=== PATIENT | male | born 1970 | race Caucasian/White ===

== ENCOUNTER → 2018-09-01 | Emergency (ER) | payer OTHER | END | disposition left against medical advice (07) | LOC: ER FS 20:58 | DX: R25.9 Unspecified abnormal involuntary movements (principal); E11.9 Type 2 diabetes mellitus without complications ==

== ENCOUNTER 2018-09-06 20:04 | Emergency (ER) | payer OTHER ==
[~2018-09-06] VITALS: Ht 172.7 cm; Wt 104.3 kg
--- NOTE | 2018-09-06 20:32 | ED General ---
General Chief Complaint: Abdominal/GI Problems Stated Complaint: VOMITTING History of Present Illness Date Seen by Provider: Sep 06, 2018 Time Seen by Provider: 21:00 Initial Comments Patient is a 48-year-old male who presents to the emergency department complaining of nausea with emesis. He states he woke up from a nap around 7:30 or 8:00 this evening. After that, he had 2 episodes of emesis. He has no additional complaints today. He does endorse a prior history of known liver disease with some sort of cancer although he cannot say what kind it is. He is followed at [facility]. No recent fever or chills. No cough. No additional problems. Allergies and Home Medications Allergies Coded Allergies: aripiprazole (Verified Allergy, Unknown, hallucinations, 09/06/18) zolpidem (Verified Allergy, Unknown, hallucinations, 09/06/18) Home Medications Haloperidol 5 Mg Tab, 10 MG PO HS, (Reported) Simvastatin 40 Mg Tablet, HS, (Reported) Patient Home Medication List Home Medication List Reviewed: Yes Review of Systems Review of Systems Constitutional: no symptoms reported EENTM: see HPI Respiratory: see HPI Cardiovascular: no symptoms reported Gastrointestinal: see HPI Genitourinary: no symptoms reported Musculoskeletal: no symptoms reported Skin: no symptoms reported Past Jqhltzt-Dstvwc-Xplpml Hx Patient Social History Recent Foreign Travel: No Contact w/Someone Who Travel: No Physical Exam Vital Signs Vital Signs - First Documented 09/06/18 20:41 Temp 98.8 Pulse 102 Resp 16 B/P (MAP) 144/80 (101) Pulse Ox 95 O2 Delivery Room Air Capillary Refill : Height, Weight, BMI Height: '" Weight: lbs. oz. kg; BMI Method: General Appearance: No Apparent Distress HEENT: PERRL/EOMI Respiratory: Lungs Clear Cardiovascular: Regular Rate, Rhythm Gastrointestinal: Normal Bowel Sounds, Non Tender, Soft Back: Normal Inspection Neurologic/Psychiatric: Alert, Oriented x3 Progress/Results/Core Measures Suspected Sepsis Recent Fever Within 48 Hours: No Infection Criteria Present: None New/Unexplained Altered Menta: No SIRS Temperature: Pulse: Respiratory Rate: Blood Pressure / Mean: Results/Orders My Orders Orders - SHANTANU CACERES DO Saline Lock/Iv-Start (09/06/18 20:48) Ondansetron Oral Dissolve Tab (Zofran (3/2/19 21:04) Vital Signs/I&O 09/06/18 20:41 Temp 98.8 Pulse 102 Resp 16 B/P (MAP) 144/80 (101) Pulse Ox 95 O2 Delivery Room Air Capillary Refill : Critical Care Note Critical Care Total Time (minutes) 21:15: ED Summary: Patient was evaluated in the emergency department for what he described to be 2 episodes of nonbloody emesis. His symptoms had completely resolved by the time he arrived in the ER. Although the patient does have some chronic health conditions, he had no additional acute complaints this evening. I did examine him thoroughly. His abdomen was obese and soft and nondistended. No peritoneal signs. No indication for imaging. The patient was well appearing with stable vital signs. In the ER, he was given 1 dose of Zofran. Following this, he was requesting to go outside and smoke a cigarette. At this time, I proposed that the patient be discharged home. Initially we ordered some labs and IV fluids but the patient declines desire to have all of this workup completed. He is nontoxic in appearance and I feel he is medically safe for discharge even without the workup. Patient did request discharge home. He was discharged and encouraged to follow up with his primary care doctor. Return to the ER for any new or worsening symptoms. Departure Impression Primary Impression: Nausea alone Disposition: 01 HOME, SELF-CARE Condition: Improved Departure-Patient Inst. Referrals: NO,LOCAL PHYSICIAN (PCP) Primary Care Physician SHANTANU CACEERS DO Sep 06, 2018 20:32
[2018-09-06] MEDS ORDERED: PHENYTOIN EX CAP 100MG (20:36)
[2018-09-06] MEDS ORDERED: METFORMIN TAB 500MG (20:36)
[2018-09-06] MEDS ORDERED: LORAZEPAM TAB 1MG (20:36)
[2018-09-06] MEDS ORDERED: POTASSIUM CHLORIDE (20:36)
[2018-09-06] MEDS ORDERED: RISPERIDONE 3 MG (20:36)
[2018-09-06] MEDS ORDERED: CITA40TA19 (20:53)
[2018-09-06] MEDS ORDERED: SIMV40TA2 (20:53)
[2018-09-06] MEDS ORDERED: HLP5T PO (20:53)
[2018-09-06] MEDS ORDERED: ONDANSETRON 4 MG/2 ML (SDV) Z0FRAN IVP ONE (21:00)
[2018-09-06] MEDS ORDERED: NS IV 1000 ML 1,000 ML IV SCH (21:00)
[2018-09-06] MEDS ORDERED: ONDANSETRON 4 MG (ZOFRAN) ORAL DISSOLVE TAB PO STA (21:04)
--- NOTE | 2018-09-06 21:05 | NUR ---
Pt refused iv.
[2018-09-06 21:15] VITALS: BP 138/76
== END 2018-09-06 21:15 | disposition home or self-care (01) ==
LOC: EDUNIT# 20:04 → ER FS 20:08
DX: R11.0 Nausea (principal); Z88.8 Allergy status to other drugs, medicaments and biological substances
CPT/HCPCS: 99283

== ENCOUNTER 2018-10-01 03:47 | Emergency (ER) | payer MEDICARE, MEDICAID ==
[~2018-10-01] VITALS: Ht 172.7 cm; Wt 104.3 kg
[~2018-10-01 03:47] MED LIST: CITA40TA19; HLP5T PO; LORAZEPAM TAB 1MG; METFORMIN TAB 500MG; PHENYTOIN EX CAP 100MG; POTASSIUM CHLORIDE; RISPERIDONE 3 MG; SIMV40TA2
[2018-10-01] MEDS ORDERED: NS IV 1000 ML 1,000 ML IV SCH (04:00)
[2018-10-01] MEDS ORDERED: ONDANSETRON 4 MG/2 ML (SDV) Z0FRAN IVP ONE (04:00)
--- NOTE | 2018-10-01 04:00 | ED Abdominal Pain ---
General Chief Complaint: Abdominal/GI Problems Stated Complaint: LOW BLOOD SURGAR Source of Information: Patient, EMS History of Present Illness Date Seen by Provider: Oct 01, 2018 Time Seen by Provider: 03:47 Initial Comments 48 yo M presenting with complaints of 3 weeks of abdominal pain with n/v/d. He states he is also having blood in his urine now. He reports a history of diabetes with liver cancer and cirrhosis. He presents to the ED by EMS transport from home. He walked from the ambulance to the ED room. He reports going to the [facility] on [address] yesterday and that they told him he had an inner ear infection and gave him Zofran. He presents tonight because he "wants to get better". He follows with Dr. Chadwick and has an appointment on October 06. He states his diarrhea has been "non-stop" for the last 3 weeks as well as his n/v. He has not gone to see his doctor at about his "stage 3 liver cancer and cirrhosis" since July and not gone to see Dr. Chadwick in the last 3 weeks of being sick. He was in the ED on September 06 for same complaints and left to smoke rather than wait to be seen. Severity/Quality: Cramping Location: Generalized Abdomen Allergies and Home Medications Allergies Coded Allergies: aripiprazole (Verified Allergy, Unknown, hallucinations, 10/01/18) zolpidem (Verified Allergy, Unknown, hallucinations, 10/01/18) Home Medications Dicyclomine HCl 20 Mg Tablet, 20 MG PO QID PRN for ABDOMINAL PAIN Prescribed by: LUIS LECHUGA on 10/01/18 0501 Haloperidol 5 Mg Tab, 10 MG PO HS, (Reported) Simvastatin 40 Mg Tablet, HS, (Reported) Patient Home Medication List Home Medication List Reviewed: Yes Review of Systems Review of Systems Constitutional: No chills, No dizziness, No fever; malaise EENTM: No Symptoms Reported Respiratory: Denies Cough, Denies Shortness of Air Cardiovascular: Denies Chest Pain, Denies Edema, Denies Lightheadedness Gastrointestinal: See HPI Genitourinary: Burning, Hematuria Musculoskeletal: no symptoms reported Skin: no symptoms reported Psychiatric/Neurological: No Symptoms Reported Hematologic/Lymphatic: Denies Easy Bleeding, Denies Easy Bruising Past Ylrgqic-Fzchzc-Utdxyy Hx Past Med/Social Hx: Reviewed Nursing Past Med/Soc Hx Patient Social History Alcohol Use: Denies Use Drug of Choice: marijuana Type Used: Cigarettes 2nd Hand Smoke Exposure: Yes Recent Foreign Travel: No Contact w/Someone Who Travel: No Past Medical History Respiratory: No Cardiac: No Neurological: No Genitourinary: No Hepatitis, Cirrhosis Musculoskeletal: No Diabetes, Non-Insulin dep HEENT: No Physical Exam Vital Signs Vital Signs - First Documented 10/01/18 04:00 Temp 98.3 Pulse 95 Resp 16 B/P (MAP) 152/82 (105) Pulse Ox 94 O2 Delivery Room Air Capillary Refill : Height/Weight/BMI Height: 5'8.00" Weight: 230lbs. oz. 104.961401rk; BMI Method:Stated General Appearance: WD/WN, no apparent distress HEENT: PERRL/EOMI, normal ENT inspection, TMs normal, pharynx normal Neck: non-tender, full range of motion, supple, normal inspection Respiratory: chest non-tender, lungs clear, normal breath sounds, no respiratory distress, no accessory muscle use Cardiovascular: normal peripheral pulses, regular rate, rhythm Gastrointestinal: normal bowel sounds, soft; No guarding, No rebound; tenderness (mild diffuse tenderness. ), other (obese abdomen) Rectal: deferred Extremities: normal range of motion, non-tender, normal inspection Neurologic/Psychiatric: alert, normal mood/affect, oriented x 3 Skin: normal color, warm/dry Progress/Results/Core Measures Results/Orders Lab Results Laboratory Tests Test 10/01/18 04:00 10/01/18 04:04 Range/Units White Blood Count 4.0 L 4.3-11.0 10^3/uL Red Blood Count 5.15 4.35-5.85 10^6/uL Hemoglobin 15.1 13.3-17.7 G/DL Hematocrit 44 40-54 % Mean Corpuscular Volume 86 80-99 FL Mean Corpuscular Hemoglobin 29 25-34 PG Mean Corpuscular Hemoglobin Concent 34 32-36 G/DL Red Cell Distribution Width 13.4 10.0-14.5 % Platelet Count 60 L 130-400 10^3/uL Mean Platelet Volume 11.2 H 7.4-10.4 FL Neutrophils (%) (Auto) 34 L 42-75 % Lymphocytes (%) (Auto) 51 H 12-44 % Monocytes (%) (Auto) 14 H 0-12 % Eosinophils (%) (Auto) 1 0-10 % Basophils (%) (Auto) 0 0-10 % Neutrophils # (Auto) 1.4 L 1.8-7.8 X 10^3 Lymphocytes # (Auto) 2.1 1.0-4.0 X 10^3 Monocytes # (Auto) 0.6 0.0-1.0 X 10^3 Eosinophils # (Auto) 0.0 0.0-0.3 10^3/uL Basophils # (Auto) 0.0 0.0-0.1 10^3/uL Sodium Level 136 135-145 MMOL/L Potassium Level 3.5 L 3.6-5.0 MMOL/L Chloride Level 98 98-107 MMOL/L Carbon Dioxide Level 24 21-32 MMOL/L Anion Gap 14 5-14 MMOL/L Blood Urea Nitrogen 12 7-18 MG/DL Creatinine 0.58 L 0.60-1.30 MG/DL Estimat Glomerular Filtration Rate > 60 BUN/Creatinine Ratio 21 Glucose Level 264 H 70-105 MG/DL Calcium Level 8.7 8.5-10.1 MG/DL Corrected Calcium 8.9 8.5-10.1 MG/DL Total Bilirubin 0.4 0.1-1.0 MG/DL Aspartate Amino Transf (AST/SGOT) 85 H 5-34 U/L Alanine Aminotransferase (ALT/SGPT) 69 H 0-55 U/L Alkaline Phosphatase 104 40-136 U/L Total Protein 7.4 6.4-8.2 GM/DL Albumin 3.8 3.2-4.5 GM/DL Lipase 43 8-78 U/L Urine Color DARK YELLOW Urine Clarity CLEAR Urine pH 5.5 5-9 Urine Specific [place] >1.030 1.016-1.022 Urine Protein TRACE NEGATIVE Urine Glucose (UA) 2+ H NEGATIVE Urine Ketones NEGATIVE NEGATIVE Urine Nitrite NEGATIVE NEGATIVE Urine Bilirubin NEGATIVE NEGATIVE Urine Urobilinogen 0.2 NORMAL MG/DL Urine Leukocyte Esterase NEGATIVE NEGATIVE Urine RBC (Auto) NEGATIVE NEGATIVE Urine RBC NONE /HPF Urine WBC NONE /HPF Urine Squamous Epithelial Cells 2-5 /HPF Urine Crystals NONE /LPF Urine Bacteria NONE /HPF Urine Casts NONE /LPF Urine Mucus NEGATIVE /LPF Urine Culture Indicated NO My Orders Orders - LUIS LECHUGA MD Comprehensive Metabolic Panel (10/01/18 03:58) Lipase (10/01/18 03:58) Ua Culture If Indicated (10/01/18 03:58) Saline Lock/Iv-Start (10/01/18 03:58) Cbc With Automated Diff (10/01/18 03:58) Ondansetron Injection (Zofran Injectio (10/01/18 04:00) Ns Iv 1000 Ml (Sodium Chloride 0.9%) (10/01/18 04:00) Dicyclomine Injection (Bentyl Injection) (10/01/18 04:57) Medications Given in ED Current Medications Medications Dose Ordered Sig/Chantel Route Start Time Stop Time Status Last Admin Dose Admin Ondansetron HCl 4 mg ONCE ONCE IVP 10/01/18 04:00 10/01/18 04:01 DC 10/01/18 04:05 4 MG Vital Signs/I&O 10/01/18 04:00 Temp 98.3 Pulse 95 Resp 16 B/P (MAP) 152/82 (105) Pulse Ox 94 O2 Delivery Room Air Progress Progress Note #1: Time: 04:00 Progress Note Will check Urine and Labs. Give Zofran with IVF. Exam seems benign and his vital signs and exam do not suggest 3 weeks of non stop n/v/d, but will give some extra hydration to help support his elevated glucose of 300. Progress Note #2: Time: 04:45 Progress Note After treatment in the ED he was improved. No Diarrhea or vomiting in the ED. His labs appear stable and he has no elevation of his WBC count. He has Thrombocytopenia of 60,000 and mild elevation of AST and ALT consistent with his reported hx of cirrhosis and liver disease. Urine slightly concentrated but no hematuria present. He has been coughing some here in the ED but his lungs are clear and he has a good oxygen saturation. No indication for chest xray or antibiotics. Counseled pt to take a Probiotic to help improve his gut and to take the Zofran to help his nausea. Use the Bentyl to help with abdominal pain/nausea and diarrhea. keep appt with Dr. Chadwick on Saturday as scheduled and return sooner or be seen sooner if more concerns. Departure Impression Primary Impression: Nausea vomiting and diarrhea Additional Impression: Diffuse abdominal pain Disposition: 01 HOME, SELF-CARE Condition: Improved Departure-Patient Inst. Decision time for Depature: 04:45 Referrals: NO,LOCAL PHYSICIAN (PCP) Primary Care Physician Patient Instructions: Diarrhea in Adolescents and Adults, Nausea and Vomiting, Adult (DC) Add. Discharge Instructions: Continue to push fluids and rest. Stay well hydrated. Check with Dr. Chadwick on Saturday as scheduled or sooner if more concerns. Use the Zofran dissolving tablets to help keep your stomach settled. You may also try using Bentyl (Dicyclomine) to help with abdominal pain and cramping. Start taking a ProBiotic to help your gut and intestines get back to a healthy balance of bacteria. All discharge instructions reviewed with patient and/or family. Voiced understanding. Scripts Dicyclomine HCl (Dicyclomine HCl) 20 Mg Tablet 20 MG PO QID PRN for ABDOMINAL PAIN for 7 Days, #30 TAB 0 Refills Prov: LUIS LECHUGA MD 10/01/18 LUIS LECHUGA MD Oct 01, 2018 04:00
[2018-10-01 04:26] LABS: CLARITY,URINE CLEAR; COLOR,URINE DARK YELLOW; GLUCOSE, URINE (UA) 2+ (NEGATIVE); PH,URINE 5.5 (5-9); PROTEIN,URINE TRACE (NEGATIVE)
[2018-10-01 04:27] LABS: BILIRUBIN,URINE NEGATIVE (NEGATIVE); KETONES,URINE NEGATIVE (NEGATIVE); LEUKOCYTE ESTERASE ,URINE NEGATIVE (NEGATIVE); NITRITE,URINE NEGATIVE (NEGATIVE); UROBILINOGEN,URINE 0.2 MG/DL (NORMAL)
[2018-10-01 04:27] LABS: HEMATOCRIT 44 % (40-54); HEMOGLOBIN 15.1 G/DL (13.3-17.7); MEAN CORPUSCULAR HEMOGLOBIN 29 PG (25-34); MEAN CORPUSCULAR HGB CONC 34 G/DL (32-36); MEAN CORPUSCULAR VOLUME 86 FL (80-99)
[2018-10-01 04:28] LABS: BASOPHILS % (AUTO) 0 % (0-10); EOSINOPHILS % (AUTO) 1 % (0-10); LYMPHOCYTES # (AUTO) 2.1 X 10^3 (1.0-4.0); LYMPHOCYTES % (AUTO) 51 % (12-44); MEAN PLATELET VOLUME 11.2 FL (7.4-10.4); MONOCYTES # (AUTO) 0.6 X 10^3 (0.0-1.0); MONOCYTES % (AUTO) 14 % (0-12); NEUTROPHILS # (AUTO) 1.4 X 10^3 (1.8-7.8); NEUTROPHILS % (AUTO) 34 % (42-75); PLATELET COUNT 60 10^3/uL (130-400); RED CELL DISTRIBUTION WIDTH 13.4 % (10.0-14.5)
--- NOTE | 2018-10-01 04:28 | NUR ---
PT. HAS ASKED TWICE TO GO OUT TO SMOKE.
[2018-10-01 04:40] LABS: ALANINE AMINOTRANSFERASE 69 U/L (0-55); ALKALINE PHOSPHATASE 104 U/L (40-136); BILIRUBIN,TOTAL 0.4 MG/DL (0.1-1.0); BUN/CREATININE RATIO 21; CALCIUM 8.7 MG/DL (8.5-10.1); CARBON DIOXIDE 24 MMOL/L (21-32); CHLORIDE 98 MMOL/L (98-107); CREATININE SERUM 0.58 MG/DL (0.60-1.30); GFR ESTIMATED > 60; GLUCOSE 264 MG/DL (70-105); POTASSIUM 3.5 MMOL/L (3.6-5.0); SODIUM 136 MMOL/L (135-145)
[2018-10-01 04:41] LABS: ALBUMIN 3.8 GM/DL (3.2-4.5); TOTAL PROTEIN 7.4 GM/DL (6.4-8.2)
--- NOTE | 2018-10-01 04:41 | NUR ---
PT. UP TO THE BATHROOM AT THIS TIME.
[2018-10-01 04:42] LABS: LIPASE 43 U/L (8-78)
[2018-10-01] MEDS ORDERED: DICYCLOMINE 10 MG/ML (BENTYL) 2 ML AMP IM STA (04:57)
[2018-10-01] MEDS ORDERED: DICY20TA10 PO (05:01)
[2018-10-01 05:07] VITALS: BP 152/82
[2018-10-01] MEDS ORDERED: INSU100I34 (18:19)
[2018-10-01] MEDS ORDERED: LORA1TAB (18:19)
[2018-10-01] MEDS ORDERED: BUDE10.2 (18:19)
== END 2018-10-01 05:05 | disposition home or self-care (01) ==
LOC: EDUNIT# 03:47 → ER FS 03:51
DX: R11.2 Nausea with vomiting, unspecified (principal); R19.7 Diarrhea, unspecified; R10.84 Generalized abdominal pain; E11.9 Type 2 diabetes mellitus without complications; K74.60 Unspecified cirrhosis of liver; Z77.22 Contact with and (suspected) exposure to environmental tobacco smoke (acute) (chronic); Z85.05 Personal history of malignant neoplasm of liver; Z88.8 Allergy status to other drugs, medicaments and biological substances
CPT/HCPCS: 36415; 80053; 81000; 83690; 85025

== ENCOUNTER 2018-10-01 17:41 | Emergency (ER) | payer MEDICARE, MEDICAID ==
[~2018-10-01] VITALS: Ht 172.7 cm; Wt 108.9 kg
[~2018-10-01 17:41] MED LIST changes: +DICY20TA10 PO
--- NOTE | 2018-10-01 18:07 | ED Neurological Problem ---
General Chief Complaint: Neurological Problems Stated Complaint: TREMORS History of Present Illness Date Seen by Provider: Oct 01, 2018 Time Seen by Provider: 18:05 Initial Comments julianne was [facility] getting [facility] he fell off he thinks he had a seizure he fell off the chair he hit his head he has had diarrhea for a few weeks now he did have labs less than 24 hours ago and for the most part looked pretty good platelets were little low otherwise stable he said he is actually feeling a little better now Allergies and Home Medications Allergies Coded Allergies: aripiprazole (Verified Allergy, Unknown, hallucinations, 10/01/18) zolpidem (Verified Allergy, Unknown, hallucinations, 10/01/18) Home Medications Dicyclomine HCl 20 Mg Tablet, 20 MG PO QID PRN for ABDOMINAL PAIN Prescribed by: LUIS LECHUGA on 10/01/18 0501 Haloperidol 5 Mg Tab, 10 MG PO HS, (Reported) Simvastatin 40 Mg Tablet, HS, (Reported) Patient Home Medication List Home Medication List Reviewed: Yes Review of Systems Review of Systems Constitutional: see HPI Respiratory: no symptoms reported Cardiovascular: no symptoms reported Genitourinary: no symptoms reported Psychiatric/Neurological: Headache Past Lgdlsgz-Psaqgs-Ktxzib Hx Past Med/Social Hx: Reviewed Nursing Past Med/Soc Hx Patient Social History Drug of Choice: marijuana Type Used: Cigarettes 2nd Hand Smoke Exposure: Yes Recent Foreign Travel: No Contact w/Someone Who Travel: No Past Medical History Respiratory: No Cardiac: No Neurological: No Genitourinary: No Hepatitis, Cirrhosis Musculoskeletal: No Diabetes, Non-Insulin dep HEENT: No Physical Exam Vital Signs Vital Signs - First Documented 10/01/18 17:49 Temp 99.3 Pulse 96 Resp 18 B/P (MAP) 125/72 (89) Pulse Ox 93 Capillary Refill : Height, Weight, BMI Height: 5'8.00" Weight: 230lbs. oz. 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 as tested, no motor/sensory deficits, alert, normal mood/affect, oriented x 3 Crainal Nerves: PERRL Skin: other (Small contusion to the forehead) Progress/Results/Core Measures Results/Orders Lab Results Laboratory Tests Test 10/01/18 17:58 Range/Units Glucometer 236 H 70-110 MG/DL My Orders Orders - HUONG ELLIOTT MD Accucheck Stat ONCE (10/01/18 18:04) Dilantin (Phenytoin) (10/01/18 18:04) Ct Head Wo (10/01/18 18:04) Vital Signs/I&O 10/01/18 17:49 Temp 99.3 Pulse 96 Resp 18 B/P (MAP) 125/72 (89) Pulse Ox 93 Progress Progress Note : Progress Note 48 y o m known seizure d/o p after probable seizure. bg within normal range. we tried to get dilantin level, he is hard stick and on top of that we cant run it at this hospital anyway it would be a send out. pt has occasional seizures, i think he can f/u with his doctor about his dilantin dosing prn. ct head neg acute pt wants to leave so he can smoke a cigarette Departure Impression Primary Impression: Seizure Disposition: 01 HOME, SELF-CARE Condition: Stable Departure-Patient Inst. Referrals: NO,LOCAL PHYSICIAN (PCP/Family) Primary Care Physician Patient Instructions: Seizures, Adult (DC) HUONG ELLIOTT MD Oct 01, 2018 18:07
[2018-10-01] MEDS ORDERED: LORA1TAB (18:19)
[2018-10-01] MEDS ORDERED: BUDE10.2 (18:19)
[2018-10-01] MEDS ORDERED: INSU100I34 (18:19)
--- NOTE | 2018-10-01 18:37 | Diagnostic Imaging Report ---
PROCEDURE: CT head without contrast. TECHNIQUE: Multiple contiguous axial images were obtained through the brain without the use of intravenous contrast. Auto Exposure Controls were utilized during the CT exam to meet ALARA standards for radiation dose reduction. INDICATION: Tremors, seizure-like activity. COMPARISON: None available. FINDINGS: No intracranial hemorrhage. No intracranial mass, mass effect, midline shift, herniation, hydrocephalus, or extra-axial fluid collection. No definite CT evidence of an acute ischemic infarction. The partially visualized orbits are unremarkable. No acute calvarial fracture. Mucosal thickening and fluid within scattered ethmoidal air cells and within the minimally visualized left maxillary sinus. IMPRESSION: 1. No acute intracranial abnormality. 2. Paranasal sinus disease is partially visualized on the left. Dictated by: Dictated on workstation # [id number]
[2018-10-01 19:09] VITALS: BP 150/75
== END 2018-10-01 19:11 | disposition home or self-care (01) ==
LOC: EDUNIT# 17:41 → ER FS 17:42
DX: R56.9 Unspecified convulsions (principal); E11.9 Type 2 diabetes mellitus without complications; F12.10 Cannabis abuse, uncomplicated; K74.60 Unspecified cirrhosis of liver; Z88.8 Allergy status to other drugs, medicaments and biological substances; Z77.22 Contact with and (suspected) exposure to environmental tobacco smoke (acute) (chronic)
CPT/HCPCS: 70450; 82962

== ENCOUNTER 2018-10-06 11:36 | Emergency (ER) | payer MEDICAID, MEDICARE ==
[~2018-10-06] VITALS: Ht 172.7 cm; Wt 104.3 kg
[~2018-10-06 11:36] MED LIST changes: +BUDE10.2; +INSU100I34; +LORA1TAB
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
[2018-10-06 13:05] VITALS: BP 103/72
== END 2018-10-06 13:05 | disposition home or self-care (01) ==
LOC: EDUNIT# 11:36 → ER FS 11:42
DX: S09.90XA Unspecified injury of head, initial encounter (principal); S16.1XXA Strain of muscle, fascia and tendon at neck level, initial encounter; F12.10 Cannabis abuse, uncomplicated; F17.210 Nicotine dependence, cigarettes, uncomplicated; G40.909 Epilepsy, unspecified, not intractable, without status epilepticus; F31.9 Bipolar disorder, unspecified; F60.9 Personality disorder, unspecified; R40.2142 Coma scale, eyes open, spontaneous, at arrival to emergency department; R40.2252 Coma scale, best verbal response, oriented, at arrival to emergency department; R40.2362 Coma scale, best motor response, obeys commands, at arrival to emergency department; Z87.19 Personal history of other diseases of the digestive system; Z87.820 Personal history of traumatic brain injury; Z88.8 Allergy status to other drugs, medicaments and biological substances; V49.50XA Passenger injured in collision with unspecified motor vehicles in traffic accident, initial encounter
CPT/HCPCS: 70450; 72125

== ENCOUNTER 2019-01-24 11:58 | Emergency (ER) | payer MEDICARE ==
[~2019-01-24] VITALS: Ht 172.7 cm; Wt 99.8 kg
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
[2019-01-24 12:30] LABS: BILIRUBIN,URINE NEGATIVE (NEGATIVE); CLARITY,URINE CLEAR; COLOR,URINE YELLOW; GLUCOSE, URINE (UA) NEGATIVE (NEGATIVE); KETONES,URINE NEGATIVE (NEGATIVE); LEUKOCYTE ESTERASE ,URINE NEGATIVE (NEGATIVE); NITRITE,URINE NEGATIVE (NEGATIVE); PROTEIN,URINE NEGATIVE (NEGATIVE); UROBILINOGEN,URINE 0.2 MG/DL (NORMAL)
[2019-01-24] MEDS ORDERED: IOHEXOL 350 MG/ML 100 ML (OMNIPAQUE 350) VIAL IV ONE (12:30)
[2019-01-24] MEDS ORDERED: HOLD METFORMIN - RECEIVED CONTRAST 20 ML VIAL IV SCH (12:30)
[2019-01-24] MEDS ORDERED: NS 100 ML (IVPB) BAG IV ONE (12:30)
[2019-01-24 12:40] LABS: AMPHETAMINE SCREEN, URINE NEGATIVE (NEGATIVE); BARBITURATE SCREEN URINE POSITIVE (NEGATIVE); BENZODIAZEPINES SCREEN URINE POSITIVE (NEGATIVE); CANNABINOID SCREEN, URINE NEGATIVE (NEGATIVE); COCAINE SCREEN URINE NEGATIVE (NEGATIVE); METHADONE STAT NEGATIVE (NEGATIVE); METHAMPHETAMINE SCREEN URINE S NEGATIVE (NEGATIVE); OPIATE SCREEN URINE NEGATIVE (NEGATIVE); OXYCODONE STAT NEGATIVE (NEGATIVE); PROPOXYPHENE STAT NEGATIVE (NEGATIVE); TRICYCLIC ANTIDEPRESSANTS SCRE POSITIVE (NEGATIVE)
[2019-01-24 12:45] LABS: BASOPHILS % (AUTO) 1 % (0-10); EOSINOPHILS # (AUTO) 0.1 10^3/uL (0.0-0.3); EOSINOPHILS % (AUTO) 3 % (0-10); HEMATOCRIT 43 % (40-54); HEMOGLOBIN 14.9 G/DL (13.3-17.7); LYMPHOCYTES % (AUTO) 41 % (12-44); MEAN CORPUSCULAR HEMOGLOBIN 31 PG (25-34); MEAN CORPUSCULAR HGB CONC 35 G/DL (32-36); MEAN CORPUSCULAR VOLUME 88 FL (80-99); MEAN PLATELET VOLUME 11.1 FL (7.4-10.4); MONOCYTES # (AUTO) 0.4 X 10^3 (0.0-1.0); MONOCYTES % (AUTO) 9 % (0-12); NEUTROPHILS # (AUTO) 2.3 X 10^3 (1.8-7.8); NEUTROPHILS % (AUTO) 47 % (42-75); PLATELET COUNT 66 10^3/uL (130-400); RED CELL DISTRIBUTION WIDTH 13.2 % (10.0-14.5); WHITE BLOOD COUNT 4.8 10^3/uL (4.3-11.0)
[2019-01-24 13:04] LABS: ALKALINE PHOSPHATASE 88 U/L (40-136); BILIRUBIN,TOTAL 0.4 MG/DL (0.1-1.0); BUN/CREATININE RATIO 17; CARBON DIOXIDE 24 MMOL/L (21-32); CHLORIDE 99 MMOL/L (98-107); CREATININE SERUM 0.75 MG/DL (0.60-1.30); GFR ESTIMATED > 60; GLUCOSE 230 MG/DL (70-105); POTASSIUM 4.2 MMOL/L (3.6-5.0); SODIUM 139 MMOL/L (135-145)
[2019-01-24 13:05] LABS: ALANINE AMINOTRANSFERASE 46 U/L (0-55); ALBUMIN 4.1 GM/DL (3.2-4.5); TOTAL PROTEIN 7.4 GM/DL (6.4-8.2)
--- NOTE | 2019-01-24 13:18 | Diagnostic Imaging Report ---
INDICATION: Shortness of breath COMPARISON: None. FINDINGS: Single view the chest demonstrates minimal atelectasis left lung base. The heart size is normal. There is no pneumothorax. Osseous structures are normal. IMPRESSION: Minimal atelectasis left lung base. Dictated by: Dictated on workstation # [id number]
--- NOTE | 2019-01-24 13:20 | Diagnostic Imaging Report ---
PROCEDURE: CT abdomen and pelvis with contrast. TECHNIQUE: Multiple contiguous axial images were obtained through the abdomen and pelvis after administration of intravenous contrast. Auto Exposure Controls were utilized during the CT exam to meet ALARA standards for radiation dose reduction. INDICATION: Painful urination. COMPARISON: None. FINDINGS: The lung bases are clear. There is slight splenomegaly. The gallbladder is surgically absent. Liver, pancreas, adrenal glands, kidneys, vascular structures and bowel are unremarkable. There is no significant constipation, free air or free fluid. Appendix is normal. Distal ureters and urinary bladder normal. There is no hydronephrosis or hydroureter. No obvious renal calculi are seen. The prostate is not enlarged. Inguinal regions are grossly normal. There is no lymphadenopathy. IMPRESSION: 1. Nonspecific mild splenomegaly. 2. Surgically absent gallbladder. 3. Normal-appearing kidneys, ureter, bladder and prostate. 4. No bowel obstruction, free air or free fluid. Dictated by: Dictated on workstation # [id number]
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
[2019-01-24] MEDS ORDERED: ACHD5005 PO (13:51)
[2019-01-24 14:05] VITALS: BP 122/79
[2019-01-24 17:14] LABS: AMMONIA 54 UMOL/L (11-32)
== END 2019-01-24 14:05 | disposition home or self-care (01) ==
LOC: EDUNIT# 11:58 → ER FS 11:59
DX: R25.9 Unspecified abnormal involuntary movements (principal); R10.9 Unspecified abdominal pain; G40.909 Epilepsy, unspecified, not intractable, without status epilepticus; F31.9 Bipolar disorder, unspecified; E11.9 Type 2 diabetes mellitus without complications; K74.60 Unspecified cirrhosis of liver; J45.909 Unspecified asthma, uncomplicated; G43.909 Migraine, unspecified, not intractable, without status migrainosus; K21.9 Gastro-esophageal reflux disease without esophagitis; F60.9 Personality disorder, unspecified; F17.210 Nicotine dependence, cigarettes, uncomplicated; Z85.05 Personal history of malignant neoplasm of liver; Z87.820 Personal history of traumatic brain injury; Z88.8 Allergy status to other drugs, medicaments and biological substances
CPT/HCPCS: 36415; 70450; 71045; 74177; 80053; 80185; 80306; 80320; 81000; 82140; 85025; 86141; 87040

== ENCOUNTER 2019-01-30 10:32 | Emergency (ER) | payer MEDICARE ==
[~2019-01-30] VITALS: Ht 172.7 cm; Wt 99.8 kg
[~2019-01-30 10:32] MED LIST changes: +ACHD5005 PO
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
[2019-01-30 11:10] LABS: BASOPHILS % (AUTO) 1 % (0-10); EOSINOPHILS # (AUTO) 0.2 10^3/uL (0.0-0.3); EOSINOPHILS % (AUTO) 3 % (0-10); HEMATOCRIT 44 % (40-54); HEMOGLOBIN 15.5 G/DL (13.3-17.7); LYMPHOCYTES # (AUTO) 1.5 X 10^3 (1.0-4.0); LYMPHOCYTES % (AUTO) 30 % (12-44); MEAN CORPUSCULAR HEMOGLOBIN 31 PG (25-34); MEAN CORPUSCULAR HGB CONC 35 G/DL (32-36); MEAN CORPUSCULAR VOLUME 88 FL (80-99); MEAN PLATELET VOLUME 10.5 FL (7.4-10.4); MONOCYTES # (AUTO) 0.4 X 10^3 (0.0-1.0); MONOCYTES % (AUTO) 9 % (0-12); NEUTROPHILS # (AUTO) 2.7 X 10^3 (1.8-7.8); NEUTROPHILS % (AUTO) 57 % (42-75); PLATELET COUNT 70 10^3/uL (130-400); RED CELL DISTRIBUTION WIDTH 13.1 % (10.0-14.5); WHITE BLOOD COUNT 4.8 10^3/uL (4.3-11.0)
[2019-01-30 11:28] LABS: BUN/CREATININE RATIO 19; CALCIUM 9.7 MG/DL (8.5-10.1); CARBON DIOXIDE 24 MMOL/L (21-32); CHLORIDE 95 MMOL/L (98-107); GFR ESTIMATED > 60; GLUCOSE 377 MG/DL (70-105); POTASSIUM 4.2 MMOL/L (3.6-5.0); SODIUM 134 MMOL/L (135-145)
--- NOTE | 2019-01-30 12:55 | ED General ---
General Chief Complaint: Neurological Problems Stated Complaint: SEIZURE Nursing Triage Note: PT REPORTS HE FELL OUT OF BED AND OUT OF HIS CHAIR LAST PM, UNKNOWN REASON WHY. HE REPORTS HE FELL OUT OF HIS CHAIR THIS AM AND HIS REPORTED TO HIM THAT HE WAS BITING HIS TONGUE. PT IS ON DILANTIN AND HAS NOT HAD LEVELS CHECKED IN AWHILE. Nursing Sepsis Screen: No Definite Risk Source of Information: Patient History of Present Illness Date Seen by Provider: Jan 30, 2019 Time Seen by Provider: 10:50 Initial Comments Patient is 48-year-old male with extensive psychiatric history along with general medical problems including seizure disorder and seizures who presents his medicine department complaining of seizure-like activity earlier this morning. Patient reports shaking upper and lower extremities and following down. Denies hitting his head, headache, neck injury. Patient also reports constipation but then complaints of diarrhea. He also complains of diffuse lower abdominal pain with urge to defecate. Denies bloody stools or tarry stools. No flank pain, any frequency urgency dysuria or hematuria. No history of kidney stones. No other acute symptoms or complaints. Timing/Duration: 1 Hour Severity: Mild Associated Systoms: Denies Symptoms Allergies and Home Medications Allergies Coded Allergies: aripiprazole (Verified Allergy, Unknown, hallucinations, 10/01/18) zolpidem (Verified Allergy, Unknown, hallucinations, 10/01/18) Home Medications Dicyclomine HCl 20 Mg Tablet, 20 MG PO QID PRN for ABDOMINAL PAIN Prescribed by: LUIS LECHUGA on 10/01/18 0501 Haloperidol 5 Mg Tab, 10 MG PO HS, (Reported) Hydrocodone Bit/Acetaminophen 1 Tab Tab, 1 EACH PO Q4-6HR PRN for PAIN-MODERATE Prescribed by: HILDA YBARRA on 01/24/19 1351 Simvastatin 40 Mg Tablet, HS, (Reported) Patient Home Medication List Home Medication List Reviewed: Yes Review of Systems Review of Systems Constitutional: no symptoms reported EENTM: no symptoms reported Respiratory: no symptoms reported Cardiovascular: no symptoms reported Gastrointestinal: no symptoms reported Genitourinary: see HPI Musculoskeletal: no symptoms reported Skin: no symptoms reported Psychiatric/Neurological: No Symptoms Reported Hematologic/Lymphatic: No Symptoms Reported Immunological/Allergic: no symptoms reported Past Myabofb-Qtarvc-Tzlavk Hx Past Med/Social Hx: Reviewed Nursing Past Med/Soc Hx Patient Social History Alcohol Use: Denies Use Recreational Drug Use: Yes Drug of Choice: marijuana Smoking Status: Current Everyday Smoker Type Used: Cigarettes 2nd Hand Smoke Exposure: Yes Recent Foreign Travel: No Contact w/Someone Who Travel: No Recent Infectious Disease Expo: No Physical Abuse: No Sexual Abuse: No Mistreated: No Fear: No Past Medical History Gallbladder, Orthopedic Respiratory: Yes Asthma Cardiac: No Neurological: Yes Headaches /Migraines, Seizure Disorder, Traumatic Brain Injury Genitourinary: No Gastroesophageal Reflux, Hepatitis, Cirrhosis Musculoskeletal: No Diabetes, Non-Insulin dep HEENT: No Cancer: No Psychosocial: No Bipolar, Personality Disorder Integumentary: No Blood Disorders: No Family Medical History No Pertinent Family Hx Physical Exam Vital Signs Vital Signs - First Documented 01/30/19 10:44 Temp 98.0 Pulse 84 Resp 18 B/P (MAP) 120/63 (82) O2 Delivery Room Air Capillary Refill : Less Than 3 Seconds Height, Weight, BMI Height: 5'8.00" Weight: 220lbs. oz. 99.168608sz; BMI Method:Stated General Appearance: No Apparent Distress, WD/WN, Anxious Eyes: Bilateral Eye Normal Inspection, Bilateral Eye PERRL, Bilateral Eye EOMI HEENT: PERRL/EOMI, TMs Normal, Normal ENT Inspection Neck: Full Range of Motion, Normal Inspection, Non Tender Respiratory: Chest Non Tender, Lungs Clear, Normal Breath Sounds Cardiovascular: Regular Rate, Rhythm, No Edema Gastrointestinal: Normal Bowel Sounds, Soft; No Distended; Tenderness (mild diffuse lower abdominal pain with increased bowel sounds) Back: Normal Inspection, No CVA Tenderness, No Vertebral Tenderness Extremity: Normal Capillary Refill, Normal Inspection, Normal Range of Motion Neurologic/Psychiatric: Alert, Oriented x3 Skin: Normal Color, Warm/Dry Focused Exam Sepsis Stage: Ruled Out Progress/Results/Core Measures Suspected Sepsis Recent Fever Within 48 Hours: No Infection Criteria Present: None New/Unexplained Altered Menta: No Sepsis Screen: No Definite Risk SIRS Temperature:98.0 Pulse: 84 Respiratory Rate: 18 Laboratory Tests 01/30/19 11:00: White Blood Count 4.8 Blood Pressure 120 /63 Mean: 82 Laboratory Tests 01/30/19 11:00: Creatinine 0.70, Platelet Count 70L Results/Orders Lab Results Laboratory Tests Test 01/30/19 10:59 01/30/19 11:00 Range/Units Glucometer 352 H 70-110 MG/DL White Blood Count 4.8 4.3-11.0 10^3/uL Red Blood Count 5.01 4.35-5.85 10^6/uL Hemoglobin 15.5 13.3-17.7 G/DL Hematocrit 44 40-54 % Mean Corpuscular Volume 88 80-99 FL Mean Corpuscular Hemoglobin 31 25-34 PG Mean Corpuscular Hemoglobin Concent 35 32-36 G/DL Red Cell Distribution Width 13.1 10.0-14.5 % Platelet Count 70 L 130-400 10^3/uL Mean Platelet Volume 10.5 H 7.4-10.4 FL Neutrophils (%) (Auto) 57 42-75 % Lymphocytes (%) (Auto) 30 12-44 % Monocytes (%) (Auto) 9 0-12 % Eosinophils (%) (Auto) 3 0-10 % Basophils (%) (Auto) 1 0-10 % Neutrophils # (Auto) 2.7 1.8-7.8 X 10^3 Lymphocytes # (Auto) 1.5 1.0-4.0 X 10^3 Monocytes # (Auto) 0.4 0.0-1.0 X 10^3 Eosinophils # (Auto) 0.2 0.0-0.3 10^3/uL Basophils # (Auto) 0.0 0.0-0.1 10^3/uL Sodium Level 134 L 135-145 MMOL/L Potassium Level 4.2 3.6-5.0 MMOL/L Chloride Level 95 L 98-107 MMOL/L Carbon Dioxide Level 24 21-32 MMOL/L Anion Gap 15 H 5-14 MMOL/L Blood Urea Nitrogen 13 7-18 MG/DL Creatinine 0.70 0.60-1.30 MG/DL Estimat Glomerular Filtration Rate > 60 BUN/Creatinine Ratio 19 Glucose Level 377 H 70-105 MG/DL Calcium Level 9.7 8.5-10.1 MG/DL My Orders Orders - HILDA YBARRA DO Cbc With Automated Diff (01/30/19 10:42) Basic Metabolic Panel (01/30/19 10:42) Dilantin (Phenytoin) (01/30/19 10:42) Accucheck Stat ONCE (01/30/19 10:42) Vital Signs/I&O 01/30/19 10:44 Temp 98.0 Pulse 84 Resp 18 B/P (MAP) 120/63 (82) O2 Delivery Room Air Capillary Refill : Less Than 3 Seconds Blood Pressure Mean: 82 Point of Care Testing Finger Stick Blood Glucose: 354 Blood Glucose Action Taken: REPORTED TO DR Pérez Communication (Admissions) Benign physical exam. No seizure activity in the ED. Abdomen soft, nonsurgical and repeat evaluation. Recommend mag citrate for treatment of constipation for and daily Metamucil with PCP follow-up. Return precautions reviewed. Patient verbalizes understanding. Discharge instructions prior to departure. Impression Primary Impression: Abdominal pain Additional Impression: Seizure-like activity Disposition: 01 HOME, SELF-CARE Condition: Stable Departure-Patient Inst. Referrals: [facility] (PCP) Primary Care Physician JERROD SERRANO APRN (Family) Primary Care Physician Patient Instructions: Stomach Ache and Stomach Upset Add. Discharge Instructions: Please drink 1-2 bottles of magnesium citrate upon returning home for treatment of constipation and start Metamucil daily. Follow-up with your PCP in one week for reevaluation. Return to ED if new or concerning symptoms. All discharge instructions reviewed with patient and/or family. Voiced understanding. Scripts Psyllium Husk (Metamucil) 0.4 Gm Capsule 0.4 GM PO DAILY, #30 CAP Prov: HILDA YBARRA DO 01/30/19 Magnesium Citrate (Magnesium Citrate) 296 Ml Solution 296 ML PO Q6H, #2 EA Prov: HILDA YBARRA DO 01/30/19 HILDA YBARRA DO Jan 30, 2019 12:55
[2019-01-30] MEDS ORDERED: PSYL0.4C2 PO (12:58)
[2019-01-30] MEDS ORDERED: MAGN296S50 PO (12:58)
[2019-01-30 13:04] VITALS: BP 118/62
== END 2019-01-30 13:04 | disposition home or self-care (01) ==
LOC: ER FS 10:32 → EDUNIT# 10:32 → ER FS 13:04
DX: R25.9 Unspecified abnormal involuntary movements (principal); R10.84 Generalized abdominal pain; G40.909 Epilepsy, unspecified, not intractable, without status epilepticus; J45.909 Unspecified asthma, uncomplicated; G43.909 Migraine, unspecified, not intractable, without status migrainosus; K21.9 Gastro-esophageal reflux disease without esophagitis; K74.60 Unspecified cirrhosis of liver; E11.9 Type 2 diabetes mellitus without complications; F31.9 Bipolar disorder, unspecified; F60.9 Personality disorder, unspecified; F12.10 Cannabis abuse, uncomplicated; F17.210 Nicotine dependence, cigarettes, uncomplicated; Z88.8 Allergy status to other drugs, medicaments and biological substances
CPT/HCPCS: 36415; 80048; 80185; 82962; 85025

== ENCOUNTER 2019-03-17 19:31 | Emergency (ER) | payer MEDICARE ==
[~2019-03-17] VITALS: Ht 172.7 cm; Wt 109.1 kg
[~2019-03-17 19:31] MED LIST changes: +MAGN296S50 PO; +PSYL0.4C2 PO
--- NOTE | 2019-03-17 19:40 | ED General ---
General Chief Complaint: Allergic Reaction Stated Complaint: HEAD ITCHING Source of Information: Patient, EMS History of Present Illness Date Seen by Provider: Mar 17, 2019 Time Seen by Provider: 19:40 Initial Comments Patient is a 48-year-old male presenting to the emergency department by EMS. He reports that he has been having some itching in the last few days. He also has had chronic cough and shortness of breath from COPD. He tonight had increased his insulin from 50 units to 60 based off of recommendations from Verenice Serrano. He has been having sugars running in the 350-450 range. He was to increase his insulin to try and help manage the elevated insulin sugar levels. However when he took the 60 units of the insulin he felt like it caused him to have trouble breathing and he fell on the floor and "had a seizure". He remembers what was happening and what was going on. He did not lose consciousness. He also was concerned because he has been having some more frequent headaches. He usually takes Excedrin headache medication at home for these headaches, however he states that he is out currently. He is requesting something for her headache, something for itching, and something to help with his insulin causing him to "have a seizure". Allergies and Home Medications Allergies Coded Allergies: aripiprazole (Verified Allergy, Unknown, hallucinations, 10/01/18) zolpidem (Verified Allergy, Unknown, hallucinations, 10/01/18) Home Medications Dicyclomine HCl 20 Mg Tablet, 20 MG PO QID PRN for ABDOMINAL PAIN Prescribed by: LUIS LECHUGA on 10/01/18 0501 Haloperidol 5 Mg Tab, 10 MG PO HS, (Reported) Hydrocodone Bit/Acetaminophen 1 Tab Tab, 1 EACH PO Q4-6HR PRN for PAIN-MODERATE Prescribed by: HILDA YBARRA on 01/24/19 1351 Magnesium Citrate 296 Ml Solution, 296 ML PO Q6H Prescribed by: HILDA YBARRA on 01/30/19 1258 Psyllium Husk 0.4 Gm Capsule, 0.4 GM PO DAILY Prescribed by: HILDA YBARRA on 01/30/19 1258 Simvastatin 40 Mg Tablet, HS, (Reported) Patient Home Medication List Home Medication List Reviewed: Yes Review of Systems Review of Systems Constitutional: No chills, No fever EENTM: No ear discharge, No hearing loss, No blurred vision, No vision loss, No dental problems, No throat pain Respiratory: cough (chronic), dyspnea on exertion (chronic) Cardiovascular: No chest pain Gastrointestinal: abdominal pain (chronic); No nausea, No vomiting Genitourinary: No decreased output Musculoskeletal: no symptoms reported Skin: no symptoms reported Psychiatric/Neurological: Headache Past Ojlvspp-Ftcaof-Qpkcis Hx Past Med/Social Hx: Reviewed Nursing Past Med/Soc Hx Patient Social History Drug of Choice: marijuana Type Used: Cigarettes 2nd Hand Smoke Exposure: Yes Recent Foreign Travel: No Contact w/Someone Who Travel: No Past Medical History Gallbladder, Orthopedic Respiratory: Yes Asthma Cardiac: No Neurological: Yes Headaches /Migraines, Seizure Disorder, Traumatic Brain Injury Genitourinary: No Gastroesophageal Reflux, Hepatitis, Cirrhosis Musculoskeletal: No Diabetes, Non-Insulin dep HEENT: No Cancer: No Psychosocial: No Bipolar, Personality Disorder Integumentary: No Blood Disorders: No Family Medical History No Pertinent Family Hx Physical Exam Vital Signs Vital Signs - First Documented 03/17/19 19:41 Temp 37.7 Pulse 95 Resp 18 B/P (MAP) 126/69 (88) Pulse Ox 93 O2 Delivery Room Air Capillary Refill : Height, Weight, BMI Height: 5'8.00" Weight: 220lbs. oz. 99.578780vr; BMI Method:Stated General Appearance: No Apparent Distress, WD/WN, Obese, Other (poor personal hygiene) HEENT: PERRL/EOMI, Normal ENT Inspection, Pharynx Normal Neck: Full Range of Motion, Normal Inspection, Non Tender, Supple Respiratory: Chest Non Tender, Lungs Clear, Normal Breath Sounds, Rhonci; No Stridor, No Wheezing Cardiovascular: Regular Rate, Rhythm, Normal Peripheral Pulses Gastrointestinal: Normal Bowel Sounds, No Pulsatile Mass, Non Tender, Soft Extremity: Normal Capillary Refill, Normal Range of Motion, Non Tender, No Calf Tenderness, Pedal Edema (1+ bilateral) Neurologic/Psychiatric: Alert, Oriented x3 Skin: Normal Color, Warm/Dry Progress/Results/Core Measures Suspected Sepsis SIRS Temperature: Pulse: Respiratory Rate: Blood Pressure / Mean: Results/Orders My Orders Orders - LUIS LECHUGA MD Diphenhydramine Tablet (Benadryl Tablet) (03/17/19 20:00) Acetaminophen Tablet (Tylenol Tablet) (03/17/19 20:00) Vital Signs/I&O 03/17/19 03/17/19 19:41 20:28 Temp 37.7 Pulse 95 93 Resp 18 16 B/P (MAP) 126/69 (88) 112/93 Pulse Ox 93 96 O2 Delivery Room Air Room Air Capillary Refill : Progress Note : Progress Note His sugar was 340 range for EMS. He was alert and appropriate here in the ED. He was eating and drinking fine. He seemed to be managing his increased dose of insulin but since he feels that that had caused the symptoms will advise patient to decrease his dose to 55 units instead of 16 units a day. Have him check with the hospital doctor about the dose of insulin since he has an appointment on . Friend that itch Will have him try some Benadryl. For his headache since I do not have Excedrin Migraine we'll just give him Tylenol. Departure Impression Primary Impression: Medication adverse effect Qualified Codes: T50.905A - Adverse effect of unspecified drugs, medicaments and biological substances, initial encounter Additional Impression: Itching Disposition: HOME, SELF-CARE Condition: Stable Departure-Patient Inst. Decision time for Depature: 20:15 Ref[facility]: [facility] [place]) Primary Care Physician VERENICE SERRANO APRN (Family) Primary Care Physician Patient Instructions: Itchy Skin Add. Discharge Instructions: Try only increasing your insulin to 55 units instead of the 60 units until you see Verenice Serrano in the clinic on March 19. See if that helps with your symptoms Try the benadryl 25-50 mg every 6 hours as needed for itching. All discharge instructions reviewed with patient and/or family. Voiced understanding. LUIS LECHUGA MD Mar 17, 2019 19:40
[2019-03-17] MEDS: ACETAMINOPHEN 500 MG TAB (TYLENOL) PO STA (20:16)
[2019-03-17] MEDS: diphenhydrAMINE 25 MG TAB (BENADRYL) PO STA (20:16)
[2019-03-17 20:28] VITALS: BP 112/93
== END 2019-03-17 20:27 | disposition home or self-care (01) ==
LOC: EDUNIT# 19:31 → ER FS 19:33
DX: L29.9 Pruritus, unspecified (principal); T38.3X5A Adverse effect of insulin and oral hypoglycemic [antidiabetic] drugs, initial encounter; J44.9 Chronic obstructive pulmonary disease, unspecified; G40.909 Epilepsy, unspecified, not intractable, without status epilepticus; G43.909 Migraine, unspecified, not intractable, without status migrainosus; K21.9 Gastro-esophageal reflux disease without esophagitis; E11.9 Type 2 diabetes mellitus without complications; F31.9 Bipolar disorder, unspecified; F60.9 Personality disorder, unspecified; Z88.8 Allergy status to other drugs, medicaments and biological substances; Z77.22 Contact with and (suspected) exposure to environmental tobacco smoke (acute) (chronic)
CPT/HCPCS: 99283

== ENCOUNTER 2019-03-18 08:47 | Emergency (ER) | payer MEDICARE ==
[~2019-03-18] VITALS: Ht 172.7 cm; Wt 107.2 kg
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
[2019-03-18 09:19] LABS: WHITE BLOOD COUNT 4.6 10^3/uL (4.3-11.0)
[2019-03-18 09:20] LABS: BASOPHILS % (AUTO) 1 % (0-10); EOSINOPHILS % (AUTO) 3 % (0-10); HEMATOCRIT 43 % (40-54); HEMOGLOBIN 14.8 G/DL (13.3-17.7); LYMPHOCYTES % (AUTO) 34 % (12-44); MEAN CORPUSCULAR HEMOGLOBIN 31 PG (25-34); MEAN CORPUSCULAR HGB CONC 35 G/DL (32-36); MEAN CORPUSCULAR VOLUME 89 FL (80-99); MEAN PLATELET VOLUME 9.1 FL (7.4-10.4); MONOCYTES % (AUTO) 10 % (0-12); NEUTROPHILS % (AUTO) 52 % (42-75); PLATELET COUNT 79 10^3/uL (130-400); RED CELL DISTRIBUTION WIDTH 12.6 % (10.0-14.5)
[2019-03-18 09:21] LABS: EOSINOPHILS # (AUTO) 0.1 10^3/uL (0.0-0.3); LYMPHOCYTES # (AUTO) 1.6 X 10^3 (1.0-4.0); MONOCYTES # (AUTO) 0.4 X 10^3 (0.0-1.0); NEUTROPHILS # (AUTO) 2.4 X 10^3 (1.8-7.8)
[2019-03-18] MEDS: ASPIRIN 81 MG CHEW (CHILDREN'S ASA) PO ONE (09:30)
--- NOTE | 2019-03-18 09:34 | Diagnostic Imaging Report ---
Indication: Chest and abdominal pain for 2 days. Time of exam 9:01 AM Correlation is made with prior chest from 01/24/2019. The heart size is stable. The pulmonary vascularity is normal. No infiltrate is detected. No effusion is identified. There is no pneumothorax detected. Impression: No acute cardiopulmonary process is detected. Dictated by: Dictated on workstation # [id number]
[2019-03-18 09:46] LABS: BUN/CREATININE RATIO 16; CARBON DIOXIDE 20 MMOL/L (21-32); CHLORIDE 100 MMOL/L (98-107); CREATININE SERUM 0.61 MG/DL (0.60-1.30); GFR ESTIMATED > 60; GLUCOSE 274 MG/DL (70-105); POTASSIUM 3.9 MMOL/L (3.6-5.0); SODIUM 138 MMOL/L (135-145)
[2019-03-18 09:47] LABS: ALANINE AMINOTRANSFERASE 41 U/L (0-55); ALBUMIN 3.9 GM/DL (3.2-4.5); ALKALINE PHOSPHATASE 86 U/L (40-136); BILIRUBIN,TOTAL 0.5 MG/DL (0.1-1.0); CALCIUM 9.4 MG/DL (8.5-10.1); MAGNESIUM 1.7 MG/DL (1.6-2.4); TOTAL PROTEIN 7.1 GM/DL (6.4-8.2)
[2019-03-18 10:30] VITALS: BP 144/67
== END 2019-03-18 10:30 | disposition home or self-care (01) ==
LOC: EDUNIT# 08:47 → ER FS 08:48
DX: R07.2 Precordial pain (principal); G89.29 Other chronic pain; J45.909 Unspecified asthma, uncomplicated; G43.909 Migraine, unspecified, not intractable, without status migrainosus; G40.909 Epilepsy, unspecified, not intractable, without status epilepticus; K21.9 Gastro-esophageal reflux disease without esophagitis; E11.9 Type 2 diabetes mellitus without complications; F31.9 Bipolar disorder, unspecified; F60.9 Personality disorder, unspecified; Z71.1 Person with feared health complaint in whom no diagnosis is made; Z87.820 Personal history of traumatic brain injury; Z88.8 Allergy status to other drugs, medicaments and biological substances; Z77.22 Contact with and (suspected) exposure to environmental tobacco smoke (acute) (chronic)
CPT/HCPCS: 36415; 71045; 80053; 82553; 82962; 83735; 83874; 83880; 84484; 85025; 93005; 93041

== ENCOUNTER 2019-03-18 21:51 | Emergency (ER) | payer MEDICARE ==
[~2019-03-18] VITALS: Ht 172.7 cm; Wt 109.0 kg
--- NOTE | 2019-03-18 22:18 | ED General ---
General Stated Complaint: SEIZURES Source of Information: Patient Exam Limitations: No Limitations History of Present Illness Date Seen by Provider: Mar 18, 2019 Time Seen by Provider: 22:05 Initial Comments The patient is a 48-year-old male presents for evaluation of possible seizures. I was alerted that the patient was having a "seizure" in the waiting room and ran out to evaluate him. I am familiar with this patient so I asked the patient to stop seizing and he immediately stopped and open his eyes. I asked him to sit up and he was able to do so. I saw the same patient earlier today for chest pain. Since Accu-Chek is 396. He'll be given some insulin here. The patient has no other complaints at this time. He is alert, calm, and appears to be in no distress. Timing/Duration: 1/2 Hour Severity: Mild Associated Systoms: Denies Symptoms Allergies and Home Medications Allergies Coded Allergies: aripiprazole (Verified Allergy, Unknown, hallucinations, 10/01/18) zolpidem (Verified Allergy, Unknown, hallucinations, 10/01/18) Home Medications Dicyclomine HCl 20 Mg Tablet, 20 MG PO QID PRN for ABDOMINAL PAIN Prescribed by: LUIS LECHUGA on 10/01/18 0501 Haloperidol 5 Mg Tab, 10 MG PO HS, (Reported) Hydrocodone Bit/Acetaminophen 1 Tab Tab, 1 EACH PO Q4-6HR PRN for PAIN-MODERATE Prescribed by: HILDA YBARRA on 01/24/19 1351 Magnesium Citrate 296 Ml Solution, 296 ML PO Q6H Prescribed by: HILDA YBARRA on 01/30/19 1258 Psyllium Husk 0.4 Gm Capsule, 0.4 GM PO DAILY Prescribed by: HILDA YBARRA on 01/30/19 1258 Simvastatin 40 Mg Tablet, HS, (Reported) Patient Home Medication List Home Medication List Reviewed: Yes Review of Systems Review of Systems Constitutional: no symptoms reported EENTM: no symptoms reported Respiratory: no symptoms reported Cardiovascular: no symptoms reported Gastrointestinal: no symptoms reported Genitourinary: no symptoms reported Musculoskeletal: no symptoms reported Skin: no symptoms reported Psychiatric/Neurological: No Symptoms Reported Hematologic/Lymphatic: No Symptoms Reported Immunological/Allergic: no symptoms reported All Other Systems Reviewed Negative Unless Noted: Yes Past Cthkkbo-Ppbrta-Enmqxw Hx Past Med/Social Hx: Reviewed Nursing Past Med/Soc Hx Patient Social History Drug of Choice: hx marijuana Type Used: Cigarettes 2nd Hand Smoke Exposure: Yes Recent Foreign Travel: No Contact w/Someone Who Travel: No Recent Hopitalizations: No Seasonal Allergies Seasonal Allergies: No Past Medical History Surgeries: Yes (cystoscopy) Gallbladder, Orthopedic Respiratory: Yes Asthma Cardiac: No Neurological: Yes Headaches /Migraines, Seizure Disorder, Traumatic Brain Injury Genitourinary: No Gastroesophageal Reflux, Hepatitis, Cirrhosis Musculoskeletal: No Endocrine: Yes Diabetes, Insulin dep HEENT: No Cancer: No Psychosocial: No Bipolar, Personality Disorder Integumentary: No Blood Disorders: No Family Medical History No Pertinent Family Hx Physical Exam Vital Signs Capillary Refill : Height, Weight, BMI Height: 5'8.00" Weight: 220lbs. oz. 99.197568cc; 35.00 BMI Method:Stated General Appearance: No Apparent Distress, WD/WN, Other (very poor hygiene) HEENT: PERRL/EOMI, Normal ENT Inspection Neck: Full Range of Motion, Non Tender Respiratory: Chest Non Tender, Lungs Clear, Normal Breath Sounds, No Respiratory Distress Cardiovascular: Regular Rate, Rhythm, No Edema, No JVD Gastrointestinal: Normal Bowel Sounds, Non Tender, Soft Extremity: Normal Capillary Refill, Non Tender, No Calf Tenderness Neurologic/Psychiatric: Alert, Oriented x3, Normal Mood/Affect Skin: Normal Color, Warm/Dry Progress/Results/Core Measures Suspected Sepsis SIRS Temperature: Pulse: Respiratory Rate: Blood Pressure / Mean: Results/Orders Vital Signs/I&O Capillary Refill : Progress Note : Progress Note @2215 - Patient be given insulin for his hyperglycemia. He has no other complaints and and wants to go home. No indication for additional lever as it was done earlier today and the patient was not having a true seizure. He stable for discharge at this time. Advise close follow-up with his PCP in the next 1-2 days. Departure Impression Primary Impression: Hyperglycemia Disposition: 01 HOME, SELF-CARE Condition: Stable Departure-Patient Inst. Decision time for Depature: 22:20 Referrals: [facility] (PCP) Primary Care Physician JERROD SERRANO APRN (Family) Primary Care Physician Patient Instructions: Hyperglycemia, Adult Add. Discharge Instructions: Follow-up with your doctor in the next 1-2 days. Return to the ER for new or worsening symptoms. Continue to take her home medications as directed. ANEL EDUARDO DO Mar 18, 2019 22:18
--- NOTE | 2019-03-18 22:24 | NUR ---
PT. HAS BEEN SEEN SEVERAL TIMES IN THE ER THE PAST FEW DAYS. HE WAS HERE THIS MORNING AND A COUPLE OF DAYS AGO WITH DIFFERENT COMPLAINTS.
[2019-03-18] MEDS ORDERED: inSUlin (REGULAR) HUMAN 1 UNIT/0.01 ML (CHARGE PER UNIT) SC ONE (22:30)
[2019-03-18 22:51] VITALS: BP 151/92
== END 2019-03-18 22:52 | disposition home or self-care (01) ==
LOC: EDUNIT# 21:51 → ER FS 21:52
DX: E11.65 Type 2 diabetes mellitus with hyperglycemia (principal); J45.909 Unspecified asthma, uncomplicated; G43.909 Migraine, unspecified, not intractable, without status migrainosus; G40.909 Epilepsy, unspecified, not intractable, without status epilepticus; K21.9 Gastro-esophageal reflux disease without esophagitis; K74.60 Unspecified cirrhosis of liver; F31.9 Bipolar disorder, unspecified; F60.9 Personality disorder, unspecified; Z88.8 Allergy status to other drugs, medicaments and biological substances; Z77.22 Contact with and (suspected) exposure to environmental tobacco smoke (acute) (chronic); Z87.820 Personal history of traumatic brain injury
CPT/HCPCS: 82962; 96372; 99284

== ENCOUNTER 2019-04-05 10:40 | Emergency (ER) | payer MEDICARE ==
[~2019-04-05] VITALS: Ht 172.7 cm; Wt 109.1 kg
--- NOTE | 2019-04-05 10:54 | ED Fall/Injury ---
General Stated Complaint: FALL Source: patient, EMS Exam Limitations: no limitations History of Present Illness Date Seen by Provider: Apr 05, 2019 Time Seen by Provider: 10:45 Initial Comments The patient is a 48-year-old male who is well-known to this emergency department who presents after a fall at [employer]. He states that he fell and hit his head on the ground and then had seizure-like activity. He states that he remembers falling and remembers having seizure-like activity. The patient has a history of pseudoseizures. He is complaining of mild head and neck pain. He does not believe he lost consciousness. Witnesses place the patient in a chair after he fell and he then fell to the ground and again had shaking activity. When EMS a rrived the patient was at his baseline and they did not see any seizure-like activity. They are also familiar with this patient. He did not complain of anything to EMS. Upon arrival the patient is smiling and appears comfortable. Occurred: just prior to arrival Severity: mild Injuries/Pain Location: head, neck Context: unknown Loss of Consciousness: no loss of consciousness Associated Symptoms (Fall): Headache Allergies and Home Medications Allergies Coded Allergies: aripiprazole (Verified Allergy, Unknown, hallucinations, 10/01/18) zolpidem (Verified Allergy, Unknown, hallucinations, 10/01/18) Home Medications Dicyclomine HCl 20 Mg Tablet, 20 MG PO QID PRN for ABDOMINAL PAIN Prescribed by: LUIS LECHUGA on 10/01/18 0501 Haloperidol 5 Mg Tab, 10 MG PO HS, (Reported) Hydrocodone Bit/Acetaminophen 1 Tab Tab, 1 EACH PO Q4-6HR PRN for PAIN-MODERATE Prescribed by: HILDA YBARRA on 01/24/19 1351 Magnesium Citrate 296 Ml Solution, 296 ML PO Q6H Prescribed by: HILDA YBARRA on 01/30/19 1258 Psyllium Husk 0.4 Gm Capsule, 0.4 GM PO DAILY Prescribed by: HILDA YBARRA on 01/30/19 1258 Simvastatin 40 Mg Tablet, HS, (Reported) Patient Home Medication List Home Medication List Reviewed: Yes Review of Systems Review of Systems Constitutional: no symptoms reported Eyes: No Symptoms Reported Ears, Nose, Mouth, Throat: no symptoms reported Respiratory: no symptoms reported Cardiovascular: no symptoms reported Gastrointestinal: no symptoms reported Genitourinary: no symptoms reported Musculoskeletal: neck pain Skin: no symptoms reported Psychiatric/Neurological: Headache All Other Systems Reviewed Negative Unless Noted: Yes Past Ymsdcyj-Sughlt-Acpnap Hx Past Med/Social Hx: Reviewed Nursing Past Med/Soc Hx Patient Social History Drug of Choice: hx marijuana Type Used: Cigarettes 2nd Hand Smoke Exposure: Yes Recent Hopitalizations: No Seasonal Allergies Seasonal Allergies: No Past Medical History Surgeries: Yes (cystoscopy) Gallbladder, Orthopedic Respiratory: Yes Asthma Cardiac: No Neurological: Yes Headaches /Migraines, Seizure Disorder, Traumatic Brain Injury Genitourinary: No Gastroesophageal Reflux, Hepatitis, Cirrhosis Musculoskeletal: No Endocrine: Yes Diabetes, Insulin dep HEENT: No Cancer: No Psychosocial: No Bipolar, Personality Disorder Integumentary: No Blood Disorders: No Family Medical History No Pertinent Family Hx Physical Exam Vital Signs Capillary Refill : Height, Weight, BMI Height: 5'8.00" Weight: 220lbs. oz. 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, no motor/sensory deficits, alert, normal mood/affect, oriented x 3 Skin: normal color, warm/dry [place] Coma Score Best Eye Response: (4) Open Spontaneously Best Verbal Response: (5) Oriented Best Motor Response: (6) Obeys Commands [place] Total: 15 Progress/Results/Core Measures Results/Orders My Orders Orders - ANEL EDUARDO DO Acetaminophen Tablet (Tylenol Tablet) (04/05/19 11:00) Ct Head/Cervical Spine Wo (04/05/19 10:49) Cervical Collar: Apply (04/05/19 10:54) Medications Given in ED Current Medications Medications Dose Ordered Sig/Chantel Route Start Time Stop Time Status Last Admin Dose Admin Acetaminophen 1,000 mg ONCE ONCE PO 04/05/19 11:00 04/05/19 11:01 DC 04/05/19 11:37 1,000 MG Progress Progress Note : Progress Note @1150 - patient updated on imaging results which are unremarkable. He has no additional complaints and states that he is feeling much better and is asking to go home. Workup today fails reveal any emergent pathology. The patient is stable for discharge at this time. Advised the patient to follow up with his PCP within the next 1-2 days and to return to the emergency department for new or worsening symptoms. Diagnostic Imaging Comments [facility]. [place], [place] NAME: [facility] REC#: [id number] PT STATUS: REG ER : 1970 PHYSICIAN: ANEL EDUARDO DO ADMIT DATE: 04/05/19/ER FS Draft Date of Exam:04/05/19 CT HEAD/CERVICAL SPINE WO CLINICAL INDICATION: Patient fell at [employer] today and possible seizure. Exam: Head CT without IV contrast. Axial CT scan of the cervical spine with sagittal and coronal reformations. Auto Exposure Controls were utilized during the CT exam to meet ALARA standards for radiation dose reduction. Comparison: Head CT without contrast dated 01/24/2019. CT scan of cervical spine dated 10/06/2018. Findings: Head CT: There is no evidence of acute cerebral infarct, intracranial hemorrhage, or gross mass effect. The brain parenchymal volume appears appropriate for patient's age. There is normal marcos-white matter distinction. There is no significant midline shift or herniation. There is no evidence of hydrocephalus. The basal cisterns are unremarkable. The skull, extracranial soft tissue, and orbits are unremarkable. There is mild ethmoid sinus mucosal thickening. Temporal bones show no significant abnormality. Cervical spine: There is no acute cervical spine fracture or dislocation. Stable cervical spine degenerative disease at the C6-C7 level with anterior spurs. There is no significant neck soft tissue abnormality. IMPRESSION: 1: There is no evidence of acute intracranial process. There is no intracranial hemorrhage or skull fracture. 2: Stable cervical spine with no interval acute fracture or dislocation. Dictated on workstation # [id number] Dict: 04/05/19 1114 Trans: 04/05/19 1125 [id number] Interpreted by: JOEY OLIVAS MD Electronically signed by: Departure Impression Primary Impression: Mild closed head injury Disposition: HOME, SELF-CARE Condition: Stable Departure-Patient Inst. Decision time for Depature: 11:55 Referrals: [facility] (PCP) Primary Care Physician JERROD SERRANO APRN (Family) Primary Care Physician Patient Instructions: Minor Head Injury (DC) Add. Discharge Instructions: Take Tylenol home for pain relief is needed. Follow-up with your doctor in the next 1-2 days. Return to the emergency department for new or worsening symptoms. ANEL EDUARDO DO Apr 05, 2019 10:53
[2019-04-05] MEDS ORDERED: ACETAMINOPHEN 500 MG TAB (TYLENOL) PO ONE (11:00)
--- NOTE | 2019-04-05 11:25 | Diagnostic Imaging Report ---
CLINICAL INDICATION: Patient fell at [employer] today and possible seizure. Exam: Head CT without IV contrast. Axial CT scan of the cervical spine with sagittal and coronal reformations. Auto Exposure Controls were utilized during the CT exam to meet ALARA standards for radiation dose reduction. Comparison: Head CT without contrast dated 01/24/2019. CT scan of cervical spine dated 10/06/2018. Findings: Head CT: There is no evidence of acute cerebral infarct, intracranial hemorrhage, or gross mass effect. The brain parenchymal volume appears appropriate for patient's age. There is normal marcos-white matter distinction. There is no significant midline shift or herniation. There is no evidence of hydrocephalus. The basal cisterns are unremarkable. The skull, extracranial soft tissue, and orbits are unremarkable. There is mild ethmoid sinus mucosal thickening. Temporal bones show no significant abnormality. Cervical spine: There is no acute cervical spine fracture or dislocation. Stable cervical spine degenerative disease at the C6-C7 level with anterior spurs. There is no significant neck soft tissue abnormality. IMPRESSION: 1: There is no evidence of acute intracranial process. There is no intracranial hemorrhage or skull fracture. 2: Stable cervical spine with no interval acute fracture or dislocation. Dictated by: Dictated on workstation # [id number]
[2019-04-05 12:00] VITALS: BP 124/77
== END 2019-04-05 12:00 | disposition home or self-care (01) ==
LOC: EDUNIT# 10:40 → ER FS 10:41
DX: S09.90XA Unspecified injury of head, initial encounter (principal); E11.9 Type 2 diabetes mellitus without complications; J45.909 Unspecified asthma, uncomplicated; G43.909 Migraine, unspecified, not intractable, without status migrainosus; G40.909 Epilepsy, unspecified, not intractable, without status epilepticus; F31.9 Bipolar disorder, unspecified; F60.9 Personality disorder, unspecified; K21.9 Gastro-esophageal reflux disease without esophagitis; Z87.820 Personal history of traumatic brain injury; Z88.8 Allergy status to other drugs, medicaments and biological substances; Z77.22 Contact with and (suspected) exposure to environmental tobacco smoke (acute) (chronic); W01.198A Fall on same level from slipping, tripping and stumbling with subsequent striking against other object, initial encounter; Y92.22 Religious institution as the place of occurrence of the external cause
CPT/HCPCS: 70450; 72125

== ENCOUNTER → 2019-04-24 | Outpatient (CLI) | payer MEDICARE ==
--- NOTE | 2019-04-24 09:50 | Diagnostic Imaging Report ---
EXAMINATION: CHEST (PA AND LATERAL) CLINICAL INDICATION: 48-year-old male, persistent cough. COMPARISON: March 18, 2019. FINDINGS: Heart size and mediastinal contours are unremarkable. There is no identified pneumothorax. There is no pleural effusion. There is no identified focal airspace consolidation. There are degenerative changes of the spine. IMPRESSION: No identified acute cardiopulmonary abnormality. Dictated by: Dictated on workstation # [id number]
== END ==
LOC: RAD FS 09:21
PROVIDERS: ATTEND Nurse Practitioner Family
DX: R05 Cough (principal)
CPT/HCPCS: 71046

== ENCOUNTER 2019-04-25 12:02 | Emergency (ER) | payer MEDICARE ==
[~2019-04-25] VITALS: Ht 172.7 cm; Wt 113.6 kg
[2019-04-25] MEDS ORDERED: KETOROLAC 60 MG/2 ML VIAL IM ONE (12:15)
--- NOTE | 2019-04-25 12:34 | ED Headache ---
General Chief Complaint: Head/Cervical Problems Stated Complaint: HEADACHE Nursing Triage Note: Patient reports a headache intermittently for 2 months following a head injury. He states he saw his PCP yesterday and received an IM injection, unsure what medication. Nursing Sepsis Screen: No Definite Risk Source: patient History of Present Illness Date Seen by Provider: Apr 25, 2019 Time Seen by Provider: 12:10 Initial Comments Patient is a 48-year-old male well known to this emergency department this provider who presents with chronic recurrent headache. Headache is posterior described as throbbing and is rated [id number]. Reports fall with head injury in the past 2 weeks. Patient was evaluated yesterday by his PCP for the same and given Toradol injection. Denies nausea and vomiting, radiculopathy, extremity weakness or loss of sensation. Tylenol taken prior the ED. Timing/Duration: 24 hours Severity/Quality: moderate Location: occipital Prior Headaches/Recent Trauma: frequent headaches, chronic headaches Modifying Factors: improves with medication Allergies and Home Medications Allergies Coded Allergies: aripiprazole (Verified Allergy, Unknown, hallucinations, 10/01/18) zolpidem (Verified Allergy, Unknown, hallucinations, 10/01/18) Home Medications Dicyclomine HCl 20 Mg Tablet, 20 MG PO QID PRN for ABDOMINAL PAIN Prescribed by: LUIS LECHUGA on 10/01/18 0501 Haloperidol 5 Mg Tab, 10 MG PO HS, (Reported) Hydrocodone Bit/Acetaminophen 1 Tab Tab, 1 EACH PO Q4-6HR PRN for PAIN-MODERATE Prescribed by: HILDA YBARRA on 01/24/19 1351 Magnesium Citrate 296 Ml Solution, 296 ML PO Q6H Prescribed by: HILDA YBARRA on 01/30/19 1258 Psyllium Husk 0.4 Gm Capsule, 0.4 GM PO DAILY Prescribed by: HILDA YBARRA on 01/30/19 1258 Simvastatin 40 Mg Tablet, HS, (Reported) Patient Home Medication List Home Medication List Reviewed: Yes Review of Systems Review of Systems Constitutional: see HPI Eyes: See HPI Ears, Nose, Mouth, Throat: see HPI Respiratory: see HPI Cardiovascular: see HPI Gastrointestinal: see HPI Genitourinary: see HPI Musculoskeletal: see HPI Skin: see HPI Psychiatric/Neurological: See HPI Past Mebganr-Yiqoej-Hxcwsh Hx Patient Social History Alcohol Use: Denies Use Recreational Drug Use: Yes Drug of Choice: hx marijuana Smoking Status: Current Everyday Smoker Type Used: Cigarettes 2nd Hand Smoke Exposure: Yes Recent Foreign Travel: No Contact w/Someone Who Travel: No Recent Infectious Disease Expo: No Recent Hopitalizations: No Physical Abuse: No Sexual Abuse: No Mistreated: No Fear: No Seasonal Allergies Seasonal Allergies: No Past Medical History Surgeries: Yes (cystoscopy) Gallbladder, Orthopedic Respiratory: Yes Asthma Cardiac: No Neurological: Yes Headaches /Migraines, Seizure Disorder, Traumatic Brain Injury Genitourinary: No Gastrointestinal: Yes Gastroesophageal Reflux, Hepatitis, Cirrhosis Musculoskeletal: No Endocrine: Yes Diabetes, Insulin dep HEENT: No Cancer: No Psychosocial: No Bipolar, Personality Disorder Integumentary: No Blood Disorders: No Family Medical History No Pertinent Family Hx Physical Exam Vital Signs Vital Signs - First Documented 04/25/19 12:13 Temp 36.6 Pulse 81 Resp 16 B/P (MAP) 117/65 (82) Pulse Ox 94 O2 Delivery Room Air Capillary Refill : Less Than 3 Seconds Height, Weight, BMI Height: 5'8.00" Weight: 220lbs. oz. 99.742112be; 38.00 BMI Method:Stated General Appearance: no apparent distress HEENT: PERRL/EOMI, pharynx normal Neck: supple Cardiovascular: normal peripheral pulses, regular rate, rhythm Respiratory: lungs clear Psychiatric: alert, oriented x 3 Crainal Nerves: normal hearing, normal speech, PERRL Motor/Sensory: no motor deficit, no sensory deficit Progress/Results/Core Measures Results/Orders My Orders Orders - HILDA YBARRA DO Ketorolac Injection (Toradol Injection) (04/25/19 12:15) Medications Given in ED Current Medications Medications Dose Ordered Sig/Chantel Route Start Time Stop Time Status Last Admin Dose Admin Ketorolac Tromethamine 60 mg ONCE ONCE IM 04/25/19 12:15 04/25/19 12:16 DC 04/25/19 12:24 60 MG Vital Signs/I&O 04/25/19 12:13 Temp 36.6 Pulse 81 Resp 16 B/P (MAP) 117/65 (82) Pulse Ox 94 O2 Delivery Room Air Blood Pressure Mean: 82 Departure Communication (PCP) chronic recurrent headache, typical, no fever, rash, motor weakness, no other acute symptoms or complaints, Impression Primary Impression: Headache Disposition: 01 HOME, SELF-CARE Condition: Improved Departure-Patient Inst. Referrals: [facility] (PCP) Primary Care Physician JERROD SERRANO APRN (Family) Primary Care Physician Patient Instructions: Headache, Adult (DC) HILDA YBARRA DO Apr 25, 2019 12:34
[2019-04-25 12:45] VITALS: BP 117/65
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
== END 2019-04-25 12:45 | disposition home or self-care (01) ==
LOC: EDUNIT# 12:02 → ER FS 12:03
DX: R51 Headache (principal); J45.909 Unspecified asthma, uncomplicated; G40.909 Epilepsy, unspecified, not intractable, without status epilepticus; K21.9 Gastro-esophageal reflux disease without esophagitis; E11.9 Type 2 diabetes mellitus without complications; F31.9 Bipolar disorder, unspecified; F60.9 Personality disorder, unspecified; K76.0 Fatty (change of) liver, not elsewhere classified; F17.210 Nicotine dependence, cigarettes, uncomplicated; Z88.8 Allergy status to other drugs, medicaments and biological substances; Z86.69 Personal history of other diseases of the nervous system and sense organs
CPT/HCPCS: 96372; 99284

== ENCOUNTER 2019-05-20 20:41 | Emergency (ER) | payer MEDICARE ==
[~2019-05-20] VITALS: Ht 172.7 cm; Wt 104.5 kg
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
[2019-05-20 21:27] VITALS: BP 153/85
== END 2019-05-20 21:27 | disposition home or self-care (01) ==
LOC: EDUNIT# 20:41 → ER FS 20:43
DX: G40.89 Other seizures (principal); E11.65 Type 2 diabetes mellitus with hyperglycemia; F31.9 Bipolar disorder, unspecified; J45.909 Unspecified asthma, uncomplicated; G43.909 Migraine, unspecified, not intractable, without status migrainosus; E11.9 Type 2 diabetes mellitus without complications; F60.9 Personality disorder, unspecified; K21.9 Gastro-esophageal reflux disease without esophagitis; Z87.820 Personal history of traumatic brain injury; Z86.69 Personal history of other diseases of the nervous system and sense organs; Z88.8 Allergy status to other drugs, medicaments and biological substances; Z77.22 Contact with and (suspected) exposure to environmental tobacco smoke (acute) (chronic)
CPT/HCPCS: 82962

== ENCOUNTER 2019-06-11 12:41 | Emergency (ER) | payer MEDICARE ==
[~2019-06-11] VITALS: Ht 160 cm; Wt 80.0 kg
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
[2019-06-11] MEDS ORDERED: KETOROLAC 30 MG/ML VIAL IM STA (14:41)
--- NOTE | 2019-06-11 15:00 | Diagnostic Imaging Report ---
PROCEDURE: CT head without contrast. TECHNIQUE: Multiple contiguous axial images were obtained through the brain without the use of intravenous contrast. Auto Exposure Controls were utilized during the CT exam to meet ALARA standards for radiation dose reduction. INDICATION: Seizure disorder. Comparison is made to study of 04/05/2019. CT HEAD: CT images of the head were obtained. FINDINGS: Ventricles and sulci are within normal limits for size. There is no intracranial hemorrhage identified. There is no abnormal mass effect or shift of midline structures. IMPRESSION: Unremarkable CT of the head. Dictated by: Dictated on workstation # [id number]
[2019-06-11 15:28] VITALS: BP 98/60
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
== END 2019-06-11 15:26 | disposition home or self-care (01) ==
LOC: EDUNIT# 12:41 → ER FS 12:44
DX: R51 Headache (principal); R25.9 Unspecified abnormal involuntary movements; G40.909 Epilepsy, unspecified, not intractable, without status epilepticus; J45.909 Unspecified asthma, uncomplicated; K21.9 Gastro-esophageal reflux disease without esophagitis; E11.9 Type 2 diabetes mellitus without complications; F31.9 Bipolar disorder, unspecified; F60.9 Personality disorder, unspecified; Z86.59 Personal history of other mental and behavioral disorders; Z88.8 Allergy status to other drugs, medicaments and biological substances; Z77.22 Contact with and (suspected) exposure to environmental tobacco smoke (acute) (chronic)
CPT/HCPCS: 70450; 96372

== ENCOUNTER 2019-07-14 19:42 | Outpatient (CLI) | payer MEDICARE, OTHER | END 2019-07-15 05:45 | disposition home or self-care (01) | LOC: SLEEP 19:42 | PROVIDERS: ATTEND Nurse Practitioner Family | DX: G47.33 Obstructive sleep apnea (adult) (pediatric) (principal); G47.10 Hypersomnia, unspecified; G40.909 Epilepsy, unspecified, not intractable, without status epilepticus ==

== ENCOUNTER 2019-07-23 21:36 | Emergency (ER) | payer OTHER ==
[~2019-07-23] VITALS: Ht 172 cm; Wt 106.1 kg
[2019-07-23] MEDS ORDERED: diphenhydrAMINE 50 MG/ML INJ (BENADRYL) IM STA (21:47)
[2019-07-23] MEDS ORDERED: KETOROLAC 60 MG/2 ML VIAL IM STA (21:47)
[2019-07-23] MEDS ORDERED: ONDANSETRON 4 MG (ZOFRAN) ORAL DISSOLVE TAB PO STA (21:47)
[2019-07-23] MEDS ORDERED: ONDA4TAB11 PO (21:50)
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
[2019-07-23 22:09] VITALS: BP 133/81
== END 2019-07-23 22:09 | disposition home or self-care (01) ==
LOC: EDUNIT# 21:36 → ER FS 21:37
DX: R51 Headache (principal); J45.909 Unspecified asthma, uncomplicated; E11.9 Type 2 diabetes mellitus without complications; G40.909 Epilepsy, unspecified, not intractable, without status epilepticus; F31.9 Bipolar disorder, unspecified; F60.9 Personality disorder, unspecified; K21.9 Gastro-esophageal reflux disease without esophagitis; Z87.820 Personal history of traumatic brain injury; Z86.69 Personal history of other diseases of the nervous system and sense organs; Z88.8 Allergy status to other drugs, medicaments and biological substances; Z77.22 Contact with and (suspected) exposure to environmental tobacco smoke (acute) (chronic)
CPT/HCPCS: 96372; 99284

== ENCOUNTER 2019-08-09 18:21 | Emergency (ER) | payer OTHER ==
[~2019-08-09] VITALS: Ht 172.7 cm; Wt 104.0 kg
[~2019-08-09 18:21] MED LIST changes: +ONDA4TAB11 PO
--- NOTE | 2019-08-09 18:54 | NUR ---
Report to Kim OSWALD. Pending to be seen by Alert and oriented with present. No seizure activity.
--- NOTE | 2019-08-09 19:21 | ED Neurological Problem ---
General Chief Complaint: Neurological Problems Stated Complaint: SEIZURE Nursing Triage Note: Pt ambulatory from [facility] EMS unit to ED Overflow room. Call made to 911 per bystander reporting pt having a seizure and blood sugar low. EMS reports alert with no post ictal on arrival with pt blood suger around 200 by [employer] Fire Unit. Pt states, "Was watching Superbowl started shaking and just froze up!" Nursing Sepsis Screen: No Definite Risk History of Present Illness Date Seen by Provider: Aug 09, 2019 Time Seen by Provider: 18:50 Initial Comments Patient with history of head injury and seizures on Dilantin had what appeared to be a seizure or 2 while at a [employer] unconscious fell back evidently a nurse was there gave him a dose of insulin unsure of the purpose of that but that is by his recollection has not been sick recently has been taking his medications and he had seizures in July had a level done in that time as well Timing/Duration: 1 hour Severity: mild Associated Symptoms: confusion, seizures Allergies and Home Medications Allergies Coded Allergies: aripiprazole (Verified Allergy, Unknown, hallucinations, 10/01/18) zolpidem (Verified Allergy, Unknown, hallucinations, 10/01/18) Home Medications Dicyclomine HCl 20 Mg Tablet, 20 MG PO QID PRN for ABDOMINAL PAIN Prescribed by: LUIS LECHUGA on 10/01/18 0501 Haloperidol 5 Mg Tab, 10 MG PO HS, (Reported) Hydrocodone Bit/Acetaminophen 1 Tab Tab, 1 EACH PO Q4-6HR PRN for PAIN-MODERATE Prescribed by: HILDA YBARRA on 01/24/19 1351 Magnesium Citrate 296 Ml Solution, 296 ML PO Q6H Prescribed by: HILDA YBARRA on 01/30/19 1258 Ondansetron 4 Mg Tab.rapdis, 4 MG PO Q6H PRN for NAUSEA/VOMITING Prescribed by: LUIS LECHUGA on 07/23/19 2150 Psyllium Husk 0.4 Gm Capsule, 0.4 GM PO DAILY Prescribed by: HILDA YBARRA on 01/30/19 1258 Simvastatin 40 Mg Tablet, HS, (Reported) Patient Home Medication List Home Medication List Reviewed: Yes Review of Systems Review of Systems Constitutional: No chills, No fever, No weakness Eyes: Denies Vision Changes Ears, Nose, Mouth, Throat: denies ear pain, denies throat pain Respiratory: No cough, No short of breath Cardiovascular: No chest pain Gastrointestinal: No abdominal pain, No constipation, No diarrhea, No vomiting Genitourinary: No dysuria Musculoskeletal: No joint swelling, No muscle pain; neck pain Skin: No rash Psychiatric/Neurological: Denies Headache, Denies Numbness; Tonic Clonic Seizures; Denies Weakness Past Hsfcipf-Bulssm-Iauugb Hx Past Med/Social Hx: Reviewed Nursing Past Med/Soc Hx Patient Social History Alcohol Use: Denies Use Recreational Drug Use: Yes Drug of Choice: MARIJUANA Type Used: Cigarettes 2nd Hand Smoke Exposure: Yes Recent Foreign Travel: No Contact w/Someone Who Travel: No Recent Infectious Disease Expo: No Recent Hopitalizations: No Physical Abuse: No Sexual Abuse: No Mistreated: No Fear: No Seasonal Allergies Seasonal Allergies: No Past Medical History Surgeries: Yes (cystoscopy) Gallbladder, Orthopedic Respiratory: Yes Asthma Cardiac: No Neurological: Yes Headaches /Migraines, Seizure Disorder, Traumatic Brain Injury Genitourinary: No Gastrointestinal: Yes Gastroesophageal Reflux, Hepatitis, Cirrhosis Musculoskeletal: No Endocrine: Yes Diabetes, Insulin dep HEENT: No Cancer: No Psychosocial: No Bipolar, Personality Disorder Integumentary: No Blood Disorders: No Family Medical History No Pertinent Family Hx Physical Exam Vital Signs Vital Signs - First Documented 08/09/19 18:21 Temp 36.7 Pulse 87 Resp 18 B/P (MAP) 127/70 (89) Pulse Ox 94 O2 Delivery Room Air Capillary Refill : Less Than 3 Seconds Height, Weight, BMI Height: 5'8.00" Weight: 220lbs. oz. 99.468183vz; 34.00 BMI Method:Stated General Appearance: WD/WN, no apparent distress HEENT: PERRL/EOMI, TMs normal, pharynx normal Neck: other (mild tenderness bilaterally no vertebral tenderness) Respiratory: lungs clear, normal breath sounds Cardiovascular: regular rate, rhythm, no murmur Gastrointestinal: normal bowel sounds, non tender, soft Back: normal inspection Extremities: non-tender, normal inspection Neurologic/Psychiatric: no motor/sensory deficits, normal mood/affect, oriented x 3 Motor/Sensory: no motor deficit, no sensory deficit Skin: normal color, warm/dry Progress/Results/Core Measures Results/Orders Lab Results Laboratory Tests Test 08/09/19 20:02 Range/Units White Blood Count 4.4 4.3-11.0 10^3/uL Red Blood Count 5.13 4.35-5.85 10^6/uL Hemoglobin 15.5 13.3-17.7 G/DL Hematocrit 45 40-54 % Mean Corpuscular Volume 88 80-99 FL Mean Corpuscular Hemoglobin 30 25-34 PG Mean Corpuscular Hemoglobin Concent 34 32-36 G/DL Red Cell Distribution Width 13.3 10.0-14.5 % Platelet Count 67 L 130-400 10^3/uL Mean Platelet Volume 10.0 7.4-10.4 FL Neutrophils (%) (Auto) 45 42-75 % Lymphocytes (%) (Auto) 39 12-44 % Monocytes (%) (Auto) 11 0-12 % Eosinophils (%) (Auto) 4 0-10 % Basophils (%) (Auto) 1 0-10 % Neutrophils # (Auto) 2.0 1.8-7.8 X 10^3 Lymphocytes # (Auto) 1.7 1.0-4.0 X 10^3 Monocytes # (Auto) 0.5 0.0-1.0 X 10^3 Eosinophils # (Auto) 0.2 0.0-0.3 10^3/uL Basophils # (Auto) 0.0 0.0-0.1 10^3/uL Carbon Dioxide Level 25 21-32 MMOL/L Anion Gap 5-14 MMOL/L Blood Urea Nitrogen 12 7-18 MG/DL Creatinine 0.64 0.60-1.30 MG/DL Estimat Glomerular Filtration Rate > 60 BUN/Creatinine Ratio 19 Glucose Level 238 H 70-105 MG/DL Calcium Level 8.8 8.5-10.1 MG/DL Corrected Calcium 9.0 8.5-10.1 MG/DL Total Bilirubin 0.2 0.1-1.0 MG/DL Aspartate Amino Transf (AST/SGOT) 33 5-34 U/L Alanine Aminotransferase (ALT/SGPT) 32 0-55 U/L Alkaline Phosphatase 96 40-136 U/L Total Protein 6.7 6.4-8.2 GM/DL Albumin 3.8 3.2-4.5 GM/DL My Orders Orders - LIZZY WASHINGTON JR, MD Cbc And Manual Diff (08/09/19 19:14) Comprehensive Metabolic Panel (08/09/19 19:14) Dilantin (Phenytoin) (08/09/19 19:14) Ct Head/Cervical Spine Wo (08/09/19 19:14) Vital Signs/I&O 08/09/19 18:21 Temp 36.7 Pulse 87 Resp 18 B/P (MAP) 127/70 (89) Pulse Ox 94 O2 Delivery Room Air Blood Pressure Mean: 89 Progress Progress Note : Time: 20:36 Progress Note This point patient and having seizures on and off over the last couple months did redraw level XI follow up with his PCP at the anything here that his worrisome certainly no relationship to injury during the fall. Departure Impression Primary Impression: Seizure Disposition: HOME, SELF-CARE Condition: Stable Departure-Patient Inst. Referrals: [facility] (PCP) Primary Care Physician JERROD SERRANO APRN (Family) Primary Care Physician Patient Instructions: Seizures, Adult (DC) LIZZY WASHINGTON JR, MD Aug 09, 2019 19:21
--- NOTE | 2019-08-09 19:50 | Diagnostic Imaging Report ---
INDICATION: Seizure with fall. TECHNIQUE: Multiple contiguous axial images were obtained through the brain and cervical spine without the use of intravenous contrast. Sagittal and coronal reformations through the cervical spine were then performed. Auto Exposure Controls were utilized during the CT exam to meet ALARA standards for radiation dose reduction. COMPARISON: 06/11/2019. CT brain findings: There are no extra-axial fluid collections. No intracranial hemorrhage. No intracranial mass or mass effect. No midline shift. The ventricles are normal in size and position. There are no focal parenchymal abnormalities in the brain. Calvarial windows appear unremarkable. There is some mild mucosal thickening in the right sphenoid sinus. CT cervical spine findings: There is no evidence of cervical spine fracture. There is no subluxation or malalignment. There does not appear to be significant degenerative change. There is mild degenerative change in the lower cervical spine with osteophyte formation at C6-C7. IMPRESSION: 1. CT head shows no acute intracranial abnormality. There is mucosal thickening in the right sphenoid sinus. 2. CT cervical spine shows minimal degenerative findings with no acute abnormality. Dictated by: Dictated on workstation # [id number]
[2019-08-09 20:11] LABS: BASOPHILS % (AUTO) 1 % (0-10); EOSINOPHILS # (AUTO) 0.2 10^3/uL (0.0-0.3); EOSINOPHILS % (AUTO) 4 % (0-10); HEMATOCRIT 45 % (40-54); HEMOGLOBIN 15.5 G/DL (13.3-17.7); LYMPHOCYTES # (AUTO) 1.7 X 10^3 (1.0-4.0); LYMPHOCYTES % (AUTO) 39 % (12-44); MEAN CORPUSCULAR HEMOGLOBIN 30 PG (25-34); MEAN CORPUSCULAR HGB CONC 34 G/DL (32-36); MEAN CORPUSCULAR VOLUME 88 FL (80-99); MONOCYTES # (AUTO) 0.5 X 10^3 (0.0-1.0); MONOCYTES % (AUTO) 11 % (0-12); NEUTROPHILS % (AUTO) 45 % (42-75); PLATELET COUNT 67 10^3/uL (130-400); RED CELL DISTRIBUTION WIDTH 13.3 % (10.0-14.5); WHITE BLOOD COUNT 4.4 10^3/uL (4.3-11.0)
[2019-08-09 20:29] LABS: BUN/CREATININE RATIO 19; CALCIUM 8.8 MG/DL (8.5-10.1); CARBON DIOXIDE 25 MMOL/L (21-32); CREATININE SERUM 0.64 MG/DL (0.60-1.30); GFR ESTIMATED > 60; GLUCOSE 238 MG/DL (70-105)
[2019-08-09 20:30] LABS: ALANINE AMINOTRANSFERASE 32 U/L (0-55); ALBUMIN 3.8 GM/DL (3.2-4.5); ALKALINE PHOSPHATASE 96 U/L (40-136); BILIRUBIN,TOTAL 0.2 MG/DL (0.1-1.0); TOTAL PROTEIN 6.7 GM/DL (6.4-8.2)
[2019-08-09 20:38] LABS: EOSINOPHILS % (MANUAL) 3 %; LYMPHOCYTES % (MANUAL) 29 %; MICROCYTOSIS MODERATE; MONOCYTES % (MANUAL) 11 %; NEUTROPHILS % (MANUAL) 41 %; REACTIVE LYMPHOCYTES 16 %
[2019-08-09 20:40] VITALS: BP 127/70
[2019-08-09 20:40] LABS: CHLORIDE 105 MMOL/L (98-107); POTASSIUM 3.9 MMOL/L (3.6-5.0); SODIUM 141 MMOL/L (135-145)
== END 2019-08-09 20:41 | disposition home or self-care (01) ==
LOC: EDUNIT# 18:21 → ER FS 18:22
DX: G40.909 Epilepsy, unspecified, not intractable, without status epilepticus (principal); F31.9 Bipolar disorder, unspecified; Z88.8 Allergy status to other drugs, medicaments and biological substances; Z77.22 Contact with and (suspected) exposure to environmental tobacco smoke (acute) (chronic); Z87.820 Personal history of traumatic brain injury
CPT/HCPCS: 36415; 70450; 72125; 80053; 80185; 85007; 85027

== ENCOUNTER 2019-10-24 20:16 | Emergency (ER) | payer MEDICARE ==
[~2019-10-24] VITALS: Ht 172.7 cm; Wt 100.9 kg
[~2019-10-24 20:16] MED LIST changes: -MAGN296S50 PO; +MAGN296S71 PO
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
[2019-10-24 20:25] VITALS: BP 169/85
[2019-10-24] MEDS ORDERED: CLINDAMYCIN 150 MG (CLEOCIN) CAP PO ONE (20:30)
[2019-10-24] MEDS ORDERED: IBUPROFEN 800 MG (MOTRIN) TAB PO ONE (20:30)
[2019-10-24] MEDS ORDERED: IBUP-1780 PO (20:34)
[2019-10-24] MEDS ORDERED: CLIN300C11 PO (20:34)
--- NOTE | 2019-10-24 20:34 | ED General ---
General Chief Complaint: Neurological Problems Stated Complaint: DENTAL PAIN Source of Information: Patient History of Present Illness Date Seen by Provider: Oct 24, 2019 Time Seen by Provider: 20:28 Initial Comments onset of dental pain a few days ago, yesterday started to have some swelling on right upper jaw. Today worse w facial swelling. States he went to Urgent Care today and was given some kind of topical pad to treat. no fever. Hx dental infections. No recent dental visit. no other complaints. Allergies and Home Medications Allergies Coded Allergies: aripiprazole (Verified Allergy, Unknown, hallucinations, 10/01/18) zolpidem (Verified Allergy, Unknown, hallucinations, 10/01/18) Home Medications Dicyclomine HCl 20 Mg Tablet, 20 MG PO QID PRN for ABDOMINAL PAIN Prescribed by: LUIS LECHUGA on 10/01/18 0501 Haloperidol 5 Mg Tab, 10 MG PO HS, (Reported) Hydrocodone Bit/Acetaminophen 1 Tab Tab, 1 EACH PO Q4-6HR PRN for PAIN-MODERATE Prescribed by: HILDA YBARRA on 01/24/19 1351 Magnesium Citrate 296 Ml Solution, 296 ML PO Q6H Prescribed by: HILDA YBARRA on 01/30/19 1258 Ondansetron 4 Mg Tab.rapdis, 4 MG PO Q6H PRN for NAUSEA/VOMITING Prescribed by: LUIS LECHUGA on 07/23/19 2150 Psyllium Husk 0.4 Gm Capsule, 0.4 GM PO DAILY Prescribed by: HILDA YBARRA on 01/30/19 1258 Simvastatin 40 Mg Tablet, HS, (Reported) Patient Home Medication List Home Medication List Reviewed: Yes Review of Systems Review of Systems Constitutional: see HPI EENTM: see HPI, dental problems, mouth pain, mouth swelling; No ear discharge, No hearing loss, No ear pain, No blurred vision, No double vision, No eye pain, No tearing, No vision loss, No hoarseness, No epistaxis, No nose congestion, No nose pain, No throat pain, No throat swelling, No other Respiratory: no symptoms reported Cardiovascular: no symptoms reported Past Mpejxco-Pkhbfj-Ufuejx Hx Past Med/Social Hx: Reviewed Nursing Past Med/Soc Hx Patient Social History Alcohol Use: Denies Use Recreational Drug Use: Yes Drug of Choice: MARIJUANA Type Used: Cigarettes 2nd Hand Smoke Exposure: Yes Recent Foreign Travel: No Contact w/Someone Who Travel: No Recent Hopitalizations: No Physical Abuse: No Sexual Abuse: No Mistreated: No Fear: No Seasonal Allergies Seasonal Allergies: No Past Medical History Surgeries: Yes (cystoscopy) Gallbladder, Orthopedic Respiratory: Yes Asthma Cardiac: No Neurological: Yes Headaches /Migraines, Seizure Disorder, Traumatic Brain Injury Genitourinary: No Gastrointestinal: Yes Gastroesophageal Reflux, Hepatitis, Cirrhosis Musculoskeletal: No Endocrine: Yes Diabetes, Insulin dep HEENT: No Cancer: No Psychosocial: No Bipolar, Personality Disorder Integumentary: No Blood Disorders: No Family Medical History No Pertinent Family Hx Physical Exam Vital Signs Capillary Refill : Height, Weight, BMI Height: 5'8.00" Weight: 220lbs. oz. 99.246120qq; 34.00 BMI Method:Stated General Appearance: No Apparent Distress, WD/WN HEENT: PERRL/EOMI, TMs Normal, Pharynx Normal, Other (swelling right buccal area w moderate tenderness. R upper incisor decay w moderate gum swelling and draining abscess) Neck: Normal Inspection, Non Tender, Supple Progress/Results/Core Measures Suspected Sepsis SIRS Temperature: Pulse: Respiratory Rate: Blood Pressure / Mean: Results/Orders My Orders Orders - ROVENSTINE,LINDEN L DO Clindamycin Capsule (Cleocin Capsule) (10/24/19 20:30) Ibuprofen Tablet (Motrin Tablet) (10/24/19 20:30) Vital Signs/I&O Capillary Refill : Departure Impression Primary Impression: Abscess, dental Disposition: HOME, SELF-CARE Condition: Stable Departure-Patient Inst. Decision time for Depature: 20:32 Referrals: [facility]/ (PCP) Primary Care Physician JERROD SERRANO APRN (Family) Primary Care Physician Patient Instructions: Tooth Abscess (DC) Add. Discharge Instructions: Call your Dentist on Saturday to make a follow up appointment in 1 week for repair of your tooth. All discharge instructions reviewed with patient and/or family. Voiced understanding. Scripts Ibuprofen (Ibuprofen) 800 Mg Tablet 800 MG PO Q8H PRN for PAIN, #30 TAB 0 Refills Prov: ROVENSTINE,LINDEN L DO 10/24/19 Clindamycin HCl (Clindamycin HCl) 300 Mg Capsule 300 MG PO TIDWM, #21 CAP Prov: ROVENSTINE,LINDEN L DO 10/24/19 ROVENSTINE,LINDEN L DO Oct 24, 2019 20:34
== END 2019-10-24 20:36 | disposition home or self-care (01) ==
LOC: EDUNIT# 20:16 → ER FS 20:19
DX: K04.7 Periapical abscess without sinus (principal); F17.210 Nicotine dependence, cigarettes, uncomplicated; J45.909 Unspecified asthma, uncomplicated; G43.909 Migraine, unspecified, not intractable, without status migrainosus; G40.909 Epilepsy, unspecified, not intractable, without status epilepticus; K21.9 Gastro-esophageal reflux disease without esophagitis; E11.9 Type 2 diabetes mellitus without complications; F31.9 Bipolar disorder, unspecified; F60.9 Personality disorder, unspecified; K74.60 Unspecified cirrhosis of liver; Z87.820 Personal history of traumatic brain injury; Z79.899 Other long term (current) drug therapy
CPT/HCPCS: 99283

== ENCOUNTER 2019-10-27 09:59 | Emergency (ER) | payer MEDICARE ==
[~2019-10-27] VITALS: Ht 172.7 cm; Wt 102.0 kg
[~2019-10-27 09:59] MED LIST changes: +CLIN300C11 PO; +IBUP-1780 PO
[2019-10-27 10:37] LABS: COLOR,URINE PALE YELLOW
[2019-10-27 10:38] LABS: BACTERIA,URINE NEGATIVE /HPF; BILIRUBIN,URINE NEGATIVE (NEGATIVE); CLARITY,URINE CLEAR; GLUCOSE, URINE (UA) 3+ (NEGATIVE); KETONES,URINE NEGATIVE (NEGATIVE); LEUKOCYTE ESTERASE ,URINE NEGATIVE (NEGATIVE); NITRITE,URINE NEGATIVE (NEGATIVE); PROTEIN,URINE NEGATIVE (NEGATIVE)
[2019-10-27 10:43] LABS: BARBITURATE SCREEN URINE POSITIVE (NEGATIVE); BENZODIAZEPINES SCREEN URINE POSITIVE (NEGATIVE); TRICYCLIC ANTIDEPRESSANTS SCRE POSITIVE (NEGATIVE)
[2019-10-27 10:44] LABS: AMPHETAMINE SCREEN, URINE NEGATIVE (NEGATIVE); CANNABINOID SCREEN, URINE NEGATIVE (NEGATIVE); COCAINE SCREEN URINE NEGATIVE (NEGATIVE); METHADONE STAT NEGATIVE (NEGATIVE); METHAMPHETAMINE SCREEN URINE S NEGATIVE (NEGATIVE); OPIATE SCREEN URINE NEGATIVE (NEGATIVE); OXYCODONE STAT NEGATIVE (NEGATIVE); PROPOXYPHENE STAT NEGATIVE (NEGATIVE)
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
[2019-10-27 10:54] LABS: HEMATOCRIT 46 % (40-54); HEMOGLOBIN 16.4 G/DL (13.3-17.7); MEAN CORPUSCULAR HEMOGLOBIN 30 PG (25-34); MEAN CORPUSCULAR HGB CONC 35 G/DL (32-36); MEAN CORPUSCULAR VOLUME 86 FL (80-99); MEAN PLATELET VOLUME 10.7 FL (7.4-10.4); PLATELET COUNT 71 10^3/uL (130-400); RED CELL DISTRIBUTION WIDTH 12.6 % (10.0-14.5)
[2019-10-27 10:55] LABS: BASOPHILS % (AUTO) 1 % (0-10); EOSINOPHILS # (AUTO) 0.1 10^3/uL (0.0-0.3); EOSINOPHILS % (AUTO) 1 % (0-10); LYMPHOCYTES # (AUTO) 2.2 X 10^3 (1.0-4.0); LYMPHOCYTES % (AUTO) 32 % (12-44); MONOCYTES # (AUTO) 0.6 X 10^3 (0.0-1.0); MONOCYTES % (AUTO) 9 % (0-12); NEUTROPHILS % (AUTO) 57 % (42-75)
[2019-10-27 11:14] LABS: ALANINE AMINOTRANSFERASE 41 U/L (0-55); ALKALINE PHOSPHATASE 95 U/L (40-136); BILIRUBIN,TOTAL 0.6 MG/DL (0.1-1.0); BUN/CREATININE RATIO 19; CALCIUM 9.2 MG/DL (8.5-10.1); CARBON DIOXIDE 24 MMOL/L (21-32); CHLORIDE 100 MMOL/L (98-107); CREATININE SERUM 0.72 MG/DL (0.60-1.30); GFR ESTIMATED > 60; GLUCOSE 150 MG/DL (70-105); POTASSIUM 3.6 MMOL/L (3.6-5.0); SODIUM 137 MMOL/L (135-145); TOTAL PROTEIN 7.5 GM/DL (6.4-8.2)
[2019-10-27 11:15] LABS: ACETAMINOPHEN < 10 UG/ML (10-30); SALICYLATE < 0.3 MG/DL (5.0-20.0)
--- NOTE | 2019-10-27 11:44 | NUR ---
[facility] [place] at this time for a mental health [place].
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
--- NOTE | 2019-10-27 12:50 | NUR ---
Contacted by Ke at [facility] at this time and the patient's mental health screening initiated.
--- NOTE | 2019-10-27 13:43 | NUR ---
Contacted by Alton at [facility] after he had completed the mental health screening. Informed at this time that he would be looking for inpatient psychiatric admission.
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
[2019-10-27 17:04] VITALS: BP 129/67
== END 2019-10-27 17:04 ==
LOC: EDUNIT# 09:59 → ER FS 10:01
DX: R45.851 Suicidal ideations (principal); R45.850 Homicidal ideations; F43.10 Post-traumatic stress disorder, unspecified; F31.9 Bipolar disorder, unspecified; J45.909 Unspecified asthma, uncomplicated; G43.909 Migraine, unspecified, not intractable, without status migrainosus; G40.909 Epilepsy, unspecified, not intractable, without status epilepticus; K21.9 Gastro-esophageal reflux disease without esophagitis; E11.9 Type 2 diabetes mellitus without complications; K74.60 Unspecified cirrhosis of liver; F60.9 Personality disorder, unspecified; F25.0 Schizoaffective disorder, bipolar type; Z79.899 Other long term (current) drug therapy; Z87.820 Personal history of traumatic brain injury
CPT/HCPCS: 36415; 80053; 80306; 80320; 80329; 81000; 85025

== ENCOUNTER 2019-11-14 07:54 | Emergency (ER) | payer MEDICARE ==
[~2019-11-14] VITALS: Ht 172 cm; Wt 75.0 kg
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
[2019-11-14] MEDS ORDERED: ACETAMINOPHEN 325 MG TABLET PO ONE (08:15)
[2019-11-14 08:18] LABS: HEMATOCRIT 45 % (40-54); HEMOGLOBIN 15.7 G/DL (13.3-17.7); MEAN CORPUSCULAR HEMOGLOBIN 30 PG (25-34); WHITE BLOOD COUNT 5.6 10^3/uL (4.3-11.0)
[2019-11-14 08:19] LABS: BASOPHILS % (AUTO) 1 % (0-10); EOSINOPHILS # (AUTO) 0.2 10^3/uL (0.0-0.3); EOSINOPHILS % (AUTO) 4 % (0-10); LYMPHOCYTES # (AUTO) 2.4 X 10^3 (1.0-4.0); LYMPHOCYTES % (AUTO) 44 % (12-44); MEAN CORPUSCULAR HGB CONC 35 G/DL (32-36); MEAN CORPUSCULAR VOLUME 87 FL (80-99); MEAN PLATELET VOLUME 10.2 FL (7.4-10.4); MONOCYTES # (AUTO) 0.6 X 10^3 (0.0-1.0); MONOCYTES % (AUTO) 10 % (0-12); NEUTROPHILS # (AUTO) 2.3 X 10^3 (1.8-7.8); NEUTROPHILS % (AUTO) 41 % (42-75); PLATELET COUNT 71 10^3/uL (130-400); RED CELL DISTRIBUTION WIDTH 12.4 % (10.0-14.5)
[2019-11-14] MEDS ORDERED: LORazepam 0.5 MG (ATIVAN) TABLET PO STA (08:22)
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
[2019-11-14 08:34] LABS: BUN/CREATININE RATIO 24; CARBON DIOXIDE 27 MMOL/L (21-32); CHLORIDE 100 MMOL/L (98-107); CREATININE SERUM 0.59 MG/DL (0.60-1.30); GFR ESTIMATED > 60; GLUCOSE 256 MG/DL (70-105); POTASSIUM 4.3 MMOL/L (3.6-5.0); SODIUM 139 MMOL/L (135-145)
[2019-11-14 08:35] LABS: ALANINE AMINOTRANSFERASE 47 U/L (0-55); ALBUMIN 4.1 GM/DL (3.2-4.5); ALKALINE PHOSPHATASE 91 U/L (40-136); BILIRUBIN,TOTAL 0.5 MG/DL (0.1-1.0); CALCIUM 9.4 MG/DL (8.5-10.1); TOTAL PROTEIN 6.9 GM/DL (6.4-8.2)
[2019-11-14 08:42] VITALS: BP 145/85
== END 2019-11-14 08:38 | disposition home or self-care (01) ==
LOC: EDUNIT# 07:54 → ER FS 07:56
DX: G40.909 Epilepsy, unspecified, not intractable, without status epilepticus (principal); F31.9 Bipolar disorder, unspecified; F17.210 Nicotine dependence, cigarettes, uncomplicated; Z88.8 Allergy status to other drugs, medicaments and biological substances; Z87.820 Personal history of traumatic brain injury
CPT/HCPCS: 36415; 80053; 80185; 85025

== ENCOUNTER 2019-11-21 09:50 | Emergency (ER) | payer MEDICARE ==
[~2019-11-21] VITALS: Ht 172 cm; Wt 82.0 kg
[2019-11-21 09:52] VITALS: BP 123/80
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
[2019-11-21] MEDS ORDERED: NS IV 500 ML 500 ML IV STA (10:02)
--- NOTE | 2019-11-21 10:06 | ED General ---
General Chief Complaint: Dizziness/Syncope Stated Complaint: SYNCOPE Source of Information: Patient, EMS, EMS Notes Reviewed, Old Records, RN/MD, RN Notes Reviewed Exam Limitations: No Limitations History of Present Illness Date Seen by Provider: November 21, 2019 Time Seen by Provider: 09:55 Initial Comments This patient is a 49-year-old male who presents to the emergency department with complaint of syncope/pseudoseizure. Patient went to the local urgent care clinic to discuss issues with his varicose veins lower extremities. Patient states that he just felt it coming on and had a seizure activity. But quickly resolved and got himself up to a chair. Patient states that it lasted about 2 minutes. Patient had no postictal symptoms. EMS reports the patient has long history of the same of multiple transports due to pseudoseizures due to his issues with anxiety and stress and has multiple psychological issues. Patient is awake and alert at his mental baseline. Patient agrees to do medical screening exam. Patient does take Dilantin daily for 6 history of seizures. Timing/Duration: Gone Now Severity: Mild Associated Systoms: No Denies Symptoms, No Chest Pain, No Cough, No Diaphoresis, No Fever/Chills, No Headaches, No Loss of Appetite, No Malaise, No Nausea/Vomiting, No Rash; Seizure; No Shortness of Air, No Syncope, No Weakness, No Other Allergies and Home Medications Allergies Coded Allergies: aripiprazole (Verified Allergy, Unknown, hallucinations, 10/01/18) zolpidem (Verified Allergy, Unknown, hallucinations, 10/01/18) Home Medications Clindamycin HCl 300 Mg Capsule, 300 MG PO TIDWM Prescribed by: LINDEN MERCEDES on 10/24/192033 Dicyclomine HCl 20 Mg Tablet, 20 MG PO QID PRN for ABDOMINAL PAIN Prescribed by: LUIS LECHUGA on 10/01/18 0501 Haloperidol 5 Mg Tab, 10 MG PO HS, (Reported) Hydrocodone Bit/Acetaminophen 1 Tab Tab, 1 EACH PO Q4-6HR PRN for PAIN-MODERATE Prescribed by: HILDA YBARRA on 01/24/19 1351 Ibuprofen 800 Mg Tablet, 800 MG PO Q8H PRN for PAIN Prescribed by: LINDEN MERCEDES on 10/24/192033 Magnesium Citrate 296 Ml Solution, 296 ML PO Q6H Prescribed by: HILDA YBARRA on 01/30/19 1258 Ondansetron 4 Mg Tab.rapdis, 4 MG PO Q6H PRN for NAUSEA/VOMITING Prescribed by: LUIS LECHUGA on 07/23/192149 Psyllium Husk 0.4 Gm Capsule, 0.4 GM PO DAILY Prescribed by: HILDA YBARRA on 01/30/19 1258 Simvastatin 40 Mg Tablet, HS, (Reported) Patient Home Medication List Home Medication List Reviewed: Yes Review of Systems Review of Systems Constitutional: No no symptoms reported; see HPI; No chills, No diaphoresis, No dizziness, No fever, No malaise, No weakness, No weight gain, No weight loss, No other EENTM: No see HPI, No no symptoms reported, No ear discharge, No hearing loss, No ear pain, No blurred vision, No double vision, No eye pain, No tearing, No vision loss, No dental problems, No hoarseness, No mouth pain, No mouth sw elling, No epistaxis, No nose congestion, No nose pain, No throat pain, No throat swelling, No other Respiratory: No no symptoms reported, No see HPI, No cough, No dyspnea on exertion, No hemoptysis, No orthopnea, No phlegm, No short of breath, No stridor, No wheezing, No other Cardiovascular: No no symptoms reported, No see HPI, No chest pain, No edema, No Hx of Intervention, No palpitations, No syncope, No vascular heart diseas, No other Gastrointestinal: No RUQ, No LUQ, No RLQ, No LLQ, No no symptoms reported, No see HPI, No abdominal pain, No constipation, No diarrhea, No dysphagia, No hematemesis, No heartburn, No jaundice, No loss of appetite, No melena, No nausea, No vomiting, No other Genitourinary: No no symptoms reported, No see HPI, No decreased output, No discharge, No dysuria, No frequency, No hematuria, No hesitancy, No incontinence, No nocturia, No pain, No other Musculoskeletal: No no symptoms reported, No see HPI, No back pain, No gout, No joint pain, No joint swelling, No muscle pain, No muscle stiffness, No muscle cramps, No muscle twitching, No muscle weakness, No neck pain, No other Skin: No no symptoms reported, No see HPI, No change in color, No change in hair/nails, No dryness, No hx of skin cancer, No lesions, No lumps, No pruritus, No rash, No other Psychiatric/Neurological: See HPI, Anxiety All Other Systems Reviewed Negative Unless Noted: Yes Past Uefalyz-Qhuuqz-Cpcsoz Hx Patient Social History Drug of Choice: MARIJUANA Type Used: Cigarettes 2nd Hand Smoke Exposure: Yes Recent Hopitalizations: No Seasonal Allergies Seasonal Allergies: No Past Medical History Surgeries: Yes (cystoscopy) Gallbladder, Orthopedic Respiratory: Yes Asthma Cardiac: No Neurological: Yes Headaches /Migraines, Seizure Disorder, Traumatic Brain Injury Genitourinary: No Gastrointestinal: Yes Gastroesophageal Reflux, Hepatitis, Cirrhosis Musculoskeletal: No Endocrine: Yes Diabetes, Insulin dep HEENT: No Cancer: No Psychosocial: No (Suicidal and homicidal ideation) Bipolar, Personality Disorder Integumentary: No Blood Disorders: No Family Medical History No Pertinent Family Hx Physical Exam Vital Signs Capillary Refill : Height, Weight, BMI Height: 5'8.00" Weight: 220lbs. oz. 99.137223ys; 25.00 BMI Method:Stated General Appearance: No Apparent Distress, WD/WN HEENT: PERRL/EOMI, TMs Normal, Normal ENT Inspection, Pharynx Normal Neck: Full Range of Motion, Normal Inspection, Non Tender, Supple Respiratory: Chest Non Tender, Lungs Clear, Normal Breath Sounds, No Accessory Muscle Use, No Respiratory Distress Cardiovascular: Regular Rate, Rhythm, No Edema, No Gallop, No JVD, No Murmur, Normal Peripheral Pulses Gastrointestinal: Normal Bowel Sounds, No Organomegaly, No Pulsatile Mass, Non Tender, Soft Neurologic/Psychiatric: Alert, Oriented x3, No Motor/Sensory Deficits, Normal Mood/Affect Skin: Normal Color, Warm/Dry Progress/Results/Core Measures Suspected Sepsis SIRS Temperature: Pulse: Respiratory Rate: Blood Pressure / Mean: Results/Orders My Orders Orders - SHANTANU BURTON MD Cbc With Automated Diff (11/21/19 10:02) Comprehensive Metabolic Panel (11/21/19 10:02) Urinalysis (11/21/19 10:02) Drug Screen Stat (Urine) (11/21/19 10:02) Ekg Tracing (11/21/19 10:02) Ns Iv 500 Ml (Sodium Chloride 0.9%) (11/21/19 10:02) Vital Signs/I&O Capillary Refill : Progress Note : Time: 10:16 Progress Note Patient is requesting to be discharged from the hospital. Patient was offered IV fluid bolus and laboratory evaluation. Patient declines I did discuss with patient about blood pressures that were checked patient states he drinks plenty of fluids and requested going be discharged. Patient has long history of pseudoseizures and a states he has no complaints and is ready to leave patient's been walking throughout the emergency department under his own power without difficulty as went to the bathroom twice. Patient is again requesting his discharge. 4. Patient be discharged per his request. Departure Impression Primary Impression: Pseudoseizure Disposition: 01 HOME, SELF-CARE Condition: Stable Departure-Patient Inst. Decision time for Depature: 10:17 Referrals: [facility] (PCP/Family) Primary Care Physician Add. Discharge Instructions: Continue all home medications. Follow-up with your PCP in 2-3 days. You're being discharged home per your request. All discharge instructions reviewed with patient and/or family. Voiced understanding. SHANTANU BURTON MD November 21, 2019 10:05
[2019-11-21 10:33] LABS: BASOPHILS % (AUTO) 1 % (0-10); EOSINOPHILS % (AUTO) 4 % (0-10); HEMATOCRIT 44 % (40-54); HEMOGLOBIN 15.7 G/DL (13.3-17.7); LYMPHOCYTES % (AUTO) 44 % (12-44); MEAN CORPUSCULAR HEMOGLOBIN 30 PG (25-34); MEAN CORPUSCULAR HGB CONC 36 G/DL (32-36); MEAN CORPUSCULAR VOLUME 85 FL (80-99); MEAN PLATELET VOLUME 10.2 FL (7.4-10.4); MONOCYTES % (AUTO) 10 % (0-12); NEUTROPHILS % (AUTO) 41 % (42-75); PLATELET COUNT 75 10^3/uL (130-400); RED CELL DISTRIBUTION WIDTH 12.8 % (10.0-14.5); WHITE BLOOD COUNT 6.2 10^3/uL (4.3-11.0)
[2019-11-21 10:34] LABS: EOSINOPHILS # (AUTO) 0.3 10^3/uL (0.0-0.3); LYMPHOCYTES # (AUTO) 2.7 X 10^3 (1.0-4.0); MONOCYTES # (AUTO) 0.7 X 10^3 (0.0-1.0); NEUTROPHILS # (AUTO) 2.6 X 10^3 (1.8-7.8)
[2019-11-21 10:49] LABS: POTASSIUM 4.1 MMOL/L (3.6-5.0); SODIUM 140 MMOL/L (135-145)
[2019-11-21 10:50] LABS: ALANINE AMINOTRANSFERASE 29 U/L (0-55); ALKALINE PHOSPHATASE 80 U/L (40-136); BILIRUBIN,TOTAL 0.5 MG/DL (0.1-1.0); BUN/CREATININE RATIO 14; CARBON DIOXIDE 24 MMOL/L (21-32); CHLORIDE 105 MMOL/L (98-107); CREATININE SERUM 0.56 MG/DL (0.60-1.30); GFR ESTIMATED > 60; GLUCOSE 230 MG/DL (70-105); TOTAL PROTEIN 6.8 GM/DL (6.4-8.2)
[2019-11-21 10:51] LABS: ALBUMIN 3.9 GM/DL (3.2-4.5)
== END 2019-11-21 10:28 | disposition home or self-care (01) ==
LOC: EDUNIT# 09:50 → ER FS 09:53
DX: G40.909 Epilepsy, unspecified, not intractable, without status epilepticus (principal); G43.909 Migraine, unspecified, not intractable, without status migrainosus; E11.9 Type 2 diabetes mellitus without complications; F31.9 Bipolar disorder, unspecified; Z88.8 Allergy status to other drugs, medicaments and biological substances; Z77.22 Contact with and (suspected) exposure to environmental tobacco smoke (acute) (chronic); Z87.820 Personal history of traumatic brain injury
CPT/HCPCS: 36415; 80053; 85025

== ENCOUNTER 2019-11-24 09:36 | Emergency (ER) | payer MEDICARE ==
[~2019-11-24] VITALS: Ht 172.7 cm; Wt 82.3 kg
--- NOTE | 2019-11-24 09:52 | ED Psychosocial ---
General Stated Complaint: SEIZURE Source: patient, other History of Present Illness Date Seen by Provider: November 24, 2019 Time Seen by Provider: 09:40 Initial Comments Patient presents from the critical [facility] where he was observed to be sitting in his chair and having a shaking episode. Patient brought to the ER in a wheelchair, awake and alert but having intermittent upper extremity shaking without loss of consciousness. Able to stand up and use the restroom and get onto the gurney in the room. Patient with long-standing history of "seizures" and taking Dilantin as well as Depakote. Timing/Duration: just prior to arrival Severity: mild Allergies and Home Medications Allergies Coded Allergies: aripiprazole (Verified Allergy, Unknown, hallucinations, 10/01/18) zolpidem (Verified Allergy, Unknown, hallucinations, 10/01/18) Home Medications Clindamycin HCl 300 Mg Capsule, 300 MG PO TIDWM Prescribed by: LINDEN MERCEDES on 10/24/192033 Dicyclomine HCl 20 Mg Tablet, 20 MG PO QID PRN for ABDOMINAL PAIN Prescribed by: LUIS LECHUGA on 10/01/18 0501 Haloperidol 5 Mg Tab, 10 MG PO HS, (Reported) Hydrocodone Bit/Acetaminophen 1 Tab Tab, 1 EACH PO Q4-6HR PRN for PAIN-MODERATE Prescribed by: HILDA YBARRA on 01/24/19 1351 Ibuprofen 800 Mg Tablet, 800 MG PO Q8H PRN for PAIN Prescribed by: LINDEN MERCEDES on 10/24/192033 Magnesium Citrate 296 Ml Solution, 296 ML PO Q6H Prescribed by: HILDA YBARRA on 01/30/19 1258 Ondansetron 4 Mg Tab.rapdis, 4 MG PO Q6H PRN for NAUSEA/VOMITING Prescribed by: LUIS LECHUGA on 07/23/19 2150 Psyllium Husk 0.4 Gm Capsule, 0.4 GM PO DAILY Prescribed by: HILDA YBARRA on 01/30/19 1258 Simvastatin 40 Mg Tablet, HS, (Reported) Patient Home Medication List Home Medication List Reviewed: Yes Review of Systems Constitutional: no symptoms reported; No dizziness, No fever, No malaise, No weakness Respiratory: No cough, No short of breath Cardiovascular: No chest pain, No palpitations Gastrointestinal: No abdominal pain, No vomiting Musculoskeletal: No back pain, No joint pain Psychiatric/Neurological: Denies Depressed, Denies Emotional Problems, Denies Numbness, Denies Paresthesia; Seizure Past Gmmoxhm-Uyhskq-Vqebth Hx Past Med/Social Hx: Reviewed Nursing Past Med/Soc Hx Patient Social History Drug of Choice: MARIJUANA Type Used: Cigarettes 2nd Hand Smoke Exposure: Yes Recent Hopitalizations: No Seasonal Allergies Seasonal Allergies: No Past Medical History Surgeries: Yes (cystoscopy) Gallbladder, Orthopedic Respiratory: Yes Asthma Cardiac: No Neurological: Yes Headaches /Migraines, Seizure Disorder, Traumatic Brain Injury Genitourinary: No Gastrointestinal: Yes Gastroesophageal Reflux, Hepatitis, Cirrhosis Musculoskeletal: No Endocrine: Yes Diabetes, Insulin dep HEENT: No Cancer: No Psychosocial: No (Suicidal and homicidal ideation) Bipolar, Personality Disorder Integumentary: No Blood Disorders: No Family Medical History No Pertinent Family Hx Physical Exam Vital Signs - First Documented 11/24/19 09:36 Temp 36.8 Pulse 76 Resp 16 B/P (MAP) 117/76 (90) Pulse Ox 96 O2 Delivery Room Air Capillary Refill : Height, Weight, BMI Height: 5'8.00" Weight: 220lbs. oz. 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, no motor/sensory deficits, alert, normal mood/affect, oriented x 3; No EOM palsy, No motor weakness, No sensory deficit, No depressed affect Appearance/Memory: appropriate appearance, appropriate insight Behavior/Eye Contact: cooperative, normal speech Thoughts/Hallucinations: normal thought pattern, no apparent hallucination Skin: normal color, warm/dry Progress/Results/Core Measures Results/Orders Lab Results Laboratory Tests Test 11/24/19 10:10 11/24/19 10:20 Range/Units White Blood Count 4.5 4.3-11.0 10^3/uL Red Blood Count 4.64 4.35-5.85 10^6/uL Hemoglobin 14.0 13.3-17.7 G/DL Hematocrit 41 40-54 % Mean Corpuscular Volume 88 80-99 FL Mean Corpuscular Hemoglobin 30 25-34 PG Mean Corpuscular Hemoglobin Concent 34 32-36 G/DL Red Cell Distribution Width 13.2 10.0-14.5 % Platelet Count 64 L 130-400 10^3/uL Mean Platelet Volume 9.5 7.4-10.4 FL Neutrophils (%) (Auto) 34 L 42-75 % Lymphocytes (%) (Auto) 50 H 12-44 % Monocytes (%) (Auto) 11 0-12 % Eosinophils (%) (Auto) 5 0-10 % Basophils (%) (Auto) 0 0-10 % Neutrophils # (Auto) 1.5 L 1.8-7.8 X 10^3 Lymphocytes # (Auto) 2.3 1.0-4.0 X 10^3 Monocytes # (Auto) 0.5 0.0-1.0 X 10^3 Eosinophils # (Auto) 0.2 0.0-0.3 10^3/uL Basophils # (Auto) 0.0 0.0-0.1 10^3/uL Sodium Level 140 135-145 MMOL/L Potassium Level 4.1 3.6-5.0 MMOL/L Chloride Level 104 98-107 MMOL/L Carbon Dioxide Level 27 21-32 MMOL/L Anion Gap 9 5-14 MMOL/L Blood Urea Nitrogen 10 7-18 MG/DL Creatinine 0.62 0.60-1.30 MG/DL Estimat Glomerular Filtration Rate > 60 BUN/Creatinine Ratio 16 Glucose Level 292 H 70-105 MG/DL Calcium Level 8.6 8.5-10.1 MG/DL Corrected Calcium 9.0 8.5-10.1 MG/DL Total Bilirubin 0.3 0.1-1.0 MG/DL Aspartate Amino Transf (AST/SGOT) 23 5-34 U/L Alanine Aminotransferase (ALT/SGPT) 26 0-55 U/L Alkaline Phosphatase 70 40-136 U/L Total Protein 5.9 L 6.4-8.2 GM/DL Albumin 3.5 3.2-4.5 GM/DL Urine Color YELLOW Urine Clarity CLEAR Urine pH 6.0 5-9 Urine Specific Ione 1.025 H 1.016-1.022 Urine Protein NEGATIVE NEGATIVE Urine Glucose (UA) 3+ H NEGATIVE Urine Ketones NEGATIVE NEGATIVE Urine Nitrite NEGATIVE NEGATIVE Urine Bilirubin NEGATIVE NEGATIVE Urine Urobilinogen 0.2 < = 1.0 MG/DL Urine Leukocyte Esterase NEGATIVE NEGATIVE Urine RBC (Auto) NEGATIVE NEGATIVE Urine RBC NONE /HPF Urine WBC NONE /HPF Urine Squamous Epithelial Cells 5-10 /HPF Urine Crystals NONE /LPF Urine Bacteria NEGATIVE /HPF Urine Casts NONE /LPF Urine Mucus SMALL H /LPF Urine Culture Indicated NO Urine Opiates Screen NEGATIVE NEGATIVE Urine Oxycodone Screen NEGATIVE NEGATIVE Urine Methadone Screen NEGATIVE NEGATIVE Urine Propoxyphene Screen NEGATIVE NEGATIVE Urine Barbiturates Screen POSITIVE H NEGATIVE Ur Tricyclic Antidepressants Screen POSITIVE H NEGATIVE Urine Phencyclidine Screen NEGATIVE NEGATIVE Urine Amphetamines Screen NEGATIVE NEGATIVE Urine Methamphetamines Screen NEGATIVE NEGATIVE Urine Benzodiazepines Screen NEGATIVE NEGATIVE Urine Cocaine Screen NEGATIVE NEGATIVE Urine Cannabinoids Screen NEGATIVE NEGATIVE My Orders Orders - LINDEN MERCEDES DO Urinalysis (11/24/19 09:51) Drug Screen Stat (Urine) (11/24/19 09:51) Cbc With Automated Diff (11/24/19 09:51) Comprehensive Metabolic Panel (11/24/19 09:51) Vital Signs/I&O 11/24/19 11/24/19 09:36 10:45 Temp 36.8 36.3 Pulse 76 79 Resp 16 18 B/P (MAP) 117/76 (90) 131/70 Pulse Ox 96 94 O2 Delivery Room Air Room Air Progress Progress Note : Progress Note Uneventful ER stay with the patient walking around the department, socializing and using the restroom multiple times. No distress, cooperative and pleasant. After patient discharge contact the lab to look for results from most recent seizure medication levels drawn within the last week. Discovered significantly subtherapeutic. ED nurse called the patient's primary care provider to notify need to speak with the patient and possibly increase his dose or encourage compliance with taking his antiseizure medication. Departure Impression Primary Impression: Seizure disorder Disposition: 01 HOME, SELF-CARE Condition: Stable Departure-Patient Inst. Decision time for Depature: 10:24 Referrals: [facility] (PCP/Family) Primary Care Physician Patient Instructions: Seizures, Adult (DC) LINDEN MERCEDES DO November 24, 2019 09:52
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
[2019-11-24 10:24] LABS: HEMATOCRIT 41 % (40-54); MEAN CORPUSCULAR HEMOGLOBIN 30 PG (25-34); MEAN CORPUSCULAR HGB CONC 34 G/DL (32-36); MEAN CORPUSCULAR VOLUME 88 FL (80-99); MEAN PLATELET VOLUME 9.5 FL (7.4-10.4); PLATELET COUNT 64 10^3/uL (130-400); RED CELL DISTRIBUTION WIDTH 13.2 % (10.0-14.5); WHITE BLOOD COUNT 4.5 10^3/uL (4.3-11.0)
[2019-11-24 10:25] LABS: BASOPHILS % (AUTO) 0 % (0-10); EOSINOPHILS % (AUTO) 5 % (0-10); LYMPHOCYTES # (AUTO) 2.3 X 10^3 (1.0-4.0); LYMPHOCYTES % (AUTO) 50 % (12-44); MONOCYTES % (AUTO) 11 % (0-12); NEUTROPHILS # (AUTO) 1.5 X 10^3 (1.8-7.8); NEUTROPHILS % (AUTO) 34 % (42-75)
[2019-11-24 10:27] LABS: EOSINOPHILS # (AUTO) 0.2 10^3/uL (0.0-0.3); MONOCYTES # (AUTO) 0.5 X 10^3 (0.0-1.0)
[2019-11-24 10:45] VITALS: BP 131/70
[2019-11-24 10:45] LABS: BACTERIA,URINE NEGATIVE /HPF; BILIRUBIN,URINE NEGATIVE (NEGATIVE); CLARITY,URINE CLEAR; COLOR,URINE YELLOW; GLUCOSE, URINE (UA) 3+ (NEGATIVE); KETONES,URINE NEGATIVE (NEGATIVE); LEUKOCYTE ESTERASE ,URINE NEGATIVE (NEGATIVE); NITRITE,URINE NEGATIVE (NEGATIVE); PROTEIN,URINE NEGATIVE (NEGATIVE)
[2019-11-24 10:48] LABS: BUN/CREATININE RATIO 16; CARBON DIOXIDE 27 MMOL/L (21-32); CHLORIDE 104 MMOL/L (98-107); CREATININE SERUM 0.62 MG/DL (0.60-1.30); GFR ESTIMATED > 60; GLUCOSE 292 MG/DL (70-105); POTASSIUM 4.1 MMOL/L (3.6-5.0); SODIUM 140 MMOL/L (135-145)
[2019-11-24 10:49] LABS: ALANINE AMINOTRANSFERASE 26 U/L (0-55); ALBUMIN 3.5 GM/DL (3.2-4.5); ALKALINE PHOSPHATASE 70 U/L (40-136); BILIRUBIN,TOTAL 0.3 MG/DL (0.1-1.0); CALCIUM 8.6 MG/DL (8.5-10.1); TOTAL PROTEIN 5.9 GM/DL (6.4-8.2)
[2019-11-24 10:53] LABS: AMPHETAMINE SCREEN, URINE NEGATIVE (NEGATIVE); BARBITURATE SCREEN URINE POSITIVE (NEGATIVE); BENZODIAZEPINES SCREEN URINE NEGATIVE (NEGATIVE); CANNABINOID SCREEN, URINE NEGATIVE (NEGATIVE); COCAINE SCREEN URINE NEGATIVE (NEGATIVE); METHADONE STAT NEGATIVE (NEGATIVE); METHAMPHETAMINE SCREEN URINE S NEGATIVE (NEGATIVE); OPIATE SCREEN URINE NEGATIVE (NEGATIVE); OXYCODONE STAT NEGATIVE (NEGATIVE); PROPOXYPHENE STAT NEGATIVE (NEGATIVE); TRICYCLIC ANTIDEPRESSANTS SCRE POSITIVE (NEGATIVE)
== END 2019-11-24 10:45 | disposition home or self-care (01) ==
LOC: EDUNIT# 09:36 → ER FS 09:37
DX: G40.909 Epilepsy, unspecified, not intractable, without status epilepticus (principal); G43.909 Migraine, unspecified, not intractable, without status migrainosus; F31.9 Bipolar disorder, unspecified; Z87.820 Personal history of traumatic brain injury; Z88.8 Allergy status to other drugs, medicaments and biological substances; Z77.22 Contact with and (suspected) exposure to environmental tobacco smoke (acute) (chronic)
CPT/HCPCS: 36415; 80053; 80306; 81000; 85025; 99283

== ENCOUNTER 2019-11-29 09:31 | Emergency (ER) | payer MEDICARE ==
[2019-11-29 09:35] VITALS: BP 140/78
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
--- NOTE | 2019-11-29 09:55 | ED General ---
General Chief Complaint: Neurological Problems Stated Complaint: SEIZURE History of Present Illness Date Seen by Provider: November 29, 2019 Time Seen by Provider: 09:54 Initial Comments Patient presenting to emergency department for reported seizures that have been a long-standing issue but he says it is worse as he had 15 seizures last night and 2 seizures today and one seizure while also in the room. Looking through the records it appears that he has been seen for seizures on the and and he has had a Dilantin level drawn as well as Depakote level which is unreported. He has had his seizure medication levels drawn 4 times in the past in my system and each time they have been subtherapeutic to the point it is likely he has not been taking the medicines. On the is reported that the doctor called the lab and was able to confirm both medications were subtherapeut ic. Patient says that he is compliant with his seizure medicines. I told him his history of always having subtherapeutic testing and he says that he was just able to get the medications 2 days ago and started taking both medicines. He also says that he has a neurology appointment to [facility] on December 03 due to his uncontrolled seizures. I asked him about the seizures and he said that he had 2 seizures while he was on the road as he was walking here. I asked him why he was walking here and he said he is walking here because he had 15 seizures last night. He does not appear confused. He says that he last bladder incontinence. He is not with her personal of urine. I asked him if he bit his tongue and he said yes and I asked him where he pointed towards the tip of his tongue but there is no laceration present. Patient says that he hurts all over but no specific place worse than another. He denies drinking alcohol or using drugs. While I was in the room he said that he was starting to have another seizure and he closed his eyes and started shaking his body and he did this for approximately 10 seconds and then stopped and then he started answering my questions again as if there was not a pause in the conversation. He is in no obvious distress with normal vital signs. Allergies and Home Medications Allergies Coded Allergies: aripiprazole (Verified Allergy, Unknown, hallucinations, 10/01/18) zolpidem (Verified Allergy, Unknown, hallucinations, 10/01/18) Home Medications Clindamycin HCl 300 Mg Capsule, 300 MG PO TIDWM Prescribed by: LINDEN MERCEDES on 10/24/192033 Dicyclomine HCl 20 Mg Tablet, 20 MG PO QID PRN for ABDOMINAL PAIN Prescribed by: LUIS LECHUGA on 10/01/18 0501 Haloperidol 5 Mg Tab, 10 MG PO HS, (Reported) Hydrocodone Bit/Acetaminophen 1 Tab Tab, 1 EACH PO Q4-6HR PRN for PAIN-MODERATE Prescribed by: HILDA YBARRA on 01/24/19 1351 Ibuprofen 800 Mg Tablet, 800 MG PO Q8H PRN for PAIN Prescribed by: LINDEN MERCEDES on 10/24/192033 Magnesium Citrate 296 Ml Solution, 296 ML PO Q6H Prescribed by: HILDA YBARRA on 01/30/19 1258 Ondansetron 4 Mg Tab.rapdis, 4 MG PO Q6H PRN for NAUSEA/VOMITING Prescribed by: LUIS LECHUGA on 07/23/19 2150 Psyllium Husk 0.4 Gm Capsule, 0.4 GM PO DAILY Prescribed by: HILDA YBARRA on 01/30/19 1258 Simvastatin 40 Mg Tablet, HS, (Reported) Patient Home Medication List Home Medication List Reviewed: Yes Review of Systems Review of Systems Constitutional: no symptoms reported EENTM: no symptoms reported Respiratory: no symptoms reported Cardiovascular: no symptoms reported Gastrointestinal: no symptoms reported Musculoskeletal: no symptoms reported Skin: no symptoms reported Psychiatric/Neurological: Seizure All Other Systems Reviewed Negative Unless Noted: Yes Past Exvftfw-Ddbcdx-Lnjcdi Hx Patient Social History Alcohol Use: Denies Use Recreational Drug Use: Yes Drug of Choice: MARIJUANA Smoking Status: Current Everyday Smoker Type Used: Cigarettes 2nd Hand Smoke Exposure: Yes Recent Hopitalizations: No Physical Abuse: No Sexual Abuse: No Mistreated: No Fear: No Seasonal Allergies Seasonal Allergies: No Past Medical History Surgeries: Yes (cystoscopy) Gallbladder, Orthopedic Respiratory: Yes Asthma Cardiac: No Neurological: Yes Headaches /Migraines, Seizure Disorder, Traumatic Brain Injury Genitourinary: No Gastrointestinal: Yes Gastroesophageal Reflux, Hepatitis, Cirrhosis Musculoskeletal: No Endocrine: Yes Diabetes, Insulin dep HEENT: No Cancer: No Psychosocial: No (Suicidal and homicidal ideation) Bipolar, Personality Disorder Integumentary: No Blood Disorders: No Family Medical History No Pertinent Family Hx Physical Exam Vital Signs Vital Signs - First Documented 11/29/19 09:35 Temp 36.3 Pulse 88 Resp 20 B/P (MAP) 140/78 (98) Pulse Ox 96 O2 Delivery Room Air Capillary Refill : Height, Weight, BMI Height: 5'8.00" Weight: 220lbs. oz. 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 After discussing with him his extensive workups and his medication noncompliance he was asking to be discharged. Given he appears well with normal vital signs benign physical exam and a normal neurologic exam and he walks with a normal gait I do not see any reason for extensive testing. I will discharge him in stable condition and told him to keep his neurology appointment in 5 days. Patient aware and agreeable with plan. Departure Impression Primary Impression: Convulsions Qualified Codes: R56.9 - Unspecified convulsions Disposition: HOME, SELF-CARE Condition: Stable Departure-Patient Inst. Referrals: [facility] (PCP/Family) Primary Care Physician Patient Instructions: Seizures, Adult (DC) ECHO NAZARIO DO November 29, 2019 09:55
== END 2019-11-29 09:57 | disposition home or self-care (01) ==
LOC: EDUNIT# 09:31 → ER FS 09:35
DX: G40.909 Epilepsy, unspecified, not intractable, without status epilepticus (principal); F31.9 Bipolar disorder, unspecified; G43.909 Migraine, unspecified, not intractable, without status migrainosus; F17.210 Nicotine dependence, cigarettes, uncomplicated; Z88.8 Allergy status to other drugs, medicaments and biological substances; Z87.820 Personal history of traumatic brain injury
CPT/HCPCS: 99283

== ENCOUNTER → 2019-12-02 | Outpatient (CLI) | payer MEDICARE ==
--- NOTE | 2019-12-02 12:48 | Diagnostic Imaging Report ---
INDICATION: Fall 3 days ago with right hand pain. TIME OF EXAM: 11:54 AM. FINDINGS: Three views of the right hand were obtained. The metacarpals appear intact. The phalanges appear to be intact. The carpal bones are unremarkable. No fractures are seen. The alignment is normal. IMPRESSION: No acute bony abnormality is detected. Dictated by: Dictated on workstation # [id number]
== END ==
LOC: RAD FS 11:47
PROVIDERS: ATTEND Nurse Practitioner Family
DX: S69.91XA Unspecified injury of right wrist, hand and finger(s), initial encounter (principal); W19.XXXA Unspecified fall, initial encounter
CPT/HCPCS: 73130

== ENCOUNTER 2019-12-03 16:12 | Emergency (ER) | payer MEDICARE ==
[2019-12-03 16:22] VITALS: BP 150/78
--- NOTE | 2019-12-03 16:30 | ED Lower Extremity ---
General Chief Complaint: Trauma-Non Activation Stated Complaint: FELL,ARM,LEG AND HEAD PAIN Source: patient Exam Limitations: no limitations History of Present Illness Date Seen by Provider: December 03, 2019 Time Seen by Provider: 16:20 Initial Comments 49-year-old male presents with pain in to his left leg right below the knee. With some pain in the ankle. Patient reports he was walking to a friend's when he slipped on the mud and fell backwards. Patient reports no other injuries. Patient pain is mainly on the anterior aspect of the leg. Patient with no other systemic complaints Allergies and Home Medications Allergies Coded Allergies: aripiprazole (Verified Allergy, Unknown, hallucinations, 10/01/18) zolpidem (Verified Allergy, Unknown, hallucinations, 10/01/18) Home Medications Clindamycin HCl 300 Mg Capsule, 300 MG PO TIDWM Prescribed by: LINDEN MERCEDES on 10/24/192033 Dicyclomine HCl 20 Mg Tablet, 20 MG PO QID PRN for ABDOMINAL PAIN Prescribed by: LUIS LECHUGA on 10/01/18 0501 Haloperidol 5 Mg Tab, 10 MG PO HS, (Reported) Hydrocodone Bit/Acetaminophen 1 Tab Tab, 1 EACH PO Q4-6HR PRN for PAIN-MODERATE Prescribed by: HILDA YBARRA on 01/24/19 1351 Ibuprofen 800 Mg Tablet, 800 MG PO Q8H PRN for PAIN Prescribed by: LINDEN MERCEDES on 10/24/19 203 Magnesium Citrate 296 Ml Solution, 296 ML PO Q6H Prescribed by: HILDA YBARRA on 01/30/19 1258 Ondansetron 4 Mg Tab.rapdis, 4 MG PO Q6H PRN for NAUSEA/VOMITING Prescribed by: LUIS LECHUGA on 07/23/19 2150 Psyllium Husk 0.4 Gm Capsule, 0.4 GM PO DAILY Prescribed by: HILDA YBARRA on 01/30/19 1258 Simvastatin 40 Mg Tablet, HS, (Reported) Patient Home Medication List Home Medication List Reviewed: Yes Review of Systems Constitutional: no symptoms reported EENTM: no symptoms reported Respiratory: no symptoms reported Cardiovascular: no symptoms reported Gastrointestinal: no symptoms reported Musculoskeletal: see HPI Skin: other (small abrasion) Past Dzgvlpb-Fbfmnb-Ymekcj Hx Past Med/Social Hx: Reviewed Nursing Past Med/Soc Hx Patient Social History Drug of Choice: MARIJUANA Type Used: Cigarettes 2nd Hand Smoke Exposure: Yes Recent Foreign Travel: No Contact w/Someone Who Travel: No Recent Hopitalizations: No Seasonal Allergies Seasonal Allergies: No Past Medical History Surgeries: Yes (cystoscopy) Gallbladder, Orthopedic Respiratory: Yes Asthma Cardiac: No Neurological: Yes Headaches /Migraines, Seizure Disorder, Traumatic Brain Injury Genitourinary: No Gastrointestinal: Yes Gastroesophageal Reflux, Hepatitis, Cirrhosis Musculoskeletal: No Endocrine: Yes Diabetes, Insulin dep HEENT: No Cancer: No Psychosocial: No (Suicidal and homicidal ideation) Bipolar, Personality Disorder Integumentary: No Blood Disorders: No Family Medical History No Pertinent Family Hx Physical Exam Vital Signs Vital Signs - First Documented 12/03/19 16:22 Temp 36.3 Pulse 83 Resp 16 B/P (MAP) 150/78 (102) Pulse Ox 97 O2 Delivery Room Air Capillary Refill : Height, Weight, BMI Height: 5'8.00" Weight: 220lbs. oz. 99.435149ka; 27.00 BMI Method:Stated General Appearance: WD/WN, no apparent distress HEENT: PERRL/EOMI Neck: non-tender Cardiovascular: normal peripheral pulses, regular rate, rhythm Respiratory: lungs clear, normal breath sounds Gastrointestinal: non tender, soft Legs: left leg swelling (upper anterior cota) Knees: left knee soft tissue tenderness Progress/Results/Core Measures Results/Orders My Orders Orders - MARISOL RICE DO Tibia Fibula 2 View Left (12/03/19 16:27) Ketorolac Injection (Toradol Injection) (12/03/19 16:45) Vital Signs/I&O 12/03/19 16:22 Temp 36.3 Pulse 83 Resp 16 B/P (MAP) 150/78 (102) Pulse Ox 97 O2 Delivery Room Air Diagnostic Imaging Diagonstic Imaging: Xray Plain Films/CT/US/NM/MRI: leg Comments [facility], [place] NAME: PABLO SCOTT [facility] REC#: [id number] PT STATUS: DEP ER : 1970 PHYSICIAN: MARISOL RICE DO ADMIT DATE: 12/03/19/ER FS Signed Date of Exam:12/03/19 TIBIA FIBULA 2 VIEW LEFT INDICATION: Fall. Left lower extremity pain. FINDINGS: No findings of cortical disruption of the tibia or fibula to suggest acute fracture. There is no suspicious bone lesion. There are moderate to advanced osteoarthritic changes evident within the left knee. No focal soft tissue abnormality or foreign body demonstrated. IMPRESSION: 1. No acute left tibia or fibular fracture. There are advanced osteoarthritic change within the left knee for age. There is no focal soft tissue abnormality. Reviewed: Reviewed by Me, Reviewed/Discussed Departure Impression Primary Impression: Contusion of left lower leg, initial encounter Disposition: 01 HOME, SELF-CARE Condition: Stable Departure-Patient Inst. Referrals: JERROD SERRANO APRN (PCP) Primary Care Physician [facility] (Family) Primary Care Physician Patient Instructions: Contusion (DC), Lower Extremity Muscle Strain Add. Discharge Instructions: Ibuprofen, Tylenol as needed for pain Ice to affected area as needed Follow-up with her primary care provider as needed All discharge instructions reviewed with patient and/or family. Voiced understanding. MARISOL RICE DO December 03, 2019 16:30
[2019-12-03] MEDS ORDERED: KETOROLAC 30 MG/ML VIAL IM STA (16:45)
--- NOTE | 2019-12-03 16:54 | Diagnostic Imaging Report ---
INDICATION: Fall. Left lower extremity pain. FINDINGS: No findings of cortical disruption of the tibia or fibula to suggest acute fracture. There is no suspicious bone lesion. There are moderate to advanced osteoarthritic changes evident within the left knee. No focal soft tissue abnormality or foreign body demonstrated. IMPRESSION: 1. No acute left tibia or fibular fracture. There are advanced osteoarthritic change within the left knee for age. There is no focal soft tissue abnormality. Dictated by: Dictated on workstation # [id number]
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
== END 2019-12-03 17:01 | disposition home or self-care (01) ==
LOC: EDUNIT# 16:12 → ER FS 16:14
DX: S80.12XA Contusion of left lower leg, initial encounter (principal); G43.909 Migraine, unspecified, not intractable, without status migrainosus; F31.9 Bipolar disorder, unspecified; Z88.8 Allergy status to other drugs, medicaments and biological substances; Z77.22 Contact with and (suspected) exposure to environmental tobacco smoke (acute) (chronic); Z87.820 Personal history of traumatic brain injury; W01.0XXA Fall on same level from slipping, tripping and stumbling without subsequent striking against object, initial encounter
CPT/HCPCS: 73590

== ENCOUNTER 2019-12-05 09:26 | Emergency (ER) | payer MEDICARE ==
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
[2019-12-05 09:56] LABS: HEMOGLOBIN 15.7 G/DL (13.3-17.7); WHITE BLOOD COUNT 6.4 10^3/uL (4.3-11.0)
[2019-12-05 09:57] LABS: MEAN PLATELET VOLUME 9.9 FL (7.4-10.4); RED CELL DISTRIBUTION WIDTH 13.6 % (10.0-14.5)
[2019-12-05 10:01] LABS: BILIRUBIN,URINE NEGATIVE (NEGATIVE); CLARITY,URINE CLEAR; COLOR,URINE YELLOW; GLUCOSE, URINE (UA) 3+ (NEGATIVE); KETONES,URINE NEGATIVE (NEGATIVE); LEUKOCYTE ESTERASE ,URINE NEGATIVE (NEGATIVE); NITRITE,URINE NEGATIVE (NEGATIVE); PH,URINE 7.5 (5-9); PROTEIN,URINE NEGATIVE (NEGATIVE); SQUAMOUS EPITHELIAL CELL,UR 0-2 /HPF
--- NOTE | 2019-12-05 10:02 | ED General ---
General Chief Complaint: General Problems/Pain Stated Complaint: SEIZURE Nursing Triage Note: brought in by ems for possible seizure activity. Patient states he fell and then had a seizure. Was alert and oriented x4 on ems arrival. IV started by ems in left hand. Patient states he was incontinent of stool, but was able to change prior to coming in. Nursing Sepsis Screen: No Definite Risk Source of Information: Patient, EMS History of Present Illness Date Seen by Provider: December 05, 2019 Time Seen by Provider: 09:35 Initial Comments Patient came in with a seizure this morning which she alleges had fecal incontinence. He was picked up at a gas station. Although he says he went home and changed clothes prior to calling for name of. Patient states he has a long history of seizure disorders are poorly controlled he denies any physical injury recent illness no fever cough. Allergies and Home Medications Allergies Coded Allergies: aripiprazole (Verified Allergy, Unknown, hallucinations, 10/01/18) zolpidem (Verified Allergy, Unknown, hallucinations, 10/01/18) Home Medications Clindamycin HCl 300 Mg Capsule, 300 MG PO TIDWM Prescribed by: LINDEN MERCEDES on 10/24/192033 Dicyclomine HCl 20 Mg Tablet, 20 MG PO QID PRN for ABDOMINAL PAIN Prescribed by: LUIS LECHUGA on 10/01/18 0501 Haloperidol 5 Mg Tab, 10 MG PO HS, (Reported) Hydrocodone Bit/Acetaminophen 1 Tab Tab, 1 EACH PO Q4-6HR PRN for PAIN-MODERATE Prescribed by: HILDA YBARRA on 01/24/19 1351 Ibuprofen 800 Mg Tablet, 800 MG PO Q8H PRN for PAIN Prescribed by: LINDEN MERCEDES on 10/24/192033 Magnesium Citrate 296 Ml Solution, 296 ML PO Q6H Prescribed by: HILDA YBARRA on 01/30/19 1258 Ondansetron 4 Mg Tab.rapdis, 4 MG PO Q6H PRN for NAUSEA/VOMITING Prescribed by: LUIS LECHUGA on 07/23/19 2150 Psyllium Husk 0.4 Gm Capsule, 0.4 GM PO DAILY Prescribed by: HILDA YBARRA on 01/30/19 1258 Simvastatin 40 Mg Tablet, HS, (Reported) Patient Home Medication List Home Medication List Reviewed: Yes Review of Systems Review of Systems Constitutional: chills, diaphoresis, dizziness, fever, weakness EENTM: ear pain, blurred vision, hoarseness, nose congestion Respiratory: cough, dyspnea on exertion, short of breath Cardiovascular: No chest pain; palpitations, syncope Gastrointestinal: abdominal pain, constipation, diarrhea Genitourinary: no symptoms reported Musculoskeletal: back pain, muscle pain Skin: no symptoms reported Psychiatric/Neurological: See HPI Hematologic/Lymphatic: No Symptoms Reported Past Jpkzixn-Xcfdfy-Kwztwi Hx Patient Social History Alcohol Use: Denies Use Recreational Drug Use: No (denies) Drug of Choice: hx MARIJ[place] Smoking Status: Current Everyday Smoker Type Used: Cigarettes, Electronic/Vapor 2nd Hand Smoke Exposure: Yes Recent Foreign Travel: No Contact w/Someone Who Travel: No Recent Infectious Disease Expo: No Recent Hopitalizations: No Physical Abuse: No Sexual Abuse: No Mistreated: No Fear: No Seasonal Allergies Seasonal Allergies: No Past Medical History Surgeries: Yes (cystoscopy) Gallbladder, Orthopedic Respiratory: Yes Asthma Cardiac: No Neurological: Yes Headaches /Migraines, Seizure Disorder, Traumatic Brain Injury Genitourinary: No Gastrointestinal: Yes Gastroesophageal Reflux, Hepatitis, Cirrhosis Musculoskeletal: No Endocrine: Yes Diabetes, Insulin dep HEENT: No Cancer: No Psychosocial: No (Suicidal and homicidal ideation) Bipolar, Personality Disorder Integumentary: No Blood Disorders: No Family Medical History No Pertinent Family Hx Physical Exam Vital Signs Vital Signs - First Documented 12/05/19 09:42 Temp 36.0 Pulse 84 Resp 16 B/P (MAP) 123/78 (93) Pulse Ox 97 Capillary Refill : Less Than 3 Seconds Height, Weight, BMI Height: 5'8.00" Weight: 220lbs. oz. 99.770252cu; 27.00 BMI Method:Stated General Appearance: No Apparent Distress, WD/WN, Chronically ill Eyes: Bilateral Eye Normal Inspection, Bilateral Eye PERRL, Bilateral Eye EOMI HEENT: PERRL/EOMI, Normal ENT Inspection, Pharynx Normal Neck: Full Range of Motion, Normal Inspection, Non Tender, Supple Respiratory: Chest Non Tender, Lungs Clear, Normal Breath Sounds, No Accessory Muscle Use, No Respiratory Distress Cardiovascular: Regular Rate, Rhythm, No Edema, No Gallop Gastrointestinal: Normal Bowel Sounds, No Organomegaly, No Pulsatile Mass, Non Tender, Soft Back: Normal Inspection, No CVA Tenderness, No Vertebral Tenderness Extremity: Normal Capillary Refill, Normal Inspection, Normal Range of Motion, Non Tender Neurologic/Psychiatric: Alert, Oriented x3, No Motor/Sensory Deficits, Normal Mood/Affect, breaker off II-XII Norm as Tested, Other (patient is ambulatory able to walk turn normal balance) Skin: Normal Color, Warm/Dry Progress/Results/Core Measures Suspected Sepsis Recent Fever Within 48 Hours: No Infection Criteria Present: None New/Unexplained Altered Menta: No Sepsis Screen: No Definite Risk SIRS Temperature: Pulse: 84 Respiratory Rate: 16 Laboratory Tests 12/05/19 09:45: White Blood Count 6.4 Blood Pressure 123 /78 Mean: 93 Laboratory Tests 12/05/19 09:45: Creatinine 0.58L, INR Comment 1.1, Platelet Count 75L, Total Bilirubin 0.5 Results/Orders Lab Results Laboratory Tests Test 12/05/19 09:45 12/05/19 09:47 Range/Units White Blood Count 6.4 4.3-11.0 10^3/uL Red Blood Count 5.22 4.35-5.85 10^6/uL Hemoglobin 15.7 13.3-17.7 G/DL Hematocrit 46 40-54 % Mean Corpuscular Volume 87 80-99 FL Mean Corpuscular Hemoglobin 30 25-34 PG Mean Corpuscular Hemoglobin Concent 34 32-36 G/DL Red Cell Distribution Width 13.6 10.0-14.5 % Platelet Count 75 L 130-400 10^3/uL Mean Platelet Volume 9.9 7.4-10.4 FL Prothrombin Time 14.0 12.2-14.7 SEC INR Comment 1.1 0.8-1.4 Sodium Level 143 135-145 MMOL/L Potassium Level 3.9 3.6-5.0 MMOL/L Chloride Level 106 98-107 MMOL/L Carbon Dioxide Level 22 21-32 MMOL/L Anion Gap 15 H 5-14 MMOL/L Blood Urea Nitrogen 14 7-18 MG/DL Creatinine 0.58 L 0.60-1.30 MG/DL Estimat Glomerular Filtration Rate > 60 BUN/Creatinine Ratio 24 Glucose Level 127 H 70-105 MG/DL Calcium Level 9.1 8.5-10.1 MG/DL Corrected Calcium 9.2 8.5-10.1 MG/DL Total Bilirubin 0.5 0.1-1.0 MG/DL Aspartate Amino Transf (AST/SGOT) 30 5-34 U/L Alanine Aminotransferase (ALT/SGPT) 25 0-55 U/L Alkaline Phosphatase 75 40-136 U/L Total Protein 6.7 6.4-8.2 GM/DL Albumin 3.9 3.2-4.5 GM/DL Urine Color YELLOW Urine Clarity CLEAR Urine pH 7.5 5-9 Urine Specific [place] 1.010 L 1.016-1.022 Urine Protein NEGATIVE NEGATIVE Urine Glucose (UA) 3+ H NEGATIVE Urine Ketones NEGATIVE NEGATIVE Urine Nitrite NEGATIVE NEGATIVE Urine Bilirubin NEGATIVE NEGATIVE Urine Urobilinogen 0.2 < = 1.0 MG/DL Urine Leukocyte Esterase NEGATIVE NEGATIVE Urine RBC (Auto) NEGATIVE NEGATIVE Urine RBC NONE /HPF Urine WBC NONE /HPF Urine Squamous Epithelial Cells 0-2 /HPF Urine Crystals NONE /LPF Urine Bacteria NONE /HPF Urine Casts NONE /LPF Urine Mucus NEGATIVE /LPF Urine Culture Indicated NO My Orders Orders - MARYCRUZ SIMON DO Urinalysis (12/05/19 09:38) Cbc No Diff (12/05/19 09:38) Comprehensive Metabolic Panel (12/05/19 09:38) Dilantin (Phenytoin) (12/05/19 09:38) Valproic Acid (12/05/19 09:38) Protime With Inr (12/05/19 09:38) Vital Signs/I&O 12/05/19 09:42 Temp 36.0 Pulse 84 Resp 16 B/P (MAP) 123/78 (93) Pulse Ox 97 Capillary Refill : Less Than 3 Seconds Blood Pressure Mean: 93 Progress Note : Progress Note Patient has chronic pseudoseizure/seizure disorder host of other comorbid me dical problems is awake alert and oriented EMS arrival possible seizure certainly no evidence of incontinence was no evidence of injury examines normally at this point plan will be basic laboratory screening observation his blood sugar was stable we'll send off anticonvulsant levels reference for follow-up to ensure compliance probably discharge home 1045: Patient's ambulatory feels well labs reviewed at the be discharged advised to continue medications follow-up as well as primary care Departure Impression Primary Impression: Pseudoseizure Disposition: 01 HOME, SELF-CARE Condition: Improved Departure-Patient Inst. Referrals: JERROD SERRANO APRN (PCP) Primary Care Physician 2-3 days to follow up lab levels [facility]/FENG (Family) Primary Care Physician Patient Instructions: Seizures, Adult (DC) Add. Discharge Instructions: Take your medications as prescribed All discharge instructions reviewed with patient and/or family. Voiced understmelissa galeana. MARYCRUZ SIMON DO December 05, 2019 10:02
[2019-12-05 10:09] LABS: INR 1.1 (0.8-1.4)
[2019-12-05 10:14] LABS: BUN/CREATININE RATIO 24; CARBON DIOXIDE 22 MMOL/L (21-32); CHLORIDE 106 MMOL/L (98-107); CREATININE SERUM 0.58 MG/DL (0.60-1.30); GFR ESTIMATED > 60; GLUCOSE 127 MG/DL (70-105); POTASSIUM 3.9 MMOL/L (3.6-5.0); SODIUM 143 MMOL/L (135-145)
[2019-12-05 10:15] LABS: ALANINE AMINOTRANSFERASE 25 U/L (0-55); ALBUMIN 3.9 GM/DL (3.2-4.5); ALKALINE PHOSPHATASE 75 U/L (40-136); BILIRUBIN,TOTAL 0.5 MG/DL (0.1-1.0); CALCIUM 9.1 MG/DL (8.5-10.1); TOTAL PROTEIN 6.7 GM/DL (6.4-8.2)
[2019-12-05 10:47] VITALS: BP 135/75
[2019-12-05 15:06] LABS: VALPROIC ACID 29.2 UG/ML (50.0-100.0)
== END 2019-12-05 10:49 | disposition home or self-care (01) ==
LOC: EDUNIT# 09:26 → ER FS 09:27
DX: F44.89 Other dissociative and conversion disorders (principal); G40.909 Epilepsy, unspecified, not intractable, without status epilepticus; G43.909 Migraine, unspecified, not intractable, without status migrainosus; F31.9 Bipolar disorder, unspecified; F17.290 Nicotine dependence, other tobacco product, uncomplicated; F17.210 Nicotine dependence, cigarettes, uncomplicated; Z87.820 Personal history of traumatic brain injury
CPT/HCPCS: 36415; 80053; 80164; 80185; 81000; 85027; 85610

== ENCOUNTER 2019-12-07 10:30 | Emergency (ER) | payer MEDICARE ==
[~2019-12-07] VITALS: Ht 172.7 cm; Wt 81.4 kg
[2019-12-07] MEDS ORDERED: NS IV 1000 ML 1,000 ML IV SCH (10:45)
[2019-12-07 10:59] LABS: BACTERIA,URINE NEGATIVE /HPF; BILIRUBIN,URINE NEGATIVE (NEGATIVE); CLARITY,URINE CLEAR; COLOR,URINE YELLOW; GLUCOSE, URINE (UA) NEGATIVE (NEGATIVE); KETONES,URINE NEGATIVE (NEGATIVE); LEUKOCYTE ESTERASE ,URINE NEGATIVE (NEGATIVE); NITRITE,URINE NEGATIVE (NEGATIVE); PH,URINE 5.5 (5-9); PROTEIN,URINE 3+ (NEGATIVE); SQUAMOUS EPITHELIAL CELL,UR 0-2 /HPF
--- NOTE | 2019-12-07 11:01 | ED General ---
General Chief Complaint: Neurological Problems Stated Complaint: SEIZURE Source of Information: Patient Exam Limitations: No Limitations History of Present Illness Date Seen by Provider: Dec 07, 2019 Time Seen by Provider: 10:35 Initial Comments The pt is a 49 y/o male well-known to this ER who presents via EMS for evaluation after possible seizures. He does have a history of pseudoseizures. He was recently prescribed Dilantin however, and states that he has an appointment at on December 17 for a MRI, EEG, and overnight observation. He says that he presents today because he feels lightheaded and believes that he had a seizure today. He was seen here 2 days ago for the same complaint. He denies headache, fevers or chills, nausea or vomiting, chest pain or shortness of breath, vision changes, focal weakness or numbness, palpitations or syncope. He is alert and oriented 4, calm, and appears to be in no distress. He states that he is hungry and would like something to eat. He states that he has these seizure-like activity episodes almost every day. He does not appear postictal upon arrival an d is at his baseline mental status. Timing/Duration: 4-6 Hours Severity: Mild Associated Systoms: Weakness Allergies and Home Medications Allergies Coded Allergies: aripiprazole (Verified Allergy, Unknown, hallucinations, 10/01/18) zolpidem (Verified Allergy, Unknown, hallucinations, 10/01/18) Home Medications Clindamycin HCl 300 Mg Capsule, 300 MG PO TIDWM Prescribed by: LINDEN MERCEDES on 10/24/192033 Dicyclomine HCl 20 Mg Tablet, 20 MG PO QID PRN for ABDOMINAL PAIN Prescribed by: LUIS LECHUGA on 10/01/18 0501 Haloperidol 5 Mg Tab, 10 MG PO HS, (Reported) Hydrocodone Bit/Acetaminophen 1 Tab Tab, 1 EACH PO Q4-6HR PRN for PAIN-MODERATE Prescribed by: HILDA YBARRA on 01/24/19 1351 Ibuprofen 800 Mg Tablet, 800 MG PO Q8H PRN for PAIN Prescribed by: LINDEN MERCEDES on 10/24/192033 Magnesium Citrate 296 Ml Solution, 296 ML PO Q6H Prescribed by: HILDA YBARRA on 01/30/19 1258 Ondansetron 4 Mg Tab.rapdis, 4 MG PO Q6H PRN for NAUSEA/VOMITING Prescribed by: LUIS NATIONRT on 07/23/19 2150 Psyllium Husk 0.4 Gm Capsule, 0.4 GM PO DAILY Prescribed by: HILDA YBARRA on 01/30/19 1258 Simvastatin 40 Mg Tablet, HS, (Reported) Patient Home Medication List Home Medication List Reviewed: Yes Review of Systems Review of Systems Constitutional: weakness EENTM: no symptoms reported Respiratory: no symptoms reported Cardiovascular: no symptoms reported Gastrointestinal: no symptoms reported Genitourinary: no symptoms reported Musculoskeletal: no symptoms reported Skin: no symptoms reported Psychiatric/Neurological: Other (reports seizure-like activity) Hematologic/Lymphatic: No Symptoms Reported Immunological/Allergic: no symptoms reported All Other Systems Reviewed Negative Unless Noted: Yes Past Wioguac-Zddvud-Rewvgc Hx Past Med/Social Hx: Reviewed Nursing Past Med/Soc Hx Patient Social History Alcohol Use: Past History Recreational Drug Use: No (previous use of marijuana, ) Drug of Choice: hx MARIJUANA Smoking Status: Former Smoker Type Used: Cigarettes, Electronic/Vapor 2nd Hand Smoke Exposure: Yes Recent Hopitalizations: No Physical Abuse: No Sexual Abuse: No Mistreated: No Fear: No Seasonal Allergies Seasonal Allergies: No Past Medical History Surgeries: Yes (cystoscopy) Gallbladder, Orthopedic Respiratory: Yes Asthma Cardiac: No Neurological: Yes Headaches /Migraines, Seizure Disorder, Traumatic Brain Injury Genitourinary: No Gastrointestinal: Yes Gastroesophageal Reflux, Hepatitis, Cirrhosis Musculoskeletal: No Endocrine: Yes Diabetes, Insulin dep HEENT: No Cancer: No Psychosocial: No (Suicidal and homicidal ideation) Bipolar, Personality Disorder Integumentary: No Blood Disorders: No Family Medical History No Pertinent Family Hx Physical Exam Vital Signs Vital Signs - First Documented 12/07/19 10:30 Temp 37.2 Pulse 81 Resp 16 B/P (MAP) 112/71 (85) Pulse Ox 95 O2 Delivery Room Air Capillary Refill : Height, Weight, BMI Height: 5'8.00" Weight: 220lbs. oz. 99.948462gz; 27.00 BMI Method:Stated General Appearance: No Apparent Distress, WD/WN Eyes: Bilateral Eye Normal Inspection, Bilateral Eye PERRL, Bilateral Eye EOMI HEENT: PERRL/EOMI, Pharynx Normal Neck: Full Range of Motion, Non Tender, Supple Respiratory: Lungs Clear, Normal Breath Sounds, No Accessory Muscle Use, No Respiratory Distress Cardiovascular: Regular Rate, Rhythm, No Edema, No Murmur Gastrointestinal: No Pulsatile Mass, Non Tender, Soft Extremity: Normal Capillary Refill, Normal Inspection, Normal Range of Motion Neurologic/Psychiatric: Alert, Oriented x3, No Motor/Sensory Deficits, Normal Mood/Affect, refractory worker II-XII Norm as Tested Skin: Normal Color, Warm/Dry Progress/Results/Core Measures Suspected Sepsis SIRS Temperature: Pulse: Respiratory Rate: Laboratory Tests 12/07/19 11:00: White Blood Count 7.2 Blood Pressure / Mean: Laboratory Tests 12/07/19 11:00: Creatinine 0.60, Platelet Count 75L, Total Bilirubin 0.5 Results/Orders Lab Results Laboratory Tests Test 12/07/19 10:40 12/07/19 11:00 Range/Units Urine Color YELLOW Urine Clarity CLEAR Urine pH 5.5 5-9 Urine Specific Mobile 1.020 1.016-1.022 Urine Protein 3+ H NEGATIVE Urine Glucose (UA) NEGATIVE NEGATIVE Urine Ketones NEGATIVE NEGATIVE Urine Nitrite NEGATIVE NEGATIVE Urine Bilirubin NEGATIVE NEGATIVE Urine Urobilinogen 0.2 < = 1.0 MG/DL Urine Leukocyte Esterase NEGATIVE NEGATIVE Urine RBC (Auto) NEGATIVE NEGATIVE Urine RBC NONE /HPF Urine WBC NONE /HPF Urine Squamous Epithelial Cells 0-2 /HPF Urine Crystals NONE /LPF Urine Bacteria NEGATIVE /HPF Urine Casts NONE /LPF Urine Mucus NEGATIVE /LPF Urine Culture Indicated NO White Blood Count 7.2 4.3-11.0 10^3/uL Red Blood Count 5.26 4.35-5.85 10^6/uL Hemoglobin 16.0 13.3-17.7 G/DL Hematocrit 46 40-54 % Mean Corpuscular Volume 87 80-99 FL Mean Corpuscular Hemoglobin 30 25-34 PG Mean Corpuscular Hemoglobin Concent 35 32-36 G/DL Red Cell Distribution Width 13.7 10.0-14.5 % Platelet Count 75 L 130-400 10^3/uL Mean Platelet Volume 9.6 7.4-10.4 FL Neutrophils (%) (Auto) 47 42-75 % Lymphocytes (%) (Auto) 39 12-44 % Monocytes (%) (Auto) 9 0-12 % Eosinophils (%) (Auto) 4 0-10 % Basophils (%) (Auto) 1 0-10 % Neutrophils # (Auto) 3.4 1.8-7.8 X 10^3 Lymphocytes # (Auto) 2.8 1.0-4.0 X 10^3 Monocytes # (Auto) 0.7 0.0-1.0 X 10^3 Eosinophils # (Auto) 0.3 0.0-0.3 10^3/uL Basophils # (Auto) 0.0 0.0-0.1 10^3/uL Sodium Level 139 135-145 MMOL/L Potassium Level 4.0 3.6-5.0 MMOL/L Chloride Level 105 98-107 MMOL/L Carbon Dioxide Level 22 21-32 MMOL/L Anion Gap 12 5-14 MMOL/L Blood Urea Nitrogen 12 7-18 MG/DL Creatinine 0.60 0.60-1.30 MG/DL Estimat Glomerular Filtration Rate > 60 BUN/Creatinine Ratio 20 Glucose Level 173 H 70-105 MG/DL Calcium Level 9.0 8.5-10.1 MG/DL Corrected Calcium 9.1 8.5-10.1 MG/DL Total Bilirubin 0.5 0.1-1.0 MG/DL Aspartate Amino Transf (AST/SGOT) 31 5-34 U/L Alanine Aminotransferase (ALT/SGPT) 29 0-55 U/L Alkaline Phosphatase 76 40-136 U/L Total Protein 6.9 6.4-8.2 GM/DL Albumin 3.9 3.2-4.5 GM/DL My Orders Orders - ANEL EDUARDO DO Cbc With Automated Diff (12/07/19 10:39) Comprehensive Metabolic Panel (12/07/19 10:39) Ns Iv 1000 Ml (Sodium Chloride 0.9%) (12/07/19 10:45) Ua Culture If Indicated (12/07/19 10:39) Vital Signs/I&O 12/07/19 10:30 Temp 37.2 Pulse 81 Resp 16 B/P (MAP) 112/71 (85) Pulse Ox 95 O2 Delivery Room Air Capillary Refill : Progress Note : Progress Note @1158 - patient updated on lab results which are acutely unremarkable. He has no new complaints and states it is feeling better and wants to go home. Advise close follow-up with his PCP and neurologist at . The patient expresses verbal understanding and agreement with the plan and is stable for discharge at this time. Departure Impression Primary Impression: Seizure-like activity Disposition: 01 HOME, SELF-CARE Condition: Stable Departure-Patient Inst. Decision time for Depature: 11:59 Referrals: JERROD SERRANO APRN (PCP) Primary Care Physician [facility] (Family) Primary Care Physician Patient Instructions: Seizures Add. Discharge Instructions: Keep your appointment with the neurologist at for December 17 as previously arranged. Return to the emergency Department immediately for new or worsening symptoms. ANEL EDUARDO DO Dec 07, 2019 11:01
[2019-12-07 11:07] LABS: HEMATOCRIT 46 % (40-54); MEAN CORPUSCULAR HEMOGLOBIN 30 PG (25-34); MEAN CORPUSCULAR VOLUME 87 FL (80-99); WHITE BLOOD COUNT 7.2 10^3/uL (4.3-11.0)
[2019-12-07 11:08] LABS: BASOPHILS % (AUTO) 1 % (0-10); EOSINOPHILS # (AUTO) 0.3 10^3/uL (0.0-0.3); EOSINOPHILS % (AUTO) 4 % (0-10); LYMPHOCYTES # (AUTO) 2.8 X 10^3 (1.0-4.0); LYMPHOCYTES % (AUTO) 39 % (12-44); MEAN CORPUSCULAR HGB CONC 35 G/DL (32-36); MEAN PLATELET VOLUME 9.6 FL (7.4-10.4); MONOCYTES # (AUTO) 0.7 X 10^3 (0.0-1.0); MONOCYTES % (AUTO) 9 % (0-12); NEUTROPHILS # (AUTO) 3.4 X 10^3 (1.8-7.8); NEUTROPHILS % (AUTO) 47 % (42-75); PLATELET COUNT 75 10^3/uL (130-400); RED CELL DISTRIBUTION WIDTH 13.7 % (10.0-14.5)
[2019-12-07 11:28] LABS: BILIRUBIN,TOTAL 0.5 MG/DL (0.1-1.0); BUN/CREATININE RATIO 20; CARBON DIOXIDE 22 MMOL/L (21-32); CHLORIDE 105 MMOL/L (98-107); GFR ESTIMATED > 60; GLUCOSE 173 MG/DL (70-105); SODIUM 139 MMOL/L (135-145)
[2019-12-07 11:29] LABS: ALANINE AMINOTRANSFERASE 29 U/L (0-55); ALBUMIN 3.9 GM/DL (3.2-4.5); ALKALINE PHOSPHATASE 76 U/L (40-136); TOTAL PROTEIN 6.9 GM/DL (6.4-8.2)
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
[2019-12-07 12:15] VITALS: BP 115/77
== END 2019-12-07 12:15 | disposition home or self-care (01) ==
LOC: EDUNIT# 10:30 → ER FS 10:31
DX: R29.818 Other symptoms and signs involving the nervous system (principal); E11.9 Type 2 diabetes mellitus without complications; G43.909 Migraine, unspecified, not intractable, without status migrainosus; F31.9 Bipolar disorder, unspecified; Z87.820 Personal history of traumatic brain injury; Z88.8 Allergy status to other drugs, medicaments and biological substances; Z87.891 Personal history of nicotine dependence; Z77.22 Contact with and (suspected) exposure to environmental tobacco smoke (acute) (chronic)
CPT/HCPCS: 36415; 80053; 81000; 85025

== ENCOUNTER 2019-12-09 22:14 | Emergency (ER) | payer MEDICARE ==
[~2019-12-09] VITALS: Ht 172.7 cm; Wt 82.3 kg
[2019-12-09 22:20] VITALS: BP 158/87
--- NOTE | 2019-12-09 22:32 | ED General ---
General Stated Complaint: SEIZURES Source of Information: Patient, EMS, EMS Notes Reviewed, Old Records, RN/MD, RN Notes Reviewed Exam Limitations: No Limitations History of Present Illness Date Seen by Provider: Dec 09, 2019 Time Seen by Provider: 22:20 Initial Comments This patient is a 49-year-old male that presents to the emergency department with complaint of questionable seizure like activity. Patient has long history of the same. Patient states he has about 20-30 seizures a week. Patient states his last seizure tonight prior to come and so called and was to come and pick him up. Patient states he went to a local gas station just getting some tea. Patient states his last seizure was on Saturday and then had a couple on Saturday in a couple the day before that had total of 20 last week. Patient states test takes Dilantin and metformin. Patient has had no postictal symptoms. Discussing different options and offered the patient a full medical screening exam. Patient requests a medication shot for pain only but declined a medical screening exam. Patient does not appear to be in pain and I questioned the patient is motivated why he needed pain medication he states it helped the seizures. I did discuss at length with patient about options but advise the patient that would be more willing to do a medical screening exam to evaluate treat his complaint of pain if he couldn't explain to me exactly what was hurting. Patient then stated he would like to sign out against medical advise and has left the emergency department. I'm concerned this patient was drug seeking behavior. Patient should continue his home medications and follow-up with his PCP. Timing/Duration: Other Allergies and Home Medications Allergies Coded Allergies: aripiprazole (Verified Allergy, Unknown, hallucinations, 10/01/18) zolpidem (Verified Allergy, Unknown, hallucinations, 10/01/18) Home Medications Clindamycin HCl 300 Mg Capsule, 300 MG PO TIDWM Prescribed by: LINDEN MERCEDES on 10/24/192033 Dicyclomine HCl 20 Mg Tablet, 20 MG PO QID PRN for ABDOMINAL PAIN Prescribed by: LUIS LECHUGA on 10/01/18 0501 Haloperidol 5 Mg Tab, 10 MG PO HS, (Reported) Hydrocodone Bit/Acetaminophen 1 Tab Tab, 1 EACH PO Q4-6HR PRN for PAIN-MODERATE Prescribed by: HILDA YBARRA on 01/24/19 1351 Ibuprofen 800 Mg Tablet, 800 MG PO Q8H PRN for PAIN Prescribed by: LINDEN LÓPEZVENSTPIERRE on 10/24/192033 Magnesium Citrate 296 Ml Solution, 296 ML PO Q6H Prescribed by: HILDA YBARRA on 01/30/19 1258 Ondansetron 4 Mg Tab.rapdis, 4 MG PO Q6H PRN for NAUSEA/VOMITING Prescribed by: LUIS Torres ENYART on 07/23/192149 Psyllium Husk 0.4 Gm Capsule, 0.4 GM PO DAILY Prescribed by: HILDA YBARRA on 01/30/19 1258 Simvastatin 40 Mg Tablet, HS, (Reported) Patient Home Medication List Home Medication List Reviewed: Yes Review of Systems Review of Systems Constitutional: No no symptoms reported; see HPI; No chills, No diaphoresis, No dizziness, No fever, No malaise, No weakness, No weight gain, No weight loss, No other EENTM: No see HPI, No no symptoms reported, No ear discharge, No hearing loss, No ear pain, No blurred vision, No double vision, No eye pain, No tearing, No vision loss, No dental problems, No hoarseness, No mouth pain, No mouth swelling, No epistaxis, No nose congestion, No nose pain, No throat pain, No throat swelling, No other Respiratory: No no symptoms reported, No see HPI, No cough, No dyspnea on exertion, No hemoptysis, No orthopnea, No phlegm, No short of breath, No stridor, No wheezing, No other Cardiovascular: No no symptoms reported, No see HPI, No chest pain, No edema, No Hx of Intervention, No palpitations, No syncope, No vascular heart diseas, No other Gastrointestinal: No RUQ, No LUQ, No RLQ, No LLQ, No no symptoms reported, No see HPI, No abdominal pain, No constipation, No diarrhea, No dysphagia, No hematemesis, No heartburn, No jaundice, No loss of appetite, No melena, No nausea, No vomiting, No other Genitourinary: No no symptoms reported, No see HPI, No decreased output, No discharge, No dysuria, No frequency, No hematuria, No hesitancy, No incontinence, No nocturia, No pain, No other Musculoskeletal: No no symptoms reported, No see HPI, No back pain, No gout, No joint pain, No joint swelling, No muscle pain, No muscle stiffness, No muscle cramps, No muscle twitching, No muscle weakness, No neck pain, No other Skin: No no symptoms reported, No see HPI, No change in color, No change in hair/nails, No dryness, No hx of skin cancer, No lesions, No lumps, No pruritus, No rash, No other Psychiatric/Neurological: Denies No Symptoms Reported; See HPI; Denies Anxiety, Denies Depressed, Denies Emotional Problems, Denies Headache, Denies Numbness, Denies Paresthesia, Denies Pre-Existing Deficit; Seizure; Denies Tingling, Denies Tremors, Denies Weakness, Denies Other All Other Systems Reviewed Negative Unless Noted: Yes Past Vruewue-Xcjosx-Kjjjxi Hx Patient Social History Drug of Choice: hx MARIJUANA Type Used: Cigarettes, Electronic/Vapor 2nd Hand Smoke Exposure: Yes Recent Foreign Travel: No Contact w/Someone Who Travel: No Recent Hopitalizations: No Seasonal Allergies Seasonal Allergies: No Past Medical History Surgeries: Yes (cystoscopy) Gallbladder, Orthopedic Respiratory: Yes Asthma Cardiac: No Neurological: Yes Headaches /Migraines, Seizure Disorder, Traumatic Brain Injury Genitourinary: No Gastrointestinal: Yes Gastroesophageal Reflux, Hepatitis, Cirrhosis Musculoskeletal: No Endocrine: Yes Diabetes, Insulin dep HEENT: No Cancer: No Psychosocial: No (Suicidal and homicidal ideation) Bipolar, Personality Disorder Integumentary: No Blood Disorders: No Family Medical History No Pertinent Family Hx Physical Exam Vital Signs Capillary Refill : Height, Weight, BMI Height: 5'8.00" Weight: 220lbs. oz. [id number]; 27.00 BMI Method:Stated General Appearance: No Apparent Distress, WD/WN HEENT: PERRL/EOMI, TMs Normal, Normal ENT Inspection, Pharynx Normal Respiratory: Chest Non Tender, Lungs Clear, Normal Breath Sounds, No Accessory Muscle Use, No Respiratory Distress Cardiovascular: Regular Rate, Rhythm, No Edema, No Gallop, No JVD, No Murmur, Normal Peripheral Pulses Gastrointestinal: Normal Bowel Sounds, No Organomegaly, No Pulsatile Mass, Non Tender, Soft Neurologic/Psychiatric: Alert, Oriented x3, No Motor/Sensory Deficits, Normal Mood/Affect Skin: Normal Color, Warm/Dry Progress/Results/Core Measures Suspected Sepsis SIRS Temperature: Pulse: Respiratory Rate: Blood Pressure / Mean: Results/Orders Vital Signs/I&O Capillary Refill : Departure Impression Primary Impression: Encounter for medical screening examination Disposition: HOME, SELF-CARE Condition: Stable Departure-Patient Inst. Decision time for Depature: 22:31 Referrals: JERROD SERRANO APRN (PCP) Primary Care Physician [facility] (Family) Primary Care Physician Add. Discharge Instructions: Continue with all home medications and follow up with her primary care physician. Patient was offered full medical screening exam but declines. Patient left the emergency department per his request SHANTANU BURTON MD Dec 09, 2019 22:31
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
== END 2019-12-09 22:28 | disposition home or self-care (01) ==
LOC: EDUNIT# 22:14 → ER FS 22:20
DX: G40.909 Epilepsy, unspecified, not intractable, without status epilepticus (principal); F31.9 Bipolar disorder, unspecified; Z88.8 Allergy status to other drugs, medicaments and biological substances; Z77.22 Contact with and (suspected) exposure to environmental tobacco smoke (acute) (chronic)
CPT/HCPCS: 99283

== ENCOUNTER 2019-12-21 19:17 | Emergency (ER) | payer MEDICARE ==
[~2019-12-21] VITALS: Ht 172 cm; Wt 81.0 kg
[2019-12-21] MEDS ORDERED: ONDANSETRON 4 MG/2 ML (SDV) Z0FRAN ONE (19:23)
[2019-12-21] MEDS ORDERED: ONDANSETRON 4 MG/2 ML (SDV) Z0FRAN IVP STA (19:23)
--- NOTE | 2019-12-21 19:36 | ED General ---
General Chief Complaint: Exposure Stated Complaint: OVERHEATED/FELL Source of Information: Patient, EMS History of Present Illness Date Seen by Provider: Dec 21, 2019 Time Seen by Provider: 19:17 Initial Comments 49 yo Male presenting by EMS after passing out at home. He reports being outside in the heat today. He reports that he was running errands and taking care of animals outside. He had not drank very much fluid today. This evening when he got home he hadn't episode of vomiting and then passed out at home. He has mild nausea still at this point. He denies headache or blurred vision. He denies any fever or chills. Allergies and Home Medications Allergies Coded Allergies: aripiprazole (Verified Allergy, Unknown, hallucinations, 10/01/18) zolpidem (Verified Allergy, Unknown, hallucinations, 10/01/18) Home Medications Clindamycin HCl 300 Mg Capsule, 300 MG PO TIDWM Prescribed by: LINDEN MERCEDES on 10/24/192033 Dicyclomine HCl 20 Mg Tablet, 20 MG PO QID PRN for ABDOMINAL PAIN Prescribed by: LUIS LECHUGA on 10/01/18 0501 Haloperidol 5 Mg Tab, 10 MG PO HS, (Reported) Hydrocodone Bit/Acetaminophen 1 Tab Tab, 1 EACH PO Q4-6HR PRN for PAIN-MODERATE Prescribed by: HILDA YBARRA on 01/24/19 1351 Ibuprofen 800 Mg Tablet, 800 MG PO Q8H PRN for PAIN Prescribed by: LINDEN MERCEDES on 10/24/19 203 Magnesium Citrate 296 Ml Solution, 296 ML PO Q6H Prescribed by: HILDA YBARRA on 01/30/19 1258 Ondansetron 4 Mg Tab.rapdis, 4 MG PO Q6H PRN for NAUSEA/VOMITING Prescribed by: LUIS LECHUGA on 07/23/19 2150 Psyllium Husk 0.4 Gm Capsule, 0.4 GM PO DAILY Prescribed by: HILDA YBARRA on 01/30/19 1258 Simvastatin 40 Mg Tablet, HS, (Reported) Patient Home Medication List Home Medication List Reviewed: Yes Review of Systems Review of Systems Constitutional: No chills, No fever EENTM: no symptoms reported Respiratory: no symptoms reported Cardiovascular: no symptoms reported Gastrointestinal: nausea, vomiting (x 1) Genitourinary: decreased output Musculoskeletal: no symptoms reported Skin: no symptoms reported Psychiatric/Neurological: Other (fainted after emesis when he came in from the heat tonight) Hematologic/Lymphatic: No Symptoms Reported Immunological/Allergic: no symptoms reported Past Flpbmte-Bkjyke-Abewhf Hx Past Med/Social Hx: Reviewed Nursing Past Med/Soc Hx Patient Social History Alcohol Use: Denies Use Recreational Drug Use: Yes (denies currently 12/21/19) Drug of Choice: hx [place] Type Used: Cigarettes, Electronic/Vapor 2nd Hand Smoke Exposure: Yes Recent Foreign Travel: No Contact w/Someone Who Travel: No Recent Hopitalizations: No Seasonal Allergies Seasonal Allergies: No Past Medical History Surgeries: Yes (cystoscopy) Gallbladder, Orthopedic Respiratory: Yes Asthma Cardiac: No Neurological: Yes Headaches /Migraines, Seizure Disorder, Traumatic Brain Injury Genitourinary: No Gastrointestinal: Yes Gastroesophageal Reflux, Hepatitis, Cirrhosis Musculoskeletal: No Endocrine: Yes Diabetes, Insulin dep HEENT: No Cancer: No Psychosocial: No (Suicidal and homicidal ideation) Bipolar, Personality Disorder Integumentary: No Blood Disorders: No Family Medical History No Pertinent Family Hx Physical Exam Vital Signs Vital Signs - First Documented 12/21/19 19:27 Temp 37.0 Pulse 88 Resp 18 B/P (MAP) 124/80 (95) Pulse Ox 98 O2 Delivery Room Air Capillary Refill : Height, Weight, BMI Height: 5'8.00" Weight: 220lbs. oz. 99.724053iq; 27.00 BMI Method:Stated General Appearance: No Apparent Distress, WD/WN HEENT: PERRL/EOMI, Pharynx Normal Neck: Full Range of Motion, Normal Inspection, Non Tender, Supple Respiratory: Chest Non Tender, Lungs Clear, Normal Breath Sounds Cardiovascular: Regular Rate, Rhythm, Normal Peripheral Pulses Gastrointestinal: Normal Bowel Sounds, No Pulsatile Mass, Soft; No Distended, No Guarding, No Rebound; Tenderness (mild epigastric) Rectal: Deferred Extremity: Normal Capillary Refill, Normal Inspection, Normal Range of Motion, No Pedal Edema Neurologic/Psychiatric: Alert, Oriented x3, No Motor/Sensory Deficits Skin: Normal Color, Warm/Dry Progress/Results/Core Measures Suspected Sepsis SIRS Temperature: Pulse: Respiratory Rate: Laboratory Tests 12/21/19 19:23: White Blood Count 6.7 Blood Pressure / Mean: Laboratory Tests 12/21/19 19:23: Creatinine 0.64, Platelet Count 88L, Total Bilirubin 0.3 Results/Orders Lab Results Laboratory Tests Test 12/21/19 19:23 12/21/19 19:46 Range/Units White Blood Count 6.7 4.3-11.0 10^3/uL Red Blood Count 4.91 4.35-5.85 10^6/uL Hemoglobin 15.2 13.3-17.7 G/DL Hematocrit 44 40-54 % Mean Corpuscular Volume 89 80-99 FL Mean Corpuscular Hemoglobin 31 25-34 PG Mean Corpuscular Hemoglobin Concent 35 32-36 G/DL Red Cell Distribution Width 13.9 10.0-14.5 % Platelet Count 88 L 130-400 10^3/uL Mean Platelet Volume 9.6 7.4-10.4 FL Neutrophils (%) (Auto) 31 L 42-75 % Lymphocytes (%) (Auto) 52 H 12-44 % Monocytes (%) (Auto) 11 0-12 % Eosinophils (%) (Auto) 5 0-10 % Basophils (%) (Auto) 1 0-10 % Neutrophils # (Auto) 2.1 1.8-7.8 X 10^3 Lymphocytes # (Auto) 3.4 1.0-4.0 X 10^3 Monocytes # (Auto) 0.8 0.0-1.0 X 10^3 Eosinophils # (Auto) 0.3 0.0-0.3 10^3/uL Basophils # (Auto) 0.1 0.0-0.1 10^3/uL Sodium Level 141 135-145 MMOL/L Potassium Level 4.0 3.6-5.0 MMOL/L Chloride Level 106 98-107 MMOL/L Carbon Dioxide Level 23 21-32 MMOL/L Anion Gap 12 5-14 MMOL/L Blood Urea Nitrogen 10 7-18 MG/DL Creatinine 0.64 0.60-1.30 MG/DL Estimat Glomerular Filtration Rate > 60 BUN/Creatinine Ratio 16 Glucose Level 161 H 70-105 MG/DL Calcium Level 8.8 8.5-10.1 MG/DL Corrected Calcium 9.0 8.5-10.1 MG/DL Total Bilirubin 0.3 0.1-1.0 MG/DL Aspartate Amino Transf (AST/SGOT) 29 5-34 U/L Alanine Aminotransferase (ALT/SGPT) 27 0-55 U/L Alkaline Phosphatase 66 40-136 U/L Total Protein 6.5 6.4-8.2 GM/DL Albumin 3.8 3.2-4.5 GM/DL Urine Color YELLOW Urine Clarity CLEAR Urine pH 6.5 5-9 Urine Specific [place] 1.015 L 1.016-1.022 Urine Protein NEGATIVE NEGATIVE Urine Glucose (UA) 3+ H NEGATIVE Urine Ketones NEGATIVE NEGATIVE Urine Nitrite NEGATIVE NEGATIVE Urine Bilirubin NEGATIVE NEGATIVE Urine Urobilinogen 0.2 < = 1.0 MG/DL Urine Leukocyte Esterase NEGATIVE NEGATIVE Urine RBC (Auto) NEGATIVE NEGATIVE Urine RBC NONE /HPF Urine WBC 0-2 /HPF Urine Squamous Epithelial Cells 0-2 /HPF Urine Crystals NONE /LPF Urine Bacteria NEGATIVE /HPF Urine Casts NONE /LPF Urine Mucus NEGATIVE /LPF Urine Culture Indicated NO My Orders Orders - LUIS LECHUGA MD Ondansetron Injection (Zofran Injectio (12/21/19 19:23) Cbc With Automated Diff (12/21/19 19:24) Comprehensive Metabolic Panel (12/21/19 19:24) Ua Culture If Indicated (12/21/19 19:24) Ondansetron Injection (Zofran Injectio (12/21/19 19:23) Vital Signs/I&O 12/21/19 19:27 Temp 37.0 Pulse 88 Resp 18 B/P (MAP) 124/80 (95) Pulse Ox 98 O2 Delivery Room Air Capillary Refill : Progress Note #1: Progress Note check basic lab and urine. Finish 1 L of IVF from EMS and give Zofran 4 mg IV x 1. Progress Note #2: Time: 20:04 Progress Note labs appear stable without acute significant abnormality. Will discharge to home with instructions to stay out of excessive heat, encourage fluids and rest. pt states he has appt with AMAN Serrano tomorrow and will follow up with her. He is planning on going home and resting in air conditioning. Departure Impression Primary Impression: Heat exhaustion, anhydrotic, initial encounter Disposition: HOME, SELF-CARE Condition: Stable Departure-Patient Inst. Decision time for Depature: 20:06 Referrals: JERROD SERRANO APRN (PCP) Primary Care Physician [facility] (Family) Primary Care Physician Patient Instructions: Heat Exhaustion and Heat Stroke (DC) Add. Discharge Instructions: Try to avoid exposure to extreme heat. Stay well hydrated All discharge instructions reviewed with patient and/or family. Voiced understanding. LUIS LECHUGA MD Dec 21, 2019 19:35
[2019-12-21 19:39] LABS: BASOPHILS % (AUTO) 1 % (0-10); EOSINOPHILS % (AUTO) 5 % (0-10); HEMATOCRIT 44 % (40-54); HEMOGLOBIN 15.2 G/DL (13.3-17.7); LYMPHOCYTES % (AUTO) 52 % (12-44); MEAN CORPUSCULAR HEMOGLOBIN 31 PG (25-34); MEAN CORPUSCULAR HGB CONC 35 G/DL (32-36); MEAN CORPUSCULAR VOLUME 89 FL (80-99); MEAN PLATELET VOLUME 9.6 FL (7.4-10.4); MONOCYTES % (AUTO) 11 % (0-12); NEUTROPHILS % (AUTO) 31 % (42-75); PLATELET COUNT 88 10^3/uL (130-400); RED CELL DISTRIBUTION WIDTH 13.9 % (10.0-14.5); WHITE BLOOD COUNT 6.7 10^3/uL (4.3-11.0)
[2019-12-21 19:40] LABS: BASOPHILS # (AUTO) 0.1 10^3/uL (0.0-0.1); EOSINOPHILS # (AUTO) 0.3 10^3/uL (0.0-0.3); LYMPHOCYTES # (AUTO) 3.4 X 10^3 (1.0-4.0); MONOCYTES # (AUTO) 0.8 X 10^3 (0.0-1.0); NEUTROPHILS # (AUTO) 2.1 X 10^3 (1.8-7.8)
[2019-12-21 19:55] LABS: ALANINE AMINOTRANSFERASE 27 U/L (0-55); ALBUMIN 3.8 GM/DL (3.2-4.5); ALKALINE PHOSPHATASE 66 U/L (40-136); BILIRUBIN,TOTAL 0.3 MG/DL (0.1-1.0); BUN/CREATININE RATIO 16; CALCIUM 8.8 MG/DL (8.5-10.1); CARBON DIOXIDE 23 MMOL/L (21-32); CHLORIDE 106 MMOL/L (98-107); CREATININE SERUM 0.64 MG/DL (0.60-1.30); GFR ESTIMATED > 60; GLUCOSE 161 MG/DL (70-105); SODIUM 141 MMOL/L (135-145); TOTAL PROTEIN 6.5 GM/DL (6.4-8.2)
[2019-12-21 19:59] LABS: CLARITY,URINE CLEAR; COLOR,URINE YELLOW; PH,URINE 6.5 (5-9)
[2019-12-21 20:00] LABS: BACTERIA,URINE NEGATIVE /HPF; BILIRUBIN,URINE NEGATIVE (NEGATIVE); GLUCOSE, URINE (UA) 3+ (NEGATIVE); KETONES,URINE NEGATIVE (NEGATIVE); LEUKOCYTE ESTERASE ,URINE NEGATIVE (NEGATIVE); NITRITE,URINE NEGATIVE (NEGATIVE); PROTEIN,URINE NEGATIVE (NEGATIVE); SQUAMOUS EPITHELIAL CELL,UR 0-2 /HPF; WBC,URINE 0-2 /HPF
[2019-12-21 20:25] VITALS: BP 114/69
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
== END 2019-12-21 20:25 | disposition home or self-care (01) ==
LOC: EDUNIT# 19:17 → ER FS 19:18
DX: T67.3XXA Heat exhaustion, anhydrotic, initial encounter (principal); F31.9 Bipolar disorder, unspecified; E11.9 Type 2 diabetes mellitus without complications; Z87.820 Personal history of traumatic brain injury; Z88.8 Allergy status to other drugs, medicaments and biological substances
CPT/HCPCS: 36415; 80053; 81000; 85025

== ENCOUNTER 2019-12-22 09:07 | Emergency (ER) | payer MEDICARE ==
[2019-12-22 09:07] VITALS: BP 118/53
--- NOTE | 2019-12-22 09:35 | NUR ---
PT PROVIDED WITH A SANDWICH, CHIPS, AND A DRINK.
--- NOTE | 2019-12-22 09:35 | ED Psychosocial ---
General Chief Complaint: Neurological Problems Stated Complaint: SEIZURE Nursing Triage Note: Patient presents to the ED for seizure like activity. Patient was here to follow with his PCP for ED visit that occured last night when he started having seizure like activity. Staff reports the patient was on the floor having seizure like activty. Source: patient Exam Limitations: no limitations History of Present Illness Date Seen by Provider: Dec 22, 2019 Time Seen by Provider: 09:14 Initial Comments Patient presents ER by private conveyance with chief complaint of some depression and PTSD stemming from his 45 years of service in the [employer]. 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 They recommend he follow up with local psychiatry which she has an appointment on 10 January, 2 weeks from now. He does not take any depression as we was not he can start a depression med that would help him with his pseudoseizures. He is not having a pseudoseizure today. He's having no pain nausea fever chills vomiting or cough. He does have us couple small red spots on his inner right leg but he thinks may be started on some mosquito bite. Allergies and Home Medications Allergies Coded Allergies: aripiprazole (Verified Allergy, Unknown, hallucinations, 10/01/18) zolpidem (Verified Allergy, Unknown, hallucinations, 10/01/18) Home Medications Clindamycin HCl 300 Mg Capsule, 300 MG PO TIDWM Prescribed by: LINDEN MERCEDES on 10/24/192033 Dicyclomine HCl 20 Mg Tablet, 20 MG PO QID PRN for ABDOMINAL PAIN Prescribed by: LUIS LECHUGA on 10/01/18 0501 Haloperidol 5 Mg Tab, 10 MG PO HS, (Reported) Hydrocodone Bit/Acetaminophen 1 Tab Tab, 1 EACH PO Q4-6HR PRN for PAIN-MODERATE Prescribed by: HILDA YBARRA on 01/24/19 1351 Ibuprofen 800 Mg Tablet, 800 MG PO Q8H PRN for PAIN Prescribed by: LINDEN MERCEDES on 10/24/192033 Magnesium Citrate 296 Ml Solution, 296 ML PO Q6H Prescribed by: HILDA YBARRA on 01/30/19 1258 Ondansetron 4 Mg Tab.rapdis, 4 MG PO Q6H PRN for NAUSEA/VOMITING Prescribed by: LUIS LECHUGA on 07/23/19 2150 Psyllium Husk 0.4 Gm Capsule, 0.4 GM PO DAILY Prescribed by: HILDA YBARRA on 01/30/19 1258 Simvastatin 40 Mg Tablet, HS, (Reported) Patient Home Medication List Home Medication List Reviewed: Yes Review of Systems Constitutional: No chills, No diaphoresis EENTM: No ear pain, No eye pain Respiratory: No cough, No short of breath Cardiovascular: No chest pain, No Hx of Intervention Gastrointestinal: No abdominal pain, No nausea Genitourinary: No discharge, No dysuria All Other Systems Reviewed Negative Unless Noted: Yes Past Vcrmflw-Lkksrl-Sdggjv Hx Patient Social History Alcohol Use: Denies Use Recreational Drug Use: Yes Drug of Choice: hx MARIJUANA Smoking Status: Current Everyday Smoker Type Used: Cigarettes, Electronic/Vapor 2nd Hand Smoke Exposure: Yes Recent Foreign Travel: No Contact w/Someone Who Travel: No Recent Infectious Disease Expo: No Recent Hopitalizations: No Physical Abuse: No Sexual Abuse: No Mistreated: No Fear: No Seasonal Allergies Seasonal Allergies: No Past Medical History Surgeries: Yes (cystoscopy) Gallbladder, Orthopedic Respiratory: Yes Asthma Cardiac: No Neurological: Yes Headaches /Migraines, Seizure Disorder, Traumatic Brain Injury Genitourinary: No Gastrointestinal: Yes Gastroesophageal Reflux, Hepatitis, Cirrhosis Musculoskeletal: No Endocrine: Yes Diabetes, Insulin dep HEENT: No Cancer: No Psychosocial: No (Suicidal and homicidal ideation) Bipolar, Personality Disorder Integumentary: No Blood Disorders: No Family Medical History No Pertinent Family Hx Physical Exam Vital Signs - First Documented 12/22/19 09:07 Temp 36.6 Pulse 79 Resp 18 B/P (MAP) 118/53 (74) Pulse Ox 98 O2 Delivery Room Air Capillary Refill : Less Than 3 Seconds Height, Weight, BMI Height: 5'8.00" Weight: 220lbs. oz. 99.270767gu; 27.00 BMI Method:Stated General Appearance: WD/WN, no apparent distress HEENT: PERRL/EOMI, normal ENT inspection, TMs normal, pharynx normal Neck: non-tender, full range of motion, supple, normal inspection Respiratory: lungs clear, normal breath sounds, no respiratory distress, no accessory muscle use Cardiovascular: normal peripheral pulses, regular rate, rhythm Neurologic/Psychiatric: no motor/sensory deficits, alert, normal mood/affect, oriented x 3 Appearance/Memory: appropriate appearance; No denies illness Behavior/Eye Contact: cooperative, good eye contact Thoughts/Hallucinations: normal thought pattern, no apparent hallucination Skin: other (2 cm sized red, nonindurated shallow ulcers about 8 cm apart on his right medial thigh and leg consistent with previous mosquito bite.) Progress/Results/Core Measures Results/Orders Vital Signs/I&O 12/22/19 09:07 Temp 36.6 Pulse 79 Resp 18 B/P (MAP) 118/53 (74) Pulse Ox 98 O2 Delivery Room Air Blood Pressure Mean: 74 Progress Progress Note : Time: 09:32 Progress Note The patient's is looking for antidepressants and has an appointment with psychiatrist which we have encouraged him to keep. His skin wounds are unremarkable. We consoled the patient that it was unfortunate that he had to be conscripted into the [employer] at age 4, gave him a sandwich and allowed him to return home. All patient's questions were satisfactorily answered. Departure Impression Primary Impression: History of pseudoseizure Additional Impression: Mosquito bite Qualified Codes: W57.XXXA - Bitten or stung by nonvenomous insect and other nonvenomous arthropods, initial encounter Disposition: 01 HOME, SELF-CARE Condition: Stable Departure-Patient Inst. Decision time for Depature: 09:34 Referrals: JERROD SERRANO APRN (PCP) Primary Care Physician [facility] (Family) Primary Care Physician Patient Instructions: Insect Bites and Stings (DC) Add. Discharge Instructions: Keep your scheduled follow-up appointment with your psychiatrist. They will be able to help you select a medication that is best able to serve your needs. Clean your wounds daily with soap and water and apply a thin layer of triple antibiotic ointment until they heal. If they start to worsen then bring them up to your primary care doctor's office. All discharge instructions reviewed with patient and/or family. Voiced understanding. ETHAN PORTILLO Dec 22, 2019 09:35
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
== END 2019-12-22 09:37 | disposition home or self-care (01) ==
LOC: EDUNIT# 09:07 → ER FS 09:08
DX: S70.361A Insect bite (nonvenomous), right thigh, initial encounter (principal); S80.861A Insect bite (nonvenomous), right lower leg, initial encounter; F44.5 Conversion disorder with seizures or convulsions; F31.9 Bipolar disorder, unspecified; F17.290 Nicotine dependence, other tobacco product, uncomplicated; F17.210 Nicotine dependence, cigarettes, uncomplicated; Z87.820 Personal history of traumatic brain injury; Z88.8 Allergy status to other drugs, medicaments and biological substances; W57.XXXA Bitten or stung by nonvenomous insect and other nonvenomous arthropods, initial encounter
CPT/HCPCS: 99283

== ENCOUNTER 2020-01-17 08:33 | Emergency (ER) | payer MEDICARE ==
[~2020-01-17] VITALS: Ht 172.7 cm; Wt 79.0 kg
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
--- NOTE | 2020-01-17 08:55 | ED Neurological Problem ---
General Chief Complaint: Seizure Source: patient, EMS notes reviewed History of Present Illness Date Seen by Provider: Jan 17, 2020 Time Seen by Provider: 08:47 Initial Comments Pt presents with seizure. He has a seizure disorder, takes Dilantin. Was at a store and felt like he was about to have a seizure. He says someone caught him before he fell down. He does not seem post-ictal, and EMS notes no seizure activity. Allergies and Home Medications Allergies Coded Allergies: aripiprazole (Verified Allergy, Unknown, hallucinations, 10/01/18) zolpidem (Verified Allergy, Unknown, hallucinations, 10/01/18) Home Medications Clindamycin HCl 300 Mg Capsule, 300 MG PO TIDWM Prescribed by: LINDEN MERCEDES on 10/24/192033 Dicyclomine HCl 20 Mg Tablet, 20 MG PO QID PRN for ABDOMINAL PAIN Prescribed by: LUIS LECHUGA on 10/01/18 0501 Haloperidol 5 Mg Tab, 10 MG PO HS, (Reported) Hydrocodone Bit/Acetaminophen 1 Tab Tab, 1 EACH PO Q4-6HR PRN for PAIN-MODERATE Prescribed by: HILDA YBARRA on 01/24/19 1351 Ibuprofen 800 Mg Tablet, 800 MG PO Q8H PRN for PAIN Prescribed by: LINDEN MERCEDES on 10/24/19 203 Magnesium Citrate 296 Ml Solution, 296 ML PO Q6H Prescribed by: HILDA YBARRA on 01/30/19 1258 Ondansetron 4 Mg Tab.rapdis, 4 MG PO Q6H PRN for NAUSEA/VOMITING Prescribed by: LUIS LECHUGA on 07/23/19 2150 Psyllium Husk 0.4 Gm Capsule, 0.4 GM PO DAILY Prescribed by: HILDA YBARRA on 01/30/19 1258 Simvastatin 40 Mg Tablet, HS, (Reported) Patient Home Medication List Home Medication List Reviewed: Yes Review of Systems Review of Systems Constitutional: No chills, No fever Ears, Nose, Mouth, Throat: no symptoms reported Respiratory: No cough, No short of breath Cardiovascular: No chest pain Gastrointestinal: no symptoms reported Genitourinary: no symptoms reported Skin: no symptoms reported Psychiatric/Neurological: Denies Headache; Other (Seizure) Past Ftjxtxi-Zbcpog-Lfuozp Hx Patient Social History Drug of Choice: hx MARIJUANA Type Used: Cigarettes, Electronic/Vapor 2nd Hand Smoke Exposure: Yes Recent Hopitalizations: No Seasonal Allergies Seasonal Allergies: No Past Medical History Surgeries: Yes (cystoscopy) Gallbladder, Orthopedic Respiratory: Yes Asthma Cardiac: No Neurological: Yes Headaches /Migraines, Seizure Disorder, Traumatic Brain Injury Genitourinary: No Gastrointestinal: Yes Gastroesophageal Reflux, Hepatitis, Cirrhosis Musculoskeletal: No Endocrine: Yes Diabetes, Insulin dep HEENT: No Cancer: No Psychosocial: No (Suicidal and homicidal ideation) Bipolar, Personality Disorder Integumentary: No Blood Disorders: No Family Medical History No Pertinent Family Hx Physical Exam Vital Signs Vital Signs - First Documented 01/17/20 08:38 Temp 36.5 Pulse 75 Resp 16 B/P (MAP) 131/79 (96) Pulse Ox 97 O2 Delivery Room Air Capillary Refill : Height, Weight, BMI Height: 5'8.00" Weight: 220lbs. oz. 99.000873to; 27.00 BMI Method:Stated General Appearance: WD/WN, no apparent distress HEENT: PERRL/EOMI Neck: full range of motion Respiratory: lungs clear, normal breath sounds, no respiratory distress Cardiovascular: regular rate, rhythm Gastrointestinal: non tender, soft Extremities: normal range of motion Neurologic/Psychiatric: no motor/sensory deficits, alert, normal mood/affect, oriented x 3 Motor/Sensory: no motor deficit, no sensory deficit Skin: normal color, warm/dry Progress/Results/Core Measures Results/Orders Lab Results Laboratory Tests Test 01/17/20 08:55 Range/Units White Blood Count 5.4 4.3-11.0 10^3/uL Red Blood Count 5.06 4.35-5.85 10^6/uL Hemoglobin 15.7 13.3-17.7 G/DL Hematocrit 45 40-54 % Mean Corpuscular Volume 89 80-99 FL Mean Corpuscular Hemoglobin 31 25-34 PG Mean Corpuscular Hemoglobin Concent 35 32-36 G/DL Red Cell Distribution Width 13.1 10.0-14.5 % Platelet Count 63 L 130-400 10^3/uL Mean Platelet Volume 10.4 7.4-10.4 FL Neutrophils (%) (Auto) 41 L 42-75 % Lymphocytes (%) (Auto) 46 H 12-44 % Monocytes (%) (Auto) 8 0-12 % Eosinophils (%) (Auto) 4 0-10 % Basophils (%) (Auto) 1 0-10 % Neutrophils # (Auto) 2.2 1.8-7.8 X 10^3 Lymphocytes # (Auto) 2.5 1.0-4.0 X 10^3 Monocytes # (Auto) 0.5 0.0-1.0 X 10^3 Eosinophils # (Auto) 0.2 0.0-0.3 10^3/uL Basophils # (Auto) 0.0 0.0-0.1 10^3/uL Neutrophils % (Manual) 29 % Lymphocytes % (Manual) 54 % Monocytes % (Manual) 7 % Eosinophils % (Manual) 9 % Basophils % (Manual) 0 % Band Neutrophils 1 % Blood Morphology Comment NORMAL Sodium Level 138 135-145 MMOL/L Potassium Level 3.6 3.6-5.0 MMOL/L Chloride Level 107 98-107 MMOL/L Carbon Dioxide Level 21 21-32 MMOL/L Anion Gap 10 5-14 MMOL/L Blood Urea Nitrogen 11 7-18 MG/DL Creatinine 0.60 0.60-1.30 MG/DL Estimat Glomerular Filtration Rate > 60 BUN/Creatinine Ratio 18 Glucose Level 149 H 70-105 MG/DL Calcium Level 8.8 8.5-10.1 MG/DL Corrected Calcium 8.9 8.5-10.1 MG/DL Total Bilirubin 0.4 0.1-1.0 MG/DL Aspartate Amino Transf (AST/SGOT) 37 H 5-34 U/L Alanine Aminotransferase (ALT/SGPT) 35 0-55 U/L Alkaline Phosphatase 66 40-136 U/L Total Protein 6.5 6.4-8.2 GM/DL Albumin 3.9 3.2-4.5 GM/DL My Orders Orders - JULIANNE LONG MD Cbc And Manual Diff (01/17/20 08:39) Comprehensive Metabolic Panel (01/17/20 08:39) Dilantin (Phenytoin) (01/17/20 08:39) Vital Signs/I&O 01/17/20 08:38 Temp 36.5 Pulse 75 Resp 16 B/P (MAP) 131/79 (96) Pulse Ox 97 O2 Delivery Room Air Progress Progress Note : Progress Note Workup unremarkable. Pt was given something to eat and he was eager to go home. Departure Impression Primary Impression: Seizure-like activity Disposition: 01 HOME, SELF-CARE Condition: Stable Departure-Patient Inst. Referrals: JERROD SERRANO APRN (PCP) Primary Care Physician [facility] (Family) Primary Care Physician Patient Instructions: Seizures, Adult (DC) JULIANNE LONG MD Jan 17, 2020 08:55
[2020-01-17 09:08] LABS: BASOPHILS % (AUTO) 1 % (0-10); EOSINOPHILS # (AUTO) 0.2 10^3/uL (0.0-0.3); EOSINOPHILS % (AUTO) 4 % (0-10); HEMATOCRIT 45 % (40-54); HEMOGLOBIN 15.7 G/DL (13.3-17.7); LYMPHOCYTES # (AUTO) 2.5 X 10^3 (1.0-4.0); LYMPHOCYTES % (AUTO) 46 % (12-44); MEAN CORPUSCULAR HEMOGLOBIN 31 PG (25-34); MEAN CORPUSCULAR HGB CONC 35 G/DL (32-36); MEAN CORPUSCULAR VOLUME 89 FL (80-99); MEAN PLATELET VOLUME 10.4 FL (7.4-10.4); MONOCYTES # (AUTO) 0.5 X 10^3 (0.0-1.0); MONOCYTES % (AUTO) 8 % (0-12); NEUTROPHILS # (AUTO) 2.2 X 10^3 (1.8-7.8); NEUTROPHILS % (AUTO) 41 % (42-75); PLATELET COUNT 63 10^3/uL (130-400); RED CELL DISTRIBUTION WIDTH 13.1 % (10.0-14.5); WHITE BLOOD COUNT 5.4 10^3/uL (4.3-11.0)
[2020-01-17 09:30] LABS: ALANINE AMINOTRANSFERASE 35 U/L (0-55); ALBUMIN 3.9 GM/DL (3.2-4.5); ALKALINE PHOSPHATASE 66 U/L (40-136); BAND NEUTROPHILS 1 %; BASOPHILS % (MANUAL) 0 %; BILIRUBIN,TOTAL 0.4 MG/DL (0.1-1.0); BUN/CREATININE RATIO 18; CALCIUM 8.8 MG/DL (8.5-10.1); CARBON DIOXIDE 21 MMOL/L (21-32); CHLORIDE 107 MMOL/L (98-107); EOSINOPHILS % (MANUAL) 9 %; GFR ESTIMATED > 60; GLUCOSE 149 MG/DL (70-105); LYMPHOCYTES % (MANUAL) 54 %; MONOCYTES % (MANUAL) 7 %; NEUTROPHILS % (MANUAL) 29 %; POTASSIUM 3.6 MMOL/L (3.6-5.0); RBC MORPH NORMAL; SODIUM 138 MMOL/L (135-145); TOTAL PROTEIN 6.5 GM/DL (6.4-8.2)
[2020-01-17 09:37] VITALS: BP 129/70
== END 2020-01-17 09:28 | disposition home or self-care (01) ==
LOC: EDUNIT# 08:33 → ER FS 08:34
DX: G40.909 Epilepsy, unspecified, not intractable, without status epilepticus (principal); E11.9 Type 2 diabetes mellitus without complications; F31.9 Bipolar disorder, unspecified; G43.909 Migraine, unspecified, not intractable, without status migrainosus; Z87.820 Personal history of traumatic brain injury; Z88.8 Allergy status to other drugs, medicaments and biological substances; Z77.22 Contact with and (suspected) exposure to environmental tobacco smoke (acute) (chronic)
CPT/HCPCS: 36415; 80053; 80185; 85007; 85027

== ENCOUNTER 2020-01-22 11:10 | Emergency (ER) | payer MEDICARE ==
[~2020-01-22] VITALS: Ht 172.7 cm; Wt 71.3 kg
--- NOTE | 2020-01-22 11:39 | ED Neurological Problem ---
General Chief Complaint: Neurological Problems Stated Complaint: SEIZURE Source: patient, EMS Exam Limitations: no limitations History of Present Illness Date Seen by Provider: Jan 22, 2020 Time Seen by Provider: 11:30 Initial Comments Patient presents via EMS with complaint of seizure today. Patient with long- term history of seizures taking seizure medication. States that he's been shaking this morning and called EMS. Denies missing any seizure medication or change to his dose. Denies any recent illness, cough, fever or chills, shortness of air or exposure to known COVID-19. Patient thinks he may have hit his head. No change in seizure pattern or severity. Patient did not lose bladder control or bite his tongue. EMS did not witness seizure or postictal presentation Allergies and Home Medications Allergies Coded Allergies: aripiprazole (Verified Allergy, Unknown, hallucinations, 10/01/18) zolpidem (Verified Allergy, Unknown, hallucinations, 10/01/18) Home Medications Clindamycin HCl 300 Mg Capsule, 300 MG PO TIDWM Prescribed by: LINDEN MERCEDES on 10/24/192033 Dicyclomine HCl 20 Mg Tablet, 20 MG PO QID PRN for ABDOMINAL PAIN Prescribed by: LUIS LECHUGA on 10/01/18 0501 Haloperidol 5 Mg Tab, 10 MG PO HS, (Reported) Hydrocodone Bit/Acetaminophen 1 Tab Tab, 1 EACH PO Q4-6HR PRN for PAIN-MODERATE Prescribed by: HILDA YBARRA on 01/24/19 1351 Ibuprofen 800 Mg Tablet, 800 MG PO Q8H PRN for PAIN Prescribed by: LINDEN MERCEDES on 10/24/192033 Magnesium Citrate 296 Ml Solution, 296 ML PO Q6H Prescribed by: HILDA YBARRA on 01/30/19 1258 Ondansetron 4 Mg Tab.rapdis, 4 MG PO Q6H PRN for NAUSEA/VOMITING Prescribed by: LUIS NATIONRT on 07/23/19 2150 Psyllium Husk 0.4 Gm Capsule, 0.4 GM PO DAILY Prescribed by: HILDA YBARRA on 01/30/19 1258 Simvastatin 40 Mg Tablet, HS, (Reported) Patient Home Medication List Home Medication List Reviewed: Yes Review of Systems Review of Systems Constitutional: see HPI; No dizziness, No fever, No malaise, No weakness Eyes: Denies Pain, Denies Photophobia Ears, Nose, Mouth, Throat: no symptoms reported Respiratory: No cough, No short of breath Cardiovascular: No chest pain, No edema, No palpitations Gastrointestinal: No abdominal pain, No nausea, No vomiting Musculoskeletal: No back pain, No joint pain, No neck pain Skin: No change in color, No lesions, No rash Psychiatric/Neurological: Other (seizure) Past Mquhrdv-Sukbdw-Kxawck Hx Past Med/Social Hx: Reviewed Nursing Past Med/Soc Hx Patient Social History Alcohol Use: Denies Use Recreational Drug Use: Yes Drug of Choice: hx MARIJ[place] Smoking Status: Current Everyday Smoker Type Used: Cigarettes, Electronic/Vapor 2nd Hand Smoke Exposure: Yes Recent Hopitalizations: No Seasonal Allergies Seasonal Allergies: No Past Medical History Surgeries: Yes (cystoscopy) Gallbladder, Orthopedic Respiratory: Yes Asthma Cardiac: No Neurological: Yes Headaches /Migraines, Seizure Disorder, Traumatic Brain Injury Genitourinary: No Gastrointestinal: Yes Gastroesophageal Reflux, Hepatitis, Cirrhosis Musculoskeletal: No Endocrine: Yes Diabetes, Insulin dep HEENT: No Cancer: No Psychosocial: No (Suicidal and homicidal ideation hx) Bipolar, Personality Disorder Integumentary: No Blood Disorders: No Family Medical History No Pertinent Family Hx Physical Exam Vital Signs Vital Signs - First Documented 01/22/20 11:10 Temp 36.5 Pulse 67 Resp 16 B/P (MAP) 141/81 (101) Pulse Ox 96 O2 Delivery Room Air Capillary Refill : Height, Weight, BMI Height: 5'8.00" Weight: 220lbs. oz. 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, no motor/sensory deficits, alert, normal mood/affect, oriented x 3 Skin: normal color, warm/dry Progress/Results/Core Measures Results/Orders Lab Results Laboratory Tests Test 01/22/20 11:25 01/22/20 11:56 Range/Units Urine Color YELLOW Urine Clarity CLEAR Urine pH 5.5 5-9 Urine Specific [place] 1.025 H 1.016-1.022 Urine Protein NEGATIVE NEGATIVE Urine Glucose (UA) 3+ H NEGATIVE Urine Ketones NEGATIVE NEGATIVE Urine Nitrite NEGATIVE NEGATIVE Urine Bilirubin NEGATIVE NEGATIVE Urine Urobilinogen 0.2 < = 1.0 MG/DL Urine Leukocyte Esterase NEGATIVE NEGATIVE Urine RBC (Auto) NEGATIVE NEGATIVE Urine RBC NONE /HPF Urine WBC NONE /HPF Urine Squamous Epithelial Cells 0-2 /HPF Urine Crystals NONE /LPF Urine Bacteria NONE /HPF Urine Casts NONE /LPF Urine Mucus NEGATIVE /LPF Urine Culture Indicated NO White Blood Count 11.4 H 4.3-11.0 10^3/uL Red Blood Count 5.53 4.35-5.85 10^6/uL Hemoglobin 17.4 13.3-17.7 G/DL Hematocrit 49 40-54 % Mean Corpuscular Volume 88 80-99 FL Mean Corpuscular Hemoglobin 31 25-34 PG Mean Corpuscular Hemoglobin Concent 36 32-36 G/DL Red Cell Distribution Width 13.1 10.0-14.5 % Platelet Count 115 L 130-400 10^3/uL Mean Platelet Volume 9.7 7.4-10.4 FL Neutrophils (%) (Auto) 37 L 42-75 % Lymphocytes (%) (Auto) 51 H 12-44 % Monocytes (%) (Auto) 9 0-12 % Eosinophils (%) (Auto) 3 0-10 % Basophils (%) (Auto) 1 0-10 % Neutrophils # (Auto) 4.2 1.8-7.8 X 10^3 Lymphocytes # (Auto) 5.8 H 1.0-4.0 X 10^3 Monocytes # (Auto) 1.0 0.0-1.0 X 10^3 Eosinophils # (Auto) 0.4 H 0.0-0.3 10^3/uL Basophils # (Auto) 0.1 0.0-0.1 10^3/uL Sodium Level 142 135-145 MMOL/L Potassium Level 3.9 3.6-5.0 MMOL/L Chloride Level 108 H 98-107 MMOL/L Carbon Dioxide Level 23 21-32 MMOL/L Anion Gap 11 5-14 MMOL/L Blood Urea Nitrogen 13 7-18 MG/DL Creatinine 0.66 0.60-1.30 MG/DL Estimat Glomerular Filtration Rate > 60 BUN/Creatinine Ratio 20 Glucose Level 98 70-105 MG/DL Calcium Level 9.2 8.5-10.1 MG/DL Corrected Calcium 8.9 8.5-10.1 MG/DL Total Bilirubin 0.6 0.1-1.0 MG/DL Aspartate Amino Transf (AST/SGOT) 39 H 5-34 U/L Alanine Aminotransferase (ALT/SGPT) 44 0-55 U/L Alkaline Phosphatase 80 40-136 U/L Total Protein 7.1 6.4-8.2 GM/DL Albumin 4.4 3.2-4.5 GM/DL My Orders Orders - LINDEN MERCEDES DO Cbc With Automated Diff (01/22/20 11:32) Comprehensive Metabolic Panel (01/22/20 11:32) Urinalysis (01/22/20 11:32) Vital Signs/I&O 01/22/20 11:10 Temp 36.5 Pulse 67 Resp 16 B/P (MAP) 141/81 (101) Pulse Ox 96 O2 Delivery Room Air Progress Progress Note : Progress Note Chronic seizure disorder with no acute findings today. Patient stable, talkative, ambulatory, no distress with normal vitals. Normal lab work. Patient encouraged to continue his current medication follow-up with his PCP regarding require "seizures" Departure Impression Primary Impression: Seizure disorder Additional Impression: TBI (traumatic brain injury) Qualified Codes: S06.9X9D - Unspecified intracranial injury with loss of consciousness of unspecified duration, subsequent encounter Disposition: 01 HOME, SELF-CARE Condition: Stable Departure-Patient Inst. Referrals: JERROD SERRANO APRN (PCP) Primary Care Physician [facility] (Family) Primary Care Physician Patient Instructions: Seizures, Adult (DC) LINDEN MERCEDES DO Jan 22, 2020 11:39
[2020-01-22 11:43] LABS: BILIRUBIN,URINE NEGATIVE (NEGATIVE); CLARITY,URINE CLEAR; COLOR,URINE YELLOW; GLUCOSE, URINE (UA) 3+ (NEGATIVE); KETONES,URINE NEGATIVE (NEGATIVE); LEUKOCYTE ESTERASE ,URINE NEGATIVE (NEGATIVE); NITRITE,URINE NEGATIVE (NEGATIVE); PH,URINE 5.5 (5-9); PROTEIN,URINE NEGATIVE (NEGATIVE); SQUAMOUS EPITHELIAL CELL,UR 0-2 /HPF
[2020-01-22 12:10] LABS: HEMATOCRIT 49 % (40-54); HEMOGLOBIN 17.4 G/DL (13.3-17.7); LYMPHOCYTES % (AUTO) 51 % (12-44); MEAN CORPUSCULAR HEMOGLOBIN 31 PG (25-34); MEAN CORPUSCULAR HGB CONC 36 G/DL (32-36); MEAN CORPUSCULAR VOLUME 88 FL (80-99); MEAN PLATELET VOLUME 9.7 FL (7.4-10.4); NEUTROPHILS % (AUTO) 37 % (42-75); PLATELET COUNT 115 10^3/uL (130-400); RED CELL DISTRIBUTION WIDTH 13.1 % (10.0-14.5); WHITE BLOOD COUNT 11.4 10^3/uL (4.3-11.0)
[2020-01-22 12:11] LABS: BASOPHILS # (AUTO) 0.1 10^3/uL (0.0-0.1); BASOPHILS % (AUTO) 1 % (0-10); EOSINOPHILS # (AUTO) 0.4 10^3/uL (0.0-0.3); EOSINOPHILS % (AUTO) 3 % (0-10); LYMPHOCYTES # (AUTO) 5.8 X 10^3 (1.0-4.0); MONOCYTES % (AUTO) 9 % (0-12); NEUTROPHILS # (AUTO) 4.2 X 10^3 (1.8-7.8)
[2020-01-22 12:30] LABS: ALANINE AMINOTRANSFERASE 44 U/L (0-55); ALBUMIN 4.4 GM/DL (3.2-4.5); ALKALINE PHOSPHATASE 80 U/L (40-136); BILIRUBIN,TOTAL 0.6 MG/DL (0.1-1.0); BUN/CREATININE RATIO 20; CALCIUM 9.2 MG/DL (8.5-10.1); CARBON DIOXIDE 23 MMOL/L (21-32); CHLORIDE 108 MMOL/L (98-107); CREATININE SERUM 0.66 MG/DL (0.60-1.30); GFR ESTIMATED > 60; GLUCOSE 98 MG/DL (70-105); POTASSIUM 3.9 MMOL/L (3.6-5.0); SODIUM 142 MMOL/L (135-145); TOTAL PROTEIN 7.1 GM/DL (6.4-8.2)
[2020-01-22 12:45] VITALS: BP 130/68
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
== END 2020-01-22 12:45 | disposition home or self-care (01) ==
LOC: EDUNIT# 11:10 → ER FS 11:11
DX: G40.909 Epilepsy, unspecified, not intractable, without status epilepticus (principal); S06.9X0A Unspecified intracranial injury without loss of consciousness, initial encounter; G43.909 Migraine, unspecified, not intractable, without status migrainosus; F31.9 Bipolar disorder, unspecified; F17.210 Nicotine dependence, cigarettes, uncomplicated; F17.290 Nicotine dependence, other tobacco product, uncomplicated; Z88.8 Allergy status to other drugs, medicaments and biological substances; X58.XXXA Exposure to other specified factors, initial encounter
CPT/HCPCS: 36415; 80053; 81000; 85025; 99283

== ENCOUNTER 2020-01-22 21:52 | Emergency (ER) | payer MEDICARE ==
[~2020-01-22] VITALS: Ht 172.7 cm; Wt 75.7 kg
[2020-01-22 21:53] VITALS: BP 152/81
[2020-01-22] MEDS ORDERED: LORazepam 0.5 MG (ATIVAN) TABLET PO STA (22:02)
--- NOTE | 2020-01-22 22:02 | ED Neurological Problem ---
General Chief Complaint: Neurological Problems Stated Complaint: SEIZURES Source: patient, EMS Exam Limitations: no limitations History of Present Illness Date Seen by Provider: Jan 22, 2020 Time Seen by Provider: 22:01 Initial Comments Presents via EMS w c/o another seizure today. Seen in this ER earlier today after a seizure and discharged. Pt at that time was without significant injury or active Sz. Was not post-ictal. Tonight similar episode of shaking, no loss of consciousness, states that he fell, but (consciously) stopped himself from hitting his head. No active Sz witnessed by EMS. No medications given by EMS. Not having seizure activity on arrival. Patient states he was told to stop taking his Dilantin Allergies and Home Medications Allergies Coded Allergies: aripiprazole (Verified Allergy, Unknown, hallucinations, 10/01/18) zolpidem (Verified Allergy, Unknown, hallucinations, 10/01/18) Home Medications Clindamycin HCl 300 Mg Capsule, 300 MG PO TIDWM Prescribed by: LINDEN MERCEDES on 10/24/192033 Dicyclomine HCl 20 Mg Tablet, 20 MG PO QID PRN for ABDOMINAL PAIN Prescribed by: LUIS LECHUGA on 10/01/18 0501 Haloperidol 5 Mg Tab, 10 MG PO HS, (Reported) Hydrocodone Bit/Acetaminophen 1 Tab Tab, 1 EACH PO Q4-6HR PRN for PAIN-MODERATE Prescribed by: HILDA YBARRA on 01/24/19 1351 Ibuprofen 800 Mg Tablet, 800 MG PO Q8H PRN for PAIN Prescribed by: LINDEN MERCEDES on 10/24/192033 Magnesium Citrate 296 Ml Solution, 296 ML PO Q6H Prescribed by: HILDA YBARRA on 01/30/19 1258 Ondansetron 4 Mg Tab.rapdis, 4 MG PO Q6H PRN for NAUSEA/VOMITING Prescribed by: LUIS LECHUGA on 07/23/19 2150 Psyllium Husk 0.4 Gm Capsule, 0.4 GM PO DAILY Prescribed by: HILDA YBARRA on 01/30/19 1258 Simvastatin 40 Mg Tablet, HS, (Reported) Patient Home Medication List Home Medication List Reviewed: Yes Review of Systems Review of Systems Constitutional: No dizziness, No fever, No malaise Eyes: No Symptoms Reported Ears, Nose, Mouth, Throat: no symptoms reported Respiratory: No cough, No short of breath Cardiovascular: No chest pain, No edema, No palpitations, No syncope Gastrointestinal: No abdominal pain, No nausea, No vomiting Musculoskeletal: No back pain; muscle twitching; No muscle weakness, No neck pain Psychiatric/Neurological: Anxiety; Denies Weakness; Other (shaking episoes) Past Voesaxd-Caukdi-Alvazn Hx Past Med/Social Hx: Reviewed Nursing Past Med/Soc Hx Patient Social History Drug of Choice: hx MARIJUANA Type Used: Cigarettes, Electronic/Vapor 2nd Hand Smoke Exposure: Yes Recent Foreign Travel: No Contact w/Someone Who Travel: No Recent Hopitalizations: No Seasonal Allergies Seasonal Allergies: No Past Medical History Surgeries: Yes (cystoscopy) Gallbladder, Orthopedic Respiratory: Yes Asthma Cardiac: No Neurological: Yes Headaches /Migraines, Seizure Disorder, Traumatic Brain Injury Genitourinary: No Gastrointestinal: Yes Gastroesophageal Reflux, Hepatitis, Cirrhosis Musculoskeletal: No Endocrine: Yes Diabetes, Insulin dep HEENT: No Cancer: No Psychosocial: No (Suicidal and homicidal ideation hx) Bipolar, Personality Disorder Integumentary: No Blood Disorders: No Family Medical History No Pertinent Family Hx Physical Exam Vital Signs Vital Signs - First Documented 01/22/20 21:53 Temp 36.7 Pulse 80 Resp 18 B/P (MAP) 152/81 (104) Pulse Ox 95 O2 Delivery Room Air Capillary Refill : Height, Weight, BMI Height: 5'8.00" Weight: 220lbs. oz. 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, no motor/sensory deficits, alert, normal mood/affect, oriented x 3 Skin: normal color, warm/dry Progress/Results/Core Measures Results/Orders Lab Results Laboratory Tests Test 01/22/20 22:07 Range/Units White Blood Count 10.1 4.3-11.0 10^3/uL Red Blood Count 5.30 4.35-5.85 10^6/uL Hemoglobin 16.6 13.3-17.7 G/DL Hematocrit 47 40-54 % Mean Corpuscular Volume 89 80-99 FL Mean Corpuscular Hemoglobin 31 25-34 PG Mean Corpuscular Hemoglobin Concent 35 32-36 G/DL Red Cell Distribution Width 13.1 10.0-14.5 % Platelet Count 100 L 130-400 10^3/uL Mean Platelet Volume 9.7 7.4-10.4 FL Neutrophils (%) (Auto) 35 L 42-75 % Lymphocytes (%) (Auto) 50 H 12-44 % Monocytes (%) (Auto) 10 0-12 % Eosinophils (%) (Auto) 4 0-10 % Basophils (%) (Auto) 1 0-10 % Neutrophils # (Auto) 3.5 1.8-7.8 X 10^3 Lymphocytes # (Auto) 5.1 H 1.0-4.0 X 10^3 Monocytes # (Auto) 1.1 H 0.0-1.0 X 10^3 Eosinophils # (Auto) 0.4 H 0.0-0.3 10^3/uL Basophils # (Auto) 0.1 0.0-0.1 10^3/uL My Orders Orders - LINDEN MERCEDES DO Lorazepam Tablet (Ativan Tablet) (01/22/20 22:02) Dilantin (Phenytoin) (01/22/20 22:03) Cbc With Automated Diff (01/22/20 22:03) Comprehensive Metabolic Panel (01/22/20 22:03) Alcohol (01/22/20 22:03) Vital Signs/I&O 01/22/20 21:53 Temp 36.7 Pulse 80 Resp 18 B/P (MAP) 152/81 (104) Pulse Ox 95 O2 Delivery Room Air Progress Progress Note : Progress Note Patient states that his Psychiatrist told him to stop taking Dilantin because he had "psychotic Sz". He also states that his Neurologist also said he had "psychotic sz". He was evaluated w EEG and it was negative for a Sz disorder. Departure Impression Primary Impression: Pseudoseizure Disposition: 01 HOME, SELF-CARE Condition: Stable Departure-Patient Inst. Referrals: JERROD SERRANO APRN (PCP) Primary Care Physician [facility] (Family) Primary Care Physician LINDEN MERCEDES DO Jan 22, 2020 22:02
[2020-01-22 22:33] LABS: BASOPHILS # (AUTO) 0.1 10^3/uL (0.0-0.1); BASOPHILS % (AUTO) 1 % (0-10); EOSINOPHILS # (AUTO) 0.4 10^3/uL (0.0-0.3); EOSINOPHILS % (AUTO) 4 % (0-10); HEMATOCRIT 47 % (40-54); HEMOGLOBIN 16.6 G/DL (13.3-17.7); LYMPHOCYTES # (AUTO) 5.1 X 10^3 (1.0-4.0); LYMPHOCYTES % (AUTO) 50 % (12-44); MEAN CORPUSCULAR HEMOGLOBIN 31 PG (25-34); MEAN CORPUSCULAR HGB CONC 35 G/DL (32-36); MEAN CORPUSCULAR VOLUME 89 FL (80-99); MEAN PLATELET VOLUME 9.7 FL (7.4-10.4); MONOCYTES # (AUTO) 1.1 X 10^3 (0.0-1.0); MONOCYTES % (AUTO) 10 % (0-12); NEUTROPHILS # (AUTO) 3.5 X 10^3 (1.8-7.8); NEUTROPHILS % (AUTO) 35 % (42-75); PLATELET COUNT 100 10^3/uL (130-400); RED CELL DISTRIBUTION WIDTH 13.1 % (10.0-14.5); WHITE BLOOD COUNT 10.1 10^3/uL (4.3-11.0)
[2020-01-22 22:46] LABS: POTASSIUM 3.3 MMOL/L (3.6-5.0); SODIUM 143 MMOL/L (135-145)
[2020-01-22 22:47] LABS: ALANINE AMINOTRANSFERASE 42 U/L (0-55); ALBUMIN 4.1 GM/DL (3.2-4.5); ALKALINE PHOSPHATASE 79 U/L (40-136); BILIRUBIN,TOTAL 0.4 MG/DL (0.1-1.0); BUN/CREATININE RATIO 14; CALCIUM 8.9 MG/DL (8.5-10.1); CARBON DIOXIDE 21 MMOL/L (21-32); CHLORIDE 109 MMOL/L (98-107); CREATININE SERUM 0.66 MG/DL (0.60-1.30); GFR ESTIMATED > 60; GLUCOSE 74 MG/DL (70-105); TOTAL PROTEIN 6.9 GM/DL (6.4-8.2)
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
== END 2020-01-22 22:43 | disposition home or self-care (01) ==
LOC: EDUNIT# 21:52 → ER FS 21:53
DX: F44.5 Conversion disorder with seizures or convulsions (principal); F31.9 Bipolar disorder, unspecified; G43.909 Migraine, unspecified, not intractable, without status migrainosus; Z87.820 Personal history of traumatic brain injury; Z88.8 Allergy status to other drugs, medicaments and biological substances; Z77.22 Contact with and (suspected) exposure to environmental tobacco smoke (acute) (chronic)
CPT/HCPCS: 36415; 80053; 80185; 85025; 99283; G0480; 80320

== ENCOUNTER 2020-01-24 23:25 | Emergency (ER) | payer MEDICARE ==
[~2020-01-24] VITALS: Ht 172.7 cm; Wt 75.7 kg
--- NOTE | 2020-01-24 23:39 | ED General ---
General Chief Complaint: Neurological Problems Stated Complaint: SEIZURE Source of Information: Patient, EMS, Old Records, RN/MD Exam Limitations: No Limitations History of Present Illness Date Seen by Provider: Jan 24, 2020 Time Seen by Provider: 23:30 Initial Comments This patient is a 49-year-old male that presents to the emergency department with complaint of seizure-like activity. Patient has a long history of pseudoseizures and is frequently visited the emergency department for the same. Patient states that he was laying on the bed asleep states he woke up and was complaining of right side pain and believes he had a seizure. No witnessed seizure. Patient has no postictal symptoms and takes all his medications like scheduled. Patient states he takes Dilantin and he does take Ativan for anxiety. Patient is awake and alert and does not appear to be in any acute episode of any medical issue. Patient asked him to go home. I did offer the patient a full medical screening exam including labs and imaging if needed. Patient questions just a short physical exam which. Be completely normal for this patient. Patient states he does not need any further evaluation. Patient again was offered full medical screening exam and declined beyond his physical exam. Patient's history medical records show the patient is consistent with been seen in the emergency department multiple times every month for the same type of presentation. Patient be discharged home to continue continue all of his home medications per his request. Patient should be advised to follow up with his primary care physician for further management medical evaluation treatment and possible medication changes. Timing/Duration: 1/2 Hour Severity: Mild Associated Systoms: Seizure Allergies and Home Medications Allergies Coded Allergies: aripiprazole (Verified Allergy, Unknown, hallucinations, 10/01/18) zolpidem (Verified Allergy, Unknown, hallucinations, 10/01/18) Home Medications Clindamycin HCl 300 Mg Capsule, 300 MG PO TIDWM Prescribed by: LINDEN MERCEDES on 10/24/192033 Dicyclomine HCl 20 Mg Tablet, 20 MG PO QID PRN for ABDOMINAL PAIN Prescribed by: LUIS LECHUGA on 10/01/18 0501 Haloperidol 5 Mg Tab, 10 MG PO HS, (Reported) Hydrocodone Bit/Acetaminophen 1 Tab Tab, 1 EACH PO Q4-6HR PRN for PAIN-MODERATE Prescribed by: HILDA YBARRA on 01/24/19 1351 Ibuprofen 800 Mg Tablet, 800 MG PO Q8H PRN for PAIN Prescribed by: LINDEN Wilson ROVENSTINE on 10/24/192033 Magnesium Citrate 296 Ml Solution, 296 ML PO Q6H Prescribed by: HILDA YBARRA on 01/30/19 1258 Ondansetron 4 Mg Tab.rapdis, 4 MG PO Q6H PRN for NAUSEA/VOMITING Prescribed by: LUIS LECHUGA on 07/23/192149 Psyllium Husk 0.4 Gm Capsule, 0.4 GM PO DAILY Prescribed by: HILDA YBARRA on 01/30/19 1258 Simvastatin 40 Mg Tablet, HS, (Reported) Patient Home Medication List Home Medication List Reviewed: Yes Review of Systems Review of Systems Constitutional: No no symptoms reported; see HPI; No chills, No diaphoresis, No dizziness, No fever, No malaise, No weakness, No weight gain, No weight loss, No other EENTM: No see HPI, No no symptoms reported, No ear discharge, No hearing loss, No ear pain, No blurred vision, No double vision, No eye pain, No tearing, No vision loss, No dental problems, No hoarseness, No mouth pain, No mouth swelling, No epistaxis, No nose congestion, No nose pain, No throat pain, No throat swelling, No other Respiratory: No no symptoms reported, No see HPI, No cough, No dyspnea on exertion, No hemoptysis, No orthopnea, No phlegm, No short of breath, No stridor, No wheezing, No other Cardiovascular: No no symptoms reported, No see HPI, No chest pain, No edema, No Hx of Intervention, No palpitations, No syncope, No vascular heart diseas, No other Gastrointestinal: No RUQ, No LUQ, No RLQ, No LLQ, No no symptoms reported, No see HPI, No abdominal pain, No constipation, No diarrhea, No dysphagia, No hematemesis, No heartburn, No jaundice, No loss of appetite, No melena, No nausea, No vomiting, No other Genitourinary: No no symptoms reported, No see HPI, No decreased output, No discharge, No dysuria, No frequency, No hematuria, No hesitancy, No incontinence, No nocturia, No pain, No other Musculoskeletal: No no symptoms reported, No see HPI, No back pain, No gout, No joint pain, No joint swelling, No muscle pain, No muscle stiffness, No muscle cramps, No muscle twitching, No muscle weakness, No neck pain, No other Skin: No no symptoms reported, No see HPI, No change in color, No change in hair/nails, No dryness, No hx of skin cancer, No lesions, No lumps, No pruritus, No rash, No other Psychiatric/Neurological: See HPI, Anxiety, Tremors, Other (pseudoseizures) All Other Systems Reviewed Negative Unless Noted: Yes Past Uevfaqk-Kcxohy-Fbnqlg Hx Patient Social History Drug of Choice: hx MARIJUANA Type Used: Cigarettes, Electronic/Vapor 2nd Hand Smoke Exposure: Yes Recent Foreign Travel: No Contact w/Someone Who Travel: No Recent Hopitalizations: No Seasonal Allergies Seasonal Allergies: No Past Medical History Surgeries: Yes (cystoscopy) Gallbladder, Orthopedic Respiratory: Yes Asthma Cardiac: No Neurological: Yes Headaches /Migraines, Seizure Disorder, Traumatic Brain Injury Genitourinary: No Gastrointestinal: Yes Gastroesophageal Reflux, Hepatitis, Cirrhosis Musculoskeletal: No Endocrine: Yes Diabetes, Insulin dep HEENT: No Cancer: No Psychosocial: No (Suicidal and homicidal ideation hx) Bipolar, Personality Disorder Integumentary: No Blood Disorders: No Family Medical History No Pertinent Family Hx Physical Exam Vital Signs Capillary Refill : Height, Weight, BMI Height: 5'8.00" Weight: 220lbs. oz. 99.525540zm; 25.00 BMI Method:Stated General Appearance: No Apparent Distress, WD/WN HEENT: PERRL/EOMI, TMs Normal, Normal ENT Inspection, Pharynx Normal Neck: Full Range of Motion, Normal Inspection, Non Tender, Supple, Carotid Bruit Respiratory: Chest Non Tender, Lungs Clear, Normal Breath Sounds, No Accessory Muscle Use, No Respiratory Distress Cardiovascular: Regular Rate, Rhythm, No Edema, No Gallop, No JVD, No Murmur, Normal Peripheral Pulses Gastrointestinal: Normal Bowel Sounds, No Organomegaly, No Pulsatile Mass, Non Tender, Soft Extremity: Normal Capillary Refill, Normal Inspection, Normal Range of Motion, Non Tender, No Calf Tenderness, No Pedal Edema Neurologic/Psychiatric: Alert, Oriented x3, No Motor/Sensory Deficits, Normal Mood/Affect Skin: Normal Color, Warm/Dry Progress/Results/Core Measures Suspected Sepsis SIRS Temperature: Pulse: Respiratory Rate: Blood Pressure / Mean: Results/Orders Vital Signs/I&O Capillary Refill : Progress Note : Time: 23:45 Progress Note Patient has a long history of seizures and pseudoseizures. Patient seen multiple times in the emergency department. Patient was seen twice on January 21 2 days ago with full evaluation and diagnosed with pseudoseizure activity. Patient has no specific complaints today other than the thinks he had a seizure while he was asleep. Did discuss at length with patient and offered full medical screening exam patient declined any evaluation beyond the physical exam. Patient requests to be discharged and actually got up off the bed to walk out of the emergency department and had been requested by the nurses to stay and wait for evaluation by physician and for hospital discharge orders and instructions. Patient be discharged home per his request. Departure Impression Primary Impression: Pseudoseizures Disposition: 01 HOME, SELF-CARE Condition: Stable Departure-Patient Inst. Decision time for Depature: 23:42 Referrals: JERROD SERRANO APRN (PCP) Primary Care Physician [facility] (Family) Primary Care Physician Patient Instructions: Seizures, Adult (DC), Conversion Disorder Add. Discharge Instructions: Continue all home medications and follow-up with your primary care provider in the next 2-3 days. All discharge instructions reviewed with patient and/or family. Voiced understanding. SHANTANU BURTON MD Jan 24, 2020 23:39
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
[2020-01-24 23:47] VITALS: BP 136/69
== END 2020-01-24 23:45 | disposition home or self-care (01) ==
LOC: EDUNIT# 23:25 → ER FS 23:27
DX: F44.5 Conversion disorder with seizures or convulsions (principal); F41.9 Anxiety disorder, unspecified; G43.909 Migraine, unspecified, not intractable, without status migrainosus; F31.9 Bipolar disorder, unspecified; Z87.820 Personal history of traumatic brain injury; Z88.8 Allergy status to other drugs, medicaments and biological substances; Z77.22 Contact with and (suspected) exposure to environmental tobacco smoke (acute) (chronic); Z86.69 Personal history of other diseases of the nervous system and sense organs
CPT/HCPCS: 99283

== ENCOUNTER → 2020-02-18 | Outpatient (CLI) | payer MEDICARE ==
--- NOTE | 2020-02-18 13:16 | Diagnostic Imaging Report ---
INDICATION: Fall with low back injury. TIME OF EXAM: 12:02 p.m. EXAMINATION: Frontal and lateral views of the lumbar spine were obtained. FINDINGS: Curvature and alignment of lumbar spine is normal. Vertebral body heights are well-maintained. Disc spaces are preserved. No fracture or subluxation is identified. There is some marginal spurring anteriorly at the T12-L1 level. IMPRESSION: No acute bony abnormality is identified. Dictated by: Dictated on workstation # [id number]
== END ==
LOC: RAD FS 11:55
PROVIDERS: ATTEND Nurse Practitioner Family
DX: S39.92XA Unspecified injury of lower back, initial encounter (principal); W19.XXXA Unspecified fall, initial encounter
CPT/HCPCS: 72100

== ENCOUNTER 2020-04-06 15:11 | Emergency (ER) | payer MEDICARE ==
--- NOTE | 2020-04-06 15:33 | ED General ---
General Chief Complaint: General Problems/Pain Stated Complaint: SEIZURES Nursing Triage Note: Brought in by EMS for seizure at [facility]. Patient states he tensed up and fell out of chair. Unsure how long seizure lasted. Woke up to wearing oxygen on the floor at [facility]. Pt walked in from ambulance. States he also had a seizure last night. Takes seroquel and depakote for seizures. Sees neurology at . Nursing Sepsis Screen: No Definite Risk History of Present Illness Date Seen by Provider: Apr 06, 2020 Time Seen by Provider: 15:25 Initial Comments 54-year-old male with history of pseudoseizures presents via EMS with complaint of "seizure". Patient states he was at a medical supply store and was standing there feeling shaky, he hit his button on his watch that calls for help and then he states he fell to the ground. On arrival alert and oriented, given no medication, ambulatory without postictal symptoms Allergies and Home Medications Allergies Coded Allergies: aripiprazole (Verified Allergy, Unknown, hallucinations, 10/01/18) zolpidem (Verified Allergy, Unknown, hallucinations, 10/01/18) Home Medications Clindamycin HCl 300 Mg Capsule, 300 MG PO TIDWM Prescribed by: LINDEN MERCEDES on 10/24/192033 Dicyclomine HCl 20 Mg Tablet, 20 MG PO QID PRN for ABDOMINAL PAIN Prescribed by: LUIS LECHUGA on 10/01/18 0501 Haloperidol 5 Mg Tab, 10 MG PO HS, (Reported) Hydrocodone Bit/Acetaminophen 1 Tab Tab, 1 EACH PO Q4-6HR PRN for PAIN-MODERATE Prescribed by: HILDA YBARRA on 01/24/19 1351 Ibuprofen 800 Mg Tablet, 800 MG PO Q8H PRN for PAIN Prescribed by: LINDEN MERCEDES on 10/24/19 203 Magnesium Citrate 296 Ml Solution, 296 ML PO Q6H Prescribed by: HILDA YBARRA on 01/30/19 1258 Ondansetron 4 Mg Tab.rapdis, 4 MG PO Q6H PRN for NAUSEA/VOMITING Prescribed by: LUIS LECHUGA on 07/23/19 2150 Psyllium Husk 0.4 Gm Capsule, 0.4 GM PO DAILY Prescribed by: HILDA YBARRA on 01/30/19 1258 Simvastatin 40 Mg Tablet, HS, (Reported) Patient Home Medication List Home Medication List Reviewed: Yes Review of Systems Review of Systems Constitutional: no symptoms reported; No dizziness, No fever, No malaise, No weakness Respiratory: No cough, No short of breath Cardiovascular: No chest pain, No edema, No palpitations Gastrointestinal: No abdominal pain, No nausea, No vomiting Musculoskeletal: No back pain, No joint pain Psychiatric/Neurological: Denies Headache, Denies Numbness, Denies Paresthesia; Seizure ("pseudo") Past Ubfymcg-Tocheo-Qzpick Hx Past Med/Social Hx: Reviewed Nursing Past Med/Soc Hx Patient Social History Alcohol Use: Denies Use Recreational Drug Use: Yes (currently denies) Drug of Choice: hx MARIJUANA Type Used: Cigarettes 2nd Hand Smoke Exposure: Yes Recent Foreign Travel: No Contact w/Someone Who Travel: No Recent Infectious Disease Expo: No Recent Hopitalizations: No Physical Abuse: No Sexual Abuse: No Mistreated: No Fear: No Seasonal Allergies Seasonal Allergies: No Past Medical History Surgeries: Yes (cystoscopy) Gallbladder, Orthopedic Respiratory: Yes Asthma Cardiac: No Neurological: Yes Headaches /Migraines, Seizure Disorder, Traumatic Brain Injury Genitourinary: No Gastrointestinal: Yes Gastroesophageal Reflux, Hepatitis, Cirrhosis Musculoskeletal: No Endocrine: Yes Diabetes, Insulin dep HEENT: No Cancer: No Psychosocial: No (Suicidal and homicidal ideation hx) Bipolar, Personality Disorder Integumentary: No Blood Disorders: No Family Medical History No Pertinent Family Hx Physical Exam Vital Signs Vital Signs - First Documented 04/06/20 15:14 Temp 36.4 Pulse 81 Resp 18 B/P (MAP) 113/71 (85) Pulse Ox 97 Capillary Refill : Less Than 3 Seconds Height, Weight, BMI Height: 5'8.00" Weight: 220lbs. oz. 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 II-XII Norm as Tested Skin: Normal Color, Warm/Dry Progress/Results/Core Measures Suspected Sepsis Recent Fever Within 48 Hours: No Infection Criteria Present: None New/Unexplained Altered Menta: No Sepsis Screen: No Definite Risk SIRS Temperature: Pulse: 81 Respiratory Rate: 18 Laboratory Tests 04/06/20 15:36: White Blood Count 9.1 Blood Pressure 113 /71 Mean: 85 Laboratory Tests 04/06/20 15:36: Creatinine 0.81, Platelet Count 83L Results/Orders Lab Results Laboratory Tests Test 04/06/20 15:36 Range/Units White Blood Count 9.1 4.3-11.0 10^3/uL Red Blood Count 5.21 4.35-5.85 10^6/uL Hemoglobin 16.5 13.3-17.7 G/DL Hematocrit 46 40-54 % Mean Corpuscular Volume 89 80-99 FL Mean Corpuscular Hemoglobin 32 25-34 PG Mean Corpuscular Hemoglobin Concent 36 32-36 G/DL Red Cell Distribution Width 12.6 10.0-14.5 % Platelet Count 83 L 130-400 10^3/uL Mean Platelet Volume 10.3 7.4-10.4 FL Immature Granulocyte % (Auto) 0 % Neutrophils (%) (Auto) 40 L 42-75 % Lymphocytes (%) (Auto) 46 H 12-44 % Monocytes (%) (Auto) 10 0-12 % Eosinophils (%) (Auto) 3 0-10 % Basophils (%) (Auto) 1 0-10 % Neutrophils # (Auto) 3.7 1.8-7.8 X 10^3 Lymphocytes # (Auto) 4.2 H 1.0-4.0 X 10^3 Monocytes # (Auto) 0.9 0.0-1.0 X 10^3 Eosinophils # (Auto) 0.3 0.0-0.3 10^3/uL Basophils # (Auto) 0.1 0.0-0.1 10^3/uL Immature Granulocyte # (Auto) 0.0 0.0-0.1 10^3/uL Sodium Level 142 135-145 MMOL/L Potassium Level 4.0 3.6-5.0 MMOL/L Chloride Level 104 98-107 MMOL/L Carbon Dioxide Level 23 21-32 MMOL/L Anion Gap 15 H 5-14 MMOL/L Blood Urea Nitrogen 23 H 7-18 MG/DL Creatinine 0.81 0.60-1.30 MG/DL Estimat Glomerular Filtration Rate > 60 BUN/Creatinine Ratio 28 Glucose Level 101 70-105 MG/DL Calcium Level 9.4 8.5-10.1 MG/DL My Orders Orders - LINDEN MERCEDES DO Basic Metabolic Panel (04/06/20 15:28) Cbc With Automated Diff (04/06/20 15:28) Vital Signs/I&O 04/06/20 15:14 Temp 36.4 Pulse 81 Resp 18 B/P (MAP) 113/71 (85) Pulse Ox 97 Capillary Refill : Less Than 3 Seconds Blood Pressure Mean: 85 Progress Note : Progress Note Patient awake and alert on arrival to the ER with EMS, given no medication for seizure as he was not having a seizure on EMS arrival, but awake and alert. Patient with multiple episodes and similar complaints with ER visits for the same. Ambulatory shortly after arrival, conversing with staff with no postictal state. Patient had one of his episodes while here today where he was seen sitting at the side of his bed and shaking without falling to the ground. He was laid on his side in the bed and shortly after awoke and sat up. Shortly after that, patient was walking in the hallway and asked me if he could go home now or smoke a cigarette now. Review of his labs without any abnormality. Strongly advised follow-up with his PCP regarding frequent "seizures", which clearly are pseudoseizures. Departure Impression Primary Impression: Pseudoseizures Disposition: 01 HOME, SELF-CARE Condition: Improved Departure-Patient Inst. Decision time for Depature: 16:22 Referrals: JERROD SERRANO APRN (PCP) Primary Care Physician [facility] (Family) Primary Care Physician Patient Instructions: Seizures, Adult (DC) Add. Discharge Instructions: Follow up with Jerrod in 1 week regarding your frequent seizures and ER visits. All discharge instructions reviewed with patient and/or family. Voiced understanding. LINDEN MERCEDES DO Apr 06, 2020 15:33
--- NOTE | 2020-04-06 15:58 | NUR ---
Called to room by the nuclear engineering technician, Sherry, due to patient having seizure like shaking lasting approximately 30 seconds. He was sitting on edge of bed, Sherry held him up on side of bed to prevent falling. After laying him down on bed he had another episode of shaking that lasted approximately 15 seconds. Patient is alert and able to answer questions immediately after shaking disappears.
[2020-04-06 16:07] LABS: HEMATOCRIT 46 % (40-54); HEMOGLOBIN 16.5 G/DL (13.3-17.7); MEAN CORPUSCULAR HEMOGLOBIN 32 PG (25-34); WHITE BLOOD COUNT 9.1 10^3/uL (4.3-11.0)
[2020-04-06 16:08] LABS: BASOPHILS # (AUTO) 0.1 10^3/uL (0.0-0.1); BASOPHILS % (AUTO) 1 % (0-10); BUN/CREATININE RATIO 28; CARBON DIOXIDE 23 MMOL/L (21-32); CHLORIDE 104 MMOL/L (98-107); CREATININE SERUM 0.81 MG/DL (0.60-1.30); EOSINOPHILS # (AUTO) 0.3 10^3/uL (0.0-0.3); EOSINOPHILS % (AUTO) 3 % (0-10); GFR ESTIMATED > 60; GLUCOSE 101 MG/DL (70-105); LYMPHOCYTES # (AUTO) 4.2 X 10^3 (1.0-4.0); LYMPHOCYTES % (AUTO) 46 % (12-44); MEAN CORPUSCULAR HGB CONC 36 G/DL (32-36); MEAN CORPUSCULAR VOLUME 89 FL (80-99); MEAN PLATELET VOLUME 10.3 FL (7.4-10.4); MONOCYTES # (AUTO) 0.9 X 10^3 (0.0-1.0); MONOCYTES % (AUTO) 10 % (0-12); NEUTROPHILS # (AUTO) 3.7 X 10^3 (1.8-7.8); NEUTROPHILS % (AUTO) 40 % (42-75); PLATELET COUNT 83 10^3/uL (130-400); SODIUM 142 MMOL/L (135-145)
[2020-04-06 16:09] LABS: CALCIUM 9.4 MG/DL (8.5-10.1)
[2020-04-06 16:27] VITALS: BP 124/72
== END 2020-04-06 16:28 | disposition home or self-care (01) ==
LOC: EDUNIT# 15:11 → ER FS 15:12
DX: F44.5 Conversion disorder with seizures or convulsions (principal); G43.909 Migraine, unspecified, not intractable, without status migrainosus; F31.9 Bipolar disorder, unspecified; Z88.8 Allergy status to other drugs, medicaments and biological substances; Z77.22 Contact with and (suspected) exposure to environmental tobacco smoke (acute) (chronic); Z87.820 Personal history of traumatic brain injury
CPT/HCPCS: 36415; 80048; 85025

== ENCOUNTER 2020-04-07 16:41 | Emergency (ER) | payer MEDICARE ==
[~2020-04-07] VITALS: Ht 172.7 cm; Wt 99.7 kg
--- NOTE | 2020-04-07 16:46 | ED Neurological Problem ---
General Chief Complaint: Neurological Problems Stated Complaint: SEIZURES Source: patient Exam Limitations: no limitations History of Present Illness Date Seen by Provider: Apr 07, 2020 Time Seen by Provider: 16:44 Initial Comments 49-year-old male presents with "pseudoseizures" patient was seen for similar symptoms last night. Patient reports that he called his neurology team at and they told him to come out be evaluated. Patient had labs done last night. 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 He was taken off of his seizure medication because totally was not having seizures. he is not postictal has no loss of bowel or bladder. Patient has no other complaints Allergies and Home Medications Allergies Coded Allergies: aripiprazole (Verified Allergy, Unknown, hallucinations, 10/01/18) zolpidem (Verified Allergy, Unknown, hallucinations, 10/01/18) Home Medications Clindamycin HCl 300 Mg Capsule, 300 MG PO TIDWM Prescribed by: LINDEN MERCEDES on 10/24/192033 Dicyclomine HCl 20 Mg Tablet, 20 MG PO QID PRN for ABDOMINAL PAIN Prescribed by: LUIS LECHUGA on 10/01/18 0501 Haloperidol 5 Mg Tab, 10 MG PO HS, (Reported) Hydrocodone Bit/Acetaminophen 1 Tab Tab, 1 EACH PO Q4-6HR PRN for PAIN-MODERATE Prescribed by: HILDA YBARRA on 01/24/19 1351 Ibuprofen 800 Mg Tablet, 800 MG PO Q8H PRN for PAIN Prescribed by: LINDEN MERCEDES on 10/24/192033 Magnesium Citrate 296 Ml Solution, 296 ML PO Q6H Prescribed by: HILDA YBARRA on 01/30/19 1258 Ondansetron 4 Mg Tab.rapdis, 4 MG PO Q6H PRN for NAUSEA/VOMITING Prescribed by: LUIS LECHUGA on 07/23/19 2150 Psyllium Husk 0.4 Gm Capsule, 0.4 GM PO DAILY Prescribed by: HILDA YBARRA on 01/30/19 1258 Simvastatin 40 Mg Tablet, HS, (Reported) Patient Home Medication List Home Medication List Reviewed: Yes Review of Systems Review of Systems Constitutional: No chills, No fever Eyes: No Symptoms Reported Ears, Nose, Mouth, Throat: no symptoms reported Respiratory: no symptoms reported Cardiovascular: no symptoms reported Gastrointestinal: no symptoms reported Genitourinary: no symptoms reported Musculoskeletal: see HPI, joint pain Psychiatric/Neurological: See HPI Past Eriskog-Fubvpz-Rzhpwi Hx Past Med/Social Hx: Reviewed Nursing Past Med/Soc Hx Patient Social History Drug of Choice: hx MARIJUANA Type Used: Cigarettes 2nd Hand Smoke Exposure: Yes Recent Foreign Travel: No Contact w/Someone Who Travel: No Recent Hopitalizations: No Seasonal Allergies Seasonal Allergies: No Past Medical History Surgeries: Yes (cystoscopy) Gallbladder, Orthopedic Respiratory: Yes Asthma Cardiac: No Neurological: Yes Headaches /Migraines, Seizure Disorder, Traumatic Brain Injury Genitourinary: No Gastrointestinal: Yes Gastroesophageal Reflux, Hepatitis, Cirrhosis Musculoskeletal: No Endocrine: Yes Diabetes, Insulin dep HEENT: No Cancer: No Psychosocial: No (Suicidal and homicidal ideation hx) Bipolar, Personality Disorder Integumentary: No Blood Disorders: No Family Medical History No Pertinent Family Hx Physical Exam Vital Signs Vital Signs - First Documented 04/07/20 16:48 Temp 36.9 Pulse 86 Resp 17 B/P (MAP) 129/67 (87) Pulse Ox 96 O2 Delivery Room Air Capillary Refill : Height, Weight, BMI Height: 5'8.00" Weight: 220lbs. oz. 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-XII nml as tested, no motor/sensory deficits, alert, normal mood/affect, oriented x 3 Crainal Nerves: normal hearing, normal speech, PERRL Coordination/Gait: normal finger to nose Motor/Sensory: no motor deficit, no sensory deficit Skin: normal color, warm/dry Progress/Results/Core Measures Results/Orders My Orders Orders - MARISOL RICE DO Levetiracetam Tablet (Keppra Tablet) (04/07/20 17:00) Vital Signs/I&O 04/07/20 16:48 Temp 36.9 Pulse 86 Resp 17 B/P (MAP) 129/67 (87) Pulse Ox 96 O2 Delivery Room Air Progress Progress Note : Time: 16:54 Progress Note Discussed with patient that there was no further evaluation that was indicated from an ER standpoint. Patient had an evaluation during the night last night. Discussed with him I will give him one dose of Keppra and that he call his neurologist and they can decide if they want to restart her continue any type of seizure medications for him. He reports he has an appointment at on April 13. I encouraged him to keep that. He is discharged home in stable condition Departure Impression Primary Impression: Pseudoseizures Disposition: HOME, SELF-CARE Condition: Stable Departure-Patient Inst. Referrals: JERROD SERRANO APRN (PCP) Primary Care Physician [facility] (Family) Primary Care Physician Patient Instructions: Seizures, Adult (DC) Add. Discharge Instructions: Keep your already scheduled appointment with your neurologist All discharge instructions reviewed with patient and/or family. Voiced understanding. MARISOL RICE DO Apr 07, 2020 16:46
[2020-04-07 16:48] VITALS: BP 129/67
[2020-04-07] MEDS ORDERED: LEVETIRACETAM 500 MG (KEPPRA) TAB PO ONE ×2 (16:50→17:00)
[2020-04-07] MEDS ORDERED: LEVETIRACETAM 1,000 MG (KEPPRA) TABLET PO ONE (17:00)
== END 2020-04-07 17:01 | disposition home or self-care (01) ==
LOC: EDUNIT# 16:41 → ER FS 16:42
DX: R56.9 Unspecified convulsions (principal); F31.9 Bipolar disorder, unspecified; Z77.22 Contact with and (suspected) exposure to environmental tobacco smoke (acute) (chronic); Z88.8 Allergy status to other drugs, medicaments and biological substances; Z87.820 Personal history of traumatic brain injury
CPT/HCPCS: 99283

== ENCOUNTER 2020-06-17 16:27 | Emergency (ER) | payer MEDICARE ==
[~2020-06-17] VITALS: Ht 172.7 cm; Wt 81.8 kg
[~2020-06-17 16:27] MED LIST changes: -CLIN300C11 PO; +CLIN300C12 PO
[2020-06-17 16:30] VITALS: BP 141/71
--- NOTE | 2020-06-17 16:38 | ED General ---
General Stated Complaint: SEIZURE Source of Information: Patient, EMS Exam Limitations: No Limitations History of Present Illness Date Seen by Provider: Jun 17, 2020 Time Seen by Provider: 16:24 Initial Comments The patient presents ER by EMS from a friend's house where he had a witnessed seizure-like activity. He says he was awake and talking throughout it and standing up and then he fell to his knees and elbows. He denies striking his head nor loss of consciousness. No loss of bowel or bladder. No biting of the tongue. He does have multiple documented incidences of pseudoseizures. Apparently he is known to [facility] neurology and is not on any antiepileptic's. He says he has been taking his medications as prescribed. He is an insulin- dependent diabetic and his blood sugar was over 300 this morning but after he took his insulin it was down in the 100s. He does not take blood thinners. He is only having mild pain in his anterior bilateral knees and elbows posteriorly. Allergies and Home Medications Allergies Coded Allergies: aripiprazole (Verified Allergy, Unknown, hallucinations, 10/01/18) zolpidem (Verified Allergy, Unknown, hallucinations, 10/01/18) Home Medications Clindamycin HCl 300 Mg Capsule, 300 MG PO TIDWM Prescribed by: LINDEN MERCEDES on 10/24/192033 Dicyclomine HCl 20 Mg Tablet, 20 MG PO QID PRN for ABDOMINAL PAIN Prescribed by: LUIS LECHUGA on 10/01/18 0501 Haloperidol 5 Mg Tab, 10 MG PO HS, (Reported) Hydrocodone Bit/Acetaminophen 1 Tab Tab, 1 EACH PO Q4-6HR PRN for PAIN-MODERATE Prescribed by: HILDA YBARRA on 01/24/19 1351 Ibuprofen 800 Mg Tablet, 800 MG PO Q8H PRN for PAIN Prescribed by: LINDEN MERCEDES on 10/24/19 203 Magnesium Citrate 296 Ml Solution, 296 ML PO Q6H Prescribed by: HILDA YBARRA on 01/30/19 1258 Ondansetron 4 Mg Tab.rapdis, 4 MG PO Q6H PRN for NAUSEA/VOMITING Prescribed by: LUIS LECHUGA on 07/23/19 215 Psyllium Husk 0.4 Gm Capsule, 0.4 GM PO DAILY Prescribed by: HILDA YBARRA on 01/30/19 1258 Simvastatin 40 Mg Tablet, HS, (Reported) Patient Home Medication List Home Medication List Reviewed: Yes Review of Systems Review of Systems Constitutional: No chills, No diaphoresis EENTM: No ear discharge, No ear pain Respiratory: No cough, No short of breath Cardiovascular: No Hx of Intervention, No palpitations Gastrointestinal: No abdominal pain, No nausea, No vomiting, No other Genitourinary: No discharge, No dysuria Musculoskeletal: see HPI; No back pain; joint pain Skin: No change in color, No pruritus, No rash All Other Systems Reviewed Negative Unless Noted: Yes Past Jtgkokb-Izmlps-Ieewif Hx Patient Social History Alcohol Use: Denies Use Recreational Drug Use: Yes Drug of Choice: hx MARIJUANA Smoking Status: Current Everyday Smoker Type Used: Cigarettes 2nd Hand Smoke Exposure: Yes Recent Hopitalizations: No Seasonal Allergies Seasonal Allergies: No Past Medical History Surgeries: Yes (cystoscopy) Gallbladder, Orthopedic Respiratory: Yes Asthma Cardiac: No Neurological: Yes (PSUEDOSEIZURES) Headaches /Migraines, Seizure Disorder, Traumatic Brain Injury Genitourinary: No Gastrointestinal: Yes Gastroesophageal Reflux, Hepatitis, Cirrhosis Musculoskeletal: No Endocrine: Yes Diabetes, Insulin dep HEENT: No Cancer: No Psychosocial: No (Suicidal and homicidal ideation hx) Bipolar, Personality Disorder Integumentary: No Blood Disorders: No Family Medical History No Pertinent Family Hx Physical Exam Vital Signs Capillary Refill : Height, Weight, BMI Height: 5'8.00" Weight: 220lbs. oz. 99.848564ah; 33.00 BMI Method:Stated General Appearance: No Apparent Distress, Obese Eyes: Bilateral Eye Normal Inspection, Bilateral Eye PERRL, Bilateral Eye EOMI HEENT: PERRL/EOMI, TMs Normal, Normal ENT Inspection, Pharynx Normal, Moist Mucous Membranes Neck: Full Range of Motion, Normal Inspection, Non Tender, Supple Respiratory: No Accessory Muscle Use, No Respiratory Distress Cardiovascular: Regular Rate, Rhythm, Normal Peripheral Pulses Extremity: Normal Capillary Refill, Normal Range of Motion, Non Tender, Other (Minor, very superficial 1 x 1 cm abrasion on the anterior right knee. Range of motion is intact all 4 extremities and strong. He was able to transfer from the gurney to the cot on his own power.) Neurologic/Psychiatric: Alert, Oriented x3, No Motor/Sensory Deficits Progress/Results/Core Measures Suspected Sepsis SIRS Temperature: Pulse: Respiratory Rate: Blood Pressure / Mean: Results/Orders My Orders Orders - ETHAN PORTILLO Acetaminophen Tablet (Tylenol Tablet) (06/17/20 16:45) Ekg Tracing (06/17/20 16:32) Medications Given in ED Current Medications Medications Dose Ordered Sig/Chantel Route Start Time Stop Time Status Last Admin Dose Admin Acetaminophen 1,000 mg ONCE ONCE PO 06/17/20 16:45 06/17/20 16:46 06/17/20 16:37 1,000 MG Vital Signs/I&O Capillary Refill : Progress Note : Time: 16:36 Progress Note On review of previous records this patient is well-known to the ER and presents multiple times for pseudoseizures. He does not have any current complaint other than a little pain in his right knee. Were going to recommend that he use some Tylenol, ice, elevation and rest. An EKG will be obtained. He has a septic vital signs. ECG Initial ECG Impression Date: Jun 17, 2020 Initial ECG Impression Time: 16:31 Initial ECG Rate: 80 Initial ECG Rhythm: Normal Sinus Initial ECG Intervals: Normal Initial ECG Impression: Normal Initial ECG Comparisson: Unchanged Comment Normal sinus rhythm without clinically relevant ST changes. Departure Impression Primary Impression: Pseudoseizures Additional Impression: Abrasion, right knee, initial encounter Disposition: 01 HOME, SELF-CARE Condition: Stable Departure-Patient Inst. Decision time for Depature: 16:37 Referrals: JERROD SERRANO APRN (PCP) Primary Care Physician [facility] (Family) Primary Care Physician Patient Instructions: Conversion Disorder, Skin Abrasions (DC) Add. Discharge Instructions: If your knees or elbows are hurting you may take 1000 mg of Tylenol every 8 hours. You may also apply an ice pack to your knees for 20 minutes every 2 hours as necessary for the first 2 days. Rest your knees when you do not need to be up moving around. Follow-up with your primary care provider next week if you are still having pain in your knees. ETHAN PORTILLO Jun 17, 2020 16:38
[2020-06-17] MEDS ORDERED: ACETAMINOPHEN 500 MG TAB (TYLENOL) PO ONE (16:45)
== END 2020-06-17 16:40 | disposition home or self-care (01) ==
LOC: EDUNIT# 16:27 → ER FS 16:28
DX: F44.5 Conversion disorder with seizures or convulsions (principal); S80.211A Abrasion, right knee, initial encounter; E66.9 Obesity, unspecified; F31.9 Bipolar disorder, unspecified; F17.210 Nicotine dependence, cigarettes, uncomplicated; Z68.33 Body mass index [BMI] 33.0-33.9, adult; Z88.8 Allergy status to other drugs, medicaments and biological substances; Z87.820 Personal history of traumatic brain injury; W19.XXXA Unspecified fall, initial encounter
CPT/HCPCS: 93005

== ENCOUNTER 2020-08-09 21:56 | Emergency (ER) | payer MEDICARE ==
--- NOTE | 2020-08-09 22:07 | ED General ---
General Chief Complaint: General Problems/Pain Stated Complaint: FALL,HEAD PAIN Source of Information: Patient, EMS History of Present Illness Date Seen by Provider: Aug 09, 2020 Time Seen by Provider: 10:00 Initial Comments 50-year-old male presents via EMS with complaint of seizure today. Patient with long-term history of pseudoseizures and frequent ER visits for the same. Arrives awake and alert, talking and laughing with no postictal symptoms. This is been typical for these episodes. Denies any extremity or joint injury. Denies neck pain, but does state his forehead hurts a little bit, is unsure if he hit his head. Patient is not on medication. These episodes were no different than episodes of the past. Allergies and Home Medications Allergies Coded Allergies: aripiprazole (Verified Allergy, Unknown, hallucinations, 10/01/18) zolpidem (Verified Allergy, Unknown, hallucinations, 10/01/18) Home Medications Clindamycin HCl 300 Mg Capsule, 300 MG PO TIDWM Prescribed by: LINDEN MERCEDES on 10/24/192033 Dicyclomine HCl 20 Mg Tablet, 20 MG PO QID PRN for ABDOMINAL PAIN Prescribed by: LUIS LECHUGA on 10/01/18 0501 Haloperidol 5 Mg Tab, 10 MG PO HS, (Reported) Hydrocodone Bit/Acetaminophen 1 Tab Tab, 1 EACH PO Q4-6HR PRN for PAIN-MODERATE Prescribed by: HILDA YBARRA on 01/24/19 1351 Ibuprofen 800 Mg Tablet, 800 MG PO Q8H PRN for PAIN Prescribed by: LINDEN MERCEDES on 10/24/192033 Magnesium Citrate 296 Ml Solution, 296 ML PO Q6H Prescribed by: HILDA YBARRA on 01/30/19 1258 Ondansetron 4 Mg Tab.rapdis, 4 MG PO Q6H PRN for NAUSEA/VOMITING Prescribed by: LUIS LECHUGA on 07/23/19 2150 Psyllium Husk 0.4 Gm Capsule, 0.4 GM PO DAILY Prescribed by: HILDA YBARRA on 01/30/19 1258 Simvastatin 40 Mg Tablet, HS, (Reported) Patient Home Medication List Home Medication List Reviewed: Yes Review of Systems Review of Systems Constitutional: No fever, No malaise, No weakness EENTM: no symptoms reported Respiratory: No cough, No short of breath Cardiovascular: No chest pain, No edema, No palpitations Gastrointestinal: No abdominal pain, No nausea, No vomiting Musculoskeletal: No back pain, No joint pain Skin: No change in color, No rash Psychiatric/Neurological: Denies Headache, Denies Numbness, Denies Paresthesia; Seizure, Tremors (baseline); Denies Weakness Past Norjqpt-Fxlxlm-Mikzvi Hx Past Med/Social Hx: Reviewed Nursing Past Med/Soc Hx Patient Social History Alcohol Use: Denies Use Drug of Choice: hx MARIJUANA Type Used: Cigarettes 2nd Hand Smoke Exposure: No Recent Hopitalizations: No Seasonal Allergies Seasonal Allergies: No Past Medical History Surgeries: Yes (cystoscopy) Gallbladder, Orthopedic Respiratory: Yes Asthma Cardiac: No Neurological: Yes (PSUEDOSEIZURES) Headaches /Migraines, Seizure Disorder, Traumatic Brain Injury Genitourinary: No Gastrointestinal: Yes Gastroesophageal Reflux, Hepatitis, Cirrhosis Musculoskeletal: No Endocrine: Yes Diabetes, Insulin dep HEENT: No Cancer: No Psychosocial: No (Suicidal and homicidal ideation hx) Bipolar, Personality Disorder Integumentary: No Blood Disorders: No Family Medical History No Pertinent Family Hx Physical Exam Vital Signs Capillary Refill : Height, Weight, BMI Height: 5'8.00" Weight: 220lbs. oz. 99.247395ev; 27.00 BMI Method:Stated General Appearance: No Apparent Distress, WD/WN Eyes: Bilateral Eye Normal Inspection, Bilateral Eye PERRL, Bilateral Eye EOMI HEENT: PERRL/EOMI, TMs Normal, Normal ENT Inspection, Pharynx Normal Neck: Full Range of Motion, Non Tender, Supple Respiratory: Chest Non Tender, Lungs Clear, Normal Breath Sounds Gastrointestinal: Non Tender, Soft Back: Normal Inspection, No CVA Tenderness, No Vertebral Tenderness Extremity: Normal Capillary Refill, Normal Inspection, Non Tender Neurologic/Psychiatric: Alert, Oriented x3, No Motor/Sensory Deficits, Normal Mood/Affect, 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 Decision time for Depature: 22:06 Referrals: JERROD SERRANO APRN (PCP) Primary Care Physician [facility] (Family) Primary Care Physician Add. Discharge Instructions: Follow up with your PCP, Judah Serrano in 1 week to discuss your seizures All discharge instructions reviewed with patient and/or family. Voiced understanding. LINDEN MERCEDES DO Aug 09, 2020 22:07
[2020-08-09 22:11] VITALS: BP 164/83
== END 2020-08-09 22:12 | disposition home or self-care (01) ==
LOC: EDUNIT# 21:56 → ER FS 21:57
DX: G40.909 Epilepsy, unspecified, not intractable, without status epilepticus (principal); F31.9 Bipolar disorder, unspecified; Z87.820 Personal history of traumatic brain injury; Z88.8 Allergy status to other drugs, medicaments and biological substances
CPT/HCPCS: 99283

== ENCOUNTER 2020-09-10 17:44 | Emergency (ER) | payer MEDICARE ==
[2020-09-10 17:46] VITALS: BP 140/79
[2020-09-10] MEDS ORDERED: KETOROLAC 60 MG/2 ML VIAL IM STA (17:58)
--- NOTE | 2020-09-10 18:08 | ED General ---
General Chief Complaint: Neurological Problems Stated Complaint: SEIZURE; LT HIP INJ Nursing Triage Note: Patient checked into outpatient radiology for a hip x-ray, then fell to the ground and began shaking. Patient states he had a seizure. Patient alert, speaking with staff, and able to remove his mask from his face with his hand during his seizure activity. Patient assisted to wheelchair by staff and stated he wanted to check himself into the ED for evaluation. Nursing Sepsis Screen: No Definite Risk Source of Information: Patient History of Present Illness Date Seen by Provider: Sep 10, 2020 Time Seen by Provider: 17:44 Initial Comments 50 yo male presents to the building for an outpatient xray of left hip and leg after being seen at Urgent care. He has been having increased seizures recently and takes Seroquel and Depakote for these. He is to follow up with AMAN Serrano and a Neurologist from for these and his increased seizure activity. As he was at the desk to check in for outpatient xray of left hip ordered by Urgent Care he had seizure like activity. He fell to the ground and was shaking but was alert and speaking to staff and able to pull off his mask while having his sh aking "seizure activity". He was assisted to a wheelchair and when asked if he wanted to continue with the outpatient imaging or be seen in ED he asked to be seen in ED. He already has a plan for follow up on his seizures. He denies any fever, chills, burning with urination, new head injury, change in medicines, reason for his seizures to be worse. He reports he has had several falls from standing height and from chairs in last 2-3 days that have caused him to have pain in his left hip and knee. Allergies and Home Medications Allergies Coded Allergies: aripiprazole (Verified Allergy, Unknown, hallucinations, 10/01/18) zolpidem (Verified Allergy, Unknown, hallucinations, 10/01/18) Home Medications Clindamycin HCl 300 Mg Capsule, 300 MG PO TIDWM Prescribed by: LINDEN MERCEDES on 10/24/192033 Dicyclomine HCl 20 Mg Tablet, 20 MG PO QID PRN for ABDOMINAL PAIN Prescribed by: LUIS LECHUGA on 10/01/18 0501 Haloperidol 5 Mg Tab, 10 MG PO HS, (Reported) Hydrocodone Bit/Acetaminophen 1 Tab Tab, 1 EACH PO Q4-6HR PRN for PAIN-MODERATE Prescribed by: HILDA YBARRA on 01/24/19 1351 Ibuprofen 800 Mg Tablet, 800 MG PO Q8H PRN for PAIN Prescribed by: LINDEN MERCEDES on 10/24/192033 Magnesium Citrate 296 Ml Solution, 296 ML PO Q6H Prescribed by: HILDA YBARRA on 01/30/19 1258 Ondansetron 4 Mg Tab.rapdis, 4 MG PO Q6H PRN for NAUSEA/VOMITING Prescribed by: LUIS LECHUGA on 07/23/192149 Psyllium Husk 0.4 Gm Capsule, 0.4 GM PO DAILY Prescribed by: HILDA YBARRA on 01/30/19 1258 Simvastatin 40 Mg Tablet, HS, (Reported) Patient Home Medication List Home Medication List Reviewed: Yes Review of Systems Review of Systems Constitutional: No chills, No fever EENTM: no symptoms reported Respiratory: No cough, No short of breath Cardiovascular: No chest pain Gastrointestinal: No nausea, No vomiting Genitourinary: No dysuria Musculoskeletal: see HPI, joint pain (left hip and knee pain since falling several times over the last few days) Skin: no symptoms reported Psychiatric/Neurological: Anxiety, Seizure (pseudoseizure activity in the ED as he was alert and talking to staff as he was shaking and jerking his extremities for his seizure. No loss of bowel or bladder control) Past Jofenrw-Rsdwcr-Kdugbk Hx Past Med/Social Hx: Reviewed Nursing Past Med/Soc Hx Patient Social History Alcohol Use: Denies Use Drug of Choice: hx MARIJUANA Smoking Status: Current Everyday Smoker Type Used: Cigarettes 2nd Hand Smoke Exposure: No Recent Infectious Disease Expo: No Recent Hopitalizations: No Seasonal Allergies Seasonal Allergies: No Past Medical History Surgeries: Yes (cystoscopy) Gallbladder, Orthopedic Respiratory: Yes Asthma Cardiac: No Neurological: Yes (PSUEDOSEIZURES) Headaches /Migraines, Seizure Disorder, Traumatic Brain Injury Genitourinary: No Gastrointestinal: Yes Gastroesophageal Reflux, Hepatitis, Cirrhosis Musculoskeletal: No Endocrine: Yes Diabetes, Insulin dep HEENT: No Cancer: No Psychosocial: No (Suicidal and homicidal ideation hx) Bipolar, Personality Disorder Integumentary: No Blood Disorders: No Family Medical History No Pertinent Family Hx Physical Exam Vital Signs Vital Signs - First Documented 09/10/20 17:46 Temp 37.1 Pulse 95 Resp 16 B/P (MAP) 140/79 (99) Pulse Ox 95 O2 Delivery Room Air Capillary Refill : Less Than 3 Seconds Height, Weight, BMI Height: 5'8.00" Weight: 220lbs. oz. 99.094889pw; 27.00 BMI Method:Stated General Appearance: No Apparent Distress, Other (disheveled appearance) HEENT: PERRL/EOMI, Pharynx Normal, Moist Mucous Membranes Neck: Full Range of Motion, Normal Inspection, Non Tender, Supple Respiratory: Chest Non Tender, Lungs Clear, Normal Breath Sounds, No Accessory Muscle Use, No Respiratory Distress Cardiovascular: Regular Rate, Rhythm, Normal Peripheral Pulses Gastrointestinal: Normal Bowel Sounds, No Pulsatile Mass, Soft Rectal: Deferred Extremity: Normal Capillary Refill, No Pedal Edema, Other (tender to palpation over left groin, lateral hip, left knee generalized area. Complains of pain with any attempted movement for PROM or AROM. 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 Norm as Tested Skin: Normal Color, Warm/Dry; No Ecchymosis Progress/Results/Core Measures Suspected Sepsis Recent Fever Within 48 Hours: No Infection Criteria Present: None New/Unexplained Altered Menta: No Sepsis Screen: No Definite Risk SIRS Temperature: Pulse: 95 Respiratory Rate: 16 Blood Pressure 140 /79 Mean: 99 Results/Orders My Orders Orders - LUIS LECHUGA MD Ketorolac Injection (Toradol Injection) (09/10/20 17:58) Ct Pelvis Wo (09/10/20 17:59) Knee 3 View Left (09/10/20 17:59) Ice: Apply To Affected Area (09/10/20 17:59) Vital Signs/I&O 09/10/20 17:46 Temp 37.1 Pulse 95 Resp 16 B/P (MAP) 140/79 (99) Pulse Ox 95 O2 Delivery Room Air Capillary Refill : Less Than 3 Seconds Blood Pressure Mean: 99 Progress Note #1: Progress Note try a toradol 60 mg IM shot for pain. Since he reports pain with any movement and is inconsistent on exam will order CT pelvis to look for finer detail of bones. plain films of left knee as he has no effusion or ecchymosis on exam. For his seizure activity it appears to be more consistent with pseudoseizures here in the ED and with him stating he has follow up already set up for seizure activity will defer to clinic for this evaluation and work up of his reported increased seizure activity. Progress Note #2: Progress Note Patient is up walking in the department without his cane and appears to have no difficulty ambulating. He is smiling and interacting with staff. His pain appears to be doing better. There is no acute fracture on his imaging. The radiologist did note an area of air in the tissue and this was after he had received an IM shot for pain so this is likely where he had the injection. Counseled to follow-up with clinic for continued concerns. Use ice for inflammation. If he can tolerate an NSAID he could use that along with acetamin ophen. Diagnostic Imaging Diagonstic Imaging: Xray Plain Films/CT/US/NM/MRI: knee Comments [facility], [place] NAME: [facility] REC#: [id number] PT STATUS: DEP ER : 1970 PHYSICIAN: LUIS LECHUGA MD ADMIT DATE: 09/10/20/ER FS Draft Date of Exam:09/10/20 KNEE 3 VIEW LEFT EXAM: Left knee radiograph. EXAM DATE: 09/10/2020. COMPARISON: None. HISTORY: Fall on left knee with pain. TECHNIQUE: 2 views of left knee. FINDINGS: No acute fracture, dislocation or destructive osseous process. Joint spaces demonstrate mild narrowing with small osteophytes. No significant joint effusion. The soft tissues are normal. IMPRESSION: Degenerative changes of the left knee without acute osseous abnormality. Dictated on workstation # [id number] Dict: 09/10/20 1838 Trans: 09/10/20 1843 [facility] [id number] Interpreted by: ANEL HAMILTON DO Electronically signed by: Diagonstic Imaging: CT Plain Films/CT/US/NM/MRI: pelvis Comments NAME: [facility] REC#: [id number] PT STATUS: REG ER : 1970 PHYSICIAN: LUIS LECHUGA MD ADMIT DATE: 03/06/21/ER FS Draft Date of Exam:09/10/20 CT PELVIS WO EXAMINATION: CT pelvis without intravenous contrast. TECHNIQUE: Multiple contiguous axial images were obtained through the pelvis without the administration of intravenous contrast. All CT scans use one or more of the following dose optimizing techniques: automated exposure control, MA and/or KvP adjustment based on patient size and exam type or iterative reconstruction. HISTORY: Frequent falls with pelvis and left hip pain. COMPARISON: CT abdomen and pelvis 01/24/2019. FINDINGS: Prostate gland is unremarkable. Urinary bladder is unremarkable. Visualized bowel is normal in caliber without obstruction or inflammation. No free fluid or air. No pelvic lymphadenopathy. Aorta is normal in caliber without aneurysm. Lucency within the left sacrum which was present on a prior CT from 01/24/2019. No new acute fracture or dislocation. Soft tissues are unremarkable. IMPRESSION: 1. No acute osseous abnormality of the pelvis. 2. Stable lucency within the left sacrum which demonstrates air component on today's CT. This could represent developing degenerative or infectious process. Dictated on workstation # [id number] Dict: 09/10/20 1823 Trans: 09/10/20 1828 [facility] [id number] Interpreted by: ANEL HAMILTON DO Electronically signed by: Departure Impression Primary Impression: Other sprain of left hip, initial encounter Additional Impressions: Left knee sprain Qualified Codes: S83.92XA - Sprain of unspecified site of left knee, initial encounter Pseudoseizures Disposition: 01 HOME, SELF-CARE Condition: Stable Departure-Patient Inst. Decision time for Depature: 18:31 Referrals: JERROD SERRANO APRN (PCP) Primary Care Physician [facility] (Family) Primary Care Physician Patient Instructions: Hip Pain (DC), Knee Sprain ED Add. Discharge Instructions: Continue with Acetaminophen for pain. If able to take an anti-inflammatory for pain such as Ibuprofen you could take 400 mg (2 over the counter pills) every 6 hours as needed for pain and inflammation. Alternate ice and heat to help with pain and inflammation. Check with clinic about your seizures. If the hip and knee are not improving in case they want you to do any physical therapy or additional medicine. All discharge instructions reviewed with patient and/or family. Voiced understanding. LUIS LECHUGA MD Sep 10, 2020 18:08
--- NOTE | 2020-09-10 18:29 | Diagnostic Imaging Report ---
EXAMINATION: CT pelvis without intravenous contrast. TECHNIQUE: Multiple contiguous axial images were obtained through the pelvis without the administration of intravenous contrast. All CT scans use one or more of the following dose optimizing techniques: automated exposure control, MA and/or KvP adjustment based on patient size and exam type or iterative reconstruction. HISTORY: Frequent falls with pelvis and left hip pain. COMPARISON: CT abdomen and pelvis 01/24/2019. FINDINGS: Prostate gland is unremarkable. Urinary bladder is unremarkable. Visualized bowel is normal in caliber without obstruction or inflammation. No free fluid or air. No pelvic lymphadenopathy. Aorta is normal in caliber without aneurysm. Lucency within the left sacrum which was present on a prior CT from 01/24/2019. No new acute fracture or dislocation. Soft tissues are unremarkable. IMPRESSION: 1. No acute osseous abnormality of the pelvis. 2. Stable lucency within the left sacrum which demonstrates air component on today's CT. This could represent developing degenerative or infectious process. Dictated by: Dictated on workstation # [id number]
--- NOTE | 2020-09-10 18:44 | Diagnostic Imaging Report ---
EXAM: Left knee radiograph. EXAM DATE: 09/10/2020. COMPARISON: None. HISTORY: Fall on left knee with pain. TECHNIQUE: 2 views of left knee. FINDINGS: No acute fracture, dislocation or destructive osseous process. Joint spaces demonstrate mild narrowing with small osteophytes. No significant joint effusion. The soft tissues are normal. IMPRESSION: Degenerative changes of the left knee without acute osseous abnormality. Dictated by: Dictated on workstation # [id number]
== END 2020-09-10 18:35 | disposition home or self-care (01) ==
LOC: EDUNIT# 17:44 → ER FS 17:46
DX: S73.102A Unspecified sprain of left hip, initial encounter (principal); S83.92XA Sprain of unspecified site of left knee, initial encounter; F44.5 Conversion disorder with seizures or convulsions; F31.9 Bipolar disorder, unspecified; F60.9 Personality disorder, unspecified; G43.909 Migraine, unspecified, not intractable, without status migrainosus; F17.210 Nicotine dependence, cigarettes, uncomplicated; Z87.820 Personal history of traumatic brain injury; Z88.8 Allergy status to other drugs, medicaments and biological substances; X58.XXXA Exposure to other specified factors, initial encounter
CPT/HCPCS: 72192; 73562; 96372

== ENCOUNTER 2020-11-04 18:43 | Emergency (ER) | payer MEDICARE ==
[2020-11-04 18:48] VITALS: BP 117/76
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
== END 2020-11-04 19:16 | disposition home or self-care (01) ==
LOC: EDUNIT# 18:43 → ER FS 18:44
DX: G40.909 Epilepsy, unspecified, not intractable, without status epilepticus (principal); F41.9 Anxiety disorder, unspecified; J45.909 Unspecified asthma, uncomplicated; F31.9 Bipolar disorder, unspecified; E11.9 Type 2 diabetes mellitus without complications; F17.210 Nicotine dependence, cigarettes, uncomplicated; Z88.8 Allergy status to other drugs, medicaments and biological substances; Z87.820 Personal history of traumatic brain injury; Z79.899 Other long term (current) drug therapy
CPT/HCPCS: 99283

== ENCOUNTER 2020-11-12 14:21 | Emergency (ER) | payer MEDICARE ==
[2020-11-12 14:21] VITALS: BP 125/71
--- NOTE | 2020-11-12 14:39 | ED Neurological Problem ---
General Chief Complaint: Neurological Problems Stated Complaint: SEIZURES History of Present Illness Date Seen by Provider: November 12, 2020 Time Seen by Provider: 14:30 Initial Comments 50-year-old male presents by EMS with complaint of seizure activity. Patient with long standing history of pseudoseizures and was recently taken off his seizure medication by neurology as he stated he did not have seizures. Patient admits he has had this type of activities since he was 4 years old. Also states that sometimes they occur 10 times per day. He also knows when they are going to happen to prevent himself from falling or getting hurt he lays on the ground. Today he was at a convenience store and laid down outside the store, bystanders called EMS as he saw him shaking. Patient was awake and alert on EMS arrival, no medications given in route. Blood sugar is 90. Patient denies any injury to himself, denies any pain or malaise, fever or chills or recent illness. No change from prior episodes. scheduled to see a "specialist" in on 13 December regarding pseudo-Sz Allergies and Home Medications Allergies Coded Allergies: aripiprazole (Verified Allergy, Unknown, hallucinations, 10/01/18) zolpidem (Verified Allergy, Unknown, hallucinations, 10/01/18) Home Medications Clindamycin HCl 300 Mg Capsule, 300 MG PO TIDWM Prescribed by: LINEDN MERCEDES on 10/24/192033 Dicyclomine HCl 20 Mg Tablet, 20 MG PO QID PRN for ABDOMINAL PAIN Prescribed by: LUIS LECHUGA on 10/01/18 0501 Haloperidol 5 Mg Tab, 10 MG PO HS, (Reported) Hydrocodone Bit/Acetaminophen 1 Tab Tab, 1 EACH PO Q4-6HR PRN for PAIN-MODERATE Prescribed by: HILDA YBARRA on 01/24/19 1351 Ibuprofen 800 Mg Tablet, 800 MG PO Q8H PRN for PAIN Prescribed by: LINDEN MERCEDES on 10/24/192033 Magnesium Citrate 296 Ml Solution, 296 ML PO Q6H Prescribed by: HILDA YBARRA on 01/30/19 1258 Ondansetron 4 Mg Tab.rapdis, 4 MG PO Q6H PRN for NAUSEA/VOMITING Prescribed by: LUSI LECHUGA on 07/23/19 215 Psyllium Husk 0.4 Gm Capsule, 0.4 GM PO DAILY Prescribed by: HILDA YBARRA on 01/30/19 1258 Simvastatin 40 Mg Tablet, HS, (Reported) Patient Home Medication List Home Medication List Reviewed: Yes Review of Systems Review of Systems Constitutional: No fever, No malaise; weakness (intermittent) Respiratory: No cough, No short of breath Cardiovascular: No chest pain, No edema, No palpitations Gastrointestinal: No abdominal pain, No nausea, No vomiting Psychiatric/Neurological: See HPI, Anxiety, Emotional Problems; Denies Headache, Denies Numbness, Denies Tingling, Denies Unable to Move Lower Ext, Denies Unable to Move Upper Ext Past Phfqofz-Tozvbn-Ygquwy Hx Past Med/Social Hx: Reviewed Nursing Past Med/Soc Hx Patient Social History Alcohol Use: Denies Use Drug of Choice: hx MARIJUANA Smoking Status: Current Someday Smoker Type Used: Cigarettes 2nd Hand Smoke Exposure: No Recent Hopitalizations: No Seasonal Allergies Seasonal Allergies: No Past Medical History Surgeries: Yes (cystoscopy) Gallbladder, Orthopedic Respiratory: Yes Asthma Cardiac: No Neurological: Yes (PSUEDOSEIZURES) Headaches /Migraines, Seizure Disorder, Traumatic Brain Injury Genitourinary: No Gastrointestinal: Yes Gastroesophageal Reflux, Hepatitis, Cirrhosis Musculoskeletal: No Endocrine: Yes Diabetes, Insulin dep HEENT: No Cancer: No Psychosocial: No (Suicidal and homicidal ideation hx) Bipolar, Personality Disorder Integumentary: No Blood Disorders: No Family Medical History No Pertinent Family Hx Physical Exam Vital Signs Vital Signs - First Documented 11/12/20 14:21 Temp 36.7 Pulse 97 Resp 16 B/P (MAP) 125/71 (89) Pulse Ox 97 O2 Delivery Room Air Capillary Refill : Height, Weight, BMI Height: 5'8.00" Weight: 220lbs. oz. 99.156654wn; 27.00 BMI Method:Stated General Appearance: WD/WN, no apparent distress HEENT: PERRL/EOMI, normal ENT inspection Neck: non-tender, supple Respiratory: chest non-tender, lungs clear, normal breath sounds Cardiovascular: regular rate, rhythm, no edema, no gallop Gastrointestinal: normal bowel sounds, non tender, soft Back: normal inspection, no CVA tenderness Extremities: normal range of motion, non-tender Neurologic/Psychiatric: news specialist II-XII nml as tested, no motor/sensory deficits, alert, normal mood/affect, oriented x 3 Crainal Nerves: normal hearing, normal speech, PERRL Coordination/Gait: normal finger to nose, normal gait Motor/Sensory: no motor deficit, no sensory deficit Skin: normal color, warm/dry Progress/Results/Core Measures Results/Orders Lab Results Laboratory Tests Test 11/12/20 14:28 Range/Units Glucometer 90 70-110 MG/DL My Orders Orders - LINDEN MERCEDES DO Ed Iv/Invasive Line Start (11/12/20 14:31) Cbc With Automated Diff (11/12/20 14:31) Comprehensive Metabolic Panel (11/12/20 14:31) Urinalysis (11/12/20 14:31) Vital Signs/I&O 11/12/20 14:21 Temp 36.7 Pulse 97 Resp 16 B/P (MAP) 125/71 (89) Pulse Ox 97 O2 Delivery Room Air Progress Progress Note : Progress Note As has been typical for 's ER visits, he arrives AxOx3 and in no distress without injury. Declines labs after conversation and wants to go home. Advised to keep f/u appt's and see PCP this week to discuss freq episodes with freq ER visits for the same Departure Impression Primary Impression: Pseudoseizures Disposition: 01 HOME, SELF-CARE Condition: Improved Departure-Patient Inst. Decision time for Depature: 14:39 Referrals: JERROD SERRANO APRN (PCP) Primary Care Physician [facility] (Family) Primary Care Physician Patient Instructions: Seizures Add. Discharge Instructions: Follow up with your PCP this week and keep your appointment to see the specialist at regarding your Pseudo Seizures scheduled for 13 December All discharge instructions reviewed with patient and/or family. Voiced understa nding. LINDEN MERCEDES DO November 12, 2020 14:39
== END 2020-11-12 14:46 | disposition home or self-care (01) ==
LOC: EDUNIT# 14:21 → ER FS 14:23
DX: F44.5 Conversion disorder with seizures or convulsions (principal); J45.909 Unspecified asthma, uncomplicated; E11.9 Type 2 diabetes mellitus without complications; F31.9 Bipolar disorder, unspecified; F17.210 Nicotine dependence, cigarettes, uncomplicated; Z88.8 Allergy status to other drugs, medicaments and biological substances; Z87.820 Personal history of traumatic brain injury; Z79.899 Other long term (current) drug therapy
CPT/HCPCS: 82947; 99283

== ENCOUNTER → 2020-11-17 | Outpatient (CLI) | payer MEDICARE ==
--- NOTE | 2020-11-17 11:17 | Diagnostic Imaging Report ---
INDICATION: Right knee pain. TIME OF EXAM: 10:07 a.m. EXAMINATION: Three views of the right knee were obtained. FINDINGS: Alignment is normal. Joint spaces are well maintained. Articular surfaces are smooth. There is minimal spurring along the superior posterior patella. No fracture, dislocation or effusion is identified. IMPRESSION: No acute abnormality is detected. Dictated by: Dictated on workstation # [id number]
--- NOTE | 2020-11-17 11:18 | Diagnostic Imaging Report ---
INDICATION: Knee pain, no recent injuries. EXAMINATION: Left knee, 3 views, on 11/17/2020. COMPARISON: 09/10/2020. FINDINGS: There is mild narrowing and spurring in both the medial and lateral joint spaces. The patellofemoral joint is fairly well-maintained. No significant effusions. No fractures or dislocations. IMPRESSION: Mild degenerative findings as above. Dictated by: Dictated on workstation # [id number]
== END ==
LOC: RAD FS 09:55
PROVIDERS: ATTEND Nurse Practitioner Family
DX: M17.12 Unilateral primary osteoarthritis, left knee (principal); M25.561 Pain in right knee
CPT/HCPCS: 73562

== ENCOUNTER 2020-11-21 21:19 | Emergency (ER) | payer MEDICARE ==
[~2020-11-21] VITALS: Ht 175.3 cm; Wt 95.3 kg
--- NOTE | 2020-11-21 21:38 | ED Psychosocial ---
General Chief Complaint: Psych/Social Disorder Stated Complaint: MENTAL HEALTH EVAL Source: patient, old records History of Present Illness Date Seen by Provider: November 21, 2020 Time Seen by Provider: 21:22 Initial Comments 50-year-old male with complaints of feeling manic and suicidal. He states that his brother had come down yesterday and had insulted him and called him names. He also feels that everyone on the block where he lives is against him and wants him to move out. He states that they have made the petition against him to have him removed from the block due to his mental illness. He states he was upset with all of the stressors and multiple people calling him names and speaking down to him. This caused him to feel suicidal and he had thoughts of trying to cut his throat or cut his wrist. He had called the suicide hotline and they recommended he come to the emergency department. He denies taking any drugs to hurt himself or alcohol. He also made the comment that he felt it was better to be here in the emergency department and be evaluated then to be out in the community where people were calling him names and making fun of him because he felt like he would start shooting people. Timing/Duration: just prior to arrival Associated Symptoms: anxiety, impaired concentration, suicidal ideation Allergies and Home Medications Allergies Coded Allergies: aripiprazole (Verified Allergy, Unknown, hallucinations, 10/01/18) zolpidem (Verified Allergy, Unknown, hallucinations, 10/01/18) Home Medications Clindamycin HCl 300 Mg Capsule, 300 MG PO TIDWM Prescribed by: LINDEN MERCEDES on 10/24/192033 Dicyclomine HCl 20 Mg Tablet, 20 MG PO QID PRN for ABDOMINAL PAIN Prescribed by: LUIS LECHUGA on 10/01/18 0501 Haloperidol 5 Mg Tab, 10 MG PO HS, (Reported) Hydrocodone Bit/Acetaminophen 1 Tab Tab, 1 EACH PO Q4-6HR PRN for PAIN-MODERATE Prescribed by: HILDA YBARRA on 01/24/19 1351 Ibuprofen 800 Mg Tablet, 800 MG PO Q8H PRN for PAIN Prescribed by: LINDEN MERCEDES on 10/24/192033 Magnesium Citrate 296 Ml Solution, 296 ML PO Q6H Prescribed by: HILDA YBARRA on 01/30/19 1258 Ondansetron 4 Mg Tab.rapdis, 4 MG PO Q6H PRN for NAUSEA/VOMITING Prescribed by: LUIS Torres ENBLOSSOMRT on 07/23/19 2150 Psyllium Husk 0.4 Gm Capsule, 0.4 GM PO DAILY Prescribed by: HILDA YBARRA on 01/30/19 1258 Simvastatin 40 Mg Tablet, HS, (Reported) Patient Home Medication List Home Medication List Reviewed: Yes Review of Systems Constitutional: no symptoms reported EENTM: no symptoms reported Respiratory: no symptoms reported Cardiovascular: no symptoms reported Gastrointestinal: no symptoms reported Genitourinary: no symptoms reported Musculoskeletal: no symptoms reported Skin: no symptoms reported Psychiatric/Neurological: Anxiety, Depressed, Emotional Problems Past Hivrnqy-Nfqmyo-Vmqqun Hx Past Med/Social Hx: Reviewed Nursing Past Med/Soc Hx Patient Social History Drug of Choice: hx MARIJUANA Type Used: Cigarettes 2nd Hand Smoke Exposure: No Recent Hopitalizations: No Seasonal Allergies Seasonal Allergies: No Past Medical History Surgeries: Yes (cystoscopy) Gallbladder, Orthopedic Respiratory: Yes Asthma Cardiac: No Neurological: Yes (PSUEDOSEIZURES) Headaches /Migraines, Seizure Disorder, Traumatic Brain Injury Genitourinary: No Gastrointestinal: Yes Gastroesophageal Reflux, Hepatitis, Cirrhosis Musculoskeletal: No Endocrine: Yes Diabetes, Insulin dep HEENT: No Cancer: No Psychosocial: No (Suicidal and homicidal ideation hx) Bipolar, Personality Disorder Integumentary: No Blood Disorders: No Family Medical History No Pertinent Family Hx Physical Exam Vital Signs - First Documented 11/21/20 21:26 Temp 36.5 Pulse 106 Resp 16 B/P (MAP) 106/67 (80) O2 Delivery Room Air Capillary Refill : Height, Weight, BMI Height: 5'8.00" Weight: 220lbs. oz. 99.940809di; 27.00 BMI Method:Stated General Appearance: WD/WN, no apparent distress, other (poor personal hygiene) HEENT: PERRL/EOMI, pharynx normal Neck: non-tender, full range of motion, supple, normal inspection Respiratory: chest non-tender, lungs clear, normal breath sounds, no respiratory distress Cardiovascular: normal peripheral pulses, regular rate, rhythm Gastrointestinal: normal bowel sounds, soft, no pulsatile mass Extremities: normal range of motion, normal capillary refill Neurologic/Psychiatric: fine unhairer II-XII nml as tested, alert, oriented x 3 Appearance/Memory: appropriate appearance, other (poor personal hygiene) Behavior/Eye Contact: cooperative, good eye contact Thoughts/Hallucinations: no apparent hallucination Skin: normal color, warm/dry Progress/Results/Core Measures Results/Orders Lab Results Laboratory Tests Test 11/21/20 21:55 11/21/20 22:15 Range/Units White Blood Count 6.9 4.3-11.0 10^3/uL Red Blood Count 5.13 4.35-5.85 10^6/uL Hemoglobin 15.4 13.3-17.7 G/DL Hematocrit 45 40-54 % Mean Corpuscular Volume 88 80-99 FL Mean Corpuscular Hemoglobin 30 25-34 PG Mean Corpuscular Hemoglobin Concent 34 32-36 G/DL Red Cell Distribution Width 13.1 10.0-14.5 % Platelet Count 85 L 130-400 10^3/uL Mean Platelet Volume 10.3 7.4-10.4 FL Immature Granulocyte % (Auto) 0 % Neutrophils (%) (Auto) 43 42-75 % Lymphocytes (%) (Auto) 43 12-44 % Monocytes (%) (Auto) 10 0-12 % Eosinophils (%) (Auto) 4 0-10 % Basophils (%) (Auto) 0 0-10 % Neutrophils # (Auto) 2.9 1.8-7.8 X 10^3 Lymphocytes # (Auto) 2.9 1.0-4.0 X 10^3 Monocytes # (Auto) 0.7 0.0-1.0 X 10^3 Eosinophils # (Auto) 0.3 0.0-0.3 10^3/uL Basophils # (Auto) 0.0 0.0-0.1 10^3/uL Immature Granulocyte # (Auto) 0.0 0.0-0.1 10^3/uL Percent Immature Platelet Fraction 3.4 0.0-7.6 % Sodium Level 142 135-145 MMOL/L Potassium Level 3.6 3.6-5.0 MMOL/L Chloride Level 107 98-107 MMOL/L Carbon Dioxide Level 23 21-32 MMOL/L Anion Gap 12 5-14 MMOL/L Blood Urea Nitrogen 20 H 7-18 MG/DL Creatinine 0.86 0.60-1.30 MG/DL Estimat Glomerular Filtration Rate > 60 BUN/Creatinine Ratio 23 Glucose Level 216 H 70-105 MG/DL Calcium Level 9.0 8.5-10.1 MG/DL Corrected Calcium 9.2 8.5-10.1 MG/DL Total Bilirubin 0.5 0.1-1.0 MG/DL Aspartate Amino Transf (AST/SGOT) 20 5-34 U/L Alanine Aminotransferase (ALT/SGPT) 18 0-55 U/L Alkaline Phosphatase 61 40-136 U/L Total Protein 6.9 6.4-8.2 GM/DL Albumin 3.8 3.2-4.5 GM/DL Salicylates Level < 0.3 L 5.0-20.0 MG/DL Acetaminophen Level < 10 L 10-30 UG/ML Serum Alcohol < 10 <10 MG/DL Urine Color YELLOW Urine Clarity CLEAR Urine pH 6.0 5-9 Urine Specific [place] 1.020 1.016-1.022 Urine Protein NEGATIVE NEGATIVE Urine Glucose (UA) 3+ H NEGATIVE Urine Ketones NEGATIVE NEGATIVE Urine Nitrite NEGATIVE NEGATIVE Urine Bilirubin NEGATIVE NEGATIVE Urine Urobilinogen 1.0 < = 1.0 MG/DL Urine Leukocyte Esterase NEGATIVE NEGATIVE Urine RBC (Auto) NEGATIVE NEGATIVE Urine RBC NONE /HPF Urine WBC RARE /HPF Urine Squamous Epithelial Cells 0-2 /HPF Urine Crystals NONE /LPF Urine Bacteria NEGATIVE /HPF Urine Casts NONE /LPF Urine Mucus NEGATIVE /LPF Urine Culture Indicated NO Urine Opiates Screen NEGATIVE NEGATIVE Urine Oxycodone Screen NEGATIVE NEGATIVE Urine Methadone Screen NEGATIVE NEGATIVE Urine Propoxyphene Screen NEGATIVE NEGATIVE Urine Barbiturates Screen NEGATIVE NEGATIVE Ur Tricyclic Antidepressants Screen POSITIVE H NEGATIVE Urine Phencyclidine Screen NEGATIVE NEGATIVE Urine Amphetamines Screen NEGATIVE NEGATIVE Urine Methamphetamines Screen NEGATIVE NEGATIVE Urine Benzodiazepines Screen NEGATIVE NEGATIVE Urine Cocaine Screen NEGATIVE NEGATIVE Urine Cannabinoids Screen NEGATIVE NEGATIVE My Orders Orders - LUIS LECHUGA MD Ua Culture If Indicated (11/21/20 21:31) Cbc With Automated Diff (11/21/20 21:31) Comprehensive Metabolic Panel (11/21/20 21:31) Alcohol (11/21/20 21:31) Drug Screen Stat (Urine) (11/21/20 21:31) Acetaminophen (11/21/20 21:31) Salicylate (11/21/20 21:31) Ekg Tracing (11/21/20 21:31) Bh Status Checks/Observation Q15M (11/21/20 21:31) Covid 19 Inhouse Test (5/17/21 23:59) Vital Signs/I&O 11/21/20 21:26 Temp 36.5 Pulse 106 Resp 16 B/P (MAP) 106/67 (80) O2 Delivery Room Air Progress Progress Note #1: Progress Note Obtain labs as well as electrocardiogram to medically clear the patient. Once he has been medically cleared will contact [facility] for a mental health screening. Progress Note #2: Progress Note Labs and ECG stable without acute significant abnormality other than mild elevation of glucose to go with his Insulin Dependent Diabetes. Negative drug screen other than prescribed tricyclic and no alcohol, acetaminophen or salicyl ate found in system. Medically stable and clear for Mental health evaluation so [facility] contacted for psychiatric screening. Progress Note #3: Time: 00:28 Progress Note After speaking with [facility] screener pt and screener came up with safety plan and will discharge to home and have him follow up as outpatient. Initial ECG Impression Date: November 21, 2020 Initial ECG Impression Time: 21:45 Initial ECG Rate: 102 Initial ECG Rhythm: S.Tach Initial ECG Comparisson: Unchanged Comment Sinus tachycardia with a heart rate of 102 bpm. MN interval [address] elevation. QT interval 350 ms with a QTc interval 456 ms. Appears similar to prior tracings from the system. Departure Impression Primary Impression: Suicidal ideation Additional Impressions: Situational disturbance of self-esteem Situational depression Disposition: 01 HOME, SELF-CARE Condition: Stable Departure-Patient Inst. Decision time for Depature: 00:34 Referrals: JERROD SERRANO APRN (PCP) Primary Care Physician [facility] (Family) Primary Care Physician Patient Instructions: Depression, Adult ED, Tips on Positive Thinking, Suicide Prevention Add. Discharge Instructions: Take your medicines as prescribed. Follow safety plan as set up by mental health screener dany. All discharge instructions reviewed with patient and/or family. Voiced understanding. LUIS LECHUGA MD November 21, 2020 21:38
[2020-11-21 22:04] LABS: BASOPHILS % (AUTO) 0 % (0-10); EOSINOPHILS % (AUTO) 4 % (0-10); HEMATOCRIT 45 % (40-54); HEMOGLOBIN 15.4 G/DL (13.3-17.7); LYMPHOCYTES % (AUTO) 43 % (12-44); MEAN CORPUSCULAR HEMOGLOBIN 30 PG (25-34); MEAN CORPUSCULAR HGB CONC 34 G/DL (32-36); MEAN CORPUSCULAR VOLUME 88 FL (80-99); MEAN PLATELET VOLUME 10.3 FL (7.4-10.4); MONOCYTES % (AUTO) 10 % (0-12); NEUTROPHILS % (AUTO) 43 % (42-75); PLATELET COUNT 85 10^3/uL (130-400); WHITE BLOOD COUNT 6.9 10^3/uL (4.3-11.0)
[2020-11-21 22:05] LABS: EOSINOPHILS # (AUTO) 0.3 10^3/uL (0.0-0.3); LYMPHOCYTES # (AUTO) 2.9 X 10^3 (1.0-4.0); MONOCYTES # (AUTO) 0.7 X 10^3 (0.0-1.0); NEUTROPHILS # (AUTO) 2.9 X 10^3 (1.8-7.8)
[2020-11-21 22:32] LABS: BUN/CREATININE RATIO 23; CARBON DIOXIDE 23 MMOL/L (21-32); CHLORIDE 107 MMOL/L (98-107); CREATININE SERUM 0.86 MG/DL (0.60-1.30); GFR ESTIMATED > 60; POTASSIUM 3.6 MMOL/L (3.6-5.0); SODIUM 142 MMOL/L (135-145)
[2020-11-21 22:33] LABS: ACETAMINOPHEN < 10 UG/ML (10-30); ALANINE AMINOTRANSFERASE 18 U/L (0-55); ALBUMIN 3.8 GM/DL (3.2-4.5); ALKALINE PHOSPHATASE 61 U/L (40-136); BILIRUBIN,TOTAL 0.5 MG/DL (0.1-1.0); GLUCOSE 216 MG/DL (70-105); SALICYLATE < 0.3 MG/DL (5.0-20.0); TOTAL PROTEIN 6.9 GM/DL (6.4-8.2)
[2020-11-21 22:42] LABS: TRICYCLIC ANTIDEPRESSANTS SCRE POSITIVE (NEGATIVE)
[2020-11-21 22:43] LABS: AMPHETAMINE SCREEN, URINE NEGATIVE (NEGATIVE); BARBITURATE SCREEN URINE NEGATIVE (NEGATIVE); BENZODIAZEPINES SCREEN URINE NEGATIVE (NEGATIVE); CANNABINOID SCREEN, URINE NEGATIVE (NEGATIVE); COCAINE SCREEN URINE NEGATIVE (NEGATIVE); METHADONE STAT NEGATIVE (NEGATIVE); METHAMPHETAMINE SCREEN URINE S NEGATIVE (NEGATIVE); OPIATE SCREEN URINE NEGATIVE (NEGATIVE); OXYCODONE STAT NEGATIVE (NEGATIVE); PROPOXYPHENE STAT NEGATIVE (NEGATIVE)
[2020-11-21 22:53] LABS: CLARITY,URINE CLEAR; COLOR,URINE YELLOW; GLUCOSE, URINE (UA) 3+ (NEGATIVE); PROTEIN,URINE NEGATIVE (NEGATIVE)
[2020-11-21 22:54] LABS: BACTERIA,URINE NEGATIVE /HPF; BILIRUBIN,URINE NEGATIVE (NEGATIVE); KETONES,URINE NEGATIVE (NEGATIVE); LEUKOCYTE ESTERASE ,URINE NEGATIVE (NEGATIVE); NITRITE,URINE NEGATIVE (NEGATIVE); SQUAMOUS EPITHELIAL CELL,UR 0-2 /HPF; WBC,URINE RARE /HPF
[2020-11-22 01:41] VITALS: BP 127/73
== END 2020-11-22 01:41 | disposition home or self-care (01) ==
LOC: EDUNIT# 21:19 → ER FS 21:21
DX: R45.851 Suicidal ideations (principal); F43.21 Adjustment disorder with depressed mood; R45.81 Low self-esteem; J45.909 Unspecified asthma, uncomplicated; E11.9 Type 2 diabetes mellitus without complications; F60.9 Personality disorder, unspecified; F31.9 Bipolar disorder, unspecified; Z88.8 Allergy status to other drugs, medicaments and biological substances; Z79.899 Other long term (current) drug therapy
CPT/HCPCS: 36415; 80053; 80306; 81000; 85025; 93005; 99283; G0480 ×3; 80320; 80329

== ENCOUNTER 2020-12-11 19:11 | Emergency (ER) | payer MEDICARE ==
[2020-12-11] MEDS ORDERED: NS IV 1000 ML 1,000 ML IV STA (19:29)
--- NOTE | 2020-12-11 19:31 | ED General ---
General Chief Complaint: Neurological Problems Stated Complaint: SEIZURES Source of Information: Patient, EMS, Old Records History of Present Illness Date Seen by Provider: Dec 11, 2020 Time Seen by Provider: 19:19 Initial Comments 50-year-old male presenting by EMS from [facility]. He has had 3 episodes of seizure activity today and 2 yesterday. He reports being recently diagnosed with pseudoseizures. He states that he was taken off of his Depakote however his showed up shortly after he arrived and says that he is taking the Depakote. Patient states he has been under a lot of extra stress recently and was told that the pseudoseizures were triggered by stress. He has no fever or chills. He is on amoxicillin for an abscessed tooth. He felt that his urine was a little darker in color today. He denies any burning or pain with urination. He has no cough, shortness of breath, chest pain, abdominal pain, diarrhea or constipation. Allergies and Home Medications Allergies Coded Allergies: aripiprazole (Verified Allergy, Unknown, hallucinations, 10/01/18) zolpidem (Verified Allergy, Unknown, hallucinations, 10/01/18) Home Medications Clindamycin HCl 300 Mg Capsule, 300 MG PO TIDWM Prescribed by: LINDEN MERCEDES on 10/24/192033 Dicyclomine HCl 20 Mg Tablet, 20 MG PO QID PRN for ABDOMINAL PAIN Prescribed by: LUIS LECHUGA on 10/01/18 0501 Haloperidol 5 Mg Tab, 10 MG PO HS, (Reported) Hydrocodone Bit/Acetaminophen 1 Tab Tab, 1 EACH PO Q4-6HR PRN for PAIN-MODERATE Prescribed by: HILDA YBARRA on 01/24/19 1351 Ibuprofen 800 Mg Tablet, 800 MG PO Q8H PRN for PAIN Prescribed by: LINDEN MERCEDES on 10/24/19 203 Magnesium Citrate 296 Ml Solution, 296 ML PO Q6H Prescribed by: HILDA YBARRA on 01/30/19 1258 Ondansetron 4 Mg Tab.rapdis, 4 MG PO Q6H PRN for NAUSEA/VOMITING Prescribed by: LUIS LECHUGA on 07/23/19 2150 Psyllium Husk 0.4 Gm Capsule, 0.4 GM PO DAILY Prescribed by: HILDA YBARRA on 01/30/19 1258 Simvastatin 40 Mg Tablet, HS, (Reported) Patient Home Medication List Home Medication List Reviewed: Yes Review of Systems Review of Systems Constitutional: No chills, No fever EENTM: mouth pain (Dental pain and he is taking antibiotics for an abscess) Respiratory: no symptoms reported Cardiovascular: no symptoms reported Gastrointestinal: no symptoms reported Genitourinary: see HPI Musculoskeletal: no symptoms reported Skin: No rash Psychiatric/Neurological: See HPI, Seizure (Reports increased seizure activity in the last few days) Hematologic/Lymphatic: Denies Blood Clots Past Lhathdf-Blztxq-Ptddcy Hx Past Med/Social Hx: Reviewed Nursing Past Med/Soc Hx Patient Social History Alcohol Use: Denies Use Drug of Choice: hx MARIJUANA Smoking Status: Current Everyday Smoker Type Used: Cigarettes 2nd Hand Smoke Exposure: No Recent Hopitalizations: No Seasonal Allergies Seasonal Allergies: No Past Medical History Surgeries: Yes (cystoscopy) Gallbladder, Orthopedic Respiratory: Yes Asthma Cardiac: No Neurological: Yes (PSUEDOSEIZURES) Headaches /Migraines, Seizure Disorder, Traumatic Brain Injury Genitourinary: No Gastrointestinal: Yes Gastroesophageal Reflux, Hepatitis, Cirrhosis Musculoskeletal: No Endocrine: Yes Diabetes, Insulin dep HEENT: No Cancer: No Psychosocial: No (Suicidal and homicidal ideation hx) Bipolar, Personality Disorder Integumentary: No Blood Disorders: No Family Medical History No Pertinent Family Hx Physical Exam Vital Signs Vital Signs - First Documented 12/11/20 19:17 Temp 36.7 Pulse 93 Resp 14 B/P (MAP) 149/90 (109) Pulse Ox 95 O2 Delivery Room Air Capillary Refill : Height, Weight, BMI Height: 5'8.00" Weight: 220lbs. oz. 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 Norm as Tested Skin: Normal Color, Warm/Dry Progress/Results/Core Measures Suspected Sepsis SIRS Temperature: Pulse: Respiratory Rate: Laboratory Tests 12/11/20 19:29: White Blood Count 5.7 Blood Pressure / Mean: Laboratory Tests 12/11/20 19:29: Creatinine 0.71, Platelet Count 75L, Total Bilirubin 0.3 Results/Orders Lab Results Laboratory Tests Test 12/11/20 19:24 12/11/20 19:29 Range/Units Urine Color YELLOW Urine Clarity CLEAR Urine pH 7.0 5-9 Urine Specific [place] 1.010 L 1.016-1.022 Urine Protein NEGATIVE NEGATIVE Urine Glucose (UA) 3+ H NEGATIVE Urine Ketones NEGATIVE NEGATIVE Urine Nitrite NEGATIVE NEGATIVE Urine Bilirubin NEGATIVE NEGATIVE Urine Urobilinogen 1.0 < = 1.0 MG/DL Urine Leukocyte Esterase NEGATIVE NEGATIVE Urine RBC (Auto) NEGATIVE NEGATIVE Urine RBC 0-2 /HPF Urine WBC NONE /HPF Urine Squamous Epithelial Cells 0-2 /HPF Urine Crystals NONE /LPF Urine Bacteria NEGATIVE /HPF Urine Casts NONE /LPF Urine Mucus NEGATIVE /LPF Urine Culture Indicated NO Urine Opiates Screen NEGATIVE NEGATIVE Urine Oxycodone Screen NEGATIVE NEGATIVE Urine Methadone Screen NEGATIVE NEGATIVE Urine Propoxyphene Screen NEGATIVE NEGATIVE Urine Barbiturates Screen NEGATIVE NEGATIVE Valproic Acid (Depakene) Level 42.4 L 50.0-100.0 UG/ML Ur Tricyclic Antidepressants Screen POSITIVE H NEGATIVE Urine Phencyclidine Screen NEGATIVE NEGATIVE Urine Amphetamines Screen NEGATIVE NEGATIVE Urine Methamphetamines Screen NEGATIVE NEGATIVE Urine Benzodiazepines Screen NEGATIVE NEGATIVE Urine Cocaine Screen NEGATIVE NEGATIVE Urine Cannabinoids Screen NEGATIVE NEGATIVE White Blood Count 5.7 4.3-11.0 10^3/uL Red Blood Count 4.80 4.35-5.85 10^6/uL Hemoglobin 14.6 13.3-17.7 G/DL Hematocrit 42 40-54 % Mean Corpuscular Volume 88 80-99 FL Mean Corpuscular Hemoglobin 30 25-34 PG Mean Corpuscular Hemoglobin Concent 35 32-36 G/DL Red Cell Distribution Width 13.2 10.0-14.5 % Platelet Count 75 L 130-400 10^3/uL Mean Platelet Volume 9.8 7.4-10.4 FL Immature Granulocyte % (Auto) 0 % Neutrophils (%) (Auto) 40 L 42-75 % Lymphocytes (%) (Auto) 45 H 12-44 % Monocytes (%) (Auto) 10 0-12 % Eosinophils (%) (Auto) 4 0-10 % Basophils (%) (Auto) 1 0-10 % Neutrophils # (Auto) 2.3 1.8-7.8 X 10^3 Lymphocytes # (Auto) 2.6 1.0-4.0 X 10^3 Monocytes # (Auto) 0.5 0.0-1.0 X 10^3 Eosinophils # (Auto) 0.2 0.0-0.3 10^3/uL Basophils # (Auto) 0.1 0.0-0.1 10^3/uL Immature Granulocyte # (Auto) 0.0 0.0-0.1 10^3/uL Percent Immature Platelet Fraction 3.2 0.0-7.6 % Sodium Level 140 135-145 MMOL/L Potassium Level 3.7 3.6-5.0 MMOL/L Chloride Level 107 98-107 MMOL/L Carbon Dioxide Level 22 21-32 MMOL/L Anion Gap 11 5-14 MMOL/L Blood Urea Nitrogen 10 7-18 MG/DL Creatinine 0.71 0.60-1.30 MG/DL Estimat Glomerular Filtration Rate > 60 BUN/Creatinine Ratio 14 Glucose Level 201 H 70-105 MG/DL Calcium Level 9.1 8.5-10.1 MG/DL Corrected Calcium 9.3 8.5-10.1 MG/DL Total Bilirubin 0.3 0.1-1.0 MG/DL Aspartate Amino Transf (AST/SGOT) 19 5-34 U/L Alanine Aminotransferase (ALT/SGPT) 17 0-55 U/L Alkaline Phosphatase 62 40-136 U/L Total Protein 6.7 6.4-8.2 GM/DL Albumin 3.8 3.2-4.5 GM/DL Salicylates Level < 0.3 L 5.0-20.0 MG/DL Acetaminophen Level < 10 L 10-30 UG/ML Serum Alcohol < 10 <10 MG/DL My Orders Orders - LUIS LECHUGA MD Ua Culture If Indicated (12/11/20 19:29) Cbc With Automated Diff (12/11/20 19:29) Comprehensive Metabolic Panel (12/11/20 19:29) Alcohol (12/11/20 19:29) Drug Screen Stat (Urine) (12/11/20 19:29) Acetaminophen (12/11/20 19:29) Salicylate (12/11/20 19:29) Ekg Tracing (12/11/20 19:29) Ed Iv/Invasive Line Start (12/11/20 19:29) Monitor-Rhythm Ecg Trace Only (12/11/20 19:29) Ns Iv 1000 Ml (Sodium Chloride 0.9%) (12/11/20 19:29) Ct Head Wo (12/11/20 19:29) Valproic Acid (12/11/20 20:17) Vital Signs/I&O 12/11/20 12/11/20 19:17 20:31 Temp 36.7 Pulse 93 95 Resp 14 18 B/P (MAP) 149/90 (109) 158/91 Pulse Ox 95 96 O2 Delivery Room Air Room Air Capillary Refill : Progress Note : Progress Note Check basic labs as well as CT of his head to evaluate for any acute injury or bleeding Labs appear stable without acute significant abnormality. Electrocardiogram also stable. His CT of his head did not show any acute intracranial process but he did have some fluid and sinus disease in his maxillary sinuses. With patient having pseudoseizures and no other acute findings on testing today outside of mild elevation in his glucose to 201 on chemistry and 3+ glucose in his urinalysis will discharge to home and have him follow-up through the clinic to see if they want to adjust any of his medicines that he takes for stress, mental health, pseudoseizures. His was adamant that he needed Depakote level checked despite knowing that it would not come back tonight with the testing the were okay with that. As the Depakote level was added onto his labs and he was advised it was a send out test and might take a few days. Again have him follow-up through the clinic for continued concerns ECG Initial ECG Impression Date: Dec 11, 2020 Initial ECG Impression Time: 19:17 Initial ECG Rate: 93 Initial ECG Rhythm: Normal Sinus Initial ECG Comparisson: Unchanged Comment Normal sinus rhythm with a heart rate of 93 bpm. NV interval 167 ms. There is a left axis deviation. QT interval 373 ms with a QTc interval of 464 ms. There is no significant change from prior tracings in the system. Diagnostic Imaging Diagonstic Imaging: CT Plain Films/CT/US/NM/MRI: head Comments [facility]. [place], [place] NAME: PABLO SCOTT Anika [facility] REC#: [id number] PT STATUS: REG ER : 1970 PHYSICIAN: LUIS LECHUGA MD ADMIT DATE: 12/11/20/ER FS Draft Date of Exam:12/11/20 CT HEAD WO EXAMINATION: CT head without contrast. TECHNIQUE: Multiple contiguous axial images were obtained through the brain without the use of intravenous contrast. All CT scans use one or more of the following dose optimizing techniques: automated exposure control, MA and/or KvP adjustment based on patient size and exam type or iterative reconstruction. HISTORY: Seizure. COMPARISON: None available. FINDINGS: The marcos-white matter differentiation is normal. No mass effect or midline shift. The ventricles are normal in size and configuration. Basilar cisterns are patent. There are no intra-axial or extra-axial fluid collections. There is no intracranial hemorrhage. The orbits are normal. There is bilateral maxillary sinus mucosal disease. Mastoid air cells are clear. No soft tissue abnormality is seen. No osseus lesion or fracture is seen. IMPRESSION: No acute intracranial abnormality. Dictated on workstation # [id number] Dict: 12/11/201941 Trans: 12/11/201947 [facility] [id number] Interpreted by: PABLO CANTOR MD Electronically signed by: Reviewed: Reviewed by Me Departure Impression Primary Impression: Pseudoseizures Additional Impression: Stress and adjustment reaction Disposition: 01 HOME, SELF-CARE Condition: Stable Departure-Patient Inst. Decision time for Depature: 20:05 Referrals: JERROD SERRANO APRN (PCP) Primary Care Physician [facility] (Family) Primary Care Physician Patient Instructions: Stress Add. Discharge Instructions: Follow up with your regular providers at [facility] and Mental Health about your increase in pseudoseizure activity and stress. See if they need to adjust any of your medicines or how they want to manage your symptoms. Stay well hydrated and get plenty of rest Take your medicine as prescribed. All discharge instructions reviewed with patient and/or family. Voiced un derstanding. LUIS LECHUGA MD Dec 11, 2020 19:31
[2020-12-11 19:37] LABS: BASOPHILS # (AUTO) 0.1 10^3/uL (0.0-0.1); BASOPHILS % (AUTO) 1 % (0-10); EOSINOPHILS # (AUTO) 0.2 10^3/uL (0.0-0.3); EOSINOPHILS % (AUTO) 4 % (0-10); HEMATOCRIT 42 % (40-54); HEMOGLOBIN 14.6 G/DL (13.3-17.7); LYMPHOCYTES # (AUTO) 2.6 X 10^3 (1.0-4.0); LYMPHOCYTES % (AUTO) 45 % (12-44); MEAN CORPUSCULAR HEMOGLOBIN 30 PG (25-34); MEAN CORPUSCULAR HGB CONC 35 G/DL (32-36); MEAN CORPUSCULAR VOLUME 88 FL (80-99); MEAN PLATELET VOLUME 9.8 FL (7.4-10.4); MONOCYTES # (AUTO) 0.5 X 10^3 (0.0-1.0); MONOCYTES % (AUTO) 10 % (0-12); NEUTROPHILS # (AUTO) 2.3 X 10^3 (1.8-7.8); NEUTROPHILS % (AUTO) 40 % (42-75); PLATELET COUNT 75 10^3/uL (130-400); WHITE BLOOD COUNT 5.7 10^3/uL (4.3-11.0)
[2020-12-11 19:38] LABS: BILIRUBIN,URINE NEGATIVE (NEGATIVE); CLARITY,URINE CLEAR; COLOR,URINE YELLOW; GLUCOSE, URINE (UA) 3+ (NEGATIVE); KETONES,URINE NEGATIVE (NEGATIVE); NITRITE,URINE NEGATIVE (NEGATIVE); PROTEIN,URINE NEGATIVE (NEGATIVE)
[2020-12-11 19:39] LABS: BACTERIA,URINE NEGATIVE /HPF; LEUKOCYTE ESTERASE ,URINE NEGATIVE (NEGATIVE); RBC,URINE 0-2 /HPF; SQUAMOUS EPITHELIAL CELL,UR 0-2 /HPF
[2020-12-11 19:45] LABS: AMPHETAMINE SCREEN, URINE NEGATIVE (NEGATIVE); BARBITURATE SCREEN URINE NEGATIVE (NEGATIVE); BENZODIAZEPINES SCREEN URINE NEGATIVE (NEGATIVE); CANNABINOID SCREEN, URINE NEGATIVE (NEGATIVE); COCAINE SCREEN URINE NEGATIVE (NEGATIVE); METHADONE STAT NEGATIVE (NEGATIVE); METHAMPHETAMINE SCREEN URINE S NEGATIVE (NEGATIVE); OPIATE SCREEN URINE NEGATIVE (NEGATIVE); OXYCODONE STAT NEGATIVE (NEGATIVE); PROPOXYPHENE STAT NEGATIVE (NEGATIVE); TRICYCLIC ANTIDEPRESSANTS SCRE POSITIVE (NEGATIVE)
--- NOTE | 2020-12-11 19:48 | Diagnostic Imaging Report ---
EXAMINATION: CT head without contrast. TECHNIQUE: Multiple contiguous axial images were obtained through the brain without the use of intravenous contrast. All CT scans use one or more of the following dose optimizing techniques: automated exposure control, MA and/or KvP adjustment based on patient size and exam type or iterative reconstruction. HISTORY: Seizure. COMPARISON: None available. FINDINGS: The marcos-white matter differentiation is normal. No mass effect or midline shift. The ventricles are normal in size and configuration. Basilar cisterns are patent. There are no intra-axial or extra-axial fluid collections. There is no intracranial hemorrhage. The orbits are normal. There is bilateral maxillary sinus mucosal disease. Mastoid air cells are clear. No soft tissue abnormality is seen. No osseus lesion or fracture is seen. IMPRESSION: No acute intracranial abnormality. Dictated by: Dictated on workstation # [id number]
[2020-12-11 19:49] LABS: POTASSIUM 3.7 MMOL/L (3.6-5.0); SODIUM 140 MMOL/L (135-145)
[2020-12-11 19:50] LABS: ACETAMINOPHEN < 10 UG/ML (10-30); ALANINE AMINOTRANSFERASE 17 U/L (0-55); ALBUMIN 3.8 GM/DL (3.2-4.5); ALKALINE PHOSPHATASE 62 U/L (40-136); BILIRUBIN,TOTAL 0.3 MG/DL (0.1-1.0); BUN/CREATININE RATIO 14; CALCIUM 9.1 MG/DL (8.5-10.1); CARBON DIOXIDE 22 MMOL/L (21-32); CHLORIDE 107 MMOL/L (98-107); CREATININE SERUM 0.71 MG/DL (0.60-1.30); GFR ESTIMATED > 60; GLUCOSE 201 MG/DL (70-105); SALICYLATE < 0.3 MG/DL (5.0-20.0); TOTAL PROTEIN 6.7 GM/DL (6.4-8.2)
[2020-12-11 20:31] VITALS: BP 158/91
== END 2020-12-11 20:31 | disposition home or self-care (01) ==
LOC: EDUNIT# 19:11 → ER FS 19:17
DX: G40.909 Epilepsy, unspecified, not intractable, without status epilepticus (principal); F43.20 Adjustment disorder, unspecified; J45.909 Unspecified asthma, uncomplicated; E11.9 Type 2 diabetes mellitus without complications; F31.9 Bipolar disorder, unspecified; F17.210 Nicotine dependence, cigarettes, uncomplicated; Z88.8 Allergy status to other drugs, medicaments and biological substances; Z87.820 Personal history of traumatic brain injury; Z79.899 Other long term (current) drug therapy
CPT/HCPCS: 36415; 70450; 80053; 80164; 80306; 81000; 85025; 93005; 93041; 99284; G0480 ×3; 80320; 80329

== ENCOUNTER 2021-01-02 13:07 | Emergency (ER) | payer MEDICARE, OTHER ==
[2021-01-02 13:11] VITALS: BP 133/82
--- NOTE | 2021-01-02 13:23 | ED General ---
General Chief Complaint: General Problems/Pain Stated Complaint: SEIZURE Source of Information: Patient, Old Records History of Present Illness Date Seen by Provider: Jan 02, 2021 Time Seen by Provider: 13:09 Initial Comments 50 yo male presenting with EMS due to recurrent pseudoseizure activity. He has been having more stress recently with brothers moving away and he could not say goodbye. he has appt tomorrow and Saturday with his regular providers. He today was at [facility] and was anxious and stressed. He had a pseudoseizure in the parking lot and when EMS arrived he was on his side on the ground shaking. When they recognized him and called out his name he stopped shaking turned towards them, waved and said Hello. He has not been post ictal or had any deficit. he has had labs recently last week and states they were all normal. He denies any new injury or head trauma. He was concerned about increased seizure activity from pseudoseizures and non-epileptic seizures. Associated Systoms: Denies Symptoms Allergies and Home Medications Allergies Coded Allergies: aripiprazole (Verified Allergy, Unknown, hallucinations, 10/01/18) zolpidem (Verified Allergy, Unknown, hallucinations, 10/01/18) Home Medications Clindamycin HCl 300 Mg Capsule, 300 MG PO TIDWM Prescribed by: LINDEN MERCEDES on 10/24/192033 Dicyclomine HCl 20 Mg Tablet, 20 MG PO QID PRN for ABDOMINAL PAIN Prescribed by: LUIS LECHUGA on 10/01/18 0501 Haloperidol 5 Mg Tab, 10 MG PO HS, (Reported) Hydrocodone Bit/Acetaminophen 1 Tab Tab, 1 EACH PO Q4-6HR PRN for PAIN-MODERATE Prescribed by: HILDA YBARRA on 01/24/19 1351 Ibuprofen 800 Mg Tablet, 800 MG PO Q8H PRN for PAIN Prescribed by: LINDEN MERCEDES on 10/24/192033 Magnesium Citrate 296 Ml Solution, 296 ML PO Q6H Prescribed by: HILDA YBARRA on 01/30/19 1258 Ondansetron 4 Mg Tab.rapdis, 4 MG PO Q6H PRN for NAUSEA/VOMITING Prescribed by: LUIS LECHUGA on 07/23/19 2150 Psyllium Husk 0.4 Gm Capsule, 0.4 GM PO DAILY Prescribed by: HILDA YBARRA on 01/30/19 1258 Simvastatin 40 Mg Tablet, HS, (Reported) Patient Home Medication List Home Medication List Reviewed: Yes Review of Systems Review of Systems Constitutional: No chills, No fever EENTM: no symptoms reported Respiratory: no symptoms reported Cardiovascular: no symptoms reported Gastrointestinal: no symptoms reported Genitourinary: no symptoms reported Musculoskeletal: no symptoms reported Skin: no symptoms reported Psychiatric/Neurological: Anxiety, Emotional Problems (stressed) Past Xcdahko-Skilzg-Czbcwm Hx Past Med/Social Hx: Reviewed Nursing Past Med/Soc Hx Patient Social History Drug of Choice: hx MARIJUANA Type Used: Cigarettes 2nd Hand Smoke Exposure: No Recent Hopitalizations: No Seasonal Allergies Seasonal Allergies: No Past Medical History Surgeries: Yes (cystoscopy) Gallbladder, Orthopedic Respiratory: Yes Asthma Cardiac: No Neurological: Yes (PSUEDOSEIZURES) Headaches /Migraines, Seizure Disorder, Traumatic Brain Injury Genitourinary: No Gastrointestinal: Yes Gastroesophageal Reflux, Hepatitis, Cirrhosis Musculoskeletal: No Endocrine: Yes Diabetes, Insulin dep HEENT: No Cancer: No Psychosocial: No (Suicidal and homicidal ideation hx) Bipolar, Personality Disorder Integumentary: No Blood Disorders: No Family Medical History No Pertinent Family Hx Physical Exam Vital Signs Vital Signs - First Documented 01/02/21 13:11 Temp 36.8 Pulse 90 Resp 20 B/P (MAP) 133/82 (99) O2 Delivery Room Air Capillary Refill : Height, Weight, BMI Height: 5'8.00" Weight: 220lbs. oz. 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 He states they just did that recently at end of last week so he felt it was not needed. Since he has appt in am and on Saturday and he appears stable will discharge to home and encourage him to work with clinic on his stress and anxiety causing his pseudoseizures. Departure Impression Primary Impression: Pseudoseizure Additional Impression: Stress and adjustment reaction Disposition: 01 HOME, SELF-CARE Condition: Stable Departure-Patient Inst. Decision time for Depature: 13:22 Referrals: JERROD SERRANO APRN (PCP) Primary Care Physician [facility] (Family) Primary Care Physician Patient Instructions: Stress Add. Discharge Instructions: Keep appointments this week with your providers. Work with your regular providers about your stress and pseudoseizures to help manage these episodes you keep having. All discharge instructions reviewed with patient and/or family. Voiced understanding. LUIS LECHUGA MD Jan 02, 2021 13:23
== END 2021-01-02 13:25 | disposition home or self-care (01) ==
LOC: EDUNIT# 13:07 → ER FS 13:08
DX: F44.5 Conversion disorder with seizures or convulsions (principal); F43.20 Adjustment disorder, unspecified; J45.909 Unspecified asthma, uncomplicated; E11.9 Type 2 diabetes mellitus without complications; F31.9 Bipolar disorder, unspecified; Z87.820 Personal history of traumatic brain injury; Z79.899 Other long term (current) drug therapy

== ENCOUNTER 2021-01-09 14:29 | Emergency (ER) | payer MEDICARE ==
[~2021-01-09] VITALS: Ht 167 cm; Wt 92.0 kg
[2021-01-09 14:38] VITALS: BP 122/75
--- NOTE | 2021-01-09 15:16 | ED General ---
General Chief Complaint: General Problems/Pain Stated Complaint: SEIZURE Nursing Triage Note: REPORTS HE HAS BEEN HAVING "SEIZURES" BUT CAN TALK TO STAFF DURING A SEIZURE. HE WANTED COOKIES AND A DRINK UPON ARRIVAL. REPORTS HE HAS BEEN OUT IN THE HEAT TODAY. Source of Information: Patient History of Present Illness Date Seen by Provider: Jan 09, 2021 Time Seen by Provider: 14:33 Initial Comments 50-year-old male presenting with complaints of recurrent pseudoseizures. He states that he has been under more stress recently. He also feels that the change in temperature of coming from hot temperature outside inside the cold water or going from a conditioning to the outside hot temperatures seem to trigger his pseudoseizures as well. He was recently started on Risperdal to help with these and has only been on that for about 5 days. He is to follow-up this week about the dosing of the medicine to see if it needs to be adjusted. He reports feeling that he has fewer seizures since starting the medication. He also has not been drinking much fluid other than soda and pop. He has had some burning with urination and states there is a little bit of blood but it is not as bad as it has been in the past. He denies any fever, chills, nausea, vomiting, chest pain. He reports some abdominal cramping and intermittent constipation alternating with diarrhea. He has a colonoscopy coming up in the next few weeks to evaluate his bowels. Associated Systoms: No Chest Pain, No Cough, No Diaphoresis, No Fever/Chills, No Headaches, No Loss of Appetite, No Malaise, No Nausea/Vomiting, No Rash; Seizure (Pseudoseizures); No Shortness of Air, No Syncope, No Weakness Allergies and Home Medications Allergies Coded Allergies: aripiprazole (Verified Allergy, Unknown, hallucinations, 10/01/18) zolpidem (Verified Allergy, Unknown, hallucinations, 10/01/18) Home Medications Clindamycin HCl 300 Mg Capsule, 300 MG PO TIDWM Prescribed by: LINDEN MERCEDES on 10/24/192033 Dicyclomine HCl 20 Mg Tablet, 20 MG PO QID PRN for ABDOMINAL PAIN Prescribed by: LUIS LECHUGA on 10/01/18 0501 Haloperidol 5 Mg Tab, 10 MG PO HS, (Reported) Hydrocodone Bit/Acetaminophen 1 Tab Tab, 1 EACH PO Q4-6HR PRN for PAIN-MODERATE Prescribed by: HILDA YBARRA on 01/24/19 1351 Ibuprofen 800 Mg Tablet, 800 MG PO Q8H PRN for PAIN Prescribed by: LINDEN LEIJASTPIERRE on 10/24/192033 Magnesium Citrate 296 Ml Solution, 296 ML PO Q6H Prescribed by: HILDA YBARRA on 01/30/19 1258 Ondansetron 4 Mg Tab.rapdis, 4 MG PO Q6H PRN for NAUSEA/VOMITING Prescribed by: LUIS LECHUGA on 07/23/192149 Psyllium Husk 0.4 Gm Capsule, 0.4 GM PO DAILY Prescribed by: HILDA YBARRA on 01/30/19 1258 Simvastatin 40 Mg Tablet, HS, (Reported) Patient Home Medication List Home Medication List Reviewed: Yes Review of Systems Review of Systems Constitutional: no symptoms reported EENTM: no symptoms reported Respiratory: no symptoms reported Gastrointestinal: see HPI Genitourinary: see HPI Musculoskeletal: no symptoms reported Skin: no symptoms reported Psychiatric/Neurological: See HPI, Anxiety, Emotional Problems Past Jzajhjp-Grkrgf-Asdhqw Hx Patient Social History Tobacco Use?: Yes Tobacco type used: Cigarettes Smoking Status: Current Everyday Smoker Smokeless Tobacco Frequency: Never a User Substance use?: Yes Substance type: Marijuana Alcohol Use?: No Pt feels they are or have been: No Seasonal Allergies Seasonal Allergies: No Past Medical History Surgeries: Yes (cystoscopy) Gallbladder, Orthopedic Respiratory: Yes Asthma Cardiac: No Neurological: Yes (PSEUDOSEIZURES) Headaches /Migraines, Seizure Disorder, Traumatic Brain Injury Genitourinary: No Gastrointestinal: Yes Gastroesophageal Reflux, Hepatitis, Cirrhosis Musculoskeletal: No Endocrine: Yes Diabetes, Insulin dep HEENT: No Cancer: No Psychosocial: No (Suicidal and homicidal ideation hx) Bipolar, Personality Disorder Integumentary: No Blood Disorders: No Family Medical History No Pertinent Family Hx Physical Exam Vital Signs Vital Signs - First Documented 01/09/21 14:38 Temp 36.2 Resp 18 B/P (MAP) 122/75 (91) Pulse Ox 99 O2 Delivery Room Air Capillary Refill : Less Than 3 Seconds Height, Weight, BMI Height: 5'8.00" Weight: 220lbs. oz. 99.561296rm; 32.00 BMI Method:Stated General Appearance: No Apparent Distress, WD/WN HEENT: PERRL/EOMI, Normal ENT Inspection, Pharynx Normal Neck: Full Range of Motion, Normal Inspection, Non Tender, Supple Respiratory: Chest Non Tender, Lungs Clear, Normal Breath Sounds, No Accessory Muscle Use, No Respiratory Distress Cardiovascular: Regular Rate, Rhythm, Normal Peripheral Pulses Gastrointestinal: Normal Bowel Sounds, No Pulsatile Mass, Soft, Tenderness (Mild diffuse tenderness) Rectal: Deferred Back: No CVA Tenderness Extremity: Normal Capillary Refill, Normal Inspection, No Pedal Edema Neurologic/Psychiatric: Alert, Oriented x3, No Motor/Sensory Deficits, Normal Mood/Affect, quarter seamer II-XII Norm as Tested Skin: Normal Color, Warm/Dry Progress/Results/Core Measures Suspected Sepsis SIRS Temperature: Pulse: Respiratory Rate: 18 Blood Pressure 122 /75 Mean: 91 Results/Orders Lab Results Laboratory Tests Test 01/09/21 15:33 Range/Units Urine Color YELLOW Urine Clarity CLEAR Urine pH 7.0 5-9 Urine Specific [place] 1.015 L 1.016-1.022 Urine Protein NEGATIVE NEGATIVE Urine Glucose (UA) 3+ H NEGATIVE Urine Ketones NEGATIVE NEGATIVE Urine Nitrite NEGATIVE NEGATIVE Urine Bilirubin NEGATIVE NEGATIVE Urine Urobilinogen 1.0 < = 1.0 MG/DL Urine Leukocyte Esterase NEGATIVE NEGATIVE Urine RBC (Auto) NEGATIVE NEGATIVE Urine RBC NONE /HPF Urine WBC NONE /HPF Urine Squamous Epithelial Cells 5-10 /HPF Urine Crystals NONE /LPF Urine Bacteria NEGATIVE /HPF Urine Casts NONE /LPF Urine Mucus NEGATIVE /LPF Urine Culture Indicated NO My Orders Orders - LUIS LECHUGA MD Ua Culture If Indicated (01/09/21 15:32) Vital Signs/I&O 01/09/21 14:38 Temp 36.2 Resp 18 B/P (MAP) 122/75 (91) Pulse Ox 99 O2 Delivery Room Air Capillary Refill : Less Than 3 Seconds Blood Pressure Mean: 91 Progress Note #1: Progress Note Reviewed with patient again what a pseudoseizure is as he asks every time he comes to see me in the emergency department. Advised that can check labs for his heat exposure but pt declined stating he was not out in heat long. He has follow up this week for his pseudoseizures and new medicine. He wanted a UA done but did not want to necessarily wait on results. will call if shows abnormality that needs treated. Encourage to drink more fluids and stay well hydrated. Avoic pop and soda. Progress Note #2: Progress Note UA shows glucose but no blood or infection. Pt had just eaten cookie prior to giving UA specimen Departure Impression Primary Impression: Heat exhaustion Qualified Codes: T67.5XXA - Heat exhaustion, unspecified, initial encounter Additional Impressions: Dysuria Pseudoseizures Disposition: HOME, SELF-CARE Condition: Stable Departure-Patient Inst. Decision time for Depature: 15:35 Referrals: JERROD SERRANO APRN (PCP) Primary Care Physician [facility] (Family) Primary Care Physician Patient Instructions: Heat Illness ED, Stress Add. Discharge Instructions: Stay well hydrated and drink plenty of water and electrolyte drinks. Avoid carbonated drinks and soda pop. [facility] your pseudoseizures and pain when you urinate. The Risperidone (Risperidal) will help with your pseudoseizures as you continue to take the medicine All discharge instructions reviewed with patient and/or family. Voiced understanding. LUIS LECHUGA MD Jan 09, 2021 15:16
[2021-01-09 15:51] LABS: BILIRUBIN,URINE NEGATIVE (NEGATIVE); CLARITY,URINE CLEAR; COLOR,URINE YELLOW; GLUCOSE, URINE (UA) 3+ (NEGATIVE); KETONES,URINE NEGATIVE (NEGATIVE); LEUKOCYTE ESTERASE ,URINE NEGATIVE (NEGATIVE); NITRITE,URINE NEGATIVE (NEGATIVE); PROTEIN,URINE NEGATIVE (NEGATIVE)
[2021-01-09 15:55] LABS: BACTERIA,URINE NEGATIVE /HPF
== END 2021-01-09 15:38 | disposition home or self-care (01) ==
LOC: EDUNIT# 14:29 → ER FS 14:30
DX: T67.5XXA Heat exhaustion, unspecified, initial encounter (principal); R30.0 Dysuria; F44.5 Conversion disorder with seizures or convulsions; J45.909 Unspecified asthma, uncomplicated; F31.9 Bipolar disorder, unspecified; E11.9 Type 2 diabetes mellitus without complications; F17.210 Nicotine dependence, cigarettes, uncomplicated; Z87.820 Personal history of traumatic brain injury; Z79.899 Other long term (current) drug therapy
CPT/HCPCS: 81000; 99282

== ENCOUNTER 2021-02-02 14:58 | Emergency (ER) | payer MEDICARE ==
[~2021-02-02] VITALS: Ht 172.7 cm; Wt 108.8 kg
--- NOTE | 2021-02-02 15:45 | ED General ---
General Chief Complaint: Neurological Problems Stated Complaint: SEIZURE Nursing Triage Note: Pt to ED via EMS for seizure-like activity. Pt has hx of pseudo-seizures. Source of Information: Patient Exam Limitations: No Limitations (ISAÍAS SALDAÑA APRN) History of Present Illness Date Seen by Provider: Feb 02, 2021 Time Seen by Provider: 15:41 Initial Comments [place] by [place] where he collapsed to the ground and was unresponsive for about 45 seconds and was shaking. He has a history of "pseudoseizures" he states as diagnosed by the [facility]. He feels fine now. Timing/Duration: 1-2 Days Severity: Moderate Associated Systoms: Denies Symptoms (ISAÍAS SALDAÑA APRN) Allergies and Home Medications Allergies Coded Allergies: aripiprazole (Verified Allergy, Unknown, hallucinations, 10/01/18) zolpidem (Verified Allergy, Unknown, hallucinations, 10/01/18) Home Medications Clindamycin HCl 300 Mg Capsule, 300 MG PO TIDWM Prescribed by: LINDEN MERCEDES on 10/24/192033 Dicyclomine HCl 20 Mg Tablet, 20 MG PO QID PRN for ABDOMINAL PAIN Prescribed by: LUIS LECHUGA on 10/01/18 0501 Haloperidol 5 Mg Tab, 10 MG PO HS, (Reported) Hydrocodone Bit/Acetaminophen 1 Tab Tab, 1 EACH PO Q4-6HR PRN for PAIN-MODERATE Prescribed by: HILDA YBARRA on 01/24/19 1351 Ibuprofen 800 Mg Tablet, 800 MG PO Q8H PRN for PAIN Prescribed by: LINDEN MERCEDES on 10/24/192033 Magnesium Citrate 296 Ml Solution, 296 ML PO Q6H Prescribed by: HILDA YBARRA on 01/30/19 1258 Ondansetron 4 Mg Tab.rapdis, 4 MG PO Q6H PRN for NAUSEA/VOMITING Prescribed by: LUIS NATIONRT on 07/23/19 2150 Psyllium Husk 0.4 Gm Capsule, 0.4 GM PO DAILY Prescribed by: HILDA YBARRA on 01/30/19 1258 Simvastatin 40 Mg Tablet, HS, (Reported) Patient Home Medication List Home Medication List Reviewed: Yes (ISAÍAS SALDAÑA APRN) Review of Systems Review of Systems Constitutional: see HPI EENTM: see HPI Respiratory: no symptoms reported Cardiovascular: no symptoms reported Genitourinary: no symptoms reported Musculoskeletal: no symptoms reported Skin: no symptoms reported Psychiatric/Neurological: No Symptoms Reported Hematologic/Lymphatic: No Symptoms Reported Immunological/Allergic: no symptoms reported (ISAÍAS SALDAÑA APRN) Past Zopqstw-Vaawvp-Opjutg Hx Patient Social History Tobacco Use?: Yes Tobacco type used: Cigarettes Smoking Status: Current Everyday Smoker Use of E-Cig and/or Vaping dev: No Substance use?: No Alcohol Use?: No Pt feels they are or have been: No (ISAÍAS SALDAÑA APRN) Immunizations Up To Date COVID19 Vaccine Clinic Director: moderna (ISAÍAS SALDAÑA APRN) Seasonal Allergies Seasonal Allergies: No (ISAÍAS SALDAÑA APRN) Past Medical History Surgeries: Yes (cystoscopy) Gallbladder, Orthopedic Respiratory: Yes Asthma Cardiac: No Neurological: Yes (PSEUDOSEIZURES) Headaches /Migraines, Seizure Disorder, Traumatic Brain Injury Genitourinary: No Gastrointestinal: Yes Gastroesophageal Reflux, Hepatitis, Cirrhosis Musculoskeletal: No Endocrine: Yes Diabetes, Insulin dep HEENT: No Cancer: No Psychosocial: No (Suicidal and homicidal ideation hx) Bipolar, Personality Disorder Integumentary: No Blood Disorders: No (ISAÍAS SALDAÑA APRN) Family Medical History No Pertinent Family Hx (ISAÍAS SALDAÑA APRN) Physical Exam Vital Signs Vital Signs - First Documented 02/02/21 15:00 Pulse 92 Resp 22 B/P (MAP) 122/85 (97) Pulse Ox 96 O2 Delivery Room Air (DIMITRI SHELBY MD) Vital Signs Capillary Refill : Less Than 3 Seconds (ISAÍAS SALDAÑA APRN) Height, Weight, BMI Height: 5'8.00" Weight: 220lbs. oz. 99.638183bn; 36.00 BMI Method:Stated General Appearance: No Apparent Distress, WD/WN Eyes: Bilateral Eye Normal Inspection, Bilateral Eye PERRL, Bilateral Eye EOMI HEENT: PERRL/EOMI, TMs Normal Neck: Full Range of Motion, Normal Inspection Respiratory: No Accessory Muscle Use, No Respiratory Distress Cardiovascular: Regular Rate, Rhythm, Normal Peripheral Pulses Gastrointestinal: Normal Bowel Sounds, Non Tender, Soft Extremity: Normal Capillary Refill, Normal Inspection Neurologic/Psychiatric: Alert, Oriented x3 Skin: Normal Color, Warm/Dry (ISAÍAS SALDAÑA APRN) Progress/Results/Core Measures Suspected Sepsis SIRS Temperature: Pulse: 92 Respiratory Rate: 22 Blood Pressure 122 /85 Mean: 97 (ISAÍAS SALDAÑA APRN) Results/Orders Lab Results Laboratory Tests Test 02/02/21 15:05 02/02/21 15:43 Range/Units White Blood Count 5.2 4.3-11.0 10^3/uL Red Blood Count 4.80 4.30-5.52 10^6/uL Hemoglobin 14.6 13.3-17.7 g/dL Hematocrit 43 40-54 % Mean Corpuscular Volume 90 80-99 fL Mean Corpuscular Hemoglobin 30 25-34 pg Mean Corpuscular Hemoglobin Concent 34 32-36 g/dL Red Cell Distribution Width 13.3 10.0-14.5 % Platelet Count 69 L 130-400 10^3/uL Mean Platelet Volume 10.2 9.0-12.2 fL Immature Granulocyte % (Auto) 0 % Neutrophils (%) (Auto) 35 L 42-75 % Lymphocytes (%) (Auto) 48 H 12-44 % Monocytes (%) (Auto) 12 0-12 % Eosinophils (%) (Auto) 4 0-10 % Basophils (%) (Auto) 1 0-10 % Neutrophils # (Auto) 1.8 1.8-7.8 X 10^3 Lymphocytes # (Auto) 2.5 1.0-4.0 X 10^3 Monocytes # (Auto) 0.6 0.0-1.0 X 10^3 Eosinophils # (Auto) 0.2 0.0-0.3 10^3/uL Basophils # (Auto) 0.0 0.0-0.1 10^3/uL Immature Granulocyte # (Auto) 0.0 0.0-0.1 10^3/uL Sodium Level 145 135-145 MMOL/L Potassium Level 3.8 3.6-5.0 MMOL/L Chloride Level 110 H 98-107 MMOL/L Carbon Dioxide Level 24 21-32 MMOL/L Anion Gap 11 5-14 MMOL/L Blood Urea Nitrogen 12 7-18 MG/DL Creatinine 0.74 0.60-1.30 MG/DL Estimat Glomerular Filtration Rate 112 BUN/Creatinine Ratio 16 Glucose Level 92 70-105 MG/DL Calcium Level 8.7 8.5-10.1 MG/DL Corrected Calcium 8.9 8.5-10.1 MG/DL Total Bilirubin 0.4 0.1-1.0 MG/DL Aspartate Amino Transf (AST/SGOT) 21 5-34 U/L Alanine Aminotransferase (ALT/SGPT) 26 0-55 U/L Alkaline Phosphatase 51 40-136 U/L Total Protein 6.7 6.4-8.2 GM/DL Albumin 3.7 3.2-4.5 GM/DL Urine Color YELLOW Urine Clarity CLEAR Urine pH 7.0 5-9 Urine Specific [place] 1.015 L 1.016-1.022 Urine Protein NEGATIVE NEGATIVE Urine Glucose (UA) 3+ H NEGATIVE Urine Ketones NEGATIVE NEGATIVE Urine Nitrite NEGATIVE NEGATIVE Urine Bilirubin NEGATIVE NEGATIVE Urine Urobilinogen 1.0 < = 1.0 MG/DL Urine Leukocyte Esterase NEGATIVE NEGATIVE Urine RBC (Auto) NEGATIVE NEGATIVE Urine RBC NONE /HPF Urine WBC NONE /HPF Urine Squamous Epithelial Cells NONE /HPF Urine Crystals NONE /LPF Urine Bacteria NEGATIVE /HPF Urine Casts NONE /LPF Urine Mucus NEGATIVE /LPF Urine Culture Indicated NO (DIMITRI SHELBY MD) Vital Signs/I&O 02/02/21 02/02/21 15:00 16:21 Pulse 92 88 Resp 22 18 B/P (MAP) 122/85 (97) 156/103 (97) Pulse Ox 96 95 O2 Delivery Room Air Room Air (DIMITRI SHELBY MD) Vital Signs/I&O Capillary Refill : Less Than 3 Seconds (ISAÍAS SALDAÑA APRN) Blood Pressure Mean: 97 Departure Impression Primary Impression: Seizure-like activity Disposition: 01 HOME, SELF-CARE Condition: Stable Departure-Patient Inst. Decision time for Depature: 15:44 (ISAÍAS SALDAÑA APRN) Referrals: JERROD SERRANO APRN (PCP) Primary Care Physician [facility] (Family) Primary Care Physician Patient Instructions: Seizures, Adult (DC) ATTENDING PHYSICIAN NOTE: I was physically present as attending physician in the emergency department during the care of this patient, but I was not directly involved in the decision making or delivery of care for this patient. (DIMITRI SHELBY MD) ISAÍAS SALDAÑA APRN Feb 02, 2021 15:44 DIMITRI SHELBY MD Feb 03, 2021 20:43
[2021-02-02 15:46] LABS: BASOPHILS % (AUTO) 1 % (0-10); EOSINOPHILS # (AUTO) 0.2 10^3/uL (0.0-0.3); EOSINOPHILS % (AUTO) 4 % (0-10); HEMATOCRIT 43 % (40-54); HEMOGLOBIN 14.6 g/dL (13.3-17.7); LYMPHOCYTES # (AUTO) 2.5 X 10^3 (1.0-4.0); LYMPHOCYTES % (AUTO) 48 % (12-44); MEAN CORPUSCULAR HEMOGLOBIN 30 pg (25-34); MEAN CORPUSCULAR HGB CONC 34 g/dL (32-36); MEAN CORPUSCULAR VOLUME 90 fL (80-99); MEAN PLATELET VOLUME 10.2 fL (9.0-12.2); MONOCYTES # (AUTO) 0.6 X 10^3 (0.0-1.0); MONOCYTES % (AUTO) 12 % (0-12); NEUTROPHILS # (AUTO) 1.8 X 10^3 (1.8-7.8); NEUTROPHILS % (AUTO) 35 % (42-75); PLATELET COUNT 69 10^3/uL (130-400); WHITE BLOOD COUNT 5.2 10^3/uL (4.3-11.0)
[2021-02-02 15:48] LABS: ALBUMIN 3.7 GM/DL (3.2-4.5)
[2021-02-02 15:49] LABS: POTASSIUM 3.8 MMOL/L (3.6-5.0)
[2021-02-02 15:49] LABS: BILIRUBIN,URINE NEGATIVE (NEGATIVE); CLARITY,URINE CLEAR; COLOR,URINE YELLOW; GLUCOSE, URINE (UA) 3+ (NEGATIVE); KETONES,URINE NEGATIVE (NEGATIVE); LEUKOCYTE ESTERASE ,URINE NEGATIVE (NEGATIVE); NITRITE,URINE NEGATIVE (NEGATIVE); PROTEIN,URINE NEGATIVE (NEGATIVE)
[2021-02-02 15:50] LABS: CALCIUM 8.7 MG/DL (8.5-10.1)
[2021-02-02 15:51] LABS: TOTAL PROTEIN 6.7 GM/DL (6.4-8.2)
[2021-02-02 15:53] LABS: BILIRUBIN,TOTAL 0.4 MG/DL (0.1-1.0)
[2021-02-02 15:55] LABS: CREATININE SERUM 0.74 MG/DL (0.60-1.30)
[2021-02-02 16:01] LABS: BACTERIA,URINE NEGATIVE /HPF
[2021-02-02 16:21] VITALS: BP 156/103
--- OUTSIDE RECORDS SUMMARY | 2021-02-07 05:15 | XMS REPORT | Encounter Summary ---
Author Author [facility] Organization [facility] Address Unknown Phone Unavailable Care Team Providers Care Cable Lacer Name Role Phone Maria Del Carmen Contrerasanda JAGDEEP PCP Reason for Visit * Reason Onset Date Comments Other 12/12/2020 Patient call Encounter Details Care Team Description Date Type Department Estela Redmond MD [address] [place] [id number] Other (Patient call) 12/12/2020 Telephone Behavioral Health: [address] [place] [address] Social History Date Tobacco Use Types Packs/Day Years Used Current Every Day Smoker Smokeless Tobacco: Never Used Drinks/Week oz/Week Comments Alcohol Use Yes Sex Assigned at Date Recorded Male 11/25/2019 1:15 PM CDT documented as of this encounter Functional Status Date of Assessment Functional Status Response 10/12/2020 Does the patient have a hearing impairment: No 12/16/2019 Does the patient have a visual impairment: No 12/16/2019 Does the patient have impaired ambulation: No 12/16/2019 Does the patient have an activity of daily living No (ADL) impairment: 12/16/2019 Does the patient have an instrumental activity of No daily living (IADL) impairment: Date of Assessment Cognitive Status Response 12/16/2019 Does the patient have a cognitive impairment: No documented as of this encounter Miscellaneous Notes * Telephone Encounter - Beatriz Hurtado - 12/12/2020 9:10 AM CDT Left voicemail to follow-up on this encounter. Thank you! * Telephone Encounter - Nat Horta - 12/12/2020 8:39 AM CDT Patient left a message with his name and phone number. It appears he is requesti ng a returned call. documented in this encounter Plan of Treatment Not on filedocumented as of this encounter Goals Goal Patient Associated Recent Progress Patient-Stat Aut hor Goal Type Problems ed? 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
--- OUTSIDE RECORDS SUMMARY | 2021-02-07 05:15 | XMS REPORT | Clinical Summary ---
Demographics Home Phone Preferred Language Unknown Marital Status Episcopal Affiliation Unknown Race White Ethnic Group Unknown Author Author [facility] Organization [facility] Address Unknown Phone Unavailable Care Team Providers Care Head Of Ethics And Compliance Name Role Phone PCP Unavailable Source Comments [facility] ([facility] Delivery) documents do not appear in the [facility] Allergies Not on File Medications Please verify current medications with patient. Not on file Active Problems Not on file Social History Date Tobacco Use Types Packs/Day Years Used Never Assessed Sex Assigned at Date Recorded Not on file Last Filed Vital Signs Not on file Plan of Treatment Health Maintenance Due Date Last Done Comments CT Colonography 1969 Colon cancer: DNA-based 1969 stool test (Cologuard) Sigmoidoscopy 1969 gFOBT or FIT 1969 COVID-19 Vaccine (1) 1981 Colonoscopy 2019 Colorectal Cancer 2019 Screening Influenza Vaccine (#1) 2021 HPV Vaccine Aged Out No longer eligible based on patient's age to complete this topic Pneumococcal Vaccine: Aged Out No longer eligib le based on patient's age to Pediatrics (0 to 5 Years) complete this topic and At-Risk Patients (6 to 64 Years) Results Not on filefrom Last 3 Months
--- OUTSIDE RECORDS SUMMARY | 2021-02-07 05:15 | XMS REPORT | Encounter Summary ---
Author Author [facility] Organization [facility] Address Unknown Phone Unavailable Care Team Providers Care Switch Crew Supervisor Name Role Phone Ben Verenice JAGDEEP PCP Reason for Visit * Reason Onset Date Comments Appointment Request 12/09/2020 Encounter Details Care Team Description Date Type Department Jo-Ann Berger Appointment Request 12/09/2020 Telephone Ep[facility]psy Center: [facility] in [place], [address] [place] [address] Social History Date Tobacco Use Types Packs/Day [...] impairment: No documented as of this encounter Plan of Treatment Not on [...] for the pat ient 

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
--- OUTSIDE RECORDS SUMMARY | 2021-02-07 05:15 | XMS REPORT | Clinical Summary ---
Author Author [facility] Organization [facility] Address Unknown Phone Unavailable Care Team Providers Care Net Developer With W[employer] Name Role Phone Verenice Contreras NP PCP Source Comments Some departments are not documenting in the electronic medical record. If you d o not see the information that you expected, contact Release of Information in [facility] [employer] Information Management department at [phone] for further assistan ce in locating additional records.[facility] Allergies Comments Active Allergy Reactions Severity Noted Date Aripiprazole HALLUCINATION High 05/01/2019 S Lorazepam HALLUCINATION High 07/10/2018 S Zolpidem HALLUCINATION High 05/01/2019 S Medications End Date Status Medication Sig Dispensed Refills Start Date Active levothyroxine (SYNTHROID) Take 50 mcg 0 50 mcg tablet by mouth daily 30 minutes before breakfast. Active dulaglutide (TRULICITY) Inject 0.75 0 0.75 mg/0.5 mL injection mg under the pen skin every 7 days. Active propranoloL (INDERAL) 20 Take 20 mg by 0 mg tablet mouth twice daily. Active QUEtiapine (SEROQUEL) 50 Take 50 mg by 0 mg tablet mouth twice daily. Active haloperidoL (HALDOL) 5 mg Take 1 tablet 0 tablet by mouth in the morning and 3 tablets at bedtime Active atorvastatin (LIPITOR) 10 Take 10 mg by 0 mg tablet mouth at bedtime daily. Active omeprazole DR (PRILOSEC) Take 20 mg by 0 20 mg capsule mouth daily before breakfast. Active glipiZIDE (GLUCOTROL) 5 Take 5 mg by 0 mg tablet mouth daily. Active empagliflozin-metformin Take 1 tablet 0 (SYNJARDY) 12.5-1,000 mg by mouth tab twice daily. Active albuterol sulfate (PROAIR Inhale 2 0 HFA) 90 mcg/actuation puffs by aerosol inhaler mouth into the lungs every 6 hours as needed for Wheezing or Shortness of Breath. Shake well before use. Active insulin NPH hum/reg Inject 0 insulin hm (NOVOLIN 70-30 subcutaneousl FLEXPEN U-100 SC) y 25 units before breakfast and 25 units before dinner Active acetaminophen (TYLENOL) Take 0 500 mg tablet 500-1,000 mg by mouth every 6 hours as needed for Pain. Max of 4,000 mg of acetaminophen in 24 hours. Active divalproex (DEPAKOTE ER) Take 500 mg 0 11/23 500 mg ER tablet by mouth at 1 bedtime daily. 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 12/14/2019 Encounters Care Team Description Date Type Specialty Estela Redmond MD Functional neurological symptom disorder with abnormal movement (Primary Dx); Convulsions, unspecified convulsion type (HCC); Trauma and stressor-related disorder; Intellectual disability; Cluster B personality disorder (HCC) 12/13/2020 Office Visit Psychiatry 12/13/2020 Travel Ericka Lawrence RN Follow-up Phone Call 12/12/2020 Telephone Neurology Estela Redmond MD Other (Patient call) 12/12/2020 Telephone Psychiatry Jo-Ann Berger Appointment Request 12/09/2020 Telephone Neurology from Last 3 Months Family History Relation Name Status Comments Father Mother Social History Date Tobacco Use Types Packs/Day Years Used Current Every Day Smoker Smokeless Tobacco: Never Used Tobacco Cessation: Ready to Quit: Yes; C ounseling Given: Yes Drinks/Week oz/Week Comments Alcohol Use Yes Sex Assigned at Date Recorded Male 11/25/2019 1:15 PM CDT Last Filed Vital Signs Reading Time Taken Comments Vital Sign 142/91 12/13/2020 8:15 AM CDT Blood Pressure 87 12/13/2020 8:15 AM CDT Pulse 36.7 C (98.1 F) 10/12/2020 3:39 PM CDT Temperature 18 12/13/2020 8:15 AM CDT Respiratory Rate 97% 12/13/2020 8:15 AM CDT Oxygen Saturation - - Inhaled Oxygen Concentration 108.9 kg (240 lb) 10/12/2020 3:39 PM CDT Weight 172.7 cm (5' 8") 12/14/2019 8:05 PM CDT Height 36.49 12/14/2019 8:05 PM CDT Body Mass Index Plan of Treatment Health Maintenance Due Date Last Done Comments MEDICARE ANNUAL WELLNESS 1970 VISIT HIV SCREENING 1984 DTAP/TDAP VACCINES (1 - 1987 Tdap) PHYSICAL (COMPREHENSIVE) 1987 EXAM COLORECTAL CANCER 2019 SCREENING SHINGLES RECOMBINANT 2019 VACCINE (1 of 2) INFLUENZA VACCINE 04/07/2021 03/10/2020 HEPATITIS C SCREENING Completed 07/10/2018 Goals Goal Patient Associated Recent Progress Patient-Stat Aut hor Goal Type Problems ed? Remain independent Hospital Yes Earnestine Hernandez, RN Note: "To get better and go home" Results Not on filefrom Last 3 Months Insurance Type Payer Benefit Subscriber ID Effective Phone Address Plan / Dates Group Medicare MEDICARE MEDICARE [id number] 2009-P PART A AND resent [phone] Advance Directives Patient Oracle Specialist Explanation Type Date Recorded Advance 12/16/2019 11:49 AM Directive/DPOA Date Inactivated Comments Code Status Date Activated 12/16/2019 4:19 PM Full Code 12/14/2019 8:07 PM Provider has discussed Code Status No, more discussi on w/Patient or Family? needed
--- OUTSIDE RECORDS SUMMARY | 2021-02-07 05:15 | XMS REPORT | Encounter Summary ---
Author Author [facility] Organization [facility] Address Unknown Phone Unavailable Care Team Providers Care Dry Janitor Name Role Phone BenVerenice JAGDEEP PCP Encounter Details Care Team Description Date Type Department 12/13/2020 Travel Social History Date Tobacco Use Types Packs/Day [...] / COVID-19? documented as of this encounter Functional Status [...] for the pat ient 06/24/2020 8:57 AM LIGHT RAIL TRAIN OPERATOR documented as of this encounter
== END 2021-02-02 16:25 | disposition home or self-care (01) ==
LOC: EDUNIT# 14:58 → ER 14:59
DX: G40.909 Epilepsy, unspecified, not intractable, without status epilepticus (principal); J45.909 Unspecified asthma, uncomplicated; F31.9 Bipolar disorder, unspecified; E11.9 Type 2 diabetes mellitus without complications; F17.210 Nicotine dependence, cigarettes, uncomplicated; Z87.820 Personal history of traumatic brain injury; Z79.899 Other long term (current) drug therapy
CPT/HCPCS: 36415; 80053; 81000; 85025; 99283

== ENCOUNTER → 2021-02-08 | Outpatient (CLI) | payer MEDICARE ==
--- NOTE | 2021-02-08 16:31 | Diagnostic Imaging Report ---
INDICATION: Back pain. FINDINGS: Three views were obtained. The alignment is normal. The vertebral body heights are well-maintained. There is no spondylolysis or spondylolisthesis. No fractures are identified. There are mild degenerative changes. IMPRESSION: Mild lumbar spondylosis otherwise unremarkable. Dictated by: Dictated on workstation # [id number]
--- NOTE | 2021-02-08 16:49 | Diagnostic Imaging Report ---
INDICATION: Back injury from a fall. EXAMINATION: Thoracic spine. FINDINGS: AP and lateral views of the thoracic spine show spondylosis with large osteophytes forming anteriorly and laterally in the mid and lower thoracic spine. There are no compression fractures. Alignment is normal. Disc spaces are well-maintained. IMPRESSION: Diffuse idiopathic skeletal hyperostosis of the thoracic spine. No acute abnormality is seen. Dictated by: Dictated on workstation # [id number]
== END ==
LOC: RAD FS 15:14
PROVIDERS: ATTEND Nurse Practitioner Family
DX: M48.14 Ankylosing hyperostosis [Forestier], thoracic region (principal); M47.816 Spondylosis without myelopathy or radiculopathy, lumbar region; W19.XXXA Unspecified fall, initial encounter
CPT/HCPCS: 72070; 72100

== ENCOUNTER 2021-03-01 22:11 | Emergency (ER) | payer MEDICARE ==
[~2021-03-01] VITALS: Ht 173 cm; Wt 104.3 kg
--- OUTSIDE RECORDS SUMMARY | 2021-03-01 22:15 | XMS REPORT | Clinical Summary ---
Author Author [facility] Organization [facility] Address Unknown Phone Unavailable Care Team Providers Care Meat Puller Name Role Phone Verenice Contreras NP PCP Source Comments Some departments are not documenting in the electronic medical record. If you d o not see the information that you expected, contact Release of Information in [facility] [employer] Information Management department at [phone] for further assistan ce in locating additional records.[facility] Allergies Comments Active Allergy Reactions Severity Noted [...] to Quit: Yes; C ounseling Given: Yes Comments Alcohol Use Standard Drinks/Week Yes 0 (1 standard drink = 0.6 o z pure alcohol) Sex Assigned at Date Recorded Male 11/25/2019 [...] Plan / Dates Group Medicare MEDICARE MEDICARE [id number] 2009-P PART A AND resent [phone] Advance Directives Patient Drug Room Operator Explanation Type Date Recorded Advance 12/16/2019 11:49 AM Directive/DPOA Date Inactivated Comments Code Status Date Activated 12/16/2019 4:19 PM Full Code 12/14/2019 8:07 PM Provider has discussed Code Status No, more discussi on w/Patient or Family? needed
--- NOTE | 2021-03-01 22:30 | ED Psychosocial ---
General Stated Complaint: MENTAL HEALTH EVAL Source: patient, old records (LUIS LECHUGA MD) History of Present Illness Date Seen by Provider: Mar 01, 2021 Time Seen by Provider: 22:11 Initial Comments 50 yo male presenting with complaint of feeling suicidal with plan to hang himself since he found out his niece hung herself this afternoon. He denies taking any medicine to hurt himself or try to overdose. He denies any other symptoms such as fever, chills, cough, congestion, abdominal pain, nausea, vomiting, diarrhea, chest pain. He reports calling crisis line and he reports they told him to come to the ED to be evaluated. As staff was walking him to the bathroom to obtain urine specimen he was asking if we had any cookies for him to eat. Associated Symptoms: anxiety, impaired concentration, suicidal ideation (LUIS LECHUGA MD) Allergies and Home Medications Allergies Coded Allergies: aripiprazole (Verified Allergy, Unknown, hallucinations, 10/01/18) zolpidem (Verified Allergy, Unknown, hallucinations, 10/01/18) Home Medications Clindamycin HCl 300 Mg Capsule, 300 MG PO TIDWM Prescribed by: LINDEN MERCEDES on 10/24/192033 Dicyclomine HCl 20 Mg Tablet, 20 MG PO QID PRN for ABDOMINAL PAIN Prescribed by: LUIS LECHUGA on 10/01/18 0501 Haloperidol 5 Mg Tab, 10 MG PO HS, (Reported) Hydrocodone Bit/Acetaminophen 1 Tab Tab, 1 EACH PO Q4-6HR PRN for PAIN-MODERATE Prescribed by: HILDA YBARRA on 01/24/19 1351 Ibuprofen 800 Mg Tablet, 800 MG PO Q8H PRN for PAIN Prescribed by: LINDEN MERCEDES on 10/24/192033 Magnesium Citrate 296 Ml Solution, 296 ML PO Q6H Prescribed by: HILDA YBARRA on 01/30/19 1258 Ondansetron 4 Mg Tab.rapdis, 4 MG PO Q6H PRN for NAUSEA/VOMITING Prescribed by: LUIS LECHUGA on 07/23/19 2150 Psyllium Husk 0.4 Gm Capsule, 0.4 GM PO DAILY Prescribed by: HILDA YBARRA on 01/30/19 1258 Simvastatin 40 Mg Tablet, HS, (Reported) Patient Home Medication List Home Medication List Reviewed: Yes (LUIS LECHUGA MD) Review of Systems Constitutional: No chills, No fever EENTM: no symptoms reported Respiratory: no symptoms reported Cardiovascular: no symptoms reported Gastrointestinal: no symptoms reported Genitourinary: no symptoms reported Musculoskeletal: no symptoms reported Skin: no symptoms reported Psychiatric/Neurological: Anxiety, Depressed, Emotional Problems (LUIS LECHUGA MD) Past Otlrbjd-Nkoayj-Nyabko Hx Seasonal Allergies Seasonal Allergies: No (LUIS LECHUGA MD) Past Medical History Surgeries: Yes (cystoscopy) Gallbladder, Orthopedic Respiratory: Yes Asthma Cardiac: No Neurological: Yes (PSEUDOSEIZURES) Headaches /Migraines, Seizure Disorder, Traumatic Brain Injury Genitourinary: No Gastrointestinal: Yes Gastroesophageal Reflux, Hepatitis, Cirrhosis Musculoskeletal: No Endocrine: Yes Diabetes, Insulin dep HEENT: No Cancer: No Psychosocial: No (Suicidal and homicidal ideation hx) Bipolar, Personality Disorder Integumentary: No Blood Disorders: No (LUIS LECHUGA MD) Family Medical History No Pertinent Family Hx (LUIS LECHUGA MD) Physical Exam Vital Signs - First Documented 03/01/21 22:15 Temp 36.4 Pulse 100 Resp 20 B/P (MAP) 135/72 (93) Pulse Ox 96 (RICE,MARISOL L DO) Capillary Refill : (LUIS LECHUGA MD) Height, Weight, BMI Height: 5'8.00" Weight: 220lbs. oz. 99.020405rs; 36.00 BMI Method:Stated General Appearance: WD/WN, no apparent distress HEENT: PERRL/EOMI, pharynx normal Neck: non-tender, full range of motion, supple, normal inspection Respiratory: chest non-tender, lungs clear, normal breath sounds, no respiratory distress, no accessory muscle use Cardiovascular: normal peripheral pulses, regular rate, rhythm Gastrointestinal: normal bowel sounds, non tender, soft, no pulsatile mass Extremities: normal range of motion, non-tender, normal capillary refill Neurologic/Psychiatric: ruby on rails developer II-XII nml as tested, no motor/sensory deficits, alert, oriented x 3 Appearance/Memory: disheveled Behavior/Eye Contact: cooperative, good eye contact, normal speech Thoughts/Hallucinations: no apparent hallucination Skin: normal color, warm/dry (LUIS LECHUGA MD) Progress/Results/Core Measures Results/Orders Lab Results Laboratory Tests Test 03/01/21 22:27 03/01/21 22:40 03/02/21 01:07 03/02/21 09:54 Range/Units White Blood Count 7.5 4.3-11.0 10^3/uL Red Blood Count 5.16 4.30-5.52 10^6/uL Hemoglobin 15.9 13.3-17.7 g/dL Hematocrit 47 40-54 % Mean Corpuscular Volume 91 80-99 fL Mean Corpuscular Hemoglobin 31 25-34 pg Mean Corpuscular Hemoglobin Concent 34 32-36 g/dL Red Cell Distribution Width 13.4 10.0-14.5 % Platelet Count 82 L 130-400 10^3/uL Mean Platelet Volume 9.7 9.0-12.2 fL Immature Granulocyte % (Auto) 0 % Neutrophils (%) (Auto) 34 L 42-75 % Lymphocytes (%) (Auto) 50 H 12-44 % Monocytes (%) (Auto) 10 0-12 % Eosinophils (%) (Auto) 5 0-10 % Basophils (%) (Auto) 1 0-10 % Neutrophils # (Auto) 2.6 1.8-7.8 X 10^3 Lymphocytes # (Auto) 3.8 1.0-4.0 X 10^3 Monocytes # (Auto) 0.8 0.0-1.0 X 10^3 Eosinophils # (Auto) 0.4 H 0.0-0.3 10^3/uL Basophils # (Auto) 0.0 0.0-0.1 10^3/uL Immature Granulocyte # (Auto) 0.0 0.0-0.1 10^3/uL Percent Immature Platelet Fraction 2.9 0.0-7.6 % Sodium Level 143 135-145 MMOL/L Potassium Level 3.8 3.6-5.0 MMOL/L Chloride Level 109 H 98-107 MMOL/L Carbon Dioxide Level 22 21-32 MMOL/L Anion Gap 12 5-14 MMOL/L Blood Urea Nitrogen 12 7-18 MG/DL Creatinine 0.88 0.60-1.30 MG/DL Estimat Glomerular Filtration Rate 91 BUN/Creatinine Ratio 14 Glucose Level 161 H 70-105 MG/DL Calcium Level 9.3 8.5-10.1 MG/DL Corrected Calcium 9.2 8.5-10.1 MG/DL Total Bilirubin 0.4 0.1-1.0 MG/DL Aspartate Amino Transf (AST/SGOT) 21 5-34 U/L Alanine Aminotransferase (ALT/SGPT) 20 0-55 U/L Alkaline Phosphatase 64 40-136 U/L Total Protein 7.1 6.4-8.2 GM/DL Albumin 4.1 3.2-4.5 GM/DL Salicylates Level < 0.3 L 5.0-20.0 MG/DL Acetaminophen Level < 10 L 10-30 UG/ML Serum Alcohol < 10 <10 MG/DL Urine Color YELLOW Urine Clarity CLEAR Urine pH 6.5 5-9 Urine Specific [place] 1.015 L 1.016-1.022 Urine Protein NEGATIVE NEGATIVE Urine Glucose (UA) 3+ H NEGATIVE Urine Ketones TRACE H NEGATIVE Urine Nitrite NEGATIVE NEGATIVE Urine Bilirubin NEGATIVE NEGATIVE Urine Urobilinogen 1.0 < = 1.0 MG/DL Urine Leukocyte Esterase NEGATIVE NEGATIVE Urine RBC (Auto) NEGATIVE NEGATIVE Urine RBC NONE /HPF Urine WBC RARE /HPF Urine Squamous Epithelial Cells 0-2 /HPF Urine Crystals NONE /LPF Urine Bacteria NEGATIVE /HPF Urine Casts NONE /LPF Urine Mucus NEGATIVE /LPF Urine Culture Indicated NO Urine Opiates Screen NEGATIVE NEGATIVE Urine Oxycodone Screen NEGATIVE NEGATIVE Urine Methadone Screen NEGATIVE NEGATIVE Urine Propoxyphene Screen NEGATIVE NEGATIVE Urine Barbiturates Screen NEGATIVE NEGATIVE Ur Tricyclic Antidepressants Screen POSITIVE H NEGATIVE Urine Phencyclidine Screen NEGATIVE NEGATIVE Urine Amphetamines Screen NEGATIVE NEGATIVE Urine Methamphetamines Screen NEGATIVE NEGATIVE Urine Benzodiazepines Screen NEGATIVE NEGATIVE Urine Cocaine Screen NEGATIVE NEGATIVE Urine Cannabinoids Screen NEGATIVE NEGATIVE Influenza Type A (RT-PCR) Not Detected Not Detecte Influenza Type B (RT-PCR) Not Detected Not Detecte SARS-CoV-2 RNA (RT-PCR) Not Detected Not Detecte Glucometer 132 H 70-110 MG/DL (MARISOL RICE DO) Progress Progress Note #1: Progress Note Obtain basic labs, urine and urine drug screen and ECG to medically screen him for mental health evaluation. Progress Note #2: Time: 22:56 Progress Note CBC stable with chronic thrombocytopenia. Chemistry stable without acute significant abnormality. Alcohol, Salicylate and Acetaminophen levels are all negative. ECG stable without acute changes. Awaiting UA and UDS but patient appears to be medically stable and clear for mental health evaluation. Progress Note #3: Time: 23:12 Progress Note Urine clear of infection but does have glucose present and UDS shows only tricyclics which he is prescribed. No drugs of abuse. Medically stable and clear for mental health evaluation so will contact [facility] about screening patient. Progress Note #4: Time: 00:58 Progress Note He finished speaking with [facility] Mental health screener. Awaiting them to call with plan for disposition. Progress Note #5: Time: 01:08 Progress Note [facility] feels the patient meets admission criteria and will look at [place] [facility] but they need a Covid swab on him to be able to place the patient. Progress Note #6: Time: 07:00 Progress Note Pt had negative Covid swab. He has remained calm and cooperative overnight. Awaiting placement still. Care passed to Dr. Rice at shift change pending placement. (LUIS LECHUGA MD) Initial ECG Impression Date: Mar 01, 2021 Initial ECG Impression Time: 22:33 Initial ECG Rate: 99 Initial ECG Rhythm: Normal Sinus Initial ECG Comparisson: Unchanged Comment Normal sinus rhythm with a heart rate of 99 bpm. CO interval 168 ms. QT interval 358 ms with a QTc interval 460 ms. There is a left axis deviation. There is no acute ST elevation. Appears stable from prior tracings. (LUIS LECHUGA MD) Transfer of Care Time: 07:00 Care transferred to: Dr. Rice (LUIS LECHUGA MD) Departure Impression Primary Impression: Situational depression Additional Impressions: Stress and adjustment reaction Suicidal ideation Disposition: 65 XFER TO PSYCH HOSP/UNIT Condition: Stable Transfer Transfer Reason: Exceeds level of care Time Spoke to Accepting Phy: 13:56 Transfer Progress Notes pt accepted by Dr Menezes, [facility] for inpt treatment Transfer Facility: [facility] Method of Transfer: Private Vehicle (MARISOL RCIE DO) Departure-Patient Inst. Referrals: JERROD SERRANO APRN (PCP) Primary Care Physician [facility] (Family) Primary Care Physician LUIS LECHUGA MD Mar 01, 2021 22:30 MARISOL RICE DO Mar 02, 2021 14:02
[2021-03-01 22:32] LABS: WHITE BLOOD COUNT 7.5 10^3/uL (4.3-11.0)
[2021-03-01 22:33] LABS: HEMATOCRIT 47 % (40-54); HEMOGLOBIN 15.9 g/dL (13.3-17.7); LYMPHOCYTES % (AUTO) 50 % (12-44); MEAN CORPUSCULAR HEMOGLOBIN 31 pg (25-34); MEAN CORPUSCULAR HGB CONC 34 g/dL (32-36); MEAN CORPUSCULAR VOLUME 91 fL (80-99); MEAN PLATELET VOLUME 9.7 fL (9.0-12.2); MONOCYTES % (AUTO) 10 % (0-12); NEUTROPHILS % (AUTO) 34 % (42-75); PLATELET COUNT 82 10^3/uL (130-400)
[2021-03-01 22:34] LABS: BASOPHILS % (AUTO) 1 % (0-10); EOSINOPHILS # (AUTO) 0.4 10^3/uL (0.0-0.3); EOSINOPHILS % (AUTO) 5 % (0-10); LYMPHOCYTES # (AUTO) 3.8 X 10^3 (1.0-4.0); MONOCYTES # (AUTO) 0.8 X 10^3 (0.0-1.0); NEUTROPHILS # (AUTO) 2.6 X 10^3 (1.8-7.8)
[2021-03-01 22:50] LABS: ALANINE AMINOTRANSFERASE 20 U/L (0-55); ALKALINE PHOSPHATASE 64 U/L (40-136); BILIRUBIN,TOTAL 0.4 MG/DL (0.1-1.0); BUN/CREATININE RATIO 14; CALCIUM 9.3 MG/DL (8.5-10.1); CARBON DIOXIDE 22 MMOL/L (21-32); CHLORIDE 109 MMOL/L (98-107); CREATININE SERUM 0.88 MG/DL (0.60-1.30); GFR ESTIMATED 91; GLUCOSE 161 MG/DL (70-105); POTASSIUM 3.8 MMOL/L (3.6-5.0); SODIUM 143 MMOL/L (135-145)
[2021-03-01 22:51] LABS: ACETAMINOPHEN < 10 UG/ML (10-30); ALBUMIN 4.1 GM/DL (3.2-4.5); SALICYLATE < 0.3 MG/DL (5.0-20.0); TOTAL PROTEIN 7.1 GM/DL (6.4-8.2)
[2021-03-01 23:07] LABS: BACTERIA,URINE NEGATIVE /HPF; BILIRUBIN,URINE NEGATIVE (NEGATIVE); CLARITY,URINE CLEAR; COLOR,URINE YELLOW; GLUCOSE, URINE (UA) 3+ (NEGATIVE); KETONES,URINE TRACE (NEGATIVE); LEUKOCYTE ESTERASE ,URINE NEGATIVE (NEGATIVE); NITRITE,URINE NEGATIVE (NEGATIVE); PH,URINE 6.5 (5-9); PROTEIN,URINE NEGATIVE (NEGATIVE); SQUAMOUS EPITHELIAL CELL,UR 0-2 /HPF; WBC,URINE RARE /HPF
[2021-03-01 23:12] LABS: AMPHETAMINE SCREEN, URINE NEGATIVE (NEGATIVE); BARBITURATE SCREEN URINE NEGATIVE (NEGATIVE); BENZODIAZEPINES SCREEN URINE NEGATIVE (NEGATIVE); CANNABINOID SCREEN, URINE NEGATIVE (NEGATIVE); COCAINE SCREEN URINE NEGATIVE (NEGATIVE); METHADONE STAT NEGATIVE (NEGATIVE); METHAMPHETAMINE SCREEN URINE S NEGATIVE (NEGATIVE); OPIATE SCREEN URINE NEGATIVE (NEGATIVE); OXYCODONE STAT NEGATIVE (NEGATIVE); PROPOXYPHENE STAT NEGATIVE (NEGATIVE); TRICYCLIC ANTIDEPRESSANTS SCRE POSITIVE (NEGATIVE)
[2021-03-02 14:55] VITALS: BP 136/83
== END 2021-03-02 14:55 ==
LOC: EDUNIT# 22:11 → ER FS 22:12
DX: F43.20 Adjustment disorder, unspecified (principal); R45.851 Suicidal ideations; J45.909 Unspecified asthma, uncomplicated; E11.9 Type 2 diabetes mellitus without complications; F41.9 Anxiety disorder, unspecified; Z87.820 Personal history of traumatic brain injury; Z20.822 Contact with and (suspected) exposure to COVID-19
CPT/HCPCS: 36415; 80053; 80306; 81000; 82947; 85025; 87636; 93005; 99283; G0480 ×3; 80320; 80329

== ENCOUNTER 2021-03-19 14:45 | Emergency (ER) | payer MEDICARE ==
[~2021-03-19] VITALS: Ht 172.7 cm; Wt 107.4 kg
[2021-03-19 14:50] VITALS: BP 109/81
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
--- OUTSIDE RECORDS SUMMARY | 2021-03-19 14:50 | XMS REPORT | Clinical Summary ---
Author Author [facility] Organization [facility] Address Unknown Phone Unavailable Care Team Providers Care Circular Distributor Name Role Phone Verenice Contreras NP PCP Source Comments Some departments are not documenting in the electronic medical record. If you d o not see the information that you expected, contact Release of Information in [facility] [employer] Information Management department at [phone] for further assistan ce in locating additional records.[facility] Allergies Comments Active Allergy Reactions Severity [...] symptom disorder with abnorma l movement 12/14/2019 Family History Relation Name Status Comments Father [...] Plan / Dates Group Medicare MEDICARE MEDICARE [id number] 2009-P PART A AND resent B [phone] Advance Directives Patient Energy Conservation Director Explanation Type Date Recorded Advance 12/16/2019 11:49 AM Directive/DPOA Date Inactivated Comments Code Status Date Activated 12/16/2019 4:19 PM Full Code 12/14/2019 8:07 PM Provider has discussed Code Status No, more discussi on w/Patient or Family? needed
--- OUTSIDE RECORDS SUMMARY | 2021-03-19 14:50 | XMS REPORT | Encounter Summary ---
Author Author [facility] Organization [facility] Address Unknown Phone Unavailable Care Team Providers Care Concrete Panel Installer Name Role Phone Adenike Contreras PCP Unavailable Poppy Fong [phone] Unavailable Marion Royal [phone] Encounter Details Care Team Description Date Type Department Marion Royal 03/06/2021 Patient [facility] Care Outreach Management [address] [place] [address] Social History Date Tobacco Use Types Packs/Day [...] 03/03/2021 relatives? How often do you attend confucianism or hindu More than 4 ti mes per year 03/03/2021 services? Do you belong to any clubs or organizations such No 03/03/2021 as confucianism groups, unions, fraternal or athletic groups, or [...] * Progress Notes - Marion Royal - 03/06/2021 8:49 AM CDT SHIVAM Royal LMSW assigned to Pt documented in this encounter Plan of Treatment Not on filedocumented as of this encounter Visit Diagnoses Not on filedocumented in this encounter Care Teams Start Date End Date Concrete Panel Installer Relationship Specialty 03/02/21 Adenike Contreras, PCT PCP - General 03/06/21 03/06/21 Poppy Fong Narrow Fabric Loom Fixer 03/06/21 Marion Royal Narrow Fabric Loom Fixer Social Work documented as of this encounter
--- OUTSIDE RECORDS SUMMARY | 2021-03-19 14:50 | XMS REPORT | Encounter Summary ---
Author Author [facility] Organization [facility] Address Unknown Phone Unavailable Care Team Providers Care Vegetable Harvest Worker Name Role Phone Adenike Contreras PCP Unavailable Marion Royal [phone] Encounter Details Care Team Description Date Type Department Marion Royal 03/16/2021 Patient [facility] Care Outreach Management [address] [place] [address] Social History Date Tobacco Use Types Packs/Day [...] 03/03/2021 relatives? How often do you attend advent or sikhism More than 4 ti mes per year 03/03/2021 services? Do you belong to any clubs or organizations such No 03/03/2021 as advent groups, unions, fraternal or athletic groups, or [...] * Progress Notes - Marion Royal - 03/16/2021 4:19 PM CDT Patient: Abiel Hurd : 1970 PCP: Adenike Contreras PCT Today's Date: 03/16/2021 [place] Issue: Follow up Intervention: SW contacted Pt for update. Pt has had a very hard week. They young d the on Saturday. It was an open casket and they did not make his niece look that pretty. Pt states he got upset at the because his niece's ex- boyfriend was there and he doesn't like him. Pt states "it took 20 people to ho ld me back from kicking his ass." Pt is struggling with grief. Pt states "I st ill cannot believe she is gone. She was my sweet little girl." throughout the c onversation. SW asked Pt if, later on down the line, he would be interested in Grief/loss support groups. Pt said probably, but not right now. Pt feels he's florian right now because he has a lot of supports to help him get through the haydee th of his niece. Pt states it might be easier once the cause of is determ ined. Pt feels she was murdered, but it the air twister winder deems it accidental/natural causes, he will have to go with that. It's "just so unsure right now that I ca n't wrap my head around it. I need to know what happened to get closure." Pt th anked SW for being a support Plan: SW will follow up and be available as needed Marion Royal LMSW 03/16/2021 4:19 PM documented in this encounter Plan of Treatment Not on filedocumented as of this encounter Visit Diagnoses Not on filedocumented in this encounter Care Teams Start Date End Date Vegetable Harvest Worker Relationship Specialty 03/02/21 Adenike Contreras, PCT PCP - General 03/06/21 Marion Royal Service Station Console Operator Social Work documented as of this encounter
--- OUTSIDE RECORDS SUMMARY | 2021-03-19 14:50 | XMS REPORT | Encounter Summary ---
Author Author [facility] Organization [facility] Address Unknown Phone Unavailable Care Team Providers Care Electric Vehicle Electrician Name Role Phone Adenike Contreras PCP Unavailable Encounter Details Care Team Description Date Type Department 03/02/2021 Travel Social History Date Tobacco Use Types [...] 03/03/2021 relatives? How often do you attend buddhist or mandaeism More than 4 ti mes per year 03/03/2021 services? Do you belong to any clubs or organizations such No 03/03/2021 as buddhist groups, unions, fraternal or athletic groups, or [...] / COVID-19? documented as of this encounter Plan of Treatment Not on filedocumented as of this encounter Visit Diagnoses Not on filedocumented in this encounter Care Teams Start Date End Date Electric Vehicle Electrician Relationship Specialty 03/02/21 Adenike Contreras, PCT PCP - General documented as of this encounter
--- OUTSIDE RECORDS SUMMARY | 2021-03-19 14:50 | XMS REPORT | Encounter Summary ---
Author Author [facility] Organization [facility] Address Unknown Phone Unavailable Care Team Providers Care Biztalk Architect Name Role Phone Adenike Contreras PCT PCP Unavailable Poppy Fong [phone] Unavailable Marion Royal [phone] Encounter Details Care Team Description Date Type Department Poppy Fong 03/06/2021 Patient [facility] Care Outreach Management [address] [place] [address] Social History Date Tobacco Use Types Packs/Day [...] 03/03/2021 relatives? How often do you attend temple or voodoo More than 4 ti mes per year 03/03/2021 services? Do you belong to any clubs or organizations such No 03/03/2021 as temple groups, unions, fraternal or athletic groups, or [...] encounter Miscellaneous Notes * Progress Notes - Poppy Fong - 03/06/2021 7:51 AM CDT SW was unable to meet with patient inperson prior to Discharge. Sw will reach ou t for discharge follow up documented in this encounter Plan of Treatment Not on filedocumented as of this encounter Visit Diagnoses Not on filedocumented in this encounter Care Teams Start Date End Date Biztalk Architect Relationship Specialty 03/02/21 Adenike Contreras, PCT PCP - General 03/06/21 03/06/21 Poppy Fong Clinical Trials Data Coordinator 03/06/21 Marion Royal Clinical Trials Data Coordinator Social Work documented as of this encounter
--- OUTSIDE RECORDS SUMMARY | 2021-03-19 14:50 | XMS REPORT | Clinical Summary ---
Author Author [facility] Address Unknown Phone Unavailable Care Team Providers Care Ecological Risk Assessor Name Role Phone Adenike Contreras [facility] PCP Unavailable Marion Royal [phone] Allergies Comments Active Allergy Reactions Severity Noted Date hallucinations Aripiprazole Hives, Rash, High 09/29/2018 Other (See Comments) Hallucinations Lorazepam Other (See High 07/10/2018 Comments) hallucinations Zolpidem Hives, Other High 09/29/2018 (See Comments) Medications End Date Status Medication Sig Dispensed Refills Start Date Active QUEtiapine (SEROQUEL) 300 Take 450 mg 0 MG tablet by mouth at bedtime. Active empagliflozin-metFORMIN Take 2 0 ER (SYNJARDY XR) tablets by 12.5-1000 MG 24 hr tablet mouth daily with breakfast. Active omeprazole (PRILOSEC) 20 Take 20 mg by 0 MG capsule mouth daily. Active atorvastatin (LIPITOR) 10 Take 10 mg by 0 MG tablet mouth daily. Active escitalopram (LEXAPRO) 20 Take 20 mg by 0 MG tablet mouth daily. Active divalproex (DEPAKOTE ER) Take 500 mg 0 500 MG 24 hr tablet by mouth in the morning and at bedtime. Active propranolol (INDERAL) 10 Take 20 mg by 0 MG tablet mouth 2 (two) times daily. Active topiramate (TOPAMAX) 25 Take 25 mg by 0 MG capsule mouth at bedtime. Active haloperidol (HALDOL) 5 MG Take 5 mg by 0 tablet mouth daily. Active haloperidol (HALDOL) 5 MG Take 15 mg by 0 tablet mouth at bedtime. Active benztropine (COGENTIN) 1 Take 2 mg by 0 MG tablet mouth at bedtime. Active liraglutide (VICTOZA) 18 Inject 1.8 mg 0 MG/3ML pen injection into the skin daily. Active insulin aspart Inject 50 0 protamine-insulin aspart Units into (NOVOLOG 70/30) (70-30) the skin 100 UNIT/ML pen injection daily. Active insulin aspart Inject 55 0 protamine-insulin aspart Units into (NOVOLOG 70/30) (70-30) the skin at 100 UNIT/ML pen injection bedtime. Active albuterol (PROAIR, Inhale 2 0 VENTOLIN) 108 (90 Base) puffs into MCG/ACT inhaler the lungs every 6 (six) hours as needed for Wheezing. Every 4-6 hours PRN. Active levothyroxine (SYNTHROID) Take 50 mcg 0 50 MCG tablet by mouth every morning before breakfast. Active busPIRone (BUSPAR) 15 MG Take 1 tablet 90 tablet 0 tabletIndications: (15 mg total) 1 Anxiety Disorder by mouth 3 (three) times daily. Indications: Anxiety Disorder 03/05/2021 Discontinued busPIRone (BUSPAR) 10 MG Take 10 mg by 0 tablet mouth 3 (three) times daily. Active Problems Problem Noted Date Schizoaffective disorder, bipolar type 03/03/2021 Suicidal ideation 03/03/2021 PTSD (post-traumatic stress disorder) 03/03/2021 Intellectual disability 03/03/2021 Tremor 03/03/2021 Pseudoseizure 03/03/2021 HLD (hyperlipidemia) 03/03/2021 GERD (gastroesophageal reflux disease) 03/03/2021 COPD (chronic obstructive pulmonary disease) 021 ANDRES (obstructive sleep apnea) 03/03/2021 Chronic midline low back pain 03/03/2021 Type 2 diabetes mellitus without complication 2020 Anxiety 03/03/2021 Tobacco use disorder 03/03/2021 Grief 03/03/2021 Hypothyroidism 03/03/2021 Encounters Care Team Description Date Type Specialty Marion Royal 03/16/2021 Patient Care Management Outreach Marion Royal 03/08/2021 Patient Care Management Outreach Marion Royal 03/06/2021 Patient Care Management Outreach Poppy Fong 03/06/2021 Patient Care Management Outreach 03/02/2021 Travel from Last 3 Months Immunizations Name Administration Dates Next Due COVID-19 mRNA LNP-S PF 10/21/2020, 09/23/2020 (Moderna) INFLUENZA IIV4 PF 03/10/2020 (FLULAVAL,FLUZONE,FLUARIX ,AFLURIA QUAD) Influenza IIV3 MDV 05/02/2018, 07/08/2017 (Multi-dose vial) Pneumococcal 11/22/2011 Polysaccharide (23-valent) Tdap 05/29/2019 Family History Relation Name Status Comments Other 3 children Alive Social History Date Tobacco Use Types Packs/Day [...] 03/03/2021 relatives? How often do you attend adventism or taoism More than 4 ti mes per year 03/03/2021 services? Do you belong to any clubs or organizations such No 03/03/2021 as adventism groups, unions, fraternal or athletic groups, or [...] or suspected to have Coronavirus / COVID-19? Last Filed Vital Signs Reading Time Taken Comments Vital Sign 94/64 03/05/2021 8:17 AM CDT Blood Pressure 97 03/05/2021 8:17 AM CDT Pulse 36.8 C (98.3 F) 03/05/2021 8:16 AM CDT Temperature 16 03/05/2021 8:16 AM CDT Respiratory Rate 97% 03/05/2021 8:16 AM CDT Oxygen Saturation - - Inhaled Oxygen Concentration 104.3 kg (230 lb) 03/02/2021 6:40 PM CDT Weight 167.6 cm (5' 6") 03/02/2021 6:40 PM CDT Height 37.12 03/02/2021 6:40 PM CDT Body Mass Index Plan of Treatment Health Maintenance Due Date Last Done Comments Diabetic Eye Exam 1979 Diabetic Foot Exam 1979 Annual Wellness Visit 1987 Hepatitis C Screening 1987 Urine Microalbumin 1987 MMR Vaccines-Adult 1988 Zoster Vaccine (1 of 2) 2019 Influenza Vaccine (#1) 2021 03/10/2020, 05/02/2018, 07/08/2017 Diabetic A1C Due 09/03/2021 03/03/2021, 08/14/2019, 05/13/2019 DTaP,Tdap,and Td Vaccines 05/29/2029 05/29/2019 (2 - Td or Tdap) Colon Cancer Screening 11/16/2029 11/17/2019 Pneumo-Vaccine: 65+Yrs (2 2034 11/22/2011 of 2 - PPSV23) Pneumo-Vaccine: Peds (0-5 2034 11/22/2011 Yrs) & At-Risk Patients (6-64 Yrs) (2 of 2 - PPSV23) COVID-19 Vaccine Completed 10/21/2020, 09/23/2020 HIB Vaccines Aged Out No longer eligible based on patient's age to complete this topic IPV Vaccines Aged Out No longer eligible based on patient's age to complete this topic Meningococcal Vaccine Aged Out No longer eligib le based on patient's age to complete this topic Rotavirus Vaccines Aged Out No longer eligible based on patient's age to complete this topic Procedures Comments Procedure Name Priority Date/Time Associated Diag nosis PERFORM POINT OF CARE Timed 03/05/2021 GLUCOSE 8:19 AM CDT PERFORM POINT OF CARE Timed 03/04/2021 GLUCOSE 9:17 PM CDT PERFORM POINT OF CARE Timed 03/04/2021 GLUCOSE 5:43 PM CDT PERFORM POINT OF CARE Timed 03/04/2021 GLUCOSE 12:19 PM CDT PERFORM POINT OF CARE Timed 03/04/2021 GLUCOSE 8:03 AM CDT PERFORM POINT OF CARE Timed 03/03/2021 GLUCOSE 8:57 PM CDT EKG 12-LEAD Routine 03/03/2021 6:44 PM CDT PERFORM POINT OF CARE Timed 03/03/2021 GLUCOSE 5:45 PM CDT PERFORM POINT OF CARE Timed 03/03/2021 GLUCOSE 12:35 PM CDT PERFORM POINT OF CARE Timed 03/03/2021 GLUCOSE 8:18 AM CDT VALPROIC ACID LEVEL, Timed 03/03/2021 TOTAL 5:22 AM CDT HEMOGLOBIN A1C Timed 03/03/2021 5:22 AM CDT TSH (REFLEX FREE T4 IF Timed 03/03/2021 ABNORMAL) 5:22 AM CDT PERFORM POINT OF CARE Timed 03/02/2021 GLUCOSE 8:16 PM CDT PERFORM POINT OF CARE Timed 03/02/2021 GLUCOSE 6:02 PM CDT from Last 3 Months Results * Perform Point Of Care Glucose (03/05/2021 8:19 AM CDT) Only the most recent of 11 results within the time period is included. Bedside Glucose 174 (H)Comment: NovaMeter 74 - 106 mg/dL [facility] Specimen Performing Organization Address City/State/ZIP Code P jet Number [facility] [address] [place] [address] * EKG 12 lead (03/03/2021 6:44 PM CDT) Heart Rate 86 bpm PHILIPSECG Interval 698 ms PHILIPSECG Atrial Rate 87 ms PHILIPSECG SV P-R Interval 160 ms PHILIPSECG P Duration 102 ms PHILIPSECG P Horizontal 71 deg PHILIPSECG [place] P Front [place] -2 deg PHILIPSECG Q Onset 499 ms PHILIPSECG QRSD Interval 86 ms PHILIPSECG QT Interval 380 ms PHILIPSECG QTcB 455 ms PHILIPSECG QTcF 428 ms PHILIPSECG QRS Horizontal -61 deg PHILIPSECG [place] QRS AXIS -32 deg PHILIPSECG I40 Horizontal 51 deg PHILIPSECG [place] I40 Front [place] 22 deg PHILIPSECG T-40 Horizontal 265 deg PHILIPSECG [place] T-40 Front [place] -56 deg PHILIPSECG T Horizontal 50 deg PHILIPSECG [place] T Wave [place] 54 deg PHILIPSECG S-T HORIZONTAL 71 deg PHILIPSECG AXIS S-T FRONT AXIS 77 deg PHILIPSECG ECG Impression - OTHERWISE NORMAL ECG - PHILIPSECG ECG Impression SR PHILIPSECG ECG Impression Sinus rhythm PHILIPSECG ECG Impression normal P axis, V-rate 60-99 PHILIPSEC G ECG Impression LAD PHILIPSECG ECG Impression Left axis deviation PHILIPSECG ECG Impression QRS axis (-30,-90) PHILIPSECG Specimen Performing Organization Address City/[facility]/ZIP [facility] [place] jet [place] PHILIPSECG * TSH (Reflex Free T4 if abnormal) (03/03/2021 5:22 AM CDT) Pathologist [facility] TSH 3.258 0.400 - 4.000 uIU/mL [facility] Specimen Blood Performing Organization Address City/[facility]/ZIP Code P jet Number [facility] [address] [place] [address] * Hemoglobin A1c (03/03/2021 5:22 AM CDT) Pathologist [facility] Hemoglobin A1C 6.7 (H) <5.7 % [facility] Specimen Blood Narrative [facility] - 03/03/2021 6:34 AM CDT [place] [employer] recommendations are as follows: Normal - A1c less than 5.7% Prediabetes - A1c 5.7 - 6.4% Diabetes - A1c 6.5% or greater Performing Organization Address City/[facility]/ZIP Code P jet Number [facility] [address] [place] [address] * Valproic acid level, total (03/03/2021 5:22 AM CDT) Valproic Acid 44 (L) 50 - 100 ug/mL [facility] Specimen Blood Performing Organization Address City/State/ZIP Code P jet Number [facility] [address] [place] [address] from Last 3 Months Insurance Type Payer Benefit Subscriber ID Effective Phone Address Plan / Dates Group Medicare MEDICARE MEDICARE [id number] 2009-P [address] [place] [address] Advance Directives For more information, please contact: [phone] Patient Air Motor Repairer Explanation Type Date Recorded Advance Directives and Living Will Power of Stringed Instrument Assembler Date Inactivated Comments Code Status Date Activated Full Code 03/05/2021 9:42 AM 03/05/2021 9:42 AM Full Code 03/02/2021 7:06 PM Care Teams Start Date End Date Ecological Risk Assessor Relationship Specialty 03/02/21 Adenike Contreras, PCT PCP - General 03/06/21 Marion Royal Body Finisher Social Work
--- NOTE | 2021-03-19 14:54 | ED Neurological Problem ---
General Stated Complaint: LT ARM NUMBNESS History of Present Illness Date Seen by Provider: Mar 19, 2021 Time Seen by Provider: 14:49 Initial Comments 50-year-old male presents with distal left arm/hand tingling, numbness and difficulty extending his wrist. Patient reports that he woke up with it this morning that way. Patient presented to urgent care who sent him here with concerns for stroke. Patient has no other neurologic symptoms. Patient is unsure when it happened during the night or of any trauma to the area. Patient with no other systemic complaints Allergies and Home Medications Allergies Coded Allergies: aripiprazole (Verified Allergy, Unknown, hallucinations, 10/01/18) zolpidem (Verified Allergy, Unknown, hallucinations, 10/01/18) Patient Home Medication List Home Medication List Reviewed: Yes Budesonide/Formoterol Fumarate (Symbicort 160-4.5 Mcg Inhaler) 10.2 Gm Hfa.aer.ad, (Reported) Entered as Reported by: JAYDA CHRISTIANSEN on 10/01/181818 Citalopram Hydrobromide (Celexa) 40 Mg Tablet, (Reported) Entered as Reported by: SUJATA COLLINS on 09/06/182052 Clindamycin HCl (Clindamycin HCl) 300 Mg Capsule, 300 MG PO TIDWM Prescribed by: LINDEN MERCEDES on 10/24/192033 Dicyclomine HCl (Dicyclomine HCl) 20 Mg Tablet, 20 MG PO QID PRN for ABDOMINAL PAIN Prescribed by: LUIS LECHUGA on 10/01/18 0501 Haloperidol (Haldol Tab) 5 Mg Tab, 10 MG PO HS, (Reported) Entered as Reported by: SUJATA COLLINS on 09/06/182052 Hydrocodone Bit/Acetaminophen (Lortab 5 Mg Tablet) 1 Tab Tab, 1 EACH PO Q4-6HR PRN for PAIN-MODERATE Prescribed by: HILDA YBARRA on 01/24/19 135 Ibuprofen (Ibuprofen) 800 Mg Tablet, 800 MG PO Q8H PRN for PAIN Prescribed by: LINDEN MERCEDES on 10/24/192033 Insulin Glargine,Hum.rec.anlog (Basaglar Kwikpen U-100) 100 Unit/1 Ml Insuln.pen, (Reported) Entered as Reported by: JAYDA CHRISTIANSEN on 10/01/181818 Lorazepam (Lorazepam) 1 Mg Tablet, (Reported) Entered as Reported by: JAYDA CHRISTIANSEN on 10/01/181818 Magnesium Citrate (Magnesium Citrate) 296 Ml Solution, 296 ML PO Q6H Prescribed by: HILDA YBARRA on 01/30/19 1258 Ondansetron (Ondansetron Odt) 4 Mg Tab.rapdis, 4 MG PO Q6H PRN for NAUSEA/VOMITING Prescribed by: LUIS LECHUGA on 07/23/192149 Psyllium Husk (Metamucil) 0.4 Gm Capsule, 0.4 GM PO DAILY Prescribed by: HILDA YBARRA on 01/30/19 1258 Simvastatin (Zocor) 40 Mg Tablet, HS, (Reported) Entered as Reported by: SUJATA COLLINS on 09/06/182052 [Lorazepam Tab 1MG] , (Reported) Entered as Reported by: SUJATA COLLINS on 09/06/182035 [Metformin Tab 500MG] , (Reported) Entered as Reported by: SUJATA COLLINS on 09/06/182035 [Phenytoin Ex Cap 100MG] , (Reported) Entered as Reported by: SUJATA COLLINS on 09/06/182035 [Pot Cl Micro Tab 20MEQ Er] , (Reported) Entered as Reported by: SUJATA COLLINS on 09/06/182035 [Risperidone Tab 3MG] , (Reported) Entered as Reported by: SUJATA COLLINS on 09/06/182035 Review of Systems Review of Systems Constitutional: no symptoms reported Eyes: No Symptoms Reported Ears, Nose, Mouth, Throat: no symptoms reported Respiratory: no symptoms reported Cardiovascular: no symptoms reported Gastrointestinal: no symptoms reported Musculoskeletal: see HPI Skin: no symptoms reported Psychiatric/Neurological: See HPI Past Lyzhwdp-Lmebig-Mttqrn Hx Immunizations Up To Date First/Initial COVID19 Vaccinat: January 2021 Seasonal Allergies Seasonal Allergies: No Past Medical History Surgeries: Yes (cystoscopy) Gallbladder, Orthopedic Respiratory: Yes Asthma Cardiac: No Neurological: Yes (PSEUDOSEIZURES) Headaches /Migraines, Seizure Disorder, Traumatic Brain Injury Genitourinary: No Gastrointestinal: Yes Gastroesophageal Reflux, Hepatitis, Cirrhosis Musculoskeletal: No Endocrine: Yes Diabetes, Insulin dep HEENT: No Cancer: No Psychosocial: No (Suicidal and homicidal ideation hx) Bipolar, Personality Disorder Integumentary: No Blood Disorders: No Family Medical History No Pertinent Family Hx Physical Exam Vital Signs Capillary Refill : Height, Weight, BMI Height: 5'8.00" Weight: 220lbs. oz. 99.502238gw; 34.00 BMI Method:Stated General Appearance: no apparent distress, mild distress Neck: supple, normal inspection Respiratory: lungs clear, normal breath sounds Cardiovascular: normal peripheral pulses, regular rate, rhythm Peripheral Pulses: 2+ Radial Pulses (R), 2+ Radial Pulses (L) Gastrointestinal: non tender, soft Extremities: other (Patient with left sided wrist drop consistent with a radial nerve palsy) Crainal Nerves: normal hearing, normal speech, other (Left-sided radial nerve palsy) Motor/Sensory: weak motor strength LUE, other (Mild distal left prior paresthesia) Progress/Results/Core Measures Progress Progress Note : Progress Note Patient symptoms are consistent with a left-sided radial nerve palsy. Patient will be splinted since this is the current treatment of choice with follow-up to orthopedic surgery for further evaluation and possible decompression surgery if needed. Patient should also follow up with a primary care provider prior to this to start physical therapy. Patient stable and discharged Departure Impression Primary Impression: Acute radial nerve palsy of left upper extremity Disposition: HOME, SELF-CARE Condition: Stable Departure-Patient Inst. Referrals: JERROD SERRANO APRN (PCP) Primary Care Physician [facility] (Family) Primary Care Physician Patient Instructions: Radial Nerve Entrapment Add. Discharge Instructions: Wear the splint until seen by her primary care provider Follow-up with your primary care provider in the next 1 to 2 days to arrange for outpatient physical therapy since this is the mainstay of treatment I would recommend he also follow-up with psych sales specialist for further evaluation in case other management will be needed. MARISOL RICE DO Mar 19, 2021 14:54
== END 2021-03-19 15:10 | disposition home or self-care (01) ==
LOC: EDUNIT# 14:45 → ER FS 14:46
DX: G56.32 Lesion of radial nerve, left upper limb (principal); E11.9 Type 2 diabetes mellitus without complications; F31.9 Bipolar disorder, unspecified; J45.909 Unspecified asthma, uncomplicated; G40.909 Epilepsy, unspecified, not intractable, without status epilepticus; Z87.820 Personal history of traumatic brain injury; Z79.4 Long term (current) use of insulin; Z79.899 Other long term (current) drug therapy
CPT/HCPCS: 99284

== ENCOUNTER 2021-03-30 11:06 | Emergency (ER) | payer MEDICARE ==
[~2021-03-30] VITALS: Ht 172 cm; Wt 112.0 kg
--- OUTSIDE RECORDS SUMMARY | 2021-03-30 11:11 | XMS REPORT | Encounter Summary ---
Author Author [facility] Organization [facility] Address Unknown Phone Unavailable Care Team Providers Care Income Tax Manager Name Role Phone Adenike Contreras PCP Unavailable Marion Royal [id number] Encounter Details Care Team Description Date Type Department Marion Royal 03/16/2021 Patient Cotton O`Orlin Care Outreach Management [address] [place] [address] Social History Date Tobacco Use Types Packs/Day [...] 03/03/2021 relatives? How often do you attend mormon or mandaeism More than 4 ti mes per year 03/03/2021 services? Do you belong to any clubs or organizations such No 03/03/2021 as mormon groups, unions, fraternal or athletic groups, or [...] feels she was murdered, but it the gasoline tester deems it accidental/natural causes, he will have [...] encounter Care Teams Start Date End Date Income Tax Manager Relationship Specialty 03/02/21 Adenike Contreras, PCT PCP - General 03/06/21 Marion Royal Journeyman Pipefitter Social Work documented as of this encounter
--- OUTSIDE RECORDS SUMMARY | 2021-03-30 11:11 | XMS REPORT | Encounter Summary ---
Author Author [facility] Organization [facility] Address Unknown Phone Unavailable Care Team Providers Care Veterinary Poultry Inspector Name Role Phone Adenike Contreras PCP Unavailable Marion Royal [id number] Encounter Details Care Team Description Date Type Department Marion Royal 03/27/2021 Patient Cotton O`Orlin Care Outreach Management [address] [place] [address] Social History Date Tobacco Use Types Packs/Day [...] 03/03/2021 relatives? How often do you attend mu-ism or rastafarian More than 4 ti mes per year 03/03/2021 services? Do you belong to any clubs or organizations such No 03/03/2021 as mu-ism groups, unions, fraternal or athletic groups, or [...] * Progress Notes - Marion Royal - 03/27/2021 1:17 PM CDT Patient: Abiel Hurd : 1970 PCP: Adenike Contreras, PCT Today's Date: 03/27/2021 [place]s Issue: Follow up Intervention: SW sending closing letter Plan: SW will be available as needed Marion Royal LMSW 03/27/2021 1:17 PM documented in this encounter Plan of Treatment Not on filedocumented as of this encounter Visit Diagnoses Not on filedocumented in this encounter Care Teams Start Date End Date Veterinary Poultry Inspector Relationship Specialty 03/02/21 Adenike Contreras, PCT PCP - General 03/06/21 Marion Royal Payroll Auditor Social Work documented as of this encounter
--- OUTSIDE RECORDS SUMMARY | 2021-03-30 11:11 | XMS REPORT | Clinical Summary ---
Author Author [facility] Address Unknown Phone Unavailable Care Team Providers Care Accounting Representative Name Role Phone Adenike Contreras [facility] PCP Unavailable Marion Royal [phone] Allergies Comments Active Allergy Reactions Severity Noted [...] Team Description Date Type Specialty Marion Royal 03/27/2021 Patient Care Management Outreach Marion Royal 03/16/2021 Patient Care Management Outreach [...] 03/03/2021 relatives? How often do you attend lutheran or yarsanism More than 4 ti mes per year 03/03/2021 services? Do you belong to any clubs or organizations such No 03/03/2021 as lutheran groups, unions, fraternal or athletic groups, or [...] 174 (H)Comment: NovaMeter 74 - 106 mg/dL [facility] Specimen Performing Organization Address City/State/ZIP Code P jet Number [facility] [address] [place] [address] * EKG 12 lead (03/03/2021 6:44 PM CDT) [facility] Heart Rate 86 bpm PHILIPSECG Interval 698 ms PHILIPSECG Atrial Rate 87 ms PHILIPSECG SV P-R Interval 160 ms PHILIPSECG P Duration 102 ms PHILIPSECG P Horizontal 71 deg PHILIPSECG [place] P Front [place] -2 deg PHILIPSECG Q Onset 499 ms PHILIPSECG QRSD Interval 86 ms PHILIPSECG QT Interval 380 ms PHILIPSECG QTcB 455 ms PHILIPSECG QTcF 428 ms PHILIPSECG QRS Horizontal -61 deg PHILIPSECG [place] QRS AXIS -32 deg PHILIPSECG I40 Horizontal 51 deg PHILIPSECG [place] I40 Front [place] 22 deg PHILIPSECG T-40 Horizontal 265 deg PHILIPSECG [place] T-40 Front [place] -56 deg PHILIPSECG T Horizontal 50 deg PHILIPSECG [place] T Wave [place] 54 deg PHILIPSECG S-T HORIZONTAL 71 deg PHILIPSECG AXIS S-T FRONT AXIS 77 deg PHILIPSECG ECG Impression - OTHERWISE NORMAL ECG - PHILIPSECG ECG Impression SR PHILIPSECG ECG Impression Sinus rhythm PHILIPSECG ECG Impression normal P axis, V-rate 60-99 PHILIPSEC G ECG Impression LAD PHILIPSECG ECG Impression Left axis deviation PHILIPSECG ECG Impression QRS axis (-30,-90) PHILIPSECG Specimen Performing Organization Address City/State/ZIP Code P jet Number PH[facility] * TSH (Reflex Free T4 if abnormal) (03/03/2021 5:22 AM CDT) [facility] TSH 3.258 0.400 - 4.000 uIU/mL [facility] Specimen Blood Performing Organization Address City/State/ZIP [facility] P jet Number [facility] [address] [place] [address] * Hemoglobin A1c (03/03/2021 5:22 AM CDT) [facility] Hemoglobin A1C 6.7 (H) <5.7 % [facility] Specimen Blood Narrative [facility] - 03/03/2021 6:34 AM CDT [place] [employer] recommendations are as follows: Normal - A1c less than 5.7% Prediabetes - A1c 5.7 - 6.4% Diabetes - A1c 6.5% or greater Performing Organization Address City/State/ZIP Code P jet Number [facility] [address] [place] [address] * Valproic acid level, total (03/03/2021 5:22 AM CDT) Valproic Acid 44 (L) 50 - 100 ug/mL [facility] Specimen Blood Performing Organization Address City/[facility]/ZIP Code P jet Number [facility] [address] [place] [address] from Last 3 Months Insurance Type Payer Benefit Subscriber ID Effective Phone Address Plan / Dates Group Medicare MEDICARE MEDICARE [id number] 2009-P [address] [place] [address] Advance Directives For more information, please contact: [phone] Patient Owner Professional Engineer Explanation Type Date Recorded Advance Directives and Living Will Power of Plaster Mixer Date Inactivated Comments Code Status Date Activated Full Code 03/05/2021 9:42 AM 03/05/2021 9:42 AM Full Code 03/02/2021 7:06 PM Care Teams Start Date End Date Accounting Representative Relationship Specialty 03/02/21 Adenike Contreras, PCT PCP - General 03/06/21 Marion Royal Circular Gang Saw Operator Social Work
--- OUTSIDE RECORDS SUMMARY | 2021-03-30 11:12 | XMS REPORT | Clinical Summary ---
Author Author [facility] Organization [facility] Address Unknown Phone Unavailable Care Team Providers Care Cloth Feeder Name Role Phone Verenice Contreras NP PCP Source Comments Some departments are not documenting in the electronic medical record. If you d o not see the information that you expected, contact Release of Information in [facility] Information Management department at [phone] for further assistan ce in locating additional records.[facility] Allergies Comments Active Allergy Reactions Severity Noted [...] 2019 VACCINE (1 of 2) INFLUENZA VACCINE 02/05/2021 03/10/2020 HEPATITIS C SCREENING Completed 07/10/2018 Goals Goal Patient Associated Recent Progress Patient-Stat Aut hor Goal Type Problems ed? Remain independent Hospital Yes Earnestine Hernandez, RN Note: "To get better and go home" Results Not on filefrom Last 3 Months Insurance Type Payer Benefit Subscriber ID Effective Phone Address Plan / Dates Group Medicare MEDICARE MEDICARE [id number] 2009-P PART A AND resent [id number] [phone] Advance Directives Patient Ends Down Checker Explanation Type Date Recorded Advance 12/16/2019 11:49 AM Directive/DPOA Date Inactivated Comments Code Status Date Activated 12/16/2019 4:19 PM Full Code 12/14/2019 8:07 PM Provider has discussed Code Status No, more discussi on w/Patient or Family? needed
--- NOTE | 2021-03-30 11:17 | ED Psychosocial ---
General Chief Complaint: Psych/Social Disorder Stated Complaint: PSYCH EVALUATION Source: patient Exam Limitations: no limitations History of Present Illness Date Seen by Provider: Mar 30, 2021 Time Seen by Provider: 11:16 Initial Comments 50-year-old male presents with depression and anger secondary to grief over the loss of his 3-year-old niece last month. States he was given bad news regarding the tragic event last night and it made him angry and he wanted to hurt his dog and has had thoughts to hurt himself, although states he is not suicidal. Allergies and Home Medications Allergies Coded Allergies: aripiprazole (Verified Allergy, Unknown, hallucinations, 10/01/18) zolpidem (Verified Allergy, Unknown, hallucinations, 10/01/18) Patient Home Medication List Home Medication List Reviewed: Yes Budesonide/Formoterol Fumarate (Symbicort 160-4.5 Mcg Inhaler) 10.2 Gm Hfa.aer.ad, (Reported) Entered as Reported by: JAYDA CHRISTIANSEN on 10/01/181818 Citalopram Hydrobromide (Celexa) 40 Mg Tablet, (Reported) Entered as Reported by: SUJATA COLLINS on 09/06/182052 Clindamycin HCl (Clindamycin HCl) 300 Mg Capsule, 300 MG PO TIDWM Prescribed by: LINDEN MERCEDES on 10/24/192033 Dicyclomine HCl (Dicyclomine HCl) 20 Mg Tablet, 20 MG PO QID PRN for ABDOMINAL PAIN Prescribed by: LUIS LECHUGA on 10/01/18 050 Haloperidol (Haldol Tab) 5 Mg Tab, 10 MG PO HS, (Reported) Entered as Reported by: SUJATA COLLINS on 09/06/182052 Hydrocodone Bit/Acetaminophen (Lortab 5 Mg Tablet) 1 Tab Tab, 1 EACH PO Q4-6HR PRN for PAIN-MODERATE Prescribed by: HILDA YBARRA on 01/24/19 1351 Ibuprofen (Ibuprofen) 800 Mg Tablet, 800 MG PO Q8H PRN for PAIN Prescribed by: LINDEN MERCEDES on 10/24/192033 Insulin Glargine,Hum.rec.anlog (Basaglar Kwikpen U-100) 100 Unit/1 Ml Insuln.pen, (Reported) Entered as Reported by: JAYDA CHRISTIANSEN on 10/01/181818 Lorazepam (Lorazepam) 1 Mg Tablet, (Reported) Entered as Reported by: JAYDA CHRISTIANSEN on 10/01/181818 Magnesium Citrate (Magnesium Citrate) 296 Ml Solution, 296 ML PO Q6H Prescribed by: HILDA YBARRA on 01/30/19 1258 Ondansetron (Ondansetron Odt) 4 Mg Tab.rapdis, 4 MG PO Q6H PRN for NAUSEA/VOMITING Prescribed by: LUIS LECHUGA on 07/23/192149 Psyllium Husk (Metamucil) 0.4 Gm Capsule, 0.4 GM PO DAILY Prescribed by: HILDA YBARRA on 01/30/19 1258 Simvastatin (Zocor) 40 Mg Tablet, HS, (Reported) Entered as Reported by: SUJATA COLLINS on 09/06/182052 [Lorazepam Tab 1MG] , (Reported) Entered as Reported by: SUJATA COLLINS on 09/06/182035 [Metformin Tab 500MG] , (Reported) Entered as Reported by: SUJATA COLLINS on 09/06/182035 [Phenytoin Ex Cap 100MG] , (Reported) Entered as Reported by: SUJATA COLLINS on 09/06/182035 [Pot Cl Micro Tab 20MEQ Er] , (Reported) Entered as Reported by: SUJATA COLLINS on 09/06/182035 [Risperidone Tab 3MG] , (Reported) Entered as Reported by: SUJATA COLLINS on 09/06/182035 Review of Systems Constitutional: No fever, No malaise, No weakness Respiratory: no symptoms reported Cardiovascular: no symptoms reported Gastrointestinal: no symptoms reported Psychiatric/Neurological: See HPI, Depressed, Emotional Problems Past Ppqoqpi-Nqkrvm-Xdpblx Hx Patient Social History Tobacco Use?: Yes Tobacco type used: Cigarettes Use of E-Cig and/or Vaping dev: No Substance use?: Yes Substance type: Marijuana Alcohol Use?: No Pt feels they are or have been: No Immunizations Up To Date First/Initial COVID19 Vaccinat: JANUARY 2021 Second COVID19 Vaccination Brody: JANUARY 2021 COVID19 Vaccine Computer Systems Administrator: MODERNEra Seasonal Allergies Seasonal Allergies: No Past Medical History Surgery/Hospitalization HX: Pseudoseizure Surgeries: Yes (cystoscopy) Gallbladder, Orthopedic Respiratory: Yes Asthma Cardiac: No Neurological: Yes (PSEUDOSEIZURES) Headaches /Migraines, Seizure Disorder, Traumatic Brain Injury Genitourinary: No Gastrointestinal: Yes Gastroesophageal Reflux, Hepatitis, Cirrhosis Musculoskeletal: No Endocrine: Yes Diabetes, Insulin dep HEENT: No Cancer: No Psychosocial: No (Suicidal and homicidal ideation hx) Bipolar, Personality Disorder Integumentary: No Blood Disorders: No Family Medical History No Pertinent Family Hx Physical Exam Vital Signs - First Documented 03/30/21 11:10 Temp 36.6 Pulse 96 Resp 20 B/P (MAP) 142/91 (108) Pulse Ox 97 O2 Delivery Room Air Capillary Refill : Height, Weight, BMI Height: 5'8.00" Weight: 220lbs. oz. 99.064231ik; 36.00 BMI Method:Stated General Appearance: WD/WN, no apparent distress HEENT: PERRL/EOMI, normal ENT inspection Neurologic/Psychiatric: alert, normal mood/affect, oriented x 3 Appearance/Memory: appropriate appearance, appropriate insight, no memory impairment Behavior/Eye Contact: cooperative, good eye contact, normal speech Thoughts/Hallucinations: normal thought pattern, no apparent hallucination Progress/Results/Core Measures Results/Orders Vital Signs/I&O 03/30/21 11:10 Temp 36.6 Pulse 96 Resp 20 B/P (MAP) 142/91 (108) Pulse Ox 97 O2 Delivery Room Air Departure Impression Primary Impression: Depression Qualified Codes: F32.9 - Major depressive disorder, single episode, unspecified Disposition: 01 HOME, SELF-CARE Condition: Stable Departure-Patient Inst. Decision time for Depature: 11:19 Referrals: JERROD SERRANO APRN (PCP) Primary Care Physician [facility] (Family) Primary Care Physician Add. Discharge Instructions: Go To [facility] today @ 1 pm as discussed. All discharge instructions reviewed with patient and/or family. Voiced understanding. LINDEN MERCEDES DO Mar 30, 2021 11:16
[2021-03-30 11:32] VITALS: BP 142/91
== END 2021-03-30 11:33 | disposition home or self-care (01) ==
LOC: EDUNIT# 11:06 → ER FS 11:07
DX: F32.9 Major depressive disorder, single episode, unspecified (principal); J45.909 Unspecified asthma, uncomplicated; E11.9 Type 2 diabetes mellitus without complications; G40.909 Epilepsy, unspecified, not intractable, without status epilepticus; Z87.820 Personal history of traumatic brain injury; Z72.0 Tobacco use; Z79.4 Long term (current) use of insulin; Z79.899 Other long term (current) drug therapy
CPT/HCPCS: 99281

== ENCOUNTER → 2021-03-30 | Outpatient (CLI) | payer MEDICARE ==
--- NOTE | 2021-03-30 13:56 | Diagnostic Imaging Report ---
INDICATION: Left hand pain and swelling. COMPARISON: None. FINDINGS: 3 views of the left hand were obtained and show no fractures, dislocations, or other acute bony abnormalities. Joint spaces are well maintained throughout. The soft tissues appear unremarkable. No radiopaque foreign bodies are identified. IMPRESSION: Unremarkable radiographic exam of the left hand. Dictated by: Dictated on workstation # [id number]
== END ==
LOC: RAD FS 12:16
PROVIDERS: ATTEND Nurse Practitioner Family
DX: M79.642 Pain in left hand (principal); M79.89 Other specified soft tissue disorders
CPT/HCPCS: 73130

== ENCOUNTER 2021-04-25 15:13 | Emergency (ER) | payer MEDICARE ==
[~2021-04-25] VITALS: Ht 175 cm; Wt 100.0 kg
--- OUTSIDE RECORDS SUMMARY | 2021-04-25 15:17 | XMS REPORT | Clinical Summary ---
Author Author [facility] Address Unknown Phone Unavailable Care Team Providers Care Social Media Designer Name Role Phone Adenike Contreras PCP Unavailable Allergies Comments Active Allergy Reactions Severity Noted [...] 3 (three) times daily. Indications: Anxiety Disorder Active Problems Problem Noted Date Schizoaffective disorder, [...] Team Description Date Type Specialty Marion Royal 04/11/2021 Patient Care Management Outreach Marion Royal 03/27/2021 Patient Care Management Outreach [...] 03/03/2021 relatives? How often do you attend religion or pentecostal More than 4 ti mes per year 03/03/2021 services? Do you belong to any clubs or organizations such No 03/03/2021 as religion groups, unions, fraternal or athletic groups, or [...] file Not on file Not on file Last Filed Vital Signs Reading Time Taken [...] 174 (H)Comment: NovaMeter 74 - 106 mg/dL [facility] Specimen Performing Organization Address City/State/ZIP Code P jet Number [facility] [address] [place] [address] * EKG 12 lead (03/03/2021 6:44 PM CDT) Heart Rate 86 bpm PHILIPSECG Interval 698 ms PHILIPSECG Atrial Rate 87 ms PHILIPSECG SV P-R Interval 160 ms PHILIPSECG P Duration 102 ms PHILIPSECG P Horizontal 71 deg PHILIPSECG [place] P Front [place] -2 deg PHILIPSECG Q Onset 499 ms PHILIPSECG QRSD Interval 86 ms PHILIPSECG QT Interval 380 ms PHILIPSECG QTcB 455 ms PHILIPSECG QTcF 428 ms PHILIPSECG QRS Horizontal -61 deg PHILIPSECG [place] QRS AXIS -32 deg PHILIPSECG I40 Horizontal 51 deg PHILIPSECG [place] I40 Front [place] 22 deg PHILIPSECG T-40 Horizontal 265 deg PHILIPSECG [place] T-40 Front [place] -56 deg PHILIPSECG T Horizontal 50 deg PHILIPSECG [place] T Wave [place] 54 deg PHILIPSECG S-T HORIZONTAL 71 deg PHILIPSECG AXIS S-T FRONT AXIS 77 deg PHILIPSECG ECG Impression - OTHERWISE NORMAL ECG - PHILIPSECG ECG Impression SR PHILIPSECG ECG Impression Sinus rhythm PHILIPSECG ECG Impression normal P axis, V-rate 60-99 PHILIPSEC G ECG Impression LAD PHILIPSECG ECG Impression Left axis deviation PHILIPSECG ECG Impression QRS axis (-30,-90) PHILIPSECG Specimen Performing Organization Address [facility] P jet Number PHILIPSECG * TSH (Reflex Free T4 if abnormal) (03/03/2021 5:22 AM CDT) Pathologist [facility] TSH 3.258 0.400 - 4.000 uIU/mL [facility] Specimen Blood Performing Organization Address [facility] P jet Number [facility] [address] [place] [id number] * Hemoglobin A1c (03/03/2021 5:22 AM CDT) [facility] Hemoglobin A1C 6.7 (H) <5.7 % [facility] Specimen Blood Narrative [facility] - 03/03/2021 6:34 AM CDT [place] [employer] recommendations are as follows: Normal - A1c less than 5.7% Prediabetes - A1c 5.7 - 6.4% Diabetes - A1c 6.5% or greater Performing Organization Address [facility] P jet Number [facility] [address] [place] [address] * Valproic acid level, total (03/03/2021 5:22 AM CDT) Pathologist [facility] Valproic Acid 44 (L) 50 - 100 ug/mL [facility] Specimen Blood Performing Organization Address City/State/ZIP Code P jet Number [facility] [address] [place] [address] from Last 3 Months Insurance Type Payer Benefit Subscriber ID Effective Phone Address Plan / Dates Group Medicare MEDICARE MEDICARE [id number] 2009-P [address] [place] [address] Advance Directives For more information, please contact: [phone] Patient Change Management Consultant Explanation Type Date Recorded Advance Directives and Living Will Power of Plastics Supervisor Date Inactivated Comments Code Status Date Activated Full Code 03/05/2021 9:42 AM 03/05/2021 9:42 AM Full Code 03/02/2021 7:06 PM Care Teams Start Date End Date Social Media Designer Relationship Specialty 03/02/21 Adenike Contreras, PCT PCP - General
--- OUTSIDE RECORDS SUMMARY | 2021-04-25 15:17 | XMS REPORT | Encounter Summary ---
Author Author [facility] Organization [facility] Address Unknown Phone Unavailable Care Team Providers Care Gambreler Name Role Phone Adenike Contreras PCP Unavailable Encounter Details Care Team Description Date Type Department Marion Royal 04/11/2021 Patient Cotton O`Orlin Care Outreach Management [address] [place] [address] Social History Date Tobacco Use Types Packs/Day [...] 03/03/2021 relatives? How often do you attend sabianist or lutheran More than 4 ti mes per year 03/03/2021 services? Do you belong to any clubs or organizations such No 03/03/2021 as sabianist groups, unions, fraternal or athletic groups, or [...] file Not on file Not on file documented as of this encounter Miscellaneous Notes * Progress Notes - Marion Royal - 04/11/2021 3:29 PM CDT Patient: Abiel Hurd : 1970 PCP: Adenike Contreras, PCT Today's Date: 04/11/2021 Intervention: Pt did not respond to closing letter. Removing from panel Plan: SW will be available if needed Marion Royal LMSW 04/11/2021 3:29 PM documented in this encounter Plan of Treatment Not on filedocumented as of this encounter Visit Diagnoses Not on filedocumented in this encounter Care Teams Start Date End Date Gambreler Relationship Specialty 03/02/21 Adenike Contreras, PCT PCP - General documented as of this encounter
--- OUTSIDE RECORDS SUMMARY | 2021-04-25 15:18 | XMS REPORT | Encounter Summary ---
Author Author [facility] Organization [facility] Address Unknown Phone Unavailable Care Team Providers Care Floor Inspector Name Role Phone Adenike Contreras PCP Unavailable Marion Royal [id number] Encounter Details Care Team Description Date Type Department Marion Royal 03/27/2021 Patient Cotton O`Orlin Care Outreach Management [address] [place] [address] Social History Date Tobacco Use Types Packs/Day [...] 03/03/2021 relatives? How often do you attend episcopal or confucianist More than 4 ti mes per year 03/03/2021 services? Do you belong to any clubs or organizations such No 03/03/2021 as episcopal groups, unions, fraternal or athletic groups, or [...] encounter Care Teams Start Date End Date Floor Inspector Relationship Specialty 03/02/21 Adenike Contreras, PCT PCP - General 03/06/21 04/10/21 Marion Royal Equipment Maintenance Engineer Social Work documented as of this encounter
--- OUTSIDE RECORDS SUMMARY | 2021-04-25 15:19 | XMS REPORT | Clinical Summary ---
Author Author [facility] Organization [facility] Address Unknown Phone Unavailable Care Team Providers Care Lab Pack Chemist Name Role Phone Verenice Contreras NP PCP Source Comments Some departments are not documenting in the electronic medical record. If you d o not see the information that you expected, contact Release of Information in [facility] Information Management department at [phone] for further assistan ce in locating additional records.[facility] Allergies Comments Active Allergy Reactions Severity Noted [...] Plan / Dates Group Medicare MEDICARE MEDICARE [id number] 2009-P PART A AND resent B [phone] Advance Directives Patient Nuclear Officer Explanation Type Date Recorded Advance 12/16/2019 11:49 AM Directive/DPOA Date Inactivated Comments Code Status Date Activated 12/16/2019 4:19 PM Full Code 12/14/2019 8:07 PM Provider has discussed Code Status No, more discussi on w/Patient or Family? needed
--- NOTE | 2021-04-25 15:23 | ED General ---
General Chief Complaint: General Problems/Pain Stated Complaint: SEIZURES History of Present Illness Date Seen by Provider: Apr 25, 2021 Time Seen by Provider: 15:21 Initial Comments 50-year-old male brought in by EMS. Patient reports that he walked from home to the gas station's afternoon. When he got to the gas station he is a little fatigued and sat down in the grass. He went inside and got some water to drink. EMS was called because they felt he was maybe little confused. When EMS arrived they did check his blood sugar was 73 and they gave him an amp of D50 and some IV fluids. Following his treatment patient symptoms of resolved and is feeling much better. Patient is uncontrolled diabetic with normal blood sugars he reports around 140-150s. Patient had a little bit of a mild headache and some right lateral neck pain is resolved. Patient no other complaints. Allergies and Home Medications Allergies Coded Allergies: aripiprazole (Verified Allergy, Unknown, hallucinations, 10/01/18) zolpidem (Verified Allergy, Unknown, hallucinations, 10/01/18) Patient Home Medication List Home Medication List Reviewed: Yes Budesonide/Formoterol Fumarate (Symbicort 160-4.5 Mcg Inhaler) 10.2 Gm Hfa.aer.ad, (Reported) Entered as Reported by: JAYDA CHRISTIANSEN on 10/01/181818 Citalopram Hydrobromide (Celexa) 40 Mg Tablet, (Reported) Entered as Reported by: SUJATA COLLINS on 09/06/182052 Clindamycin HCl (Clindamycin HCl) 300 Mg Capsule, 300 MG PO TIDWM Prescribed by: LINDEN MERCEDES on 10/24/192033 Dicyclomine HCl (Dicyclomine HCl) 20 Mg Tablet, 20 MG PO QID PRN for ABDOMINAL PAIN Prescribed by: LUIS LECHUGA on 10/01/18 0501 Haloperidol (Haldol Tab) 5 Mg Tab, 10 MG PO HS, (Reported) Entered as Reported by: SUJATA COLLINS on 09/06/182052 Hydrocodone Bit/Acetaminophen (Lortab 5 Mg Tablet) 1 Tab Tab, 1 EACH PO Q4-6HR PRN for PAIN-MODERATE Prescribed by: HILDA YBARRA on 01/24/19 1351 Ibuprofen (Ibuprofen) 800 Mg Tablet, 800 MG PO Q8H PRN for PAIN Prescribed by: LINDEN MERCEDES on 10/24/192033 Insulin Glargine,Hum.rec.anlog (Basaglar Kwikpen U-100) 100 Unit/1 Ml Insuln.pen, (Reported) Entered as Reported by: JAYDA CHRISTIANSEN on 10/01/181818 Lorazepam (Lorazepam) 1 Mg Tablet, (Reported) Entered as Reported by: JAYDA CHRISTIANSEN on 10/01/181818 Magnesium Citrate (Magnesium Citrate) 296 Ml Solution, 296 ML PO Q6H Prescribed by: HILDA YBARRA on 01/30/19 125 Ondansetron (Ondansetron Odt) 4 Mg Tab.rapdis, 4 MG PO Q6H PRN for NAUSEA/VOMITING Prescribed by: LUIS LECHUGA on 07/23/192149 Psyllium Husk (Metamucil) 0.4 Gm Capsule, 0.4 GM PO DAILY Prescribed by: HILDA YBARRA on 01/30/19 125 Simvastatin (Zocor) 40 Mg Tablet, HS, (Reported) Entered as Reported by: SUJATA COLLINS on 09/06/182052 [Lorazepam Tab 1MG] , (Reported) Entered as Reported by: SUJATA COLLINS on 09/06/182035 [Metformin Tab 500MG] , (Reported) Entered as Reported by: SUJATA COLLINS on 09/06/182035 [Phenytoin Ex Cap 100MG] , (Reported) Entered as Reported by: SUJATA COLLINS on 09/06/182035 [Pot Cl Micro Tab 20MEQ Er] , (Reported) Entered as Reported by: SUJATA COLLINS on 09/06/182035 [Risperidone Tab 3MG] , (Reported) Entered as Reported by: SUJATA COLLINS on 09/06/182035 Review of Systems Review of Systems Constitutional: No chills, No fever; weakness EENTM: see HPI Respiratory: No cough, No short of breath Cardiovascular: No chest pain, No palpitations Gastrointestinal: No abdominal pain, No nausea, No vomiting Genitourinary: no symptoms reported Musculoskeletal: see HPI Skin: no symptoms reported Psychiatric/Neurological: Headache Past Ttooojr-Ujxicb-Rmjldq Hx Patient Social History Tobacco Use?: Yes Tobacco type used: Cigarettes Smoking Status: Current Everyday Smoker Use of E-Cig and/or Vaping dev: No Substance use?: Yes Substance type: Marijuana Alcohol Use?: No Pt feels they are or have been: No Immunizations Up To Date First/Initial COVID19 Vaccinat: JANUARY 2021 Second COVID19 Vaccination Brody: JANUARY 2021 Seasonal Allergies Seasonal Allergies: No Past Medical History Surgery/Hospitalization HX: Pseudoseizure Surgeries: Yes (cystoscopy) Gallbladder, Orthopedic Respiratory: Yes Asthma Cardiac: No Neurological: Yes (PSEUDOSEIZURES) Headaches /Migraines, Seizure Disorder, Traumatic Brain Injury Genitourinary: No Gastrointestinal: Yes Gastroesophageal Reflux, Hepatitis, Cirrhosis Musculoskeletal: No Endocrine: Yes Diabetes, Insulin dep HEENT: No Cancer: No Psychosocial: No (Suicidal and homicidal ideation hx) Bipolar, Personality Disorder Integumentary: No Blood Disorders: No Family Medical History No Pertinent Family Hx Physical Exam Vital Signs Vital Signs - First Documented 04/25/21 15:17 Temp 37.0 Pulse 96 Resp 16 B/P (MAP) 125/78 (94) Pulse Ox 98 O2 Delivery Room Air Capillary Refill : Height, Weight, BMI Height: 5'8.00" Weight: 220lbs. oz. 99.926865no; 37.00 BMI Method:Stated General Appearance: No Apparent Distress, WD/WN HEENT: PERRL/EOMI, Normal ENT Inspection Neck: Non Tender, Supple Respiratory: Lungs Clear, Normal Breath Sounds Cardiovascular: Regular Rate, Rhythm, No Edema Gastrointestinal: Non Tender, Soft Extremity: Normal Capillary Refill, Normal Inspection, Normal Range of Motion Neurologic/Psychiatric: Alert, Oriented x3, No Motor/Sensory Deficits, Normal Mood/Affect Skin: Normal Color, Warm/Dry Progress/Results/Core Measures Suspected Sepsis SIRS Temperature: Pulse: Respiratory Rate: Laboratory Tests 04/25/21 15:25: White Blood Count 5.7 Blood Pressure / Mean: Laboratory Tests 04/25/21 15:25: Platelet Count 80L 04/25/21 16:30: Creatinine 0.80, Total Bilirubin 0.5 Results/Orders Lab Results Laboratory Tests Test 04/25/21 15:25 04/25/21 16:30 Range/Units White Blood Count 5.7 4.3-11.0 10^3/uL Red Blood Count 4.89 4.30-5.52 10^6/uL Hemoglobin 15.1 13.3-17.7 g/dL Hematocrit 44 40-54 % Mean Corpuscular Volume 91 80-99 fL Mean Corpuscular Hemoglobin 31 25-34 pg Mean Corpuscular Hemoglobin Concent 34 32-36 g/dL Red Cell Distribution Width 13.0 10.0-14.5 % Platelet Count 80 L 130-400 10^3/uL Mean Platelet Volume 10.6 9.0-12.2 fL Immature Granulocyte % (Auto) 0 % Neutrophils (%) (Auto) 34 L 42-75 % Lymphocytes (%) (Auto) 49 H 12-44 % Monocytes (%) (Auto) 11 0-12 % Eosinophils (%) (Auto) 5 0-10 % Basophils (%) (Auto) 1 0-10 % Neutrophils # (Auto) 2.0 1.8-7.8 X 10^3 Lymphocytes # (Auto) 2.8 1.0-4.0 X 10^3 Monocytes # (Auto) 0.6 0.0-1.0 X 10^3 Eosinophils # (Auto) 0.3 0.0-0.3 10^3/uL Basophils # (Auto) 0.0 0.0-0.1 10^3/uL Immature Granulocyte # (Auto) 0.0 0.0-0.1 10^3/uL Sodium Level 142 135-145 MMOL/L Potassium Level 4.0 3.6-5.0 MMOL/L Chloride Level 106 98-107 MMOL/L Carbon Dioxide Level 24 21-32 MMOL/L Anion Gap 12 5-14 MMOL/L Blood Urea Nitrogen 13 7-18 MG/DL Creatinine 0.80 0.60-1.30 MG/DL Estimat Glomerular Filtration Rate 102 BUN/Creatinine Ratio 16 Glucose Level 130 H 70-105 MG/DL Calcium Level 8.6 8.5-10.1 MG/DL Corrected Calcium 8.8 8.5-10.1 MG/DL Total Bilirubin 0.5 0.1-1.0 MG/DL Aspartate Amino Transf (AST/SGOT) 25 5-34 U/L Alanine Aminotransferase (ALT/SGPT) 20 0-55 U/L Alkaline Phosphatase 53 40-136 U/L Troponin I 0.30 <0.30 NG/ML Total Protein 6.5 6.4-8.2 GM/DL Albumin 3.8 3.2-4.5 GM/DL My Orders Orders - RICE,MARISOL L DO Cbc With Automated Diff (04/25/21 15:19) Comprehensive Metabolic Panel (04/25/21 15:19) Ua Culture If Indicated (04/25/21 15:19) Troponin I Fs (04/25/21 15:19) Ekg Tracing (04/25/21 15:19) Vital Signs/I&O 04/25/21 04/25/21 15:17 17:05 Temp 37.0 37.0 Pulse 96 82 Resp 16 16 B/P (MAP) 125/78 (94) 120/68 Pulse Ox 98 98 O2 Delivery Room Air Room Air Capillary Refill : Progress Note : Progress Note Patient with no significant findings on exam or labs while in the ER. Patient reports he is feeling a lot better after his IV fluids. Patient is up walking around the ER and very active. Patient stable and discharged home ECG Initial ECG Impression Date: Apr 25, 2021 Initial ECG Impression Time: 15:25 Initial ECG Rate: 87 Initial ECG Rhythm: Normal Sinus Comment borderline ekg, borderline prolonged qt, no acute findings, Departure Impression Primary Impression: Dehydration after exertion Additional Impression: Fatigue due to excessive exertion Qualified Codes: T73.3XXA - Exhaustion due to excessive exertion, initial en counter Disposition: HOME, SELF-CARE Condition: Stable Departure-Patient Inst. Referrals: JERROD SERRANO APRN (PCP) Primary Care Physician [facility] (Family) Primary Care Physician Patient Instructions: Dehydration, Adult (DC), Fatigue ED Add. Discharge Instructions: Follow-up with your primary care provider as needed Drink plenty of fluids All discharge instructions reviewed with patient and/or family. Voiced understanding. MARISOL RICE DO Apr 25, 2021 15:23
[2021-04-25 15:57] LABS: HEMATOCRIT 44 % (40-54); HEMOGLOBIN 15.1 g/dL (13.3-17.7); MEAN CORPUSCULAR HEMOGLOBIN 31 pg (25-34); MEAN CORPUSCULAR HGB CONC 34 g/dL (32-36); MEAN CORPUSCULAR VOLUME 91 fL (80-99); WHITE BLOOD COUNT 5.7 10^3/uL (4.3-11.0)
[2021-04-25 15:58] LABS: MEAN PLATELET VOLUME 10.6 fL (9.0-12.2); PLATELET COUNT 80 10^3/uL (130-400)
[2021-04-25 16:01] LABS: BASOPHILS % (AUTO) 1 % (0-10); EOSINOPHILS % (AUTO) 5 % (0-10); LYMPHOCYTES % (AUTO) 49 % (12-44); MONOCYTES % (AUTO) 11 % (0-12); NEUTROPHILS % (AUTO) 34 % (42-75)
[2021-04-25 16:02] LABS: EOSINOPHILS # (AUTO) 0.3 10^3/uL (0.0-0.3); LYMPHOCYTES # (AUTO) 2.8 X 10^3 (1.0-4.0); MONOCYTES # (AUTO) 0.6 X 10^3 (0.0-1.0)
[2021-04-25 17:02] LABS: ALBUMIN 3.8 GM/DL (3.2-4.5); BILIRUBIN,TOTAL 0.5 MG/DL (0.1-1.0); CALCIUM 8.6 MG/DL (8.5-10.1); CREATININE SERUM 0.8 MG/DL (0.60-1.30); TOTAL PROTEIN 6.5 GM/DL (6.4-8.2)
[2021-04-25 17:05] VITALS: BP 120/68
== END 2021-04-25 17:10 | disposition home or self-care (01) ==
LOC: EDUNIT# 15:13 → ER FS 15:14
DX: E86.0 Dehydration (principal); T73.3XXA Exhaustion due to excessive exertion, initial encounter; J45.909 Unspecified asthma, uncomplicated; E11.9 Type 2 diabetes mellitus without complications; F31.9 Bipolar disorder, unspecified; G40.909 Epilepsy, unspecified, not intractable, without status epilepticus; F17.210 Nicotine dependence, cigarettes, uncomplicated; Z87.820 Personal history of traumatic brain injury; Z79.4 Long term (current) use of insulin; Z79.899 Other long term (current) drug therapy
CPT/HCPCS: 36415; 80053; 84484; 85025; 93005

== ENCOUNTER 2021-07-18 10:09 | Emergency (ER) | payer MEDICARE ==
[~2021-07-18] VITALS: Ht 172 cm; Wt 108.0 kg
[~2021-07-18 10:09] MED LIST changes: +CLIN-144 PO; -CLIN300C12 PO; +DICY20TA PO; -DICY20TA10 PO
--- OUTSIDE RECORDS SUMMARY | 2021-07-18 10:14 | XMS REPORT | Clinical Summary ---
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 Name Role Phone PCP Unavailable Source Comments [...] Date Last Done Comments CT Colonography 1969 Colonoscopy 1969 Colorectal Cancer 1969 Screening DNA-based stool test 1969 (Cologuard) Lipid Panel 1969 Sigmoidoscopy 1969 gFOBT or FIT 1969 COVID-19 Vaccine (1) 1974 Influenza Vaccine (#1) 2021 HPV Vaccine Aged Out No longer eligible based on patient's age to complete this topic Hepatitis A Vaccine Aged Out No longer eligible based on patient's age to complete this topic Hepatitis B Vaccine Aged Out No longer eligible based on patient's age to complete this topic Hib Vaccine Aged Out No longer eligible based on patient's age to complete this topic IPV Vaccine Aged Out No longer eligible based on patient's age to complete this topic Meningococcal Vaccine Aged Out No longer eligib le based on patient's age to (MCV4) complete this topic Pneumococcal Vaccine: Aged Out No longer eligib le based on patient's age to Pediatrics (0 to 5 Years) complete this topic and At-Risk Patients (6 to 64 Years) Rotavirus Vaccine Aged Out No longer eligible based on patient's age to complete this topic Results Not on filefrom Last 3 Months
--- OUTSIDE RECORDS SUMMARY | 2021-07-18 10:14 | XMS REPORT | Clinical Summary ---
Author Author [facility] Address Unknown Phone Unavailable Care Team Providers Care Fish Seiner Name Role Phone Adenike Contreras PCP Unavailable [...] use disorder 03/03/2021 Grief 03/03/2021 Hypothyroidism 03/03/2021 Immunizations Name Administration Dates Next Due COVID-19 [...] more drinks on one Never 03/03/2021 occasion? Comment: Not asked Social Isolation Answer Date Recorded In a typical week, how many times do you talk on Once a we ek 03/03/2021 the phone with family, friends, or neig hbors? How often do you get together with friends or More than th ree times a week 03/03/2021 relatives? How often do you attend mosque or catholic More than 4 ti mes per year 03/03/2021 services? Do you belong to any clubs or organizations such No 03/03/2021 as mosque groups, unions, fraternal or athletic groups, or [...] gettin g things needed for daily living? Housing Stability Answer Date Recorded In the last 12 months, was there a time when you No 03/03/2021 were not able to pay the mortgage or re nt on time? In the last 12 months, how many places have you 1 03/03/2021 lived? In the last 12 months, was there a time when you No 03/03/2021 did not have a steady place to sleep or slept in a skilled nursing (including now)? Sex Assigned at Date Recorded Male 03/02/2021 [...] Health Maintenance Due Date Last Done Comments HIV Screening 1969 Diabetic Eye Exam 1979 Diabetic Foot Exam 1979 Annual Wellness Visit 1987 Hepatitis C Screening 1987 Urine Microalbumin 1987 MMR Vaccines-Adult 1988 COVID-19 Vaccine (3 - 04/22/2021 10/21/2020, Booster for Moderna 09/23/2020 series) Zoster Vaccine (2 of 2) 06/29/2021 05/04/2021 Diabetic A1C Due 09/03/2021 03/03/2021, 08/14/2019, 05/13/2019 DTaP,Tdap,and Td Vaccines 05/29/2029 05/29/2019 (2 - Td or Tdap) Colon Cancer Screening 11/16/2029 11/17/2019 Pneumo-Vaccine: 65+Yrs (2 2034 11/22/2011 of 2 - PPSV23) Pneumo-Vaccine: Peds (0-5 2034 11/22/2011 Yrs) & At-Risk Patients (6-64 Yrs) (2 of 2 - PPSV23) Influenza Vaccine Completed 05/04/2021, 03/10/2020, 03/19/2019, Additional history exists HIB Vaccines Aged Out No longer eligible [...] Plan / Dates Group Medicare MEDICARE MEDICARE [id number] 2009-P [address] [place] [address] Advance Directives For more information, please contact: [phone] Patient Family Therapist Explanation Type Date Recorded Advance Directives and Living Will Power of Cloth Bale Header Date Inactivated Comments Code Status Date Activated Full Code 03/05/2021 9:42 AM 03/05/2021 9:42 AM Full Code 03/02/2021 7:06 PM Care Teams Start Date End Date Fish Seiner Relationship Specialty 03/02/21 Adenike Contreras, PCT PCP - General
--- OUTSIDE RECORDS SUMMARY | 2021-07-18 10:14 | XMS REPORT | Clinical Summary ---
Author Author [facility] Organization [facility] Address Unknown Phone Unavailable Care Team Providers Care Work From Home Name Role Phone Verenice Contreras NP PCP Source Comments Some departments are not documenting in the electronic medical record. If you d o not see the information that you expected, contact Release of Information in [facility] Information Management department at [phone] for further assistan ce in locating additional records.[facility] Allergies Comments Active Allergy Reactions Severity [...] Health Maintenance Due Date Last Done Comments HBA1C 1969 MEDICARE ANNUAL WELLNESS 1969 VISIT MICROALBUMIN 1969 HIV SCREENING 1984 DILATED EYE EXAM 1987 DTAP/TDAP VACCINES (1 - 1987 Tdap) FOOT EXAM 1987 PHYSICAL (COMPREHENSIVE) 1987 EXAM COLORECTAL CANCER 2019 [...] Plan / Dates Group Medicare MEDICARE MEDICARE [id number] 2009-P [phone] [address] [place] [address] [phone] Advance Directives Patient Pricing/Signage Team Member Explanation Type Date Recorded Advance 12/16/2019 11:49 AM Directive/DPOA Date Inactivated Comments Code Status Date Activated 12/16/2019 4:19 PM Full Code 12/14/2019 8:07 PM Provider has discussed Code Status No, more discussi on w/Patient or Family? needed Care Teams Start Date End Date Work From Home Relationship Specialty 12/15/19 Verenice Contreras NP PCP - General Nurse [address] [place] [address] [place] [address]
--- NOTE | 2021-07-18 10:33 | Diagnostic Imaging Report ---
Indication: Chest pain after fall PA and lateral chest obtained at 1023 a.m. Heart and mediastinal silhouette are normal appearance. The lungs are clear. There is no pneumothorax or pleural fluid. There is no overt bony abnormality in the chest. IMPRESSION: Negative chest. Dictated by: Dictated on workstation # [id number]
--- NOTE | 2021-07-18 10:37 | ED General ---
General Chief Complaint: General Problems/Pain Stated Complaint: SEIZURE Nursing Triage Note: PT REPORTS HE LOST HIS BALANCE THIS AM IN THE BATHROOM AND HIT HIS CHEST AND RIGHT SIDE RIBS ON THE BATH TUB. HURTS TO PALPATE AND REPRODUCABLE BY AUSCULATION DURING ASSESSMENT. PT THEN WENT TO [facility] AND BECAME NERVOUS TO GET HIS BOOSTER AND THOUGHT HE WAS GOING TO HAVE A SEIZURE. HE WAS RESPONSIVE TO NAME AND WOKE RIGHT UP FOR EMS. THEY REPORT HE WAS NOT POST STICTAL. Source of Information: Patient, EMS Exam Limitations: No Limitations History of Present Illness Date Seen by Provider: Jul 18, 2021 Time Seen by Provider: 10:12 Initial Comments Here with complaint of seizure fetid [facility] [place] due to nervous about getting booster shot and also had fall this morning and hit his chest wall. Denies breathing problems. Denies persistent seizure problems. Apparently has had multiple episodes of seizures or pseudoseizures especially in public places. Usually refuses transport. Today he had to be transported because his ride left him at [facility] [place]. States that he can get a ride now though. His only complaint really is the anterior chest wall discomfort to palpation but not to breathing. Has no bruising, abrasions or deformities. Timing/Duration: Changing Over Time Severity: Mild Associated Systoms: Seizure; No Shortness of Air Allergies and Home Medications Allergies Coded Allergies: aripiprazole (Verified Allergy, Unknown, hallucinations, 10/01/18) zolpidem (Verified Allergy, Unknown, hallucinations, 10/01/18) Patient Home Medication List Home Medication List Reviewed: Yes Budesonide/Formoterol Fumarate (Symbicort 160-4.5 Mcg Inhaler) 10.2 Gm Hfa.ae r.ad, (Reported) Entered as Reported by: JAYDA CHRISTIANSEN on 10/01/181818 Citalopram Hydrobromide (Celexa) 40 Mg Tablet, (Reported) Entered as Reported by: SUJATA COLLINS on 09/06/182052 Clindamycin HCl (Clindamycin HCl) 300 Mg Capsule, 300 MG PO TIDWM Prescribed by: LINDEN MERCEDES on 10/24/192033 Dicyclomine HCl (Dicyclomine HCl) 20 Mg Tablet, 20 MG PO QID PRN for ABDOMINAL PAIN Prescribed by: LUIS LECHUGA on 10/01/18 0501 Haloperidol (Haldol Tab) 5 Mg Tab, 10 MG PO HS, (Reported) Entered as Reported by: SUJATA COLLINS on 09/06/182052 Hydrocodone Bit/Acetaminophen (Lortab 5 Mg Tablet) 1 Tab Tab, 1 EACH PO Q4-6HR PRN for PAIN-MODERATE Prescribed by: HILDA YBARRA on 01/24/19 1351 Ibuprofen (Ibuprofen) 800 Mg Tablet, 800 MG PO Q8H PRN for PAIN Prescribed by: LINDEN MERCEDES on 10/24/192033 Insulin Glargine,Hum.rec.anlog (Basaglar Kwikpen U-100) 100 Unit/1 Ml Insuln.pen, (Reported) Entered as Reported by: JAYDA CHRISTIANSEN on 10/01/181818 Lorazepam (Lorazepam) 1 Mg Tablet, (Reported) Entered as Reported by: JAYDA CHRISTIANSEN on 10/01/181818 Magnesium Citrate (Magnesium Citrate) 296 Ml Solution, 296 ML PO Q6H Prescribed by: HILDA YBARRA on 01/30/19 1258 Ondansetron (Ondansetron Odt) 4 Mg Tab.rapdis, 4 MG PO Q6H PRN for NAUSEA/VOMITING Prescribed by: LUIS LECHUGA on 07/23/19 2150 Psyllium Husk (Metamucil) 0.4 Gm Capsule, 0.4 GM PO DAILY Prescribed by: HILDA YBARRA on 01/30/19 1258 Simvastatin (Zocor) 40 Mg Tablet, HS, (Reported) Entered as Reported by: SUJATA COLLINS on 09/06/182052 [Lorazepam Tab 1MG] , (Reported) Entered as Reported by: SUJATA COLLINS on 09/06/182035 [Metformin Tab 500MG] , (Reported) Entered as Reported by: SUJATA COLLINS on 09/06/182035 [Phenytoin Ex Cap 100MG] , (Reported) Entered as Reported by: SUJATA COLLINS on 09/06/182035 [Pot Cl Micro Tab 20MEQ Er] , (Reported) Entered as Reported by: SUJATA COLLINS on 09/06/182035 [Risperidone Tab 3MG] , (Reported) Entered as Reported by: SUJATA COLLINS on 09/06/182035 Review of Systems Review of Systems Constitutional: see HPI; No chills, No fever EENTM: no symptoms reported Respiratory: No cough, No short of breath Cardiovascular: chest pain (Left anterior and central chest wall pain at the sternum and left sternal border); No palpitations Gastrointestinal: No nausea, No vomiting Musculoskeletal: joint pain, muscle pain Skin: No change in color, No lesions Psychiatric/Neurological: Denies Headache; Seizure Past Wqdmide-Hgqcmn-Ijuwlq Hx Patient Social History Tobacco Use?: Yes Tobacco type used: Cigarettes Smoking Status: Current Everyday Smoker Use of E-Cig and/or Vaping dev: No Substance use?: Yes Substance type: Marijuana Alcohol Use?: No Pt feels they are or have been: No Immunizations Up To Date Influenza Vaccine Up-to-Date: Yes; Up-to-Date First/Initial COVID19 Vaccinat: 2020 Second COVID19 Vaccination Brody: 2020 COVID19 Vaccine Stereotype Molder: BIMAL Seasonal Allergies Seasonal Allergies: No Past Medical History Surgery/Hospitalization HX: Pseudoseizure Surgeries: Yes (cystoscopy) Gallbladder, Orthopedic Respiratory: Yes Asthma Cardiac: No Neurological: Yes (PSEUDOSEIZURES) Headaches /Migraines, Seizure Disorder, Traumatic Brain Injury Genitourinary: No Gastrointestinal: Yes Gastroesophageal Reflux, Hepatitis, Cirrhosis Musculoskeletal: No Endocrine: Yes Diabetes, Insulin dep HEENT: No Cancer: No Psychosocial: No (Suicidal and homicidal ideation hx) Bipolar, Personality Disorder Integumentary: No Blood Disorders: No Family Medical History Reviewed Nursing Family Hx No Pertinent Family Hx Physical Exam Vital Signs Vital Signs - First Documented 07/18/21 10:10 Temp 36.1 Pulse 88 Resp 16 B/P (MAP) 146/90 (108) O2 Delivery Room Air Capillary Refill : Less Than 3 Seconds Height, Weight, BMI Height: 5'8.00" Weight: 220lbs. oz. 99.229324yu; 36.00 BMI Method:Stated General Appearance: No Apparent Distress, WD/WN Neck: Full Range of Motion, Normal Inspection, Non Tender, Supple Respiratory: Lungs Clear, Normal Breath Sounds, Other (Mild tenderness to palpation left sternal border that is reproducible pain) Cardiovascular: Regular Rate, Rhythm, No Murmur Gastrointestinal: Non Tender, Soft Extremity: Normal Range of Motion, Non Tender Neurologic/Psychiatric: Alert, Oriented x3, Other (Normal gait) Progress/Results/Core Measures Suspected Sepsis SIRS Temperature: Pulse: 88 Respiratory Rate: 16 Blood Pressure 146 /90 Mean: 108 Results/Orders My Orders Orders - KRISS MURILLO MD Chest Pa/Lat (2 View) (07/18/21 10:14) Vital Signs/I&O 07/18/21 10:10 Temp 36.1 Pulse 88 Resp 16 B/P (MAP) 146/90 (108) O2 Delivery Room Air Capillary Refill : Less Than 3 Seconds Blood Pressure Mean: 108 Progress Note : Progress Note Seen and evaluated. Chest x-ray ordered. Patient took Tylenol earlier for the pain and states he is doing okay. Overall feels better and would like to go home. Discharged home with return precautions. Patient verbalized understanding of instructions and agreement with plan. Diagnostic Imaging Diagonstic Imaging: Xray Plain Films/CT/US/NM/MRI: chest Comments Negative chest Reviewed: Reviewed by Me Departure Impression Primary Impression: Seizure disorder Additional Impression: Chest wall pain Disposition: HOME, SELF-CARE Condition: Improved Departure-Patient Inst. Decision time for Depature: 10:36 Referrals: JERROD SERRANO APRN (PCP) Primary Care Physician [facility] (Family) Primary Care Physician Patient Instructions: CHEST CONTUSION, Chest Pain (DC), Seizures, Adult ED Add. Discharge Instructions: All discharge instructions reviewed with patient and/or family. Voiced understanding. Continue home medications as previously prescribed. You may use Tylenol and/or ibuprofen as needed for pain. Follow-up with your doctor in a few days for recheck. Return for worse pain, fever, vomiting, weakness, breathing problems or other concerns as needed. KRISS MURILLO MD Jul 18, 2021 10:37
[2021-07-18 10:41] VITALS: BP 146/90
== END 2021-07-18 10:42 | disposition home or self-care (01) ==
LOC: EDUNIT# 10:09 → ER FS 10:10
DX: G40.909 Epilepsy, unspecified, not intractable, without status epilepticus (principal); R07.89 Other chest pain; J45.909 Unspecified asthma, uncomplicated; E11.9 Type 2 diabetes mellitus without complications; F31.9 Bipolar disorder, unspecified; F17.210 Nicotine dependence, cigarettes, uncomplicated; Z87.820 Personal history of traumatic brain injury; Z79.4 Long term (current) use of insulin; Z79.899 Other long term (current) drug therapy
CPT/HCPCS: 71046

== ENCOUNTER 2021-09-22 21:43 | Emergency (ER) | payer MEDICARE ==
[~2021-09-22] VITALS: Ht 172 cm; Wt 110.0 kg
[2021-09-22 21:51] VITALS: BP 149/89
[2021-09-22 22:33] LABS: BASOPHILS % (AUTO) 1 % (0-10); EOSINOPHILS # (AUTO) 0.2 10^3/uL (0.0-0.3); EOSINOPHILS % (AUTO) 4 % (0-10); HEMATOCRIT 46 % (40-54); HEMOGLOBIN 15.7 g/dL (13.3-17.7); LYMPHOCYTES # (AUTO) 2.6 10^3/uL (1.0-4.0); LYMPHOCYTES % (AUTO) 46 % (12-44); MEAN CORPUSCULAR HEMOGLOBIN 30 pg (25-34); MEAN CORPUSCULAR HGB CONC 34 g/dL (32-36); MEAN CORPUSCULAR VOLUME 89 fL (80-99); MEAN PLATELET VOLUME 10.1 fL (9.0-12.2); MONOCYTES # (AUTO) 0.7 10^3/uL (0.0-1.0); MONOCYTES % (AUTO) 12 % (0-12); NEUTROPHILS # (AUTO) 2.2 10^3/uL (1.8-7.8); NEUTROPHILS % (AUTO) 39 % (42-75); PLATELET COUNT 65 10^3/uL (130-400); WHITE BLOOD COUNT 5.7 10^3/uL (4.3-11.0)
[2021-09-22 22:40] LABS: AMPHETAMINE SCREEN, URINE NEGATIVE (NEGATIVE); BARBITURATE SCREEN URINE NEGATIVE (NEGATIVE); BENZODIAZEPINES SCREEN URINE NEGATIVE (NEGATIVE); CANNABINOID SCREEN, URINE NEGATIVE (NEGATIVE); COCAINE SCREEN URINE NEGATIVE (NEGATIVE); METHADONE STAT NEGATIVE (NEGATIVE); METHAMPHETAMINE SCREEN URINE S NEGATIVE (NEGATIVE); OPIATE SCREEN URINE NEGATIVE (NEGATIVE); OXYCODONE STAT NEGATIVE (NEGATIVE); PROPOXYPHENE STAT NEGATIVE (NEGATIVE); TRICYCLIC ANTIDEPRESSANTS SCRE POSITIVE (NEGATIVE)
[2021-09-22 22:52] LABS: BUN/CREATININE RATIO 28; CARBON DIOXIDE 22 MMOL/L (21-32); CHLORIDE 109 MMOL/L (98-107); CREATININE SERUM 0.72 MG/DL (0.60-1.30); GFR ESTIMATED 110; POTASSIUM 3.9 MMOL/L (3.6-5.0); SODIUM 143 MMOL/L (135-145)
[2021-09-22 22:53] LABS: ALANINE AMINOTRANSFERASE 24 U/L (0-55); ALBUMIN 3.9 GM/DL (3.2-4.5); ALKALINE PHOSPHATASE 64 U/L (40-136); BILIRUBIN,TOTAL 0.4 MG/DL (0.1-1.0); GLUCOSE 125 MG/DL (70-105); TOTAL PROTEIN 6.9 GM/DL (6.4-8.2)
--- NOTE | 2021-09-22 23:19 | ED Psychosocial ---
General Chief Complaint: Suicidal Ideation Risk Stated Complaint: SUICIDAL THOUGHTS Nursing Triage Note: PT PRESENT WITH REPORTS OF SI WITH PLAN TO CUT HIS WRISTS. PT HAS ATTEMPTED SUICIDE IN THE PAST FIVE TIMES. Source: patient Exam Limitations: no limitations History of Present Illness Date Seen by Provider: Sep 22, 2021 Time Seen by Provider: 19:30 Initial Comments Patient is a 51-year-old male with history of chronic mental illness who presents with suicidal ideation. Patient states he has had thoughts of slitting his wrists. Patient denies homicidal ideation, delusions, paranoia in hallucinations. Denies suicide attempts. He states he is depressed over the passing of his niece last fall. Denies any medical complaints or symptoms. No drugs or alcohol. Patient does see an outpatient therapist is compliant with treatment. Timing/Duration: this morning Associated Symptoms: denies symptoms Allergies and Home Medications Allergies Coded Allergies: aripiprazole (Verified Allergy, Unknown, hallucinations, 10/01/18) zolpidem (Verified Allergy, Unknown, hallucinations, 10/01/18) Patient Home Medication List Home Medication List Reviewed: Yes Budesonide/Formoterol Fumarate (Symbicort 160-4.5 Mcg Inhaler) 10.2 Gm Hfa.aer.ad, (Reported) Entered as Reported by: JAYDA CHRISTIANSEN on 10/01/181818 Citalopram Hydrobromide (Celexa) 40 Mg Tablet, (Reported) Entered as Reported by: SUJATA COLLINS on 09/06/182052 Clindamycin HCl (Clindamycin HCl) 300 Mg Capsule, 300 MG PO TIDWM Prescribed by: LINDEN MERCEDES on 10/24/192033 Dicyclomine HCl (Dicyclomine HCl) 20 Mg Tablet, 20 MG PO QID PRN for ABDOMINAL PAIN Prescribed by: LUIS LECHUGA on 10/01/18 0501 Haloperidol (Haldol Tab) 5 Mg Tab, 10 MG PO HS, (Reported) Entered as Reported by: SUJATA COLLINS on 09/06/182052 Hydrocodone Bit/Acetaminophen (Lortab 5 Mg Tablet) 1 Tab Tab, 1 EACH PO Q4-6HR PRN for PAIN-MODERATE Prescribed by: HILDA YBARRA on 01/24/19 1351 Ibuprofen (Ibuprofen) 800 Mg Tablet, 800 MG PO Q8H PRN for PAIN Prescribed by: LINDEN MERCEDES on 10/24/192033 Insulin Glargine,Hum.rec.anlog (Basaglar Kwikpen U-100) 100 Unit/1 Ml Insuln.pen, (Reported) Entered as Reported by: JAYDA CHRISTIANSEN on 10/01/181818 Lorazepam (Lorazepam) 1 Mg Tablet, (Reported) Entered as Reported by: JAYDA CHRISTIANSEN on 10/01/181818 Magnesium Citrate (Magnesium Citrate) 296 Ml Solution, 296 ML PO Q6H Prescribed by: HILDA YBARRA on 01/30/19 1258 Ondansetron (Ondansetron Odt) 4 Mg Tab.rapdis, 4 MG PO Q6H PRN for NAUSEA/VOMITING Prescribed by: LUIS LECHUGA on 07/23/192149 Psyllium Husk (Metamucil) 0.4 Gm Capsule, 0.4 GM PO DAILY Prescribed by: HILDA YBARRA on 01/30/19 125 Simvastatin (Zocor) 40 Mg Tablet, HS, (Reported) Entered as Reported by: SUJATA COLLINS on 09/06/182052 [Lorazepam Tab 1MG] , (Reported) Entered as Reported by: SUJATA COLLINS on 09/06/182035 [Metformin Tab 500MG] , (Reported) Entered as Reported by: SUJATA COLLINS on 09/06/182035 [Phenytoin Ex Cap 100MG] , (Reported) Entered as Reported by: SUJATA COLLINS on 09/06/182035 [Pot Cl Micro Tab 20MEQ Er] , (Reported) Entered as Reported by: SUJATA COLLINS on 09/06/182035 [Risperidone Tab 3MG] , (Reported) Entered as Reported by: SUJATA COLLINS on 09/06/182035 Review of Systems Constitutional: see HPI EENTM: see HPI Respiratory: see HPI Cardiovascular: see HPI Gastrointestinal: see HPI Genitourinary: see HPI Musculoskeletal: see HPI Skin: see HPI Psychiatric/Neurological: See HPI All Other Systems Reviewed Negative Unless Noted: Yes Past Amlshha-Xomcvq-Jbposv Hx Patient Social History Tobacco Use?: Yes Tobacco type used: Cigarettes Smoking Status: Current Everyday Smoker Substance use?: No Alcohol Use?: No Pt feels they are or have been: No Immunizations Up To Date Influenza Vaccine Up-to-Date: Yes; Up-to-Date First/Initial COVID19 Vaccinat: UNKNOWN Second COVID19 Vaccination Brody: UNKNOWN Seasonal Allergies Seasonal Allergies: No Past Medical History Surgery/Hospitalization HX: Pseudoseizure Surgeries: Yes (cystoscopy) Gallbladder, Orthopedic Respiratory: Yes Asthma Cardiac: No Neurological: Yes (PSEUDOSEIZURES) Headaches /Migraines, Seizure Disorder, Traumatic Brain Injury Genitourinary: No Gastrointestinal: Yes Gastroesophageal Reflux, Hepatitis, Cirrhosis Musculoskeletal: No Endocrine: Yes Diabetes, Insulin dep HEENT: No Cancer: No Psychosocial: No (Suicidal and homicidal ideation hx) Bipolar, Personality Disorder Integumentary: No Blood Disorders: No Family Medical History No Pertinent Family Hx Physical Exam Vital Signs - First Documented 09/22/21 21:51 Temp 37.0 Pulse 91 Resp 18 B/P (MAP) 149/89 (109) Pulse Ox 95 O2 Delivery Room Air Capillary Refill : Height, Weight, BMI Height: 5'8.00" Weight: 220lbs. oz. 99.458851er; 37.00 BMI Method:Stated General Appearance: WD/WN, no apparent distress HEENT: PERRL/EOMI, normal ENT inspection Respiratory: chest non-tender, lungs clear Cardiovascular: normal peripheral pulses, regular rate, rhythm Gastrointestinal: non tender, soft Extremities: non-tender Neurologic/Psychiatric: alert, oriented x 3 Appearance/Memory: appropriate appearance, appropriate insight, neat Behavior/Eye Contact: cooperative, good eye contact, normal speech Thoughts/Hallucinations: normal thought pattern, no apparent hallucination; No delusions, No flight of ideas Skin: normal color Progress/Results/Core Measures Results/Orders Lab Results Laboratory Tests Test 09/22/21 22:20 09/22/21 22:30 Range/Units Urine Opiates Screen NEGATIVE NEGATIVE Urine Oxycodone Screen NEGATIVE NEGATIVE Urine Methadone Screen NEGATIVE NEGATIVE Urine Propoxyphene Screen NEGATIVE NEGATIVE Urine Barbiturates Screen NEGATIVE NEGATIVE Ur Tricyclic Antidepressants Screen POSITIVE H NEGATIVE Urine Phencyclidine Screen NEGATIVE NEGATIVE Urine Amphetamines Screen NEGATIVE NEGATIVE Urine Methamphetamines Screen NEGATIVE NEGATIVE Urine Benzodiazepines Screen NEGATIVE NEGATIVE Urine Cocaine Screen NEGATIVE NEGATIVE Urine Cannabinoids Screen NEGATIVE NEGATIVE White Blood Count 5.7 4.3-11.0 10^3/uL Red Blood Count 5.18 4.30-5.52 10^6/uL Hemoglobin 15.7 13.3-17.7 g/dL Hematocrit 46 40-54 % Mean Corpuscular Volume 89 80-99 fL Mean Corpuscular Hemoglobin 30 25-34 pg Mean Corpuscular Hemoglobin Concent 34 32-36 g/dL Red Cell Distribution Width 13.6 10.0-14.5 % Platelet Count 65 L 130-400 10^3/uL Mean Platelet Volume 10.1 9.0-12.2 fL Immature Granulocyte % (Auto) 0 % Neutrophils (%) (Auto) 39 L 42-75 % Lymphocytes (%) (Auto) 46 H 12-44 % Monocytes (%) (Auto) 12 0-12 % Eosinophils (%) (Auto) 4 0-10 % Basophils (%) (Auto) 1 0-10 % Neutrophils # (Auto) 2.2 1.8-7.8 10^3/uL Lymphocytes # (Auto) 2.6 1.0-4.0 10^3/uL Monocytes # (Auto) 0.7 0.0-1.0 10^3/uL Eosinophils # (Auto) 0.2 0.0-0.3 10^3/uL Basophils # (Auto) 0.0 0.0-0.1 10^3/uL Immature Granulocyte # (Auto) 0.0 0.0-0.1 10^3/uL Sodium Level 143 135-145 MMOL/L Potassium Level 3.9 3.6-5.0 MMOL/L Chloride Level 109 H 98-107 MMOL/L Carbon Dioxide Level 22 21-32 MMOL/L Anion Gap 12 5-14 MMOL/L Blood Urea Nitrogen 20 H 7-18 MG/DL Creatinine 0.72 0.60-1.30 MG/DL Estimat Glomerular Filtration Rate 110 BUN/Creatinine Ratio 28 Glucose Level 125 H 70-105 MG/DL Calcium Level 9.0 8.5-10.1 MG/DL Corrected Calcium 9.1 8.5-10.1 MG/DL Total Bilirubin 0.4 0.1-1.0 MG/DL Aspartate Amino Transf (AST/SGOT) 25 5-34 U/L Alanine Aminotransferase (ALT/SGPT) 24 0-55 U/L Alkaline Phosphatase 64 40-136 U/L Total Protein 6.9 6.4-8.2 GM/DL Albumin 3.9 3.2-4.5 GM/DL Serum Alcohol < 10 <10 MG/DL HILDA Dang DO Cbc With Automated Diff (09/22/21 22:20) Comprehensive Metabolic Panel (09/22/21 22:20) Ekg Tracing (09/22/21 22:20) Drug Screen Stat (Urine) (09/22/21 22:20) Alcohol (09/22/21 22:20) Vital Signs/I&O 09/22/21 21:51 Temp 37.0 Pulse 91 Resp 18 B/P (MAP) 149/89 (109) Pulse Ox 95 O2 Delivery Room Air Blood Pressure Mean: 109 Departure Communication (Admissions) EKG: Normal sinus rhythm, no acute ST-T wave changes. Lab work reviewed. Patient medically stable. Independent mental health screening assessment performed. Recommendations are for discharge home with home safety plan and outpatient follow-up. Patient is agreeable and comfortable with discharge plan. Return precautions reviewed. Patient verbalizes understanding agreement discharge instructions prior to departure. Impression Primary Impression: Mood disorder Disposition: 01 HOME, SELF-CARE Condition: Stable Departure-Patient Inst. Decision time for Depature: 04:09 Referrals: JERROD SERRANO APRN (PCP) Primary Care Physician [facility] (Family) Primary Care Physician Patient Instructions: OUTPT MENTAL HEALTH SERVICES Add. Discharge Instructions: Please follow the instructions in your home safety plan and follow-up with your outpatient therapist. Return to the ED if new or concerning symptoms. All discharge instructions reviewed with patient and/or family. Voiced understanding. HILDA YBARRA DO Sep 22, 2021 23:18
== END 2021-09-23 04:15 | disposition home or self-care (01) ==
LOC: EDUNIT# 21:43 → ER FS 21:44
DX: F39 Unspecified mood [affective] disorder (principal); F17.210 Nicotine dependence, cigarettes, uncomplicated
CPT/HCPCS: 36415; 80053; 80306; 85025; 93005; 99283; G0480; 80320

== ENCOUNTER 2021-10-29 11:33 | Emergency (ER) | payer MEDICARE ==
[~2021-10-29] VITALS: Ht 172 cm; Wt 104.0 kg
--- NOTE | 2021-10-29 11:39 | ED General ---
General Chief Complaint: General Problems/Pain Stated Complaint: SEIZURE History of Present Illness Date Seen by Provider: Oct 29, 2021 Time Seen by Provider: 11:38 Initial Comments 51-year-old male with PMH of psych disorder/pseudoseizures/ marijuana abuse, is brought in by EMS for alleged seizures during [facility] today morning. Patient states he felt anxious in [place] because there were too many people around him and he thinks that may have been the trigger to his seizures. Pt was sitting in the chair when it occurred and he did not fall.Last time he had a pseudoseizure he came to the ER a few days ago. Patient is an ER frequent flyer for similar complaints in different settings. Denies fever, known seizure disorder, aura, LOC, head strike, chest pain, palpitations, headache, neck pain. Allergies and Home Medications Allergies Coded Allergies: aripiprazole (Verified Allergy, Unknown, hallucinations, 10/01/18) zolpidem (Verified Allergy, Unknown, hallucinations, 10/01/18) Patient Home Medication List Home Medication List Reviewed: Yes Budesonide/Formoterol Fumarate (Symbicort 160-4.5 Mcg Inhaler) 10.2 Gm Hfa.aer.ad, (Reported) Entered as Reported by: JAYDA CHRISTIANSEN on 10/01/181818 Citalopram Hydrobromide (Celexa) 40 Mg Tablet, (Reported) Entered as Reported by: SUJATA COLLINS on 09/06/182052 Clindamycin HCl (Clindamycin HCl) 300 Mg Capsule, 300 MG PO TIDWM Prescribed by: LINDEN MERCEDES on 10/24/192033 Dicyclomine HCl (Dicyclomine HCl) 20 Mg Tablet, 20 MG PO QID PRN for ABDOMINAL PAIN Prescribed by: LUIS LECHUGA on 10/01/18 0501 Haloperidol (Haldol Tab) 5 Mg Tab, 10 MG PO HS, (Reported) Entered as Reported by: SUJATA COLLINS on 09/06/182052 Hydrocodone Bit/Acetaminophen (Lortab 5 Mg Tablet) 1 Tab Tab, 1 EACH PO Q4-6HR PRN for PAIN-MODERATE Prescribed by: HILDA YBARRA on 01/24/19 1351 Ibuprofen (Ibuprofen) 800 Mg Tablet, 800 MG PO Q8H PRN for PAIN Prescribed by: LINDEN MERCEDES on 10/24/192033 Insulin Glargine,Hum.rec.anlog (Basaglar Kwikpen U-100) 100 Unit/1 Ml Insuln.pen, (Reported) Entered as Reported by: JAYDA CHRISTIANSEN on 10/01/181818 Lorazepam (Lorazepam) 1 Mg Tablet, (Reported) Entered as Reported by: JAYDA CHRISTIANSEN on 10/01/181818 Magnesium Citrate (Magnesium Citrate) 296 Ml Solution, 296 ML PO Q6H Prescribed by: HILDA YBARRA on 01/30/19 1258 Ondansetron (Ondansetron Odt) 4 Mg Tab.rapdis, 4 MG PO Q6H PRN for NAUSEA/VOMITING Prescribed by: LUIS LECHUGA on 07/23/192149 Psyllium Husk (Metamucil) 0.4 Gm Capsule, 0.4 GM PO DAILY Prescribed by: HILDA YBARRA on 01/30/19 1258 Simvastatin (Zocor) 40 Mg Tablet, HS, (Reported) Entered as Reported by: SUJATA COLLINS on 09/06/182052 [Lorazepam Tab 1MG] , (Reported) Entered as Reported by: SUJATA COLLINS on 09/06/182035 [Metformin Tab 500MG] , (Reported) Entered as Reported by: SUJATA COLLINS on 09/06/182035 [Phenytoin Ex Cap 100MG] , (Reported) Entered as Reported by: SUJATA COLLINS on 09/06/182035 [Pot Cl Micro Tab 20MEQ Er] , (Reported) Entered as Reported by: SUJATA COLLINS on 09/06/182035 [Risperidone Tab 3MG] , (Reported) Entered as Reported by: SUJATA COLLINS on 09/06/182035 Review of Systems Review of Systems Constitutional: no symptoms reported EENTM: no symptoms reported Respiratory: no symptoms reported Cardiovascular: no symptoms reported Gastrointestinal: no symptoms reported Genitourinary: no symptoms reported Musculoskeletal: no symptoms reported Skin: no symptoms reported Psychiatric/Neurological: Seizure Hematologic/Lymphatic: No Symptoms Reported Immunological/Allergic: no symptoms reported Past Bmoknth-Czsmui-Qpkmxk Hx Immunizations Up To Date First/Initial COVID19 Vaccinat: 2020 Second COVID19 Vaccination Brody: 2020 Seasonal Allergies Seasonal Allergies: No Past Medical History Surgery/Hospitalization HX: Pseudoseizure Surgeries: Yes (cystoscopy) Gallbladder, Orthopedic Respiratory: Yes Asthma Cardiac: No Neurological: Yes (PSEUDOSEIZURES) Headaches /Migraines, Seizure Disorder, Traumatic Brain Injury Genitourinary: No Gastrointestinal: Yes Gastroesophageal Reflux, Hepatitis, Cirrhosis Musculoskeletal: No Endocrine: Yes Diabetes, Insulin dep HEENT: No Cancer: No Psychosocial: No (Suicidal and homicidal ideation hx) Bipolar, Personality Disorder Integumentary: No Blood Disorders: No Family Medical History No Pertinent Family Hx Physical Exam Vital Signs Vital Signs - First Documented 10/29/21 11:35 Temp 36.9 Pulse 74 Resp 14 B/P (MAP) 135/96 (109) Pulse Ox 99 O2 Delivery Room Air Capillary Refill : Height, Weight, BMI Height: 5'8.00" Weight: 220lbs. oz. 99.861888mm; 36.00 BMI Method:Stated General Appearance: No Apparent Distress, WD/WN HEENT: PERRL/EOMI Neck: Full Range of Motion, Normal Inspection, Non Tender, Supple Respiratory: Chest Non Tender, Lungs Clear, Normal Breath Sounds Cardiovascular: Regular Rate, Rhythm Gastrointestinal: Normal Bowel Sounds, Non Tender, Soft Back: Normal Inspection Extremity: Normal Inspection, Normal Range of Motion, Non Tender Neurologic/Psychiatric: Alert, Oriented x3, No Motor/Sensory Deficits, Normal Mood/Affect, information director II-XII Norm as Tested Skin: Normal Color Progress/Results/Core Measures Suspected Sepsis SIRS Temperature: Pulse: Respiratory Rate: Laboratory Tests 10/29/21 11:55: White Blood Count 5.7 Blood Pressure / Mean: Laboratory Tests 10/29/21 11:55: Creatinine 0.68, Platelet Count 71L, Total Bilirubin 0.4 Results/Orders Lab Results Laboratory Tests Test 10/29/21 11:55 Range/Units White Blood Count 5.7 4.3-11.0 10^3/uL Red Blood Count 5.26 4.30-5.52 10^6/uL Hemoglobin 16.1 13.3-17.7 g/dL Hematocrit 47 40-54 % Mean Corpuscular Volume 89 80-99 fL Mean Corpuscular Hemoglobin 31 25-34 pg Mean Corpuscular Hemoglobin Concent 34 32-36 g/dL Red Cell Distribution Width 13.4 10.0-14.5 % Platelet Count 71 L 130-400 10^3/uL Mean Platelet Volume 9.5 9.0-12.2 fL Immature Granulocyte % (Auto) 0 % Neutrophils (%) (Auto) 36 L 42-75 % Lymphocytes (%) (Auto) 47 H 12-44 % Monocytes (%) (Auto) 12 0-12 % Eosinophils (%) (Auto) 4 0-10 % Basophils (%) (Auto) 1 0-10 % Neutrophils # (Auto) 2.1 1.8-7.8 10^3/uL Lymphocytes # (Auto) 2.7 1.0-4.0 10^3/uL Monocytes # (Auto) 0.7 0.0-1.0 10^3/uL Eosinophils # (Auto) 0.2 0.0-0.3 10^3/uL Basophils # (Auto) 0.0 0.0-0.1 10^3/uL Immature Granulocyte # (Auto) 0.0 0.0-0.1 10^3/uL Urine Color YELLOW Urine Clarity CLEAR Urine pH 7.5 5-9 Urine Specific [place] 1.015 L 1.016-1.022 Urine Protein NEGATIVE NEGATIVE Urine Glucose (UA) 3+ H NEGATIVE Urine Ketones NEGATIVE NEGATIVE Urine Nitrite NEGATIVE NEGATIVE Urine Bilirubin NEGATIVE NEGATIVE Urine Urobilinogen 0.2 < = 1.0 MG/DL Urine Leukocyte Esterase NEGATIVE NEGATIVE Urine RBC (Auto) NEGATIVE NEGATIVE Urine RBC RARE /HPF Urine WBC 0-2 /HPF Urine Squamous Epithelial Cells 5-10 /HPF Urine Crystals NONE /LPF Urine Bacteria TRACE /HPF Urine Casts NONE /LPF Urine Mucus NEGATIVE /LPF Urine Culture Indicated NO Sodium Level 139 135-145 MMOL/L Potassium Level 4.0 3.6-5.0 MMOL/L Chloride Level 106 98-107 MMOL/L Carbon Dioxide Level 23 21-32 MMOL/L Anion Gap 10 5-14 MMOL/L Blood Urea Nitrogen 14 7-18 MG/DL Creatinine 0.68 0.60-1.30 MG/DL Estimat Glomerular Filtration Rate 112 BUN/Creatinine Ratio 21 Glucose Level 83 70-105 MG/DL Calcium Level 9.5 8.5-10.1 MG/DL Corrected Calcium 9.4 8.5-10.1 MG/DL Total Bilirubin 0.4 0.1-1.0 MG/DL Aspartate Amino Transf (AST/SGOT) 21 5-34 U/L Alanine Aminotransferase (ALT/SGPT) 21 0-55 U/L Alkaline Phosphatase 59 40-136 U/L Total Protein 6.9 6.4-8.2 GM/DL Albumin 4.1 3.2-4.5 GM/DL Urine Opiates Screen NEGATIVE NEGATIVE Urine Oxycodone Screen NEGATIVE NEGATIVE Urine Methadone Screen NEGATIVE NEGATIVE Urine Propoxyphene Screen NEGATIVE NEGATIVE Urine Barbiturates Screen NEGATIVE NEGATIVE Ur Tricyclic Antidepressants Screen POSITIVE H NEGATIVE Urine Phencyclidine Screen NEGATIVE NEGATIVE Urine Amphetamines Screen NEGATIVE NEGATIVE Urine Methamphetamines Screen NEGATIVE NEGATIVE Urine Benzodiazepines Screen NEGATIVE NEGATIVE Urine Cocaine Screen NEGATIVE NEGATIVE Urine Cannabinoids Screen NEGATIVE NEGATIVE Serum Alcohol < 10 <10 MG/DL My Orders Orders - PERICO ARCE MD Alcohol (10/29/21 11:43) Cbc With Automated Diff (10/29/21 11:43) Comprehensive Metabolic Panel (10/29/21 11:43) Drug Screen Stat (Urine) (10/29/21 11:43) Ua Culture If Indicated (10/29/21 11:43) Creatine Kinase Mb (10/29/21 11:55) Thyroid Stimulating Hormone (10/29/21 11:55) Vital Signs/I&O 10/29/21 11:35 Temp 36.9 Pulse 74 Resp 14 B/P (MAP) 135/96 (109) Pulse Ox 99 O2 Delivery Room Air Capillary Refill : Progress Note : Progress Note 1. Seizure vs Pseudoseizure/ Anxiety - Labs: normal - UA/ UDS: Positive for TCA, otherwise unremarkable - CT head was done on 10/14/21 and was normal - Advised pt to follow up with Neurologist ( pt states he has a neurologist at ), his psychiatrist , and PCP within the next 3 days. Pt agrees to plan. -The patient was seen in the ED, and treated appropriately to presentation at a specific point in time. Patient is informed that there is a possibility that disease and illness can evolve and change in acuity rapidly or slowly after patient is discharged from the ER. Precautionary advice given to the patient for immediate return to ER if symptoms worsen or do not resolve, and to seek [facility] care sooner rather than later. Pt also advised on the importance of PCP follow up and compliance with management and follow up plan with PCP and/or specialist, as this is part of the management plan. Pt verbally expressed understanding. Departure Impression Primary Impression: Pseudoseizures Additional Impression: Chronic anxiety Disposition: 01 HOME, SELF-CARE Condition: Stable Departure-Patient Inst. Referrals: JERROD SERRANO APRN (PCP) Primary Care Physician [facility] (Family) Primary Care Physician Patient Instructions: Anxiety, Adult (DC), Seizures, Adult ED Add. Discharge Instructions: - Advised pt to follow up with Neurologist ( pt states he has a neurologist at ), his psychiatrist , and PCP within the next 3 days. Pt agrees to plan. -The patient was seen in the ED, and treated appropriately to presentation at a specific point in time. Patient is informed that there is a possibility that disease and illness can evolve and change in acuity rapidly or slowly after patient is discharged from the ER. Precautionary advice given to the patient for immediate return to ER if symptoms worsen or do not resolve, and to seek emergency care sooner rather than later. Pt also advised on the importance of PCP follow up and compliance with management and follow up plan with PCP and/or specialist, as this is part of the management plan. Pt verbally expressed understanding. All discharge instructions reviewed with patient and/or family. Voiced understanding. PERICO ARCE MD Oct 29, 2021 11:39
[2021-10-29 11:57] LABS: BASOPHILS % (AUTO) 1 % (0-10); EOSINOPHILS # (AUTO) 0.2 10^3/uL (0.0-0.3); EOSINOPHILS % (AUTO) 4 % (0-10); HEMATOCRIT 47 % (40-54); HEMOGLOBIN 16.1 g/dL (13.3-17.7); LYMPHOCYTES # (AUTO) 2.7 10^3/uL (1.0-4.0); LYMPHOCYTES % (AUTO) 47 % (12-44); MEAN CORPUSCULAR HEMOGLOBIN 31 pg (25-34); MEAN CORPUSCULAR HGB CONC 34 g/dL (32-36); MEAN CORPUSCULAR VOLUME 89 fL (80-99); MEAN PLATELET VOLUME 9.5 fL (9.0-12.2); MONOCYTES # (AUTO) 0.7 10^3/uL (0.0-1.0); MONOCYTES % (AUTO) 12 % (0-12); NEUTROPHILS # (AUTO) 2.1 10^3/uL (1.8-7.8); NEUTROPHILS % (AUTO) 36 % (42-75); PLATELET COUNT 71 10^3/uL (130-400); WHITE BLOOD COUNT 5.7 10^3/uL (4.3-11.0)
[2021-10-29 12:04] LABS: BILIRUBIN,URINE NEGATIVE (NEGATIVE); CLARITY,URINE CLEAR; COLOR,URINE YELLOW; GLUCOSE, URINE (UA) 3+ (NEGATIVE); KETONES,URINE NEGATIVE (NEGATIVE); LEUKOCYTE ESTERASE ,URINE NEGATIVE (NEGATIVE); NITRITE,URINE NEGATIVE (NEGATIVE); PH,URINE 7.5 (5-9); PROTEIN,URINE NEGATIVE (NEGATIVE)
[2021-10-29 12:05] LABS: BACTERIA,URINE TRACE /HPF; RBC,URINE RARE /HPF; WBC,URINE 0-2 /HPF
[2021-10-29 12:11] LABS: AMPHETAMINE SCREEN, URINE NEGATIVE (NEGATIVE); BARBITURATE SCREEN URINE NEGATIVE (NEGATIVE); BENZODIAZEPINES SCREEN URINE NEGATIVE (NEGATIVE); CANNABINOID SCREEN, URINE NEGATIVE (NEGATIVE); COCAINE SCREEN URINE NEGATIVE (NEGATIVE); METHADONE STAT NEGATIVE (NEGATIVE); METHAMPHETAMINE SCREEN URINE S NEGATIVE (NEGATIVE); OPIATE SCREEN URINE NEGATIVE (NEGATIVE); OXYCODONE STAT NEGATIVE (NEGATIVE); PROPOXYPHENE STAT NEGATIVE (NEGATIVE); TRICYCLIC ANTIDEPRESSANTS SCRE POSITIVE (NEGATIVE)
[2021-10-29 12:18] LABS: ALANINE AMINOTRANSFERASE 21 U/L (0-55); ALBUMIN 4.1 GM/DL (3.2-4.5); ALKALINE PHOSPHATASE 59 U/L (40-136); BILIRUBIN,TOTAL 0.4 MG/DL (0.1-1.0); BUN/CREATININE RATIO 21; CALCIUM 9.5 MG/DL (8.5-10.1); CARBON DIOXIDE 23 MMOL/L (21-32); CHLORIDE 106 MMOL/L (98-107); CREATININE SERUM 0.68 MG/DL (0.60-1.30); GFR ESTIMATED 112; GLUCOSE 83 MG/DL (70-105); SODIUM 139 MMOL/L (135-145); TOTAL PROTEIN 6.9 GM/DL (6.4-8.2)
[2021-10-29 12:32] VITALS: BP 135/96
[2021-10-29 16:12] LABS: CREATINE KINASE MB 1.6 NG/ML (<6.6)
[2021-10-30] MEDS ORDERED: POLY119P5 PO (11:39)
[2021-10-30] MEDS ORDERED: MELO7.5T46 PO (11:39)
== END 2021-10-29 12:38 | disposition home or self-care (01) ==
LOC: EDUNIT# 11:33 → ER FS 11:36
DX: F44.5 Conversion disorder with seizures or convulsions (principal); F41.8 Other specified anxiety disorders
CPT/HCPCS: 36415; 80053; 80306; 81000; 82553; 84443; 85025; 99283; G0480; 80320

== ENCOUNTER 2021-10-30 10:35 | Emergency (ER) | payer MEDICARE, MEDICAID ==
[~2021-10-30] VITALS: Ht 172.7 cm; Wt 104.3 kg
--- NOTE | 2021-10-30 10:52 | ED General ---
General Chief Complaint: Lower Extremity Stated Complaint: LEG CRAMPING Source of Information: Patient History of Present Illness Date Seen by Provider: Oct 30, 2021 Time Seen by Provider: 10:41 Initial Comments 51-year-old male presenting with complaints of bilateral knee and thigh pain after having a fall off his porch last week. He also was complaining of constipation with chronic diffuse abdominal pain. He was seen yesterday in the emergency department for a pseudoseizure and had blood work and urine which did not show any acute significant abnormalities. He had glucose in his urine which is chronic for him but he was not showing hyperglycemia on his blood work. His electrolytes appeared stable. He had not complained of any of the constipation or knee and thigh pain yesterday. He has not gone to see his primary care provider about any of his pain since he had the fall. He states he has been taking his chronic medications. Timing/Duration: 1 Week (Over a week of pain since he fell off of his porch) Severity: Severe Modifying Factors: worse with Movement Associated Systoms: No Chest Pain, No Cough, No Diaphoresis, No Fever/Chills, No Headaches, No Loss of Appetite, No Malaise, No Nausea/Vomiting, No Rash; Seizure (History of pseudoseizures); No Shortness of Air, No Syncope, No Weakness Allergies and Home Medications Allergies Coded Allergies: aripiprazole (Verified Allergy, Unknown, hallucinations, 10/01/18) zolpidem (Verified Allergy, Unknown, hallucinations, 10/01/18) Patient Home Medication List Home Medication List Reviewed: Yes Budesonide/Formoterol Fumarate (Symbicort 160-4.5 Mcg Inhaler) 10.2 Gm Hfa.aer.ad, (Reported) Entered as Reported by: JAYDA CHRISTIANSEN on 10/01/181818 Citalopram Hydrobromide (Celexa) 40 Mg Tablet, (Reported) Entered as Reported by: SUJATA COLLINS on 09/06/182052 Clindamycin HCl (Clindamycin HCl) 300 Mg Capsule, 300 MG PO TIDWM Prescribed by: LINDEN MERCEDES on 10/24/192033 Dicyclomine HCl (Dicyclomine HCl) 20 Mg Tablet, 20 MG PO QID PRN for ABDOMINAL PAIN Prescribed by: LUIS LECHUGA on 10/01/18 0501 Haloperidol (Haldol Tab) 5 Mg Tab, 10 MG PO HS, (Reported) Entered as Reported by: SUJATA COLLINS on 09/06/182052 Hydrocodone Bit/Acetaminophen (Lortab 5 Mg Tablet) 1 Tab Tab, 1 EACH PO Q4-6HR PRN for PAIN-MODERATE Prescribed by: HILDA YBARRA on 01/24/19 1351 Ibuprofen (Ibuprofen) 800 Mg Tablet, 800 MG PO Q8H PRN for PAIN Prescribed by: LINDEN LEIJASTPIERRE on 10/24/192033 Insulin Glargine,Hum.rec.anlog (Basaglar Kwikpen U-100) 100 Unit/1 Ml Insuln.pen, (Reported) Entered as Reported by: JAYDA CHRISTIANESN on 10/01/181818 Lorazepam (Lorazepam) 1 Mg Tablet, (Reported) Entered as Reported by: JAYDA CHRISTIANSEN on 10/01/181818 Magnesium Citrate (Magnesium Citrate) 296 Ml Solution, 296 ML PO Q6H Prescribed by: HILDA YBARRA on 01/30/19 1258 Meloxicam (Meloxicam) 7.5 Mg Tablet, 7.5 MG PO DAILY Prescribed by: LUIS BARRERAYART on 10/30/21 1139 Ondansetron (Ondansetron Odt) 4 Mg Tab.rapdis, 4 MG PO Q6H PRN for NAUSEA/ VOMITING Prescribed by: LUIS NATIONRT on 07/23/19 2150 Polyethylene Glycol 3350 (Miralax) 17 Gram/Dose Powder, 17 GM PO DAILY PRN for CONSTIPATION-1ST LINE Prescribed by: LUIS LECHUGA on 10/30/21 1139 Psyllium Husk (Metamucil) 0.4 Gm Capsule, 0.4 GM PO DAILY Prescribed by: HILDA YBARRA on 01/30/19 1258 Simvastatin (Zocor) 40 Mg Tablet, HS, (Reported) Entered as Reported by: SUJATA COLLINS on 09/06/182052 [Lorazepam Tab 1MG] , (Reported) Entered as Reported by: SUJATA COLLINS on 09/06/182035 [Metformin Tab 500MG] , (Reported) Entered as Reported by: SUJATA COLLINS on 09/06/182035 [Phenytoin Ex Cap 100MG] , (Reported) Entered as Reported by: SUJATA COLLINS on 09/06/182035 [Pot Cl Micro Tab 20MEQ Er] , (Reported) Entered as Reported by: SUJATA COLLINS on 09/06/182035 [Risperidone Tab 3MG] , (Reported) Entered as Reported by: SUJATA COLLINS on 09/06/182035 Review of Systems Review of Systems Constitutional: No chills, No dizziness, No fever EENTM: no symptoms reported Respiratory: no symptoms reported Cardiovascular: no symptoms reported Gastrointestinal: see HPI Genitourinary: dysuria Musculoskeletal: see HPI, joint pain (Bilateral knee and thigh pain since falling off his porch) Skin: No change in color (No bruising or abrasions noted) Psychiatric/Neurological: Denies Headache, Denies Weakness Past Srczzvh-Iketdw-Cnntdy Hx Patient Social History Tobacco Use?: Yes Tobacco type used: Cigarettes Smoking Status: Current Everyday Smoker Substance use?: No Immunizations Up To Date First/Initial COVID19 Vaccinat: UNKNOWN Second COVID19 Vaccination Brody: UNKNOWN Third COVID19 Vaccination Date: UNKNOWN Seasonal Allergies Seasonal Allergies: No Past Medical History Surgery/Hospitalization HX: Pseudoseizure Surgeries: Yes (cystoscopy) Gallbladder, Orthopedic Respiratory: Yes Asthma Cardiac: No Neurological: Yes (PSEUDOSEIZURES) Headaches /Migraines, Seizure Disorder, Traumatic Brain Injury Genitourinary: No Gastrointestinal: Yes Gastroesophageal Reflux, Hepatitis, Cirrhosis Musculoskeletal: No Endocrine: Yes Diabetes, Insulin dep HEENT: No Cancer: No Psychosocial: No (Suicidal and homicidal ideation hx) Bipolar, Personality Disorder Integumentary: No Blood Disorders: No Family Medical History No Pertinent Family Hx Physical Exam Vital Signs Vital Signs - First Documented 10/30/21 10/30/21 10:41 11:45 Temp 36.7 Pulse 103 Resp 16 B/P (MAP) 129/71 (90) Pulse Ox 98 O2 Delivery Room Air Capillary Refill : Height, Weight, BMI Height: 5'8.00" Weight: 220lbs. oz. 99.512781vj; 35.00 BMI Method:Stated General Appearance: No Apparent Distress, Obese, Other (Disheveled appearance) HEENT: PERRL/EOMI, Normal ENT Inspection, Pharynx Normal, Other (Negative callahan sign, negative raccoon sign, negative CSF otorrhea or rhinorrhea.) Neck: Full Range of Motion, Normal Inspection, Non Tender, Supple Respiratory: Chest Non Tender, Lungs Clear, Normal Breath Sounds, No Accessory Muscle Use, No Respiratory Distress Cardiovascular: Regular Rate, Rhythm, Normal Peripheral Pulses Gastrointestinal: Normal Bowel Sounds, No Pulsatile Mass, Soft; No Distended, No Guarding, No Rebound; Tenderness (Patient complains of diffuse tenderness to his abdomen which is chronic condition for him) Rectal: Deferred Back: No CVA Tenderness, No Vertebral Tenderness Extremity: Normal Capillary Refill, Normal Inspection, Normal Range of Motion, No Calf Tenderness, No Pedal Edema, Other (Patient complains of tenderness to palpation over his knees. He has tenderness with palpation over the patella. This is bilateral. He has no obvious bruising or abrasions in this area. He also complains of pain to bilateral inner thigh) Neurologic/Psychiatric: Alert, Oriented x3, No Motor/Sensory Deficits, Normal Mood/Affect, genetic supervisor II-XII Norm as Tested Skin: Warm/Dry Progress/Results/Core Measures Suspected Sepsis SIRS Temperature: Pulse: Respiratory Rate: Blood Pressure / Mean: Results/Orders Lab Results Laboratory Tests Test 10/30/21 10:52 Range/Units Urine Color YELLOW Urine Clarity CLEAR Urine pH 7.0 5-9 Urine Specific [place] 1.010 L 1.016-1.022 Urine Protein NEGATIVE NEGATIVE Urine Glucose (UA) 3+ H NEGATIVE Urine Ketones NEGATIVE NEGATIVE Urine Nitrite NEGATIVE NEGATIVE Urine Bilirubin NEGATIVE NEGATIVE Urine Urobilinogen 0.2 < = 1.0 MG/DL Urine Leukocyte Esterase NEGATIVE NEGATIVE Urine RBC (Auto) NEGATIVE NEGATIVE Urine RBC NONE /HPF Urine WBC RARE /HPF Urine Squamous Epithelial Cells 0-2 /HPF Urine Crystals NONE /LPF Urine Bacteria NEGATIVE /HPF Urine Casts NONE /LPF Urine Mucus NEGATIVE /LPF Urine Culture Indicated NO My Orders Orders - LUIS LECHUGA MD Ua Culture If Indicated (10/30/21 10:52) Ketorolac Injection (Toradol Injection) (10/30/21 10:53) Orphenadrine Inj (Ed Only) (Norflex Inje (10/30/21 10:53) Acute Abd Series (10/30/21 10:54) Femur 2 View Bilateral (10/30/21 10:54) Vital Signs/I&O 10/30/21 10/30/21 10:41 11:45 Temp 36.7 Pulse 103 72 Resp 16 14 B/P (MAP) 129/71 (90) 129/81 Pulse Ox 98 O2 Delivery Room Air Room Air Capillary Refill : Progress Note #1: Progress Note Obtain urinalysis since he reports pain with urination. X-rays of the bilateral femurs to evaluate his thighs and knees. Check a acute abdomen series to look for bowel obstruction or amount of stool present for his complaint of constipation. As he just had labs done yesterday those were reviewed and he had no acute significant abnormality on his CBC or chemistry. Progress Note #2: Progress Note X-rays are negative for acute fracture or dislocation. Acute abdomen series is showing a small amount of stool but no obvious obstruction or large amount of constipation in her stool load. Urinalysis showed 3+ glucose but no infection. Will prescribe meloxicam as he states that he has an ulcer. This should be easier on his stomach then other NSAIDs. Have him use ice alternating with heat to help with pain and inflammation. Follow-up through the clinic to check with his primary care provider for continued concerns. Take MiraLAX daily to help with constipation Diagnostic Imaging Diagonstic Imaging: Xray Plain Films/CT/US/NM/MRI: abdomen Comments [facility] [place], [place] NAME: PABLO SCOTT [facility] REC#: [id number] PT STATUS: REG ER : 1970 PHYSICIAN: LUIS LECHUGA MD ADMIT DATE: 10/30/21/ER FS Draft Date of Exam:10/30/21 ACUTE ABD SERIES CLINICAL INDICATIONS: Patient with pain. EXAMS: X-ray of the chest PA view and x-ray of the abdomen supine and upright views. COMPARISONS: None. FINDINGS: LUNGS/ PLEURA: Minimal atelectasis or scarring in the left lung base. Lungs are otherwise clear. There is no pneumothorax. There is no pleural effusion. MEDIASTINUM: Unremarkable. PULMONARY VASCULATURE: Unremarkable. HEART: Unremarkable. BONES/ EXTRATHORACIC SOFT TISSUE: There are hypertrophic spurs involving the thoracic spine. ABDOMEN AND PELVIS: Unremarkable x-ray of the abdomen with nonobstructed bowel gas pattern. There is no evidence of abdominal free air. Surgical clips are seen overlying the right upper quadrant which could be related to cholecystectomy changes. There is small to moderate amount of stool scattered throughout the colon. There are no focal calcifications overlying the expected regions/ pathways of both kidneys, ureters, and bladder regions. IMPRESSION: 1: There is no radiographic evidence of acute cardiopulmonary process. 2: Unremarkable x-ray of the abdomen. There is small to moderate amount of stool scattered throughout the colon. Dictated on workstation # [id number] Dict: 10/30/21 1125 Trans: 10/30/21 1127 [facility] [id number] Interpreted by: JOEY OLIVAS MD Electronically signed by: Reviewed: Reviewed by Me Diagonstic Imaging: Xray Plain Films/CT/US/NM/MRI: femur Comments [facility]. [place], [place] NAME: PABLO SCOTT [facility] REC#: [id number] PT STATUS: DEP ER : 1970 PHYSICIAN: LUIS LECHUGA MD ADMIT DATE: 10/30/21/ER FS Draft Date of Exam:10/30/21 FEMUR 2 VIEW BILATERAL CLINICAL INDICATIONS: Patient with knee and thigh pain since fall off porch last week. Patient with leg cramping. EXAM: X-ray of both femur, multiple views. COMPARISON: X-ray of the right knee dated 11/17/2020. FINDINGS: There is no acute fracture or dislocation. There is an area of prominent cortical thickening involving the medial posterior aspect of the proximal left femoral diaphysis which may be from old healed fracture changes or from chronic stress response. There is no soft tissue mass or destructive process seen. There is hypertrophic spurring involving the bilateral acetabular regions superiorly which may be seen with pincer-type femoral acetabular impingement. There is mild degenerative disease left knee with mild medial compartment narrowing and small spurs in the medial and patellofemoral compartment. IMPRESSION: 1.: There is no acute fracture or dislocation. 2: There is cortical thickening involving the medial posterior aspect of the proximal left femoral diaphysis. This may be from old healed fracture changes versus chronic stress response. There is no bony destructive process or soft tissue mass seen. If this is not a known finding, then followup x-ray of the left proximal femur in 3 months would be suggested for further evaluation. 3: There is hypertrophic spurring of the lateral acetabular roofs which may be seen with pincer-type femoral acetabular impingement. Dictated on workstation # [id number] Dict: 10/30/21 1135 Trans: 10/30/21 1144 [facility] [id number] Interpreted by: JOEY OLIVAS MD Electronically signed by: Reviewed: Reviewed by Me Departure Impression Primary Impression: Contusion of left knee, initial encounter Additional Impressions: Contusion of right knee, initial encounter Strain of unspecified muscles, fascia and tendons at thigh level, left thigh, initial encounter Strain of unspecified muscles, fascia and tendons at thigh level, right thigh, initial encounter Other fall from one level to another, initial encounter Constipation Qualified Codes: K59.00 - Constipation, unspecified Disposition: HOME, SELF-CARE Condition: Stable Departure-Patient Inst. Decision time for Depature: 11:32 Referrals: JERROD SERRANO APRN (PCP) Primary Care Physician [facility] (Family) Primary Care Physician Patient Instructions: Preventing Falls ED, Leg Muscle Strain ED, Constipation, Adult ED, Minor Contusion ED Add. Discharge Instructions: Take Miralax daily to help soften your stools and get your stools to be more regular. Use Meloxicam to help with pain and inflammation from the fall. You may also try using ice alternating with heat to help with pain and inflammation in your knees and thighs. Check back with your primary care provider for continued concerns. All discharge instructions reviewed with patient and/or family. Voiced understanding. Scripts Polyethylene Glycol 3350 (Miralax) 17 Gram/Dose Powder 17 GM PO DAILY PRN for CONSTIPATION-1ST LINE for 30 Days, #510 GM 0 Refills Prov: LUIS LECHUGA MD 10/30/21 Meloxicam (Meloxicam) 7.5 Mg Tablet 7.5 MG PO DAILY for pain/inflammation for 10 Days, #10 TAB 0 Refills Prov: LUIS LECHUGA MD 10/30/21 LUIS LECHUGA MD Oct 30, 2021 10:52
[2021-10-30] MEDS ORDERED: KETOROLAC 60 MG/2 ML VIAL IM STA (10:53)
[2021-10-30] MEDS ORDERED: ORPHENADRINE 60 MG/2 ML (NORFLEX) AMP (ED ONLY) IM STA (10:53)
[2021-10-30 11:00] LABS: BILIRUBIN,URINE NEGATIVE (NEGATIVE); CLARITY,URINE CLEAR; COLOR,URINE YELLOW; GLUCOSE, URINE (UA) 3+ (NEGATIVE); KETONES,URINE NEGATIVE (NEGATIVE); LEUKOCYTE ESTERASE ,URINE NEGATIVE (NEGATIVE); NITRITE,URINE NEGATIVE (NEGATIVE); PROTEIN,URINE NEGATIVE (NEGATIVE)
[2021-10-30 11:10] LABS: BACTERIA,URINE NEGATIVE /HPF; SQUAMOUS EPITHELIAL CELL,UR 0-2 /HPF; WBC,URINE RARE /HPF
--- NOTE | 2021-10-30 11:28 | Diagnostic Imaging Report ---
CLINICAL INDICATIONS: Patient with pain. EXAMS: X-ray of the chest PA view and x-ray of the abdomen supine and upright views. COMPARISONS: None. FINDINGS: LUNGS/ PLEURA: Minimal atelectasis or scarring in the left lung base. Lungs are otherwise clear. There is no pneumothorax. There is no pleural effusion. MEDIASTINUM: Unremarkable. PULMONARY VASCULATURE: Unremarkable. HEART: Unremarkable. BONES/ EXTRATHORACIC SOFT TISSUE: There are hypertrophic spurs involving the thoracic spine. ABDOMEN AND PELVIS: Unremarkable x-ray of the abdomen with nonobstructed bowel gas pattern. There is no evidence of abdominal free air. Surgical clips are seen overlying the right upper quadrant which could be related to cholecystectomy changes. There is small to moderate amount of stool scattered throughout the colon. There are no focal calcifications overlying the expected regions/ pathways of both kidneys, ureters, and bladder regions. IMPRESSION: 1: There is no radiographic evidence of acute cardiopulmonary process. 2: Unremarkable x-ray of the abdomen. There is small to moderate amount of stool scattered throughout the colon. Dictated by: Dictated on workstation # [id number]
[2021-10-30] MEDS ORDERED: MELO7.5T46 PO (11:39)
[2021-10-30] MEDS ORDERED: POLY119P5 PO (11:39)
[2021-10-30 11:45] VITALS: BP 129/81
--- NOTE | 2021-10-30 11:45 | Diagnostic Imaging Report ---
CLINICAL INDICATIONS: Patient with knee and thigh pain since fall off porch last week. Patient with leg cramping. EXAM: X-ray of both femur, multiple views. COMPARISON: X-ray of the right knee dated 11/17/2020. FINDINGS: There is no acute fracture or dislocation. There is an area of prominent cortical thickening involving the medial posterior aspect of the proximal left femoral diaphysis which may be from old healed fracture changes or from chronic stress response. There is no soft tissue mass or destructive process seen. There is hypertrophic spurring involving the bilateral acetabular regions superiorly which may be seen with pincer-type femoral acetabular impingement. There is mild degenerative disease left knee with mild medial compartment narrowing and small spurs in the medial and patellofemoral compartment. IMPRESSION: 1.: There is no acute fracture or dislocation. 2: There is cortical thickening involving the medial posterior aspect of the proximal left femoral diaphysis. This may be from old healed fracture changes versus chronic stress response. There is no bony destructive process or soft tissue mass seen. If this is not a known finding, then followup x-ray of the left proximal femur in 3 months would be suggested for further evaluation. 3: There is hypertrophic spurring of the lateral acetabular roofs which may be seen with pincer-type femoral acetabular impingement. Dictated by: Dictated on workstation # [id number]
== END 2021-10-30 11:45 | disposition home or self-care (01) ==
LOC: EDUNIT# 10:35 → ER FS 10:40
DX: S76.911A Strain of unspecified muscles, fascia and tendons at thigh level, right thigh, initial encounter (principal); S76.912A Strain of unspecified muscles, fascia and tendons at thigh level, left thigh, initial encounter; S80.02XA Contusion of left knee, initial encounter; S80.01XA Contusion of right knee, initial encounter; K59.00 Constipation, unspecified; E66.9 Obesity, unspecified; E11.9 Type 2 diabetes mellitus without complications; F17.210 Nicotine dependence, cigarettes, uncomplicated; Z68.35 Body mass index [BMI] 35.0-35.9, adult; Z79.4 Long term (current) use of insulin; W17.89XA Other fall from one level to another, initial encounter
CPT/HCPCS: 74022; 81000

== ENCOUNTER 2021-11-09 15:27 | Emergency (ER) | payer MEDICARE, MEDICAID ==
[~2021-11-09] VITALS: Ht 172.7 cm; Wt 113.4 kg
[~2021-11-09 15:27] MED LIST changes: +MELO7.5T46 PO; +POLY119P5 PO
--- NOTE | 2021-11-09 16:19 | ED Abdominal Pain ---
General Chief Complaint: Abdominal/GI Problems Stated Complaint: ABD PAIN,LIGHTHEADED Source of Information: Patient Exam Limitations: No Limitations History of Present Illness Date Seen by Provider: November 09, 2021 Time Seen by Provider: 16:00 Initial Comments Patient is a 51-year-old male with history of anxiety, chronic bronchitis and tobaccoism who presents with chest wall pain with productive cough and chest wall pain. Symptoms been been ongoing the past few days. Patient was evaluated earlier this morning at urgent care and was prescribed amoxicillin which she has taken 1 dose. He reports chest wall pain with cough. He states he has allergies to Tylenol and ibuprofen which make him feel anxious. He denies fever chills, nausea vomiting or sweats. Denies chest wall pain radiation or pain with exertion. Denies increased shortness of breath or wheezing. No leg pain or swelling no other acute symptoms or complaints. Timing/Duration: 1-3 Hours Severity/Quality: Moderate Location: Other Radiation: Other Activities at Onset: Other Modifying Factors: Improves With Other Associated Symptoms: Other Allergies and Home Medications Allergies Coded Allergies: aripiprazole (Verified Allergy, Unknown, hallucinations, 10/01/18) zolpidem (Verified Allergy, Unknown, hallucinations, 10/01/18) Patient Home Medication List Home Medication List Reviewed: Yes Budesonide/Formoterol Fumarate (Symbicort 160-4.5 Mcg Inhaler) 10.2 Gm Hfa.aer.ad, (Reported) Entered as Reported by: JAYDA CHRISTIANSEN on 10/01/181818 Citalopram Hydrobromide (Celexa) 40 Mg Tablet, (Reported) Entered as Reported by: SUJATA COLLINS on 09/06/182052 Clindamycin HCl (Clindamycin HCl) 300 Mg Capsule, 300 MG PO TIDWM Prescribed by: LINDEN MERCEDES on 10/24/192033 Dicyclomine HCl (Dicyclomine HCl) 20 Mg Tablet, 20 MG PO QID PRN for ABDOMINAL PAIN Prescribed by: LUIS LECHUGA on 10/01/18 050 Haloperidol (Haldol Tab) 5 Mg Tab, 10 MG PO HS, (Reported) Entered as Reported by: SUJATA COLLINS on 09/06/182052 Hydrocodone Bit/Acetaminophen (Lortab 5 Mg Tablet) 1 Tab Tab, 1 EACH PO Q4-6HR PRN for PAIN-MODERATE Prescribed by: HILDA YBARRA on 01/24/19 1351 Ibuprofen (Ibuprofen) 800 Mg Tablet, 800 MG PO Q8H PRN for PAIN Prescribed by: LINDEN MERCEDES on 10/24/192033 Insulin Glargine,Hum.rec.anlog (Basaglar Kwikpen U-100) 100 Unit/1 Ml Insuln.pen, (Reported) Entered as Reported by: JAYDA CHRISTIANSEN on 10/01/181818 Lorazepam (Lorazepam) 1 Mg Tablet, (Reported) Entered as Reported by: JAYDA CHRISTIANSEN on 10/01/181818 Magnesium Citrate (Magnesium Citrate) 296 Ml Solution, 296 ML PO Q6H Prescribed by: HILDA YBARRA on 01/30/19 125 Meloxicam (Meloxicam) 7.5 Mg Tablet, 7.5 MG PO DAILY Prescribed by: LUIS Torres ENYART on 10/30/21 1139 Ondansetron (Ondansetron Odt) 4 Mg Tab.rapdis, 4 MG PO Q6H PRN for NAUSEA/VOMITING Prescribed by: LUIS BARRERAYART on 07/23/19 2150 Polyethylene Glycol 3350 (Miralax) 17 Gram/Dose Powder, 17 GM PO DAILY PRN for CONSTIPATION-1ST LINE Prescribed by: LUIS NATIONRT on 10/30/21 1139 Psyllium Husk (Metamucil) 0.4 Gm Capsule, 0.4 GM PO DAILY Prescribed by: HILDA YBARRA on 01/30/19 1258 Simvastatin (Zocor) 40 Mg Tablet, HS, (Reported) Entered as Reported by: SUJATA COLLINS on 09/06/182052 [Lorazepam Tab 1MG] , (Reported) Entered as Reported by: SUJATA COLLINS on 09/06/182035 [Metformin Tab 500MG] , (Reported) Entered as Reported by: SUJATA COLLINS on 09/06/182035 [Phenytoin Ex Cap 100MG] , (Reported) Entered as Reported by: SUJATA COLLINS on 09/06/182035 [Pot Cl Micro Tab 20MEQ Er] , (Reported) Entered as Reported by: SUJATA COLLINS on 09/06/182035 [Risperidone Tab 3MG] , (Reported) Entered as Reported by: SUJATA COLLINS on 09/06/182035 Review of Systems Review of Systems Constitutional: see HPI EENTM: See HPI Respiratory: See HPI Cardiovascular: See HPI Gastrointestinal: See HPI Genitourinary: See HPI Musculoskeletal: see HPI Skin: see HPI Psychiatric/Neurological: See HPI Hematologic/Lymphatic: See HPI All Other Systems Reviewed Negative Unless Noted: Yes Past Dbdqrzm-Aqsekw-Gptxlu Hx Patient Social History Tobacco Use?: Yes Immunizations Up To Date First/Initial COVID19 Vaccinat: UNKNOWN Second COVID19 Vaccination Brody: UNKNOWN Third COVID19 Vaccination Date: UNKNOWN Seasonal Allergies Seasonal Allergies: No Past Medical History Surgery/Hospitalization HX: Pseudoseizure Surgeries: Yes (cystoscopy) Gallbladder, Orthopedic Respiratory: Yes Asthma Cardiac: No Neurological: Yes (PSEUDOSEIZURES) Headaches /Migraines, Seizure Disorder, Traumatic Brain Injury Genitourinary: No Gastrointestinal: Yes Gastroesophageal Reflux, Hepatitis, Cirrhosis Musculoskeletal: No Endocrine: Yes Diabetes, Insulin dep HEENT: No Cancer: No Psychosocial: No (Suicidal and homicidal ideation hx) Bipolar, Personality Disorder Integumentary: No Blood Disorders: No Family Medical History No Pertinent Family Hx Physical Exam Vital Signs Capillary Refill : Height/Weight/BMI Height: 5'8.00" Weight: 220lbs. oz. 99.161037dr; 34.00 BMI Method:Stated General Appearance: no apparent distress HEENT: PERRL/EOMI, normal ENT inspection Neck: full range of motion Respiratory: rhonchi Cardiovascular: normal peripheral pulses, regular rate, rhythm Gastrointestinal: non tender, soft Extremities: normal range of motion, non-tender, normal inspection Neurologic/Psychiatric: alert, oriented x 3, other (Anxious) Skin: normal color Focused Exam Sepsis Stage: Ruled Out Departure Communication (Admissions) Family Conversation Patient with reproducible chest wall pain with cough currently on antibiotics. Will treat supportively with PCP follow-up. Return precautions reviewed. Patient verbalizes understanding agreement with discharge instructions prior to departure Impression Primary Impression: Acute bronchitis Additional Impression: Chest wall pain Disposition: 01 HOME, SELF-CARE Condition: Stable Departure-Patient Inst. Decision time for Depature: 16:22 Referrals: JERROD SERRANO APRN (PCP) Primary Care Physician [facility] (Family) Primary Care Physician Patient Instructions: Chest Pain That Is Not Caused by the Heart (DC) Add. Discharge Instructions: You were evaluated in the emergency department for chest wall pain. Please take tramadol as directed and follow-up with your PCP for further evaluation and management. Continue home antibiotics. Return to the ED if new or worsening symptoms. All discharge instructions reviewed with patient and/or family. Voiced u nderstanding. Scripts Tramadol HCl (Tramadol HCl) 50 Mg Tablet 50 MG PO Q4H PRN for PAIN-MILD (1-4), #12 TAB Prov: HILDA YBARRA DO 11/09/21 HILDA YBARRA DO November 09, 2021 16:19
[2021-11-09] MEDS ORDERED: TRM50T PO (16:24)
[2021-11-09 16:28] VITALS: BP 144/73
== END 2021-11-09 16:28 | disposition home or self-care (01) ==
LOC: EDUNIT# 15:27 → ER FS 15:28
DX: J20.9 Acute bronchitis, unspecified (principal); E11.9 Type 2 diabetes mellitus without complications; Z79.4 Long term (current) use of insulin; Z87.891 Personal history of nicotine dependence
CPT/HCPCS: 99283

== ENCOUNTER 2021-11-12 23:41 | Emergency (ER) | payer MEDICARE, MEDICAID ==
[~2021-11-12] VITALS: Ht 172.7 cm; Wt 107.1 kg
[~2021-11-12 23:41] MED LIST changes: +TRM50T PO
--- NOTE | 2021-11-12 23:57 | ED Pediatric Illness ---
HPI-Pediatric Illness General Stated Complaint: MENTAL HEALTH [facility] History of Present Illness Date Seen by Provider: November 12, 2021 Time Seen by Provider: 23:55 Initial Comments 51-year-old male presents for mental health screening. Patient reports that he has been dealing with feelings of wanting to hurt himself and hang himself for the last week. Patient reports that is worse today because his mother today and his mom on Mother's Day and it made him feel significantly worse. Patient has a prior history of feeling suicidal. Allergies and Home Medications Allergies Coded Allergies: aripiprazole (Verified Allergy, Unknown, hallucinations, 10/01/18) zolpidem (Verified Allergy, Unknown, hallucinations, 10/01/18) Patient Home Medication List Home Medication List Reviewed: Yes Budesonide/Formoterol Fumarate (Symbicort 160-4.5 Mcg Inhaler) 10.2 Gm Hfa.aer.ad, (Reported) Entered as Reported by: JAYDA CHRISTIANSEN on 10/01/181818 Citalopram Hydrobromide (Celexa) 40 Mg Tablet, (Reported) Entered as Reported by: SUJATA COLLINS on 09/06/182052 Clindamycin HCl (Clindamycin HCl) 300 Mg Capsule, 300 MG PO TIDWM Prescribed by: LINDEN MERCEDES on 10/24/192033 Dicyclomine HCl (Dicyclomine HCl) 20 Mg Tablet, 20 MG PO QID PRN for ABDOMINAL PAIN Prescribed by: LUIS LECHUGA on 10/01/18 0501 Haloperidol (Haldol Tab) 5 Mg Tab, 10 MG PO HS, (Reported) Entered as Reported by: SUJATA COLLINS on 09/06/182052 Hydrocodone Bit/Acetaminophen (Lortab 5 Mg Tablet) 1 Tab Tab, 1 EACH PO Q4-6HR PRN for PAIN-MODERATE Prescribed by: HILDA YBARRA on 01/24/19 1351 Ibuprofen (Ibuprofen) 800 Mg Tablet, 800 MG PO Q8H PRN for PAIN Prescribed by: LINDEN MERCEDES on 10/24/192033 Insulin Glargine,Hum.rec.anlog (Basaglar Kwikpen U-100) 100 Unit/1 Ml Insuln.pen, (Reported) Entered as Reported by: JAYDA CHRISTIANSEN on 10/01/181818 Lorazepam (Lorazepam) 1 Mg Tablet, (Reported) Entered as Reported by: JAYDA CHRISTIANSEN on 10/01/181818 Magnesium Citrate (Magnesium Citrate) 296 Ml Solution, 296 ML PO Q6H Prescribed by: HILDA YBARRA on 01/30/19 1258 Meloxicam (Meloxicam) 7.5 Mg Tablet, 7.5 MG PO DAILY Prescribed by: LUIS Torres ENYART on 10/30/21 1139 Ondansetron (Ondansetron Odt) 4 Mg Tab.rapdis, 4 MG PO Q6H PRN for NA USEA/VOMITING Prescribed by: LUIS BARRERAYART on 07/23/19 215 Polyethylene Glycol 3350 (Miralax) 17 Gram/Dose Powder, 17 GM PO DAILY PRN for CONSTIPATION-1ST LINE Prescribed by: LUIS LECHUGA on 10/30/21 113 Psyllium Husk (Metamucil) 0.4 Gm Capsule, 0.4 GM PO DAILY Prescribed by: HILDA YBARRA on 01/30/19 1258 Simvastatin (Zocor) 40 Mg Tablet, HS, (Reported) Entered as Reported by: SUJATA COLLINS on 09/06/182052 Tramadol HCl (Tramadol HCl) 50 Mg Tablet, 50 MG PO Q4H PRN for PAIN-MILD (1-4) Prescribed by: HILDA YBARRA on 11/09/21 1624 [Lorazepam Tab 1MG] , (Reported) Entered as Reported by: SUJATA COLLINS on 09/06/182035 [Metformin Tab 500MG] , (Reported) Entered as Reported by: SUJATA COLLINS on 09/06/182035 [Phenytoin Ex Cap 100MG] , (Reported) Entered as Reported by: SUJATA COLLINS on 09/06/182035 [Pot Cl Micro Tab 20MEQ Er] , (Reported) Entered as Reported by: SUJATA COLLINS on 09/06/182035 [Risperidone Tab 3MG] , (Reported) Entered as Reported by: SUAJTA COLLINS on 09/06/182035 Review of Systems Review of Systems Constitutional: No chills, No fever Respiratory: No cough, No short of breath Cardiovascular: No edema, No palpitations Gastrointestinal: No nausea, No vomiting Genitourinary: no symptoms reported Musculoskeletal: no symptoms reported Skin: no symptoms reported Psychiatric/Neurological: See HPI Endocrine: No Symptoms Reported PMH-Pediatrics Recent Foreign Travel: No Contact w/other who traveled: No Seasonal Allergies: No Respiratory Disorders: Asthma Gastrointestinal Disorders: Gastroesophageal Reflux, Hepatitis, Cirrhosis Endocrine Disorders: Diabetes, Insulin dep Behavioral Health Disorders: Bipolar, Personality Disorder Significant Family History: No Pertinent Family Hx Physical Exam-Pediatric Physical Exam Vital Signs - First Documented 11/12/21 23:46 Temp 37.0 Pulse 102 Resp 18 B/P (MAP) 146/88 (107) Pulse Ox 94 O2 Delivery Room Air Capillary Refill : Height, Weight, BMI Height: 5'8.00" Weight: 220lbs. oz. 99.448625tj; 38.00 BMI Method:Stated General Appearance: other (Unkept, disheveled) HENT: head inspection normal, PERRL Respiratory: lungs clear, normal breath sounds, no respiratory distress Cardiovascular: normal peripheral pulses, regular rate, rhythm Gastrointestinal: soft; No distended Extremities: non-tender, normal inspection Neurologic/Psychiatric: alert, oriented x 3, other (suicidal ideations, depressed ) Skin: normal color, warm/dry Progress/Results/Core Measures Results/Orders Lab Results Laboratory Tests Test 11/12/21 23:50 Range/Units White Blood Count 4.2 L 4.3-11.0 10^3/uL Red Blood Count 5.07 4.30-5.52 10^6/uL Hemoglobin 15.7 13.3-17.7 g/dL Hematocrit 45 40-54 % Mean Corpuscular Volume 90 80-99 fL Mean Corpuscular Hemoglobin 31 25-34 pg Mean Corpuscular Hemoglobin Concent 35 32-36 g/dL Red Cell Distribution Width 13.7 10.0-14.5 % Platelet Count 52 L 130-400 10^3/uL Mean Platelet Volume 10.1 9.0-12.2 fL Immature Granulocyte % (Auto) 0 % Neutrophils (%) (Auto) 22 L 42-75 % Lymphocytes (%) (Auto) 62 H 12-44 % Monocytes (%) (Auto) 12 0-12 % Eosinophils (%) (Auto) 4 0-10 % Basophils (%) (Auto) 1 0-10 % Neutrophils # (Auto) 0.9 L 1.8-7.8 10^3/uL Lymphocytes # (Auto) 2.6 1.0-4.0 10^3/uL Monocytes # (Auto) 0.5 0.0-1.0 10^3/uL Eosinophils # (Auto) 0.2 0.0-0.3 10^3/uL Basophils # (Auto) 0.0 0.0-0.1 10^3/uL Immature Granulocyte # (Auto) 0.0 0.0-0.1 10^3/uL Percent Immature Platelet Fraction 0.0-7.6 % Sodium Level 142 135-145 MMOL/L Potassium Level 3.9 3.6-5.0 MMOL/L Chloride Level 107 98-107 MMOL/L Carbon Dioxide Level 24 21-32 MMOL/L Anion Gap 11 5-14 MMOL/L Blood Urea Nitrogen 16 7-18 MG/DL Creatinine 0.78 0.60-1.30 MG/DL Estimat Glomerular Filtration Rate 107 BUN/Creatinine Ratio 21 Glucose Level 104 70-105 MG/DL Calcium Level 9.1 8.5-10.1 MG/DL Corrected Calcium 9.1 8.5-10.1 MG/DL Total Bilirubin 0.3 0.1-1.0 MG/DL Aspartate Amino Transf (AST/SGOT) 29 5-34 U/L Alanine Aminotransferase (ALT/SGPT) 25 0-55 U/L Alkaline Phosphatase 71 40-136 U/L Total Protein 7.1 6.4-8.2 GM/DL Albumin 4.0 3.2-4.5 GM/DL Salicylates Level < 0.3 L 5.0-20.0 MG/DL Acetaminophen Level < 10 L 10-30 UG/ML Serum Alcohol < 10 <10 MG/DL My Orders Orders - RICE,MARISOL L DO Ua Culture If Indicated (11/12/21 23:46) Cbc With Automated Diff (11/12/21 23:46) Comprehensive Metabolic Panel (11/12/21 23:46) Alcohol (11/12/21 23:46) Drug Screen Stat (Urine) (11/12/21 23:46) Acetaminophen (11/12/21 23:46) Salicylate (11/12/21 23:46) Bh Status Checks/Observation Q15M (11/12/21 23:46) Vital Signs/I&O 11/12/21 5 23:46 06:01 Temp 37.0 Pulse 102 96 Resp 18 18 B/P (MAP) 146/88 (107) 132/84 Pulse Ox 94 98 O2 Delivery Room Air Room Air Progress Progress Note : Progress Note Patient reported throughout his stay that he no longer felt suicidal. Patient was screened by behavioral health. They felt that he was safe to go home and made a safety plan. He does have an appointment already scheduled 11/14/2021 with mental health on outpatient basis. Patient was discharged further plan and stable upon discharge. Departure Impression Primary Impression: Stress and adjustment reaction Additional Impression: Suicidal ideation Disposition: 01 HOME, SELF-CARE Condition: Stable Departure-Patient Inst. Referrals: JERROD SERRANO APRN (PCP) Primary Care Physician [facility] (Family) Primary Care Physician Patient Instructions: Depression, Adult ED Add. Discharge Instructions: keep your appointment with mental health today MARISOL RICE DO November 12, 2021 23:57
[2021-11-13] LABS: BASOPHILS % (AUTO) 1 % (0-10); EOSINOPHILS # (AUTO) 0.2 10^3/uL (0.0-0.3); EOSINOPHILS % (AUTO) 4 % (0-10); HEMATOCRIT 45 % (40-54); HEMOGLOBIN 15.7 g/dL (13.3-17.7); LYMPHOCYTES # (AUTO) 2.6 10^3/uL (1.0-4.0); LYMPHOCYTES % (AUTO) 62 % (12-44); MEAN CORPUSCULAR HEMOGLOBIN 31 pg (25-34); MEAN CORPUSCULAR HGB CONC 35 g/dL (32-36); MEAN CORPUSCULAR VOLUME 90 fL (80-99); MEAN PLATELET VOLUME 10.1 fL (9.0-12.2); MONOCYTES # (AUTO) 0.5 10^3/uL (0.0-1.0); MONOCYTES % (AUTO) 12 % (0-12); NEUTROPHILS # (AUTO) 0.9 10^3/uL (1.8-7.8); NEUTROPHILS % (AUTO) 22 % (42-75); PLATELET COUNT 52 10^3/uL (130-400); WHITE BLOOD COUNT 4.2 10^3/uL (4.3-11.0)
[2021-11-13 00:20] LABS: ALANINE AMINOTRANSFERASE 25 U/L (0-55); ALKALINE PHOSPHATASE 71 U/L (40-136); BILIRUBIN,TOTAL 0.3 MG/DL (0.1-1.0); BUN/CREATININE RATIO 21; CALCIUM 9.1 MG/DL (8.5-10.1); CARBON DIOXIDE 24 MMOL/L (21-32); CHLORIDE 107 MMOL/L (98-107); CREATININE SERUM 0.78 MG/DL (0.60-1.30); GFR ESTIMATED 107; GLUCOSE 104 MG/DL (70-105); POTASSIUM 3.9 MMOL/L (3.6-5.0); SODIUM 142 MMOL/L (135-145); TOTAL PROTEIN 7.1 GM/DL (6.4-8.2)
[2021-11-13 00:21] LABS: ACETAMINOPHEN < 10 UG/ML (10-30); SALICYLATE < 0.3 MG/DL (5.0-20.0)
[2021-11-13 06:01] VITALS: BP 132/84
== END 2021-11-13 06:02 | disposition home or self-care (01) ==
LOC: EDUNIT# 23:41 → ER FS 23:44
DX: F43.20 Adjustment disorder, unspecified (principal); R45.851 Suicidal ideations
CPT/HCPCS: 36415; 80053; 85025; 99283; G0480 ×3; 80320; 80329

== ENCOUNTER → 2021-11-30 | Outpatient (CLI) | payer MEDICARE, MEDICAID | LOC: CARDFS 11:15 | PROVIDERS: ATTEND Internal Medicine Cardiovascular Disease | DX: I10 Essential (primary) hypertension (principal) | CPT/HCPCS: 93306 ==

== ENCOUNTER 2021-12-02 10:06 | Emergency (ER) | payer MEDICARE, MEDICAID ==
[~2021-12-02] VITALS: Ht 172.7 cm; Wt 113.4 kg
[2021-12-02 10:10] VITALS: BP 128/86
--- NOTE | 2021-12-02 10:41 | ED General ---
General Chief Complaint: General Problems/Pain Stated Complaint: SEIZURE Nursing Triage Note: Patient presents to the ED with a chief complaint of pseudoseizures. He reports he has had 6 pseudoseizures this morning. Patient has no other complaints this morning, patient ambulatory from the ambulance into the ED. Source of Information: Patient Exam Limitations: No Limitations History of Present Illness Date Seen by Provider: December 02, 2021 Time Seen by Provider: 10:10 Initial Comments Patient is a 51-year-old male with well-documented history of pseudoseizures who presents with witnessed pseudoseizures at local convenience store. Patient denies fall injury or other pain complaint. States his doctor took him off pseudoseizure medications and that he had 10 yesterday and 6 today. There is no loss of bowel or bladder function, no postictal period witnessed. The patient states he was under a lot of stress at the time his pseudoseizures occurred. No other symptoms or complaints. Blood sugar is 125 Timing/Duration: Other Associated Systoms: Denies Symptoms, Chest Pain, Other Allergies and Home Medications Allergies Coded Allergies: aripiprazole (Verified Allergy, Unknown, hallucinations, 10/01/18) zolpidem (Verified Allergy, Unknown, hallucinations, 10/01/18) Patient Home Medication List Home Medication List Reviewed: Yes Budesonide/Formoterol Fumarate (Symbicort 160-4.5 Mcg Inhaler) 10.2 Gm Hfa.aer.ad, (Reported) Entered as Reported by: JAYDA CHRISTIANSEN on 10/01/181818 Citalopram Hydrobromide (Celexa) 40 Mg Tablet, (Reported) Entered as Reported by: SUJATA COLLINS on 09/06/182052 Clindamycin HCl (Clindamycin HCl) 300 Mg Capsule, 300 MG PO TIDWM Prescribed by: LINDEN MERCEDES on 10/24/192033 Dicyclomine HCl (Dicyclomine HCl) 20 Mg Tablet, 20 MG PO QID PRN for ABDOMINAL PAIN Prescribed by: LUIS LECHUGA on 10/01/18 050 Haloperidol (Haldol Tab) 5 Mg Tab, 10 MG PO HS, (Reported) Entered as Reported by: SUJATA COLLINS on 09/06/182052 Hydrocodone Bit/Acetaminophen (Lortab 5 Mg Tablet) 1 Tab Tab, 1 EACH PO Q4-6HR PRN for PAIN-MODERATE Prescribed by: HILDA YBARRA on 01/24/19 1351 Ibuprofen (Ibuprofen) 800 Mg Tablet, 800 MG PO Q8H PRN for PAIN Prescribed by: LINDEN MERCEDES on 10/24/192033 Insulin Glargine,Hum.rec.anlog (Basaglar Kwikpen U-100) 100 Unit/1 Ml Insuln.pen, (Reported) Entered as Reported by: JAYDA CHRISTIANSEN on 10/01/181818 Lorazepam (Lorazepam) 1 Mg Tablet, (Reported) Entered as Reported by: JAYDA CHRISTIANSEN on 10/01/181818 Magnesium Citrate (Magnesium Citrate) 296 Ml Solution, 296 ML PO Q6H Prescribed by: HILDA YBARRA on 01/30/19 125 Meloxicam (Meloxicam) 7.5 Mg Tablet, 7.5 MG PO DAILY Prescribed by: LUIS BARRERAYART on 10/30/21 1139 Ondansetron (Ondansetron Odt) 4 Mg Tab.rapdis, 4 MG PO Q6H PRN for NAUSEA/VOMITING Prescribed by: LUIS BARRERAYART on 07/23/19 2150 Polyethylene Glycol 3350 (Miralax) 17 Gram/Dose Powder, 17 GM PO DAILY PRN for CONSTIPATION-1ST LINE Prescribed by: LUIS LECHUGA on 10/30/21 1139 Psyllium Husk (Metamucil) 0.4 Gm Capsule, 0.4 GM PO DAILY Prescribed by: HILDA YBARRA on 01/30/19 1258 Simvastatin (Zocor) 40 Mg Tablet, HS, (Reported) Entered as Reported by: SUJATA COLLINS on 09/06/182052 Tramadol HCl (Tramadol HCl) 50 Mg Tablet, 50 MG PO Q4H PRN for PAIN-MILD (1-4) Prescribed by: HILDA YBARRA on 11/09/21 1624 [Lorazepam Tab 1MG] , (Reported) Entered as Reported by: SUJATA COLLINS on 09/06/182035 [Metformin Tab 500MG] , (Reported) Entered as Reported by: SUJATA COLLINS on 09/06/182035 [Phenytoin Ex Cap 100MG] , (Reported) Entered as Reported by: SUJATA COLLINS on 09/06/182035 [Pot Cl Micro Tab 20MEQ Er] , (Reported) Entered as Reported by: SUJATA COLLINS on 09/06/182035 [Risperidone Tab 3MG] , (Reported) Entered as Reported by: SUJATA COLLINS on 09/06/182035 Review of Systems Review of Systems Constitutional: see HPI EENTM: see HPI Respiratory: see HPI Cardiovascular: see HPI Gastrointestinal: see HPI Genitourinary: see HPI Musculoskeletal: see HPI Skin: see HPI Psychiatric/Neurological: See HPI Hematologic/Lymphatic: See HPI Immunological/Allergic: see HPI All Other Systems Reviewed Negative Unless Noted: Yes Past Crttwac-Npfwrr-Jvrigx Hx Patient Social History Tobacco Use?: Yes Tobacco type used: Cigarettes Smoking Status: Current Everyday Smoker Substance use?: No Alcohol Use?: No Pt feels they are or have been: No Immunizations Up To Date First/Initial COVID19 Vaccinat: UNKNOWN Second COVID19 Vaccination Brody: UNKNOWN Third COVID19 Vaccination Date: UNKNOWN Seasonal Allergies Seasonal Allergies: No Past Medical History Surgery/Hospitalization HX: Pseudoseizure Surgeries: Yes (cystoscopy) Gallbladder, Orthopedic Respiratory: Yes Asthma Cardiac: No Neurological: Yes (PSEUDOSEIZURES) Headaches /Migraines, Seizure Disorder, Traumatic Brain Injury Genitourinary: No Gastrointestinal: Yes Gastroesophageal Reflux, Hepatitis, Cirrhosis Musculoskeletal: No Endocrine: Yes Diabetes, Insulin dep HEENT: No Cancer: No Psychosocial: No (Suicidal and homicidal ideation hx) Bipolar, Personality Disorder Integumentary: No Blood Disorders: No Family Medical History No Pertinent Family Hx Physical Exam Vital Signs Vital Signs - First Documented 12/02/21 10:10 Temp 36.2 Pulse 91 Resp 20 B/P (MAP) 128/86 (100) Pulse Ox 94 O2 Delivery Room Air Capillary Refill : Less Than 3 Seconds Height, Weight, BMI Height: 5'8.00" Weight: 220lbs. oz. 99.866582zp; 38.00 BMI Method:Stated General Appearance: No Apparent Distress, Anxious Eyes: Bilateral Eye Normal Inspection, Bilateral Eye PERRL HEENT: PERRL/EOMI, Normal ENT Inspection Neck: Normal Inspection, Supple Cardiovascular: Regular Rate, Rhythm, No Edema Gastrointestinal: Non Tender, Soft Neurologic/Psychiatric: Alert, Oriented x3, No Motor/Sensory Deficits, Normal Mood/Affect Progress/Results/Core Measures Suspected Sepsis SIRS Temperature: Pulse: 91 Respiratory Rate: 20 Blood Pressure 128 /86 Mean: 100 Results/Orders Vital Signs/I&O 12/02/21 10:10 Temp 36.2 Pulse 91 Resp 20 B/P (MAP) 128/86 (100) Pulse Ox 94 O2 Delivery Room Air Capillary Refill : Less Than 3 Seconds Blood Pressure Mean: 100 Departure Impression Primary Impression: Pseudoseizures Disposition: 01 HOME, SELF-CARE Condition: Stable Departure-Patient Inst. Decision time for Depature: 10:41 Referrals: JERROD SERRANO APRN (PCP) Primary Care Physician [facility] (Family) Primary Care Physician Add. Discharge Instructions: You were evaluated in the emergency department for pseudoseizures. Please follow-up with your seizure doctor or and/or your PCP next week. All discharge instructions reviewed with patient and/or family. Voiced understanding. HILDA YBARRA DO December 02, 2021 10:41
== END 2021-12-02 10:42 | disposition home or self-care (01) ==
LOC: EDUNIT# 10:06 → ER FS 10:07
DX: F44.5 Conversion disorder with seizures or convulsions (principal); E11.9 Type 2 diabetes mellitus without complications; F17.210 Nicotine dependence, cigarettes, uncomplicated; Z79.4 Long term (current) use of insulin
CPT/HCPCS: 99283

== ENCOUNTER 2021-12-19 16:32 | Emergency (ER) | payer MEDICARE, MEDICAID ==
--- NOTE | 2021-12-19 16:49 | ED General ---
General Chief Complaint: General Problems/Pain Stated Complaint: PASSING OUT Source of Information: Patient, Old Records History of Present Illness Date Seen by Provider: Dec 19, 2021 Time Seen by Provider: 16:43 Initial Comments 51-year-old male presenting with complaints of passing out. He states that he is not sure if she is having seizures, pseudoseizures or just passing out. He does feel like this happens more when he gets hot or overheated. He had tried going to urgent care and they sent him here to the emergency department. He also has been having nausea, vomiting, diarrhea that has been present for a long time. He had seen Dr. Guerra in [place] and was started on pantoprazole or Protonix on 11 December. He states that this was not helping his symptoms and he is to follow-up with the clinic at [facility] here in [place] this week to see about taking a different medicine to try and help with his nausea, vomiting, diarrhea. He denies having any fever, chills, pain with urination, drainage from his ears, drainage from his nose. He states that his sugars have been running around 120 recently. Timing/Duration: Intermittent Severity: Moderate Associated Systoms: No Chest Pain, No Cough, No Diaphoresis, No Fever/Chills, No Headaches, No Loss of Appetite, No Malaise; Nausea/Vomiting; No Rash, No Seizure, No Shortness of Air; Syncope (Episodes of passing out that he is not sure from pseudoseizures or regular seizures or if he is just passing out); No Weakness Allergies and Home Medications Allergies Coded Allergies: aripiprazole (Verified Allergy, Unknown, hallucinations, 10/01/18) zolpidem (Verified Allergy, Unknown, hallucinations, 10/01/18) Patient Home Medication List Home Medication List Reviewed: Yes Budesonide/Formoterol Fumarate (Symbicort 160-4.5 Mcg Inhaler) 10.2 Gm Hfa.aer.ad, (Reported) Entered as Reported by: JAYDA CHRISTIANSEN on 10/01/181818 Citalopram Hydrobromide (Celexa) 40 Mg Tablet, (Reported) Entered as Reported by: SUJATA COLLINS on 09/06/182052 Clindamycin HCl (Clindamycin HCl) 300 Mg Capsule, 300 MG PO TIDWM Prescribed by: LINDEN MERCEDES on 10/24/192033 Dicyclomine HCl (Dicyclomine HCl) 20 Mg Tablet, 20 MG PO QID PRN for ABDOMINAL PAIN Prescribed by: LUIS LECHUGA on 10/01/18 0501 Haloperidol (Haldol Tab) 5 Mg Tab, 10 MG PO HS, (Reported) Entered as Reported by: SUJATA COLLINS on 09/06/182052 Hydrocodone Bit/Acetaminophen (Lortab 5 Mg Tablet) 1 Tab Tab, 1 EACH PO Q4-6HR PRN for PAIN-MODERATE Prescribed by: HILDA GUERRA on 01/24/19 135 Ibuprofen (Ibuprofen) 800 Mg Tablet, 800 MG PO Q8H PRN for PAIN Prescribed by: LINDEN MERCEDES on 10/24/192033 Insulin Glargine,Hum.rec.anlog (Basaglar Kwikpen U-100) 100 Unit/1 Ml Insuln.pen, (Reported) Entered as Reported by: JAYDA CHRISTIANSEN on 10/01/181818 Lorazepam (Lorazepam) 1 Mg Tablet, (Reported) Entered as Reported by: JAYDA CHRISTIANSEN on 10/01/181818 Magnesium Citrate (Magnesium Citrate) 296 Ml Solution, 296 ML PO Q6H Prescribed by: HILDA GUERRA on 01/30/19 125 Meloxicam (Meloxicam) 7.5 Mg Tablet, 7.5 MG PO DAILY Prescribed by: LUIS LECHUGA on 10/30/21 1139 Ondansetron (Ondansetron Odt) 4 Mg Tab.rapdis, 4 MG PO Q6H PRN for NAUSEA/VOMITING Prescribed by: LUIS LECHUGA on 07/23/19 2150 Polyethylene Glycol 3350 (Miralax) 17 Gram/Dose Powder, 17 GM PO DAILY PRN for CONSTIPATION-1ST LINE Prescribed by: LUIS LECHUGA on 10/30/21 1139 Psyllium Husk (Metamucil) 0.4 Gm Capsule, 0.4 GM PO DAILY Prescribed by: HILDA GUERRA on 01/30/19 1258 Simvastatin (Zocor) 40 Mg Tablet, HS, (Reported) Entered as Reported by: SUJATA COLLINS on 09/06/182052 Tramadol HCl (Tramadol HCl) 50 Mg Tablet, 50 MG PO Q4H PRN for PAIN-MILD (1-4) Prescribed by: HILDA GUERRA on 11/09/21 1624 [Lorazepam Tab 1MG] , (Reported) Entered as Reported by: SUJATA COLLINS on 09/06/182035 [Metformin Tab 500MG] , (Reported) Entered as Reported by: SUJATA COLLINS on 09/06/182035 [Phenytoin Ex Cap 100MG] , (Reported) Entered as Reported by: SUJATA COLLINS on 09/06/182035 [Pot Cl Micro Tab 20MEQ Er] , (Reported) Entered as Reported by: SUJATA COLLINS on 09/06/182035 [Risperidone Tab 3MG] , (Reported) Entered as Reported by: SUJATA COLLINS on 09/06/182035 Review of Systems Review of Systems Constitutional: No chills, No dizziness, No fever EENTM: No ear discharge, No hearing loss, No ear pain, No blurred vision, No double vision, No vision loss, No hoarseness, No epistaxis, No nose congestion, No throat pain Respiratory: No cough, No short of breath Cardiovascular: No chest pain Gastrointestinal: see HPI Genitourinary: No dysuria Musculoskeletal: muscle pain (Generalized body aches that he feels are secondary to multiple falls from passing out) Skin: no symptoms reported Psychiatric/Neurological: Anxiety, Emotional Problems (Patient reports he still gets emotional and upset about his niece passing away last fall as well as other family members that are gone. When he thinks about them he wants him to come back and he is trying to surround himself with positive people to help be supportive) Hematologic/Lymphatic: Denies Blood Clots, Denies Easy Bleeding, Denies Easy Bruising Past Xmordqi-Nqgchn-Nqeqdx Hx Patient Social History Tobacco Use?: Yes Tobacco type used: Cigarettes Smoking Status: Current Everyday Smoker Use of E-Cig and/or Vaping dev: No Substance use?: Yes Substance type: Marijuana Alcohol Use?: No Pt feels they are or have been: No Immunizations Up To Date First/Initial COVID19 Vaccinat: UNKNOWN Second COVID19 Vaccination Brody: UNKNOWN Third COVID19 Vaccination Date: UNKNOWN Seasonal Allergies Seasonal Allergies: No Past Medical History Surgery/Hospitalization HX: Pseudoseizure Surgeries: Yes (cystoscopy) Gallbladder, Orthopedic Respiratory: Yes Asthma Cardiac: No Neurological: Yes (PSEUDOSEIZURES) Headaches /Migraines, Seizure Disorder, Traumatic Brain Injury Genitourinary: No Gastrointestinal: Yes Gastroesophageal Reflux, Hepatitis, Cirrhosis Musculoskeletal: No Endocrine: Yes Diabetes, Insulin dep HEENT: No Cancer: No Psychosocial: No (Suicidal and homicidal ideation hx) Bipolar, Personality Disorder Integumentary: No Blood Disorders: No Family Medical History No Pertinent Family Hx Physical Exam Vital Signs Vital Signs - First Documented 12/19/21 16:35 Temp 36.2 Pulse 92 Resp 18 B/P (MAP) 115/82 (93) Pulse Ox 95 O2 Delivery Room Air Capillary Refill : Height, Weight, BMI Height: 5'8.00" Weight: 220lbs. oz. 99.311230hs; 38.00 BMI Method:Stated General Appearance: No Apparent Distress, WD/WN HEENT: PERRL/EOMI, TMs Normal, Normal ENT Inspection, Pharynx Normal, Other (Negative callahan sign, negative raccoon sign, no CSF otorrhea, no CSF rhinorrhea, no hemotympanum) Neck: Full Range of Motion, Normal Inspection, Non Tender, Supple Respiratory: Chest Non Tender, Lungs Clear, Normal Breath Sounds, No Accessory Muscle Use, No Respiratory Distress Cardiovascular: Regular Rate, Rhythm, Normal Peripheral Pulses Gastrointestinal: Normal Bowel Sounds, No Pulsatile Mass, Non Tender, Soft Back: No CVA Tenderness Extremity: Normal Capillary Refill, Normal Inspection, Normal Range of Motion, No Pedal Edema Neurologic/Psychiatric: Alert, Oriented x3, No Motor/Sensory Deficits, Normal 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, 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 Norm as Tested Skin: Normal Color, Warm/Dry Progress/Results/Core Measures Suspected Sepsis SIRS Temperature: Pulse: Respiratory Rate: Blood Pressure / Mean: Results/Orders Lab Results Laboratory Tests Test 12/19/21 16:42 Range/Units Urine Color YELLOW Urine Clarity CLEAR Urine pH 6.0 5-9 Urine Specific [place] 1.020 1.016-1.022 Urine Protein NEGATIVE NEGATIVE Urine Glucose (UA) 3+ H NEGATIVE Urine Ketones NEGATIVE NEGATIVE Urine Nitrite NEGATIVE NEGATIVE Urine Bilirubin NEGATIVE NEGATIVE Urine Urobilinogen 0.2 < = 1.0 MG/DL Urine Leukocyte Esterase NEGATIVE NEGATIVE Urine RBC (Auto) NEGATIVE NEGATIVE Urine RBC NONE /HPF Urine WBC NONE /HPF Urine Squamous Epithelial Cells 0-2 /HPF Urine Crystals NONE /LPF Urine Bacteria NEGATIVE /HPF Urine Casts NONE /LPF Urine Mucus NEGATIVE /LPF Urine Culture Indicated NO Urine Opiates Screen NEGATIVE NEGATIVE Urine Oxycodone Screen NEGATIVE NEGATIVE Urine Methadone Screen NEGATIVE NEGATIVE Urine Propoxyphene Screen NEGATIVE NEGATIVE Urine Barbiturates Screen NEGATIVE NEGATIVE Ur Tricyclic Antidepressants Screen POSITIVE H NEGATIVE Urine Phencyclidine Screen NEGATIVE NEGATIVE Urine Amphetamines Screen NEGATIVE NEGATIVE Urine Methamphetamines Screen NEGATIVE NEGATIVE Urine Benzodiazepines Screen NEGATIVE NEGATIVE Urine Cocaine Screen NEGATIVE NEGATIVE Urine Cannabinoids Screen NEGATIVE NEGATIVE My Orders Orders - LUIS LECHUGA MD Ua Culture If Indicated (12/19/21 16:43) Drug Screen Stat (Urine) (12/19/21 16:43) Promethazine Tablet (Phenergan Tablet) (12/19/21 17:03) Vital Signs/I&O 12/19/21 12/19/21 16:35 17:33 Temp 36.2 36.2 Pulse 92 92 Resp 18 18 B/P (MAP) 115/82 (93) 115/82 Pulse Ox 95 95 O2 Delivery Room Air Room Air Capillary Refill : Progress Note #1: Progress Note Advised patient that we could look at his urine to see how well-hydrated he was. Also this would need to check for infection. If he wanted to look further we would need to do blood work. Patient refused blood work because he stated that the last time he had blood drawn that took multiple sticks and someone had to finally poke him around his neck. He felt that if he needed blood work he could just go through the clinic if that needed to happen. He preferred to wait and see what the urinalysis showed and if it showed that he was dehydrated he would just try and drink more fluids. Will give a dose of Phenergan here and have him try drinking fluids and make sure he is keeping it down. Progress Note #2: Progress Note UA showed mild increase in specific gravity 1.020. He had 3+ glucose. There was no bacteria or signs of UTI. Advised patient that it looks like he needed to drink more water and be better hydrated. He was tolerating oral intake here in the ED. Counseled to follow-up through [facility] as he had already planned and that he might need to see Dr. Guerra again as well Departure Impression Primary Impression: Nausea vomiting and diarrhea Additional Impressions: Fainting episodes Qualified Codes: R55 - Syncope and collapse Dehydration Disposition: 01 HOME, SELF-CARE Condition: Stable Departure-Patient Inst. Decision time for Depature: 17:30 Referrals: MAGGIE,JERROD S FLIGHT AGENT (PCP) Primary Care Physician [facility] (Family) Primary Care Physician Patient Instructions: Fainting, Adult ED, Nausea and Vomiting, Adult ED, Dehydration, Adult ED, Diarrhea, Adult ED Add. Discharge Instructions: Check back with Nurse Practitioner Jerrod Contreras and Dr. Guerra Stay well hydrated and drink plenty of fluids Use the Phenergan tablets to help keep your stomach settled so you can drink more water and stay better hydrated. Try to stay out of the heat so you do not get overheated and dehydrated even more. All discharge instructions reviewed with patient and/or family. Voiced understanding. LUIS LECHUGA MD Dec 19, 2021 16:48
[2021-12-19] MEDS ORDERED: PROMETHAZINE 25 MG (PHENERGAN) TAB PO STA (17:03)
[2021-12-19 17:06] LABS: BILIRUBIN,URINE NEGATIVE (NEGATIVE); CLARITY,URINE CLEAR; COLOR,URINE YELLOW; GLUCOSE, URINE (UA) 3+ (NEGATIVE); KETONES,URINE NEGATIVE (NEGATIVE); LEUKOCYTE ESTERASE ,URINE NEGATIVE (NEGATIVE); NITRITE,URINE NEGATIVE (NEGATIVE); PROTEIN,URINE NEGATIVE (NEGATIVE)
[2021-12-19 17:09] LABS: BACTERIA,URINE NEGATIVE /HPF; SQUAMOUS EPITHELIAL CELL,UR 0-2 /HPF
[2021-12-19 17:19] LABS: AMPHETAMINE SCREEN, URINE NEGATIVE (NEGATIVE); BARBITURATE SCREEN URINE NEGATIVE (NEGATIVE); BENZODIAZEPINES SCREEN URINE NEGATIVE (NEGATIVE); CANNABINOID SCREEN, URINE NEGATIVE (NEGATIVE); COCAINE SCREEN URINE NEGATIVE (NEGATIVE); METHADONE STAT NEGATIVE (NEGATIVE); OPIATE SCREEN URINE NEGATIVE (NEGATIVE); OXYCODONE STAT NEGATIVE (NEGATIVE); PROPOXYPHENE STAT NEGATIVE (NEGATIVE); TRICYCLIC ANTIDEPRESSANTS SCRE POSITIVE (NEGATIVE)
[2021-12-19 17:33] VITALS: BP 115/82
== END 2021-12-19 17:35 | disposition home or self-care (01) ==
LOC: EDUNIT# 16:32 → ER FS 16:33
DX: R55 Syncope and collapse (principal); R11.2 Nausea with vomiting, unspecified; R19.7 Diarrhea, unspecified; E86.0 Dehydration; E11.9 Type 2 diabetes mellitus without complications; F17.210 Nicotine dependence, cigarettes, uncomplicated; Z79.4 Long term (current) use of insulin
CPT/HCPCS: 80306; 81000; 99283

== ENCOUNTER 2022-01-25 21:09 | Emergency (ER) | payer MEDICARE, MEDICAID ==
[~2022-01-25] VITALS: Ht 172.7 cm; Wt 104.7 kg
[2022-01-25] MEDS ORDERED: KETOROLAC 60 MG/2 ML VIAL IM STA (21:48)
[2022-01-25] MEDS ORDERED: PROMETHAZINE INJ 25 MG/ML (PHENERGAN) AMP IM STA (21:48)
--- NOTE | 2022-01-25 21:50 | ED Headache ---
General Chief Complaint: Head/Cervical Problems Stated Complaint: HEADACHE Nursing Triage Note: Patient arrives per POV ambulating into ER with his cane. Pt reports headache since this a.m. Pt tried Tylenol this a.m. once and reports it did not help. Pt states he is dring lots of "sweet tea" and urinated several times today. Pt states he has 1 pain pill left prescribed for dental pain as he has been on antibiotics and pain pills before upcoming dental extractions. Source: patient History of Present Illness Date Seen by Provider: Jan 25, 2022 Time Seen by Provider: 21:39 Initial Comments 51-year-old male presenting with complaint of frontal headache that radiates through his whole head. He reports that he also has been having nausea and vomiting. He has been having frequent urination but he does drink sweet tea multiple times a day. He also has widespread dental decay and is on antibiotics awaiting dentist to pull his teeth so they could be replaced with dentures. He had Tylenol earlier today with no significant improvement in his symptoms. He states that he has had similar headaches in the past that felt the same way. Usually they respond to a shot of Toradol. He denies any acute head trauma or injury. He has no change in his vision, fever, chills, chest pain, urinary pain. He states he did see the clinic with [facility] earlier today for lower abdominal pain. This also is a chronic condition similar to his headaches which are chronic. Timing/Duration: constant (Since this morning) Severity/Quality: severe, constant, pressure Location: frontal Prior Headaches/Recent Trauma: frequent headaches, chronic headaches Modifying Factors: worse with movement Associated Symptoms: No confusion, No fatigue; facial pain; No fever/chills, No flushing, No loss of consciousness; nausea/vomiting; No nasal congestion, No nasal drainage, No numbness in legs/feet, No rash, No seizures, No sinus infection, No stiff neck, No vision changes, No weakness Allergies and Home Medications Allergies Coded Allergies: aripiprazole (Verified Allergy, Unknown, hallucinations, 10/01/18) zolpidem (Verified Allergy, Unknown, hallucinations, 10/01/18) Patient Home Medication List Home Medication List Reviewed: Yes Budesonide/Formoterol Fumarate (Symbicort 160-4.5 Mcg Inhaler) 10.2 Gm Hfa.aer.ad, (Reported) Entered as Reported by: JAYDA CHRISTIANSEN on 10/01/181818 Citalopram Hydrobromide (Celexa) 40 Mg Tablet, (Reported) Entered as Reported by: SUJATA COLLINS on 09/06/182052 Clindamycin HCl (Clindamycin HCl) 300 Mg Capsule, 300 MG PO TIDWM Prescribed by: LINDEN MERCEDES on 10/24/192033 Dicyclomine HCl (Dicyclomine HCl) 20 Mg Tablet, 20 MG PO QID PRN for ABDOMINAL PAIN Prescribed by: LUIS BARRERAYART on 10/01/18 0501 Haloperidol (Haldol Tab) 5 Mg Tab, 10 MG PO HS, (Reported) Entered as Reported by: SUJATA COLLINS on 09/06/182052 Hydrocodone Bit/Acetaminophen (Lortab 5 Mg Tablet) 1 Tab Tab, 1 EACH PO Q4-6HR PRN for PAIN-MODERATE Prescribed by: HILDA YBARRA on 01/24/19 135 Ibuprofen (Ibuprofen) 800 Mg Tablet, 800 MG PO Q8H PRN for PAIN Prescribed by: LINDEN MERCEDES on 10/24/192033 Insulin Glargine,Hum.rec.anlog (Basaglar Kwikpen U-100) 100 Unit/1 Ml Insuln .pen, (Reported) Entered as Reported by: JAYDA CHRISTIANSEN on 10/01/181818 Lorazepam (Lorazepam) 1 Mg Tablet, (Reported) Entered as Reported by: JAYDA CHRISTIANSEN on 10/01/181818 Magnesium Citrate (Magnesium Citrate) 296 Ml Solution, 296 ML PO Q6H Prescribed by: HILDA YBARRA on 01/30/19 1258 Meloxicam (Meloxicam) 7.5 Mg Tablet, 7.5 MG PO DAILY Prescribed by: LUIS Torres ENYART on 10/30/21 1139 Ondansetron (Ondansetron Odt) 4 Mg Tab.rapdis, 4 MG PO Q6H PRN for NAUSEA/VOMITING Prescribed by: LUIS Torres ENYART on 07/23/19 215 Polyethylene Glycol 3350 (Miralax) 17 Gram/Dose Powder, 17 GM PO DAILY PRN for CONSTIPATION-1ST LINE Prescribed by: LUIS BARRERAYART on 10/30/21 113 Psyllium Husk (Metamucil) 0.4 Gm Capsule, 0.4 GM PO DAILY Prescribed by: HILDA YBARRA on 01/30/19 1258 Simvastatin (Zocor) 40 Mg Tablet, HS, (Reported) Entered as Reported by: SUJATA COLLINS on 09/06/182052 Tramadol HCl (Tramadol HCl) 50 Mg Tablet, 50 MG PO Q4H PRN for PAIN-MILD (1-4) Prescribed by: HILDA YBARRA on 11/09/21 1624 [Lorazepam Tab 1MG] , (Reported) Entered as Reported by: SUJATA COLLINS on 09/06/182035 [Metformin Tab 500MG] , (Reported) Entered as Reported by: SUJATA COLLINS on 09/06/182035 [Phenytoin Ex Cap 100MG] , (Reported) Entered as Reported by: SUJATA COLLINS on 09/06/182035 [Pot Cl Micro Tab 20MEQ Er] , (Reported) Entered as Reported by: SUJATA COLLINS on 09/06/182035 [Risperidone Tab 3MG] , (Reported) Entered as Reported by: SUJATA COLLINS on 09/06/182035 Review of Systems Review of Systems Constitutional: No chills, No fever Eyes: Photophobia Ears, Nose, Mouth, Throat: loose teeth (Widespread dental decay) Respiratory: no symptoms reported Cardiovascular: no symptoms reported Gastrointestinal: nausea, vomiting Genitourinary: frequency Musculoskeletal: no symptoms reported Skin: no symptoms reported Psychiatric/Neurological: See HPI Past Fhfvucs-Syxivx-Uhcnuu Hx Patient Social History Tobacco Use?: Yes Tobacco type used: Cigarettes Smoking Status: Current Everyday Smoker Substance use?: No Alcohol Use?: No Immunizations Up To Date First/Initial COVID19 Vaccinat: UNKNOWN Second COVID19 Vaccination Brody: UNKNOWN Third COVID19 Vaccination Date: UNKNOWN Seasonal Allergies Seasonal Allergies: No Past Medical History Surgery/Hospitalization HX: Pseudoseizure, Headaches Surgeries: Yes (cystoscopy) Gallbladder, Orthopedic Respiratory: Yes Asthma Cardiac: No Neurological: Yes (PSEUDOSEIZURES) Headaches /Migraines, Seizure Disorder, Traumatic Brain Injury Genitourinary: No Gastrointestinal: Yes Gastroesophageal Reflux, Hepatitis, Cirrhosis Musculoskeletal: No Endocrine: Yes Diabetes, Insulin dep HEENT: No Cancer: No Psychosocial: No (Suicidal and homicidal ideation hx) Bipolar, Personality Disorder Integumentary: No Blood Disorders: No Family Medical History No Pertinent Family Hx Physical Exam Vital Signs Vital Signs - First Documented 01/25/22 01/25/22 21:14 22:00 Temp 36.9 Pulse 91 Resp 18 B/P (MAP) 136/94 (108) Pulse Ox 96 O2 Delivery Ambu Bag Capillary Refill : Less Than 3 Seconds Height, Weight, BMI Height: 5'8.00" Weight: 220lbs. oz. 99.728954tp; 35.00 BMI Method:Stated General Appearance: WD/WN, no apparent distress HEENT: PERRL/EOMI, normal ENT inspection, TMs normal, other (Widespread dental decay with multiple broken teeth, missing teeth, dental caries) Neck: non-tender, full range of motion, supple, normal inspection Cardiovascular: normal peripheral pulses, regular rate, rhythm Respiratory: chest non-tender, lungs clear, normal breath sounds, no respiratory distress, no accessory muscle use Gastrointestinal: normal bowel sounds, soft, no pulsatile mass; No distended, No guarding, No rebound; tenderness (Lower half of abdomen) Extremities: normal range of motion, non-tender, normal capillary refill Psychiatric: alert, oriented x 3 Crainal Nerves: normal hearing, normal speech, PERRL Coordination/Gait: normal gait Motor/Sensory: no motor deficit, no sensory deficit, no pronator drift Skin: normal color, warm/dry Progress/Results/Core Measures Results/Orders My Orders Orders - LUIS LECHUGA MD Ketorolac Injection (Toradol Injection) (01/25/22 21:48) Promethazine Injection (Phenergan Injec (01/25/22 21:48) Vital Signs/I&O 01/25/22 01/25/22 21:14 22:00 Temp 36.9 36.9 Pulse 91 88 Resp 18 18 B/P (MAP) 136/94 (108) 131/89 Pulse Ox 96 96 O2 Delivery Ambu Bag Blood Pressure Mean: 108 Progress Progress Note : Progress Note Since he feels that the setting is similar to prior headaches that have responded to Toradol and he has no acute focal neurodeficits we will give shot of Toradol and a shot of Phenergan to help with nausea and vomiting. Encouraged to continue antibiotics for his dentition and follow-up with the dentist as scheduled. Counseled on follow-up and return precautions. Departure Impression Primary Impression: Headache Qualified Codes: R51.9 - Headache, unspecified Additional Impression: Nausea and vomiting Qualified Codes: R11.14 - Bilious vomiting Disposition: 01 HOME, SELF-CARE Condition: Stable Departure-Patient Inst. Decision time for Depature: 21:50 Referrals: JERROD SERRANO APRN (PCP) Primary Care Physician [facility] (Family) Primary Care Physician Patient Instructions: Nausea and Vomiting, Adult ED, Home Headache Remedies, Headache, Adult ED Add. Discharge Instructions: Try to rest in a cool dark room. Continue with your antibiotics for dental infection. Check back with clinic if having continued problems All discharge instructions reviewed with patient and/or family. Voiced understanding. LUIS LECHUGA MD Jan 25, 2022 21:50
[2022-01-25 22:00] VITALS: BP 131/89
== END 2022-01-25 22:00 | disposition home or self-care (01) ==
LOC: EDUNIT# 21:09 → ER FS 21:10
DX: R51.9 Headache, unspecified (principal); R11.2 Nausea with vomiting, unspecified; E11.9 Type 2 diabetes mellitus without complications; F17.210 Nicotine dependence, cigarettes, uncomplicated; Z86.69 Personal history of other diseases of the nervous system and sense organs; Z28.310 Unvaccinated for COVID-19; Z79.4 Long term (current) use of insulin
CPT/HCPCS: 99284

== ENCOUNTER → 2022-02-09 | Outpatient (CLI) | payer MEDICARE, MEDICAID ==
--- NOTE | 2022-02-09 10:18 | Diagnostic Imaging Report ---
INDICATION: Persistent cough. COMPARISON: 07/18/2021 TECHNIQUE: 2 radiographs of the chest dated 02/09/2022 FINDINGS: The cardiac silhouette is within normal limits in size. No significant pulmonary vascular congestion. Very minimal left basilar interstitial opacities have developed within the left lateral costophrenic angle. The lungs otherwise appear clear. No significant pleural effusion. No pneumothorax. Mild scattered osseous degenerative changes without acute osseous abnormality. Surgical clips within the upper abdomen. IMPRESSION: Interval development of minimal left basilar atelectasis and/or pneumonitis. Dictated by: Dictated on workstation # [id number]
== END ==
LOC: RAD FS 08:50
PROVIDERS: ATTEND Nurse Practitioner Family
DX: R05.3 Chronic cough (principal)
CPT/HCPCS: 71046

== ENCOUNTER 2022-02-13 09:31 | Emergency (ER) | payer MEDICARE, MEDICAID ==
--- NOTE | 2022-02-13 09:49 | ED Neurological Problem ---
General Chief Complaint: Neurological Problems Stated Complaint: SEIZURE Source: patient Exam Limitations: no limitations History of Present Illness Date Seen by Provider: Feb 13, 2022 Time Seen by Provider: 09:35 Initial Comments Patient is a 51-year-old male brought over to the emergency department from the nuclear medicine lab after a witnessed seizure. Patient was over there to get a gastric emptying study. Staff from the lab is not immediately available to provide details of the incident. As reported to his nurse Shannan he had an episode of unresponsiveness/shaking. No postictal state was observed directly afterwards. 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 He is on Depakote. He is currently complaining of neck and back pain which he states is chronic. He did not fall with this "seizure" this morning. Did not bite his tongue. He is not short of breath, he is not having chest pain, he is not having abdominal pain. He states for the last week he has had a little dysuria as well as some diarrhea. No fevers or chills. All other review of systems reviewed and negative except as stated. Timing/Duration: 1 hour Associated Symptoms: other (dysuria, diarrhea) Allergies and Home Medications Allergies Coded Allergies: aripiprazole (Verified Allergy, Unknown, hallucinations, 10/01/18) zolpidem (Verified Allergy, Unknown, hallucinations, 10/01/18) Patient Home Medication List Home Medication List Reviewed: Yes Budesonide/Formoterol Fumarate (Symbicort 160-4.5 Mcg Inhaler) 10.2 Gm Hfa.aer.ad, (Reported) Entered as Reported by: JAYDA CHRISTIANSEN on 10/01/181818 Citalopram Hydrobromide (Celexa) 40 Mg Tablet, (Reported) Entered as Reported by: SUJATA COLLINS on 09/06/182052 Clindamycin HCl (Clindamycin HCl) 300 Mg Capsule, 300 MG PO TIDWM Prescribed by: LINDEN MERCEDES on 10/24/192033 Dicyclomine HCl (Dicyclomine HCl) 20 Mg Tablet, 20 MG PO QID PRN for ABDOMINAL PAIN Prescribed by: LUIS LECHUGA on 10/01/18 0501 Haloperidol (Haldol Tab) 5 Mg Tab, 10 MG PO HS, (Reported) Entered as Reported by: SUJATA COLLINS on 09/06/182052 Hydrocodone Bit/Acetaminophen (Lortab 5 Mg Tablet) 1 Tab Tab, 1 EACH PO Q4-6HR PRN for PAIN-MODERATE Prescribed by: HILDA YBARRA on 01/24/19 135 Ibuprofen (Ibuprofen) 800 Mg Tablet, 800 MG PO Q8H PRN for PAIN Prescribed by: LINDEN Wilson ROVENSTINE on 10/24/192033 Insulin Glargine,Hum.rec.anlog (Basaglar Kwikpen U-100) 100 Unit/1 Ml Insuln.pen, (Reported) Entered as Reported by: JAYDA CHRISTIANSEN on 10/01/181818 Lorazepam (Lorazepam) 1 Mg Tablet, (Reported) Entered as Reported by: JAYDA CHRISTIANSEN on 10/01/181818 Magnesium Citrate (Magnesium Citrate) 296 Ml Solution, 296 ML PO Q6H Prescribed by: HILDA YBARRA on 01/30/19 125 Meloxicam (Meloxicam) 7.5 Mg Tablet, 7.5 MG PO DAILY Prescribed by: LUIS LECHUGA on 10/30/21 1139 Ondansetron (Ondansetron Odt) 4 Mg Tab.rapdis, 4 MG PO Q6H PRN for NAUSEA/VOMITING Prescribed by: LUIS LECHUGA on 07/23/19 2150 Polyethylene Glycol 3350 (Miralax) 17 Gram/Dose Powder, 17 GM PO DAILY PRN for CONSTIPATION-1ST LINE Prescribed by: LUIS LECHUGA on 10/30/21 1139 Psyllium Husk (Metamucil) 0.4 Gm Capsule, 0.4 GM PO DAILY Prescribed by: HILDA YBARRA on 01/30/19 1258 Simvastatin (Zocor) 40 Mg Tablet, HS, (Reported) Entered as Reported by: SUJATA COLLINS on 09/06/182052 Tramadol HCl (Tramadol HCl) 50 Mg Tablet, 50 MG PO Q4H PRN for PAIN-MILD (1-4) Prescribed by: HILDA YBARRA on 11/09/21 1624 [Lorazepam Tab 1MG] , (Reported) Entered as Reported by: SUJATA COLLINS on 09/06/182035 [Metformin Tab 500MG] , (Reported) Entered as Reported by: SUJATA COLLINS on 09/06/182035 [Phenytoin Ex Cap 100MG] , (Reported) Entered as Reported by: SUJATA COLLINS on 09/06/182035 [Pot Cl Micro Tab 20MEQ Er] , (Reported) Entered as Reported by: SUJATA COLLINS on 09/06/182035 [Risperidone Tab 3MG] , (Reported) Entered as Reported by: SUJATA COLLINS on 09/06/182035 Review of Systems Review of Systems Constitutional: see HPI Eyes: No Symptoms Reported Ears, Nose, Mouth, Throat: no symptoms reported Respiratory: no symptoms reported Cardiovascular: no symptoms reported Gastrointestinal: diarrhea Genitourinary: dysuria Musculoskeletal: back pain, neck pain Skin: no symptoms reported Psychiatric/Neurological: Anxiety All Other Systems Reviewed Negative Unless Noted: Yes Past Pbmbxid-Sncbkj-Oyvopd Hx Immunizations Up To Date First/Initial COVID19 Vaccinat: UNKNOWN Second COVID19 Vaccination Brody: UNKNOWN Third COVID19 Vaccination Date: UNKNOWN Seasonal Allergies Seasonal Allergies: No Past Medical History Surgery/Hospitalization HX: Pseudoseizure, Headaches Surgeries: Yes (cystoscopy) Gallbladder, Orthopedic Respiratory: Yes Asthma Cardiac: No Neurological: Yes (PSEUDOSEIZURES) Headaches /Migraines, Seizure Disorder, Traumatic Brain Injury Genitourinary: No Gastrointestinal: Yes Gastroesophageal Reflux, Hepatitis, Cirrhosis Musculoskeletal: No Endocrine: Yes Diabetes, Insulin dep HEENT: No Cancer: No Psychosocial: No (Suicidal and homicidal ideation hx) Bipolar, Personality Disorder Integumentary: No Blood Disorders: No Family Medical History No Pertinent Family Hx Physical Exam Vital Signs Vital Signs - First Documented 02/13/22 09:34 Temp 36.2 Pulse 83 Resp 20 B/P (MAP) 125/91 (102) Capillary Refill : Height, Weight, BMI Height: 5'8.00" Weight: 220lbs. oz. 99.392931dc; 35.00 BMI Method:Stated General Appearance: WD/WN, no apparent distress HEENT: PERRL/EOMI, pharynx normal Neck: normal inspection Respiratory: lungs clear, normal breath sounds, no respiratory distress, no accessory muscle use Cardiovascular: regular rate, rhythm Gastrointestinal: soft, tenderness (mild tenderness, LLQ) Extremities: normal range of motion, normal inspection, no pedal edema, normal capillary refill Neurologic/Psychiatric: alert, normal mood/affect, oriented x 3 Crainal Nerves: normal hearing, normal speech, PERRL Motor/Sensory: no motor deficit, no sensory deficit Skin: normal color, warm/dry Progress/Results/Core Measures Results/Orders Lab Results Laboratory Tests Test 02/13/22 09:46 02/13/22 10:00 Range/Units White Blood Count 5.3 4.3-11.0 10^3/uL Red Blood Count 4.95 4.30-5.52 10^6/uL Hemoglobin 15.6 13.3-17.7 g/dL Hematocrit 46 40-54 % Mean Corpuscular Volume 92 80-99 fL Mean Corpuscular Hemoglobin 32 25-34 pg Mean Corpuscular Hemoglobin Concent 34 32-36 g/dL Red Cell Distribution Width 13.3 10.0-14.5 % Platelet Count 66 L 130-400 10^3/uL Mean Platelet Volume 10.1 9.0-12.2 fL Immature Granulocyte % (Auto) 0 % Neutrophils (%) (Auto) 40 L 42-75 % Lymphocytes (%) (Auto) 44 12-44 % Monocytes (%) (Auto) 10 0-12 % Eosinophils (%) (Auto) 5 0-10 % Basophils (%) (Auto) 1 0-10 % Neutrophils # (Auto) 2.1 1.8-7.8 10^3/uL Lymphocytes # (Auto) 2.3 1.0-4.0 10^3/uL Monocytes # (Auto) 0.5 0.0-1.0 10^3/uL Eosinophils # (Auto) 0.3 0.0-0.3 10^3/uL Basophils # (Auto) 0.0 0.0-0.1 10^3/uL Immature Granulocyte # (Auto) 0.0 0.0-0.1 10^3/uL Percent Immature Platelet Fraction 4.2 0.0-7.6 % Sodium Level 141 135-145 MMOL/L Potassium Level 4.2 3.6-5.0 MMOL/L Chloride Level 110 H 98-107 MMOL/L Carbon Dioxide Level 24 21-32 MMOL/L Anion Gap 7 5-14 MMOL/L Blood Urea Nitrogen 14 7-18 MG/DL Creatinine 0.80 0.60-1.30 MG/DL Estimat Glomerular Filtration Rate 106 BUN/Creatinine Ratio 18 Glucose Level 125 H 70-105 MG/DL Calcium Level 8.8 8.5-10.1 MG/DL Urine Color YELLOW Urine Clarity CLEAR Urine pH 6.5 5-9 Urine Specific [place] 1.020 1.016-1.022 Urine Protein NEGATIVE NEGATIVE Urine Glucose (UA) 3+ H NEGATIVE Urine Ketones NEGATIVE NEGATIVE Urine Nitrite NEGATIVE NEGATIVE Urine Bilirubin NEGATIVE NEGATIVE Urine Urobilinogen 1.0 < = 1.0 MG/DL Urine Leukocyte Esterase NEGATIVE NEGATIVE Urine RBC (Auto) NEGATIVE NEGATIVE Urine RBC NONE /HPF Urine WBC NONE /HPF Urine Squamous Epithelial Cells NONE /HPF Urine Crystals NONE /LPF Urine Bacteria NEGATIVE /HPF Urine Casts NONE /LPF Urine Mucus NEGATIVE /LPF Urine Culture Indicated NO My Orders Orders - ROGELIO REYES MD Ed Iv/Invasive Line Start (02/13/22 09:45) Cbc With Automated Diff (02/13/22 09:45) Basic Metabolic Panel (02/13/22 09:45) Ua Culture If Indicated (02/13/22 09:45) Vital Signs/I&O 02/13/22 09:34 Temp 36.2 Pulse 83 Resp 20 B/P (MAP) 125/91 (102) Progress Progress Note : Time: 10:54 Progress Note Patient has rested comfortably in the emergency department since being brought over from nuclear med lab. I reviewed his labs they are all within normal limits. His vital signs have been stable. I suspect this is related to his pseudoseizures as the patient did admit to having these episodes when he gets nervous. He was very apprehensive about his gastric emptying study. He is comfortable with discharged home. No clinical or objective findings to warrant further studies from the emergency department. All questions are sought and answered. Patient is stable for discharge. Departure Impression Primary Impression: Pseudoseizures Disposition: 01 HOME, SELF-CARE Condition: Improved Departure-Patient Inst. Decision time for Depature: 10:55 Referrals: JERROD SERRANO APRN (PCP) Primary Care Physician [facility] (Family) Primary Care Physician Add. Discharge Instructions: Continue your daily medications as prescribed. Please contact the hospital to reschedule your gastric emptying study that you missed today. Return to the emergency department for any new, concerning or emergent compl aints. Copy Copies To 1: ALVIN CARR KATHRYN M MD Feb 13, 2022 09:49
[2022-02-13 09:53] LABS: EOSINOPHILS # (AUTO) 0.3 10^3/uL (0.0-0.3); HEMOGLOBIN 15.6 g/dL (13.3-17.7)
[2022-02-13 09:55] LABS: BASOPHILS % (AUTO) 1 % (0-10); EOSINOPHILS % (AUTO) 5 % (0-10); HEMATOCRIT 46 % (40-54); LYMPHOCYTES # (AUTO) 2.3 10^3/uL (1.0-4.0); LYMPHOCYTES % (AUTO) 44 % (12-44); MEAN CORPUSCULAR HEMOGLOBIN 32 pg (25-34); MEAN CORPUSCULAR HGB CONC 34 g/dL (32-36); MEAN CORPUSCULAR VOLUME 92 fL (80-99); MEAN PLATELET VOLUME 10.1 fL (9.0-12.2); MONOCYTES # (AUTO) 0.5 10^3/uL (0.0-1.0); MONOCYTES % (AUTO) 10 % (0-12); NEUTROPHILS # (AUTO) 2.1 10^3/uL (1.8-7.8); NEUTROPHILS % (AUTO) 40 % (42-75); WHITE BLOOD COUNT 5.3 10^3/uL (4.3-11.0)
[2022-02-13 09:57] LABS: PLATELET COUNT 66 10^3/uL (130-400)
[2022-02-13 10:07] LABS: POTASSIUM 4.2 MMOL/L (3.6-5.0)
[2022-02-13 10:08] LABS: CALCIUM 8.8 MG/DL (8.5-10.1)
[2022-02-13 10:08] LABS: BILIRUBIN,URINE NEGATIVE (NEGATIVE); CLARITY,URINE CLEAR; COLOR,URINE YELLOW; GLUCOSE, URINE (UA) 3+ (NEGATIVE); KETONES,URINE NEGATIVE (NEGATIVE); LEUKOCYTE ESTERASE ,URINE NEGATIVE (NEGATIVE); NITRITE,URINE NEGATIVE (NEGATIVE); PH,URINE 6.5 (5-9); PROTEIN,URINE NEGATIVE (NEGATIVE)
[2022-02-13 10:12] LABS: CREATININE SERUM 0.8 MG/DL (0.60-1.30)
[2022-02-13 10:19] LABS: BACTERIA,URINE NEGATIVE /HPF
[2022-02-13 11:11] VITALS: BP 133/83
== END 2022-02-13 11:12 | disposition home or self-care (01) ==
LOC: EDUNIT# 09:31 → ER 09:32
DX: G40.909 Epilepsy, unspecified, not intractable, without status epilepticus (principal); E11.9 Type 2 diabetes mellitus without complications; Z79.4 Long term (current) use of insulin; Z79.899 Other long term (current) drug therapy
CPT/HCPCS: 36415; 80048; 81000; 85025

== ENCOUNTER → 2022-02-13 | Outpatient (CLI) | payer MEDICARE, MEDICAID | LOC: CARD 09:00 | PROVIDERS: ATTEND Specialist | DX: K31.84 Gastroparesis (principal) ==

== ENCOUNTER → 2022-02-15 | Outpatient (CLI) | payer MEDICARE, MEDICAID ==
--- NOTE | 2022-02-15 15:36 | Diagnostic Imaging Report ---
Indication: Right-sided abdominal pain. Time of Exam: 3:04 PM There are surgical clips in the gallbladder fossa. No free air is identified. The bowel gas pattern is nonobstructed. No pathologic calcifications are seen. IMPRESSION: No acute abnormality is detected. Dictated by: Dictated on workstation # [id number]
== END ==
LOC: RAD FS 14:52
PROVIDERS: ATTEND Nurse Practitioner Family
DX: R10.84 Generalized abdominal pain (principal)
CPT/HCPCS: 74019

== ENCOUNTER 2022-03-05 23:15 | Emergency (ER) | payer MEDICARE, MEDICAID ==
--- NOTE | 2022-03-05 23:49 | ED Upper Extremity ---
General Chief Complaint: Upper Extremity Stated Complaint: SWOLLEN RT HAND Source: patient Exam Limitations: no limitations History of Present Illness Date Seen by Provider: Mar 05, 2022 Time Seen by Provider: 23:46 Initial Comments Patient is a 51-year-old male who presents to the emergency department today with a chief complaint of a swollen and painful right hand. He is right-hand dominant. He states that he punched a wall today out of frustration. He did not this morning. He states he called the clinic and told him that his hand was hurting and swollen and they advised him to come to the emergency department. He states the pain radiates from his hand into his elbow. No discrete elbow pain. No open wounds. He states he has not taken anything for the pain. Movement makes it worse nothing really makes it any better. No other complaints of illness or injury. Onset: this morning Severity: moderate Pain/Injury Location: right hand Method of Injury: direct blow Modifying Factors: Improves With Immobilization; Worse With Movement Allergies and Home Medications Allergies Coded Allergies: aripiprazole (Verified Allergy, Unknown, hallucinations, 10/01/18) zolpidem (Verified Allergy, Unknown, hallucinations, 10/01/18) Patient Home Medication List Home Medication List Reviewed: Yes Budesonide/Formoterol Fumarate (Symbicort 160-4.5 Mcg Inhaler) 10.2 Gm Hfa.aer.ad, (Reported) Entered as Reported by: JAYDA CHRISTIANSEN on 10/01/181818 Citalopram Hydrobromide (Celexa) 40 Mg Tablet, (Reported) Entered as Reported by: SUJATA COLLINS on 09/06/182052 Clindamycin HCl (Clindamycin HCl) 300 Mg Capsule, 300 MG PO TIDWM Prescribed by: LINDEN MERCEDES on 10/24/192033 Dicyclomine HCl (Dicyclomine HCl) 20 Mg Tablet, 20 MG PO QID PRN for ABDOMINAL PAIN Prescribed by: LUIS LECHUGA on 10/01/18 0501 Haloperidol (Haldol Tab) 5 Mg Tab, 10 MG PO HS, (Reported) Entered as Reported by: SUJATA COLLINS on 09/06/182052 Hydrocodone Bit/Acetaminophen (Lortab 5 Mg Tablet) 1 Tab Tab, 1 EACH PO Q4-6HR PRN for PAIN-MODERATE Prescribed by: HILDA YBARRA on 01/24/19 1351 Ibuprofen (Ibuprofen) 800 Mg Tablet, 800 MG PO Q8H PRN for PAIN Prescribed by: LINDEN MERCEDES on 10/24/192033 Insulin Glargine,Hum.rec.anlog (Basaglar Kwikpen U-100) 100 Unit/1 Ml Insuln.pen, (Reported) Entered as Reported by: JAYDA CHRISTIANSEN on 10/01/181818 Lorazepam (Lorazepam) 1 Mg Tablet, (Reported) Entered as Reported by: JAYDA CHRISTIANSEN on 10/01/181818 Magnesium Citrate (Magnesium Citrate) 296 Ml Solution, 296 ML PO Q6H Prescribed by: HILDA YBARRA on 01/30/19 1258 Meloxicam (Meloxicam) 7.5 Mg Tablet, 7.5 MG PO DAILY Prescribed by: LUIS Torres ENBLOSSOMRT on 10/30/21 1139 Ondansetron (Ondansetron Odt) 4 Mg Tab.rapdis, 4 MG PO Q6H PRN for NAUSEA/VOMITING Prescribed by: LUIS NATIONRT on 07/23/19 2150 Polyethylene Glycol 3350 (Miralax) 17 Gram/Dose Powder, 17 GM PO DAILY PRN for CONSTIPATION-1ST LINE Prescribed by: LUIS NATIONRT on 10/30/21 1139 Psyllium Husk (Metamucil) 0.4 Gm Capsule, 0.4 GM PO DAILY Prescribed by: HILDA YBARRA on 01/30/19 1258 Simvastatin (Zocor) 40 Mg Tablet, HS, (Reported) Entered as Reported by: SUJATA COLLINS on 09/06/182052 Tramadol HCl (Tramadol HCl) 50 Mg Tablet, 50 MG PO Q4H PRN for PAIN-MILD (1-4) Prescribed by: HILDA YBARRA on 11/09/21 1624 [Lorazepam Tab 1MG] , (Reported) Entered as Reported by: SUJATA COLLINS on 09/06/182035 [Metformin Tab 500MG] , (Reported) Entered as Reported by: SUJATA COLLINS on 09/06/182035 [Phenytoin Ex Cap 100MG] , (Reported) Entered as Reported by: SUJATA COLLINS on 09/06/182035 [Pot Cl Micro Tab 20MEQ Er] , (Reported) Entered as Reported by: SUJATA COLLINS on 09/06/182035 [Risperidone Tab 3MG] , (Reported) Entered as Reported by: SUJATA COLLINS on 09/06/182035 Review of Systems Constitutional: see HPI Respiratory: no symptoms reported Cardiovascular: no symptoms reported Gastrointestinal: no symptoms reported Musculoskeletal: joint pain (Right hand) All Other Systems Reviewed Negative Unless Noted: Yes Past Unshxnh-Zcxscy-Rltdxg Hx Immunizations Up To Date First/Initial COVID19 Vaccinat: 2020 Second COVID19 Vaccination Brody: 2020 Third COVID19 Vaccination Date: UNKNOWN Seasonal Allergies Seasonal Allergies: No Past Medical History Surgery/Hospitalization HX: Pseudoseizure, Headaches NECK SURG Surgeries: Yes (cystoscopy) Gallbladder, Orthopedic Respiratory: Yes Asthma Cardiac: No Neurological: Yes (PSEUDOSEIZURES) Headaches /Migraines, Seizure Disorder, Traumatic Brain Injury Genitourinary: No Gastrointestinal: Yes Gastroesophageal Reflux, Hepatitis, Cirrhosis Musculoskeletal: No Endocrine: Yes Diabetes, Insulin dep HEENT: No Cancer: No Psychosocial: No (Suicidal and homicidal ideation hx) Bipolar, Personality Disorder Integumentary: No Blood Disorders: No Family Medical History No Pertinent Family Hx Physical Exam Vital Signs Capillary Refill : Height, Weight, BMI Height: 5'8.00" Weight: 220lbs. oz. 99.933180me; 35.00 BMI Method:Stated General Appearance: WD/WN, no apparent distress HEENT: PERRL/EOMI Cardiovascular: regular rate, rhythm Respiratory: lungs clear, normal breath sounds, no respiratory distress, no accessory muscle use Shoulder: normal inspection, normal ROM Elbow/Forearm: normal inspection, normal ROM Wrist: Yes normal inspection, Yes non-tender, Yes no evidence of injury, Yes normal ROM Hand: Right, ecchymosis (Slight ecchymosis over the dorsum of the right hand), swelling (Swelling over the entirety of the dorsum of the right hand. No open wounds. No discrete tenderness over any of the metacarpophalangeal joints. He has good range of motion of the fingers, good strength in the fingers. Normal s ensation.) Neurologic/Tendon: normal sensation, normal motor functions, normal tendon functions Neurologic/Psychiatric: alert, normal mood/affect, oriented x 3 Skin: normal color, warm/dry Progress/Results/Core Measures Results/Orders My Orders Orders - ROGELIO REYES MD Hand 3 View Right (03/05/22 23:27) Acetaminophen Tablet (Tylenol Tablet) (03/06/22 00:00) Diagnostic Imaging Diagonstic Imaging: Xray Comments Right hand x-rayinterpreted by ta fractures, dislocations. Departure Impression Primary Impression: Contusion of right hand Qualified Codes: S60.221A - Contusion of right hand, initial encounter Disposition: 01 HOME, SELF-CARE Condition: Stable Departure-Patient Inst. Decision time for Depature: 23:55 Referrals: JERROD SERRANO APRN (PCP) Primary Care Physician [facility] (Family) Primary Care Physician Patient Instructions: Minor Contusion ED Add. Discharge Instructions: Put an ice pack on your hand over the next 24 hours for 20 minutes at a time 4-6 times a day. Try and keep the hand elevated to lessen the swelling. [id number] Tylenol extra strength, 2 tablets every 6 hours as needed for pain. Follow-up with [facility] Return to the emergency department for any new, concerning or emergent complaints Copy Copies To 1: ALVIN CARR KATHRYN M MD Mar 05, 2022 23:49
[2022-03-06] MEDS ORDERED: ACETAMINOPHEN 500 MG TAB (TYLENOL) PO ONE
[2022-03-06 00:05] VITALS: BP 129/80
--- NOTE | 2022-03-06 06:39 | Diagnostic Imaging Report ---
Indication: Right hand injury 3 views of the right hand shows narrowing of the radiocarpal joint space. There is no acute fracture or dislocation seen. IMPRESSION: Mild degenerative changes of the radiocarpal joint. No acute abnormality seen. Dictated by: Dictated on workstation # [id number]
== END 2022-03-06 00:06 | disposition home or self-care (01) ==
LOC: EDUNIT# 23:15 → ER FS 23:18
DX: S60.221A Contusion of right hand, initial encounter (principal); W22.01XA Walked into wall, initial encounter
CPT/HCPCS: 73130

== ENCOUNTER → 2022-03-14 | Outpatient (CLI) | payer MEDICARE, MEDICAID ==
[~2022-03-14] MED LIST changes: +CATHETER FLUSH 10 ML SYR IVP PRN; +REGADENOSON 0.4 MG/5 ML SYR (LEXISCAN) IV ONE
[2022-03-14 13:07] VITALS: BP 120/84
--- NOTE | 2022-03-14 16:37 | Cardiology Stress Test Report ---
Stress Test Report Date of Procedure/Referring: Date of Procedure: Mar 14, 2022 PCP Verenice Contreras Aprn Admitting Physician Admitting Physician: Attending Physician: Sandoval Perkins MD Indications: cp Baseline Heart Rate: 79 Baseline Blood Pressure: Blood Pressure Systolic: 120 Blood Pressure Diastolic: 84 Baseline Vitals Vital Signs Date Time Temp Pulse Resp B/P (MAP) Pulse Ox O2 Delivery O2 Flow Rate FiO2 03/14/22 13:07 78 120/84 (96) 96 Baseline EKG: Baseline EKG: NSR Summary After explaining the procedure to the patient, he signed a consent and then brought to the stress nuclear laboratory. Patient received 0.4 mg Lexiscan for stress test, ECG, heart rate and blood pressure were monitored continuously. Resting and stress dose of radio tracer were injected, imaging was acquired and reviewed in short axis, horizontal long axis and vertical long axis views. TID: 1.09 SSS: 4 SDS: 4 EF: 56 1. Patient tolerated Lexiscan well 2. Diaphragmatic attenuation with mild decrease uptake at the inferior apex with subtle reversibility, overall there is no significant ischemia or infarction on SPECT images 3. Normal left ventricular size, ejection fraction 56% Copy Copies To 1: [facility]/ SANDOVAL PERKINS MD Mar 14, 2022 16:37
== END ==
LOC: CARD 11:30
PROVIDERS: ATTEND Internal Medicine Cardiovascular Disease
DX: I10 Essential (primary) hypertension (principal); I25.10 Atherosclerotic heart disease of native coronary artery without angina pectoris
CPT/HCPCS: 78452; 93017; A9502

== ENCOUNTER 2022-03-25 00:51 | Emergency (ER) | payer MEDICARE, MEDICAID ==
[~2022-03-25 00:51] MED LIST changes: -CATHETER FLUSH 10 ML SYR IVP PRN; -REGADENOSON 0.4 MG/5 ML SYR (LEXISCAN) IV ONE
--- NOTE | 2022-03-25 01:20 | ED Psychosocial ---
General Chief Complaint: Psych/Social Disorder Stated Complaint: MENTAL HEALTH ISSUES Nursing Triage Note: pt presents with c/o SI/HI. pt reports for two days he has been having thoughts of SI with plan to cut his wrists. Reports previous hanging attempt in 2017. pt also reports HI against his with no plan of harming her. Pt reports he is having command hallucinations. Pt reports last mental health inpatient admission was in february of last year. Source: patient Exam Limitations: no limitations History of Present Illness Date Seen by Provider: Mar 25, 2022 Time Seen by Provider: 00:55 Initial Comments 51-year-old male with past medical history of bipolar disorder and depression co nixon in due to suicidal ideation with a plan to cut his wrist with a knife. He also is having command hallucinations even currently to harm his with no current plan. He says he also has 4 dogs that he would hurt. He says this all started tonight. He cannot recall any particular event that started it such as a fight. He says he just has no will to live right now. He says in 2017 he has attempted to hang himself. Denies any chest pain, shortness of breath, abdominal pain, nausea, vomiting, diarrhea, fever, chills, weakness, numbness, rash, or any other concerns. Allergies and Home Medications Allergies Coded Allergies: aripiprazole (Verified Allergy, Unknown, hallucinations, 10/01/18) zolpidem (Verified Allergy, Unknown, hallucinations, 10/01/18) Patient Home Medication List Home Medication List Reviewed: Yes Budesonide/Formoterol Fumarate (Symbicort 160-4.5 Mcg Inhaler) 10.2 Gm Hfa.aer.ad, (Reported) Entered as Reported by: JAYDA CHRISTIANSEN on 10/01/181818 Citalopram Hydrobromide (Celexa) 40 Mg Tablet, (Reported) Entered as Reported by: SUJATA COLLINS on 09/06/182052 Clindamycin HCl (Clindamycin HCl) 300 Mg Capsule, 300 MG PO TIDWM Prescribed by: LINDEN MERCEDES on 10/24/192033 Dicyclomine HCl (Dicyclomine HCl) 20 Mg Tablet, 20 MG PO QID PRN for ABDOMINAL PAIN Prescribed by: LUIS LECHUGA on 10/01/18 0501 Haloperidol (Haldol Tab) 5 Mg Tab, 10 MG PO HS, (Reported) Entered as Reported by: SUJATA OCLLINS on 09/06/182052 Hydrocodone Bit/Acetaminophen (Lortab 5 Mg Tablet) 1 Tab Tab, 1 EACH PO Q4-6HR PRN for PAIN-MODERATE Prescribed by: HILDA YBARRA on 01/24/19 1351 Ibuprofen (Ibuprofen) 800 Mg Tablet, 800 MG PO Q8H PRN for PAIN Prescribed by: LINDEN MERCEDES on 10/24/192033 Insulin Glargine,Hum.rec.anlog (Basaglar Kwikpen U-100) 100 Unit/1 Ml Insuln.pen, (Reported) Entered as Reported by: JAYDA CHRISTIANSEN on 10/01/181818 Lorazepam (Lorazepam) 1 Mg Tablet, (Reported) Entered as Reported by: JAYDA CHRISTIANSEN on 10/01/181818 Magnesium Citrate (Magnesium Citrate) 296 Ml Solution, 296 ML PO Q6H Prescribed by: HILDA YBARRA on 01/30/19 1258 Meloxicam (Meloxicam) 7.5 Mg Tablet, 7.5 MG PO DAILY Prescribed by: LUIS Torres ENBLOSSOMRT on 10/30/21 1139 Ondansetron (Ondansetron Odt) 4 Mg Tab.rapdis, 4 MG PO Q6H PRN for NAUSEA/VOMITING Prescribed by: LUIS NATIONRT on 07/23/19 2150 Polyethylene Glycol 3350 (Miralax) 17 Gram/Dose Powder, 17 GM PO DAILY PRN for CONSTIPATION-1ST LINE Prescribed by: LUIS LECHUGA on 10/30/21 1139 Psyllium Husk (Metamucil) 0.4 Gm Capsule, 0.4 GM PO DAILY Prescribed by: HILDA YBARRA on 01/30/19 1258 Simvastatin (Zocor) 40 Mg Tablet, HS, (Reported) Entered as Reported by: SUJATA COLLINS on 09/06/182052 Tramadol HCl (Tramadol HCl) 50 Mg Tablet, 50 MG PO Q4H PRN for PAIN-MILD (1-4) Prescribed by: HILDA YBARRA on 11/09/21 1624 [Lorazepam Tab 1MG] , (Reported) Entered as Reported by: SUJATA COLLINS on 09/06/182035 [Metformin Tab 500MG] , (Reported) Entered as Reported by: SUJATA COLLINS on 09/06/182035 [Phenytoin Ex Cap 100MG] , (Reported) Entered as Reported by: SUJATA COLLINS on 09/06/182035 [Pot Cl Micro Tab 20MEQ Er] , (Reported) Entered as Reported by: SUJATA COLLINS on 09/06/182035 [Risperidone Tab 3MG] , (Reported) Entered as Reported by: SUJATA COLLINS on 09/06/182035 Review of Systems Constitutional: No fever EENTM: No blurred vision Respiratory: No cough Cardiovascular: No chest pain Gastrointestinal: No abdominal pain Genitourinary: no symptoms reported Musculoskeletal: no symptoms reported Skin: no symptoms reported Psychiatric/Neurological: See HPI All Other Systems Reviewed Negative Unless Noted: Yes Past Ktonflx-Asedix-Rbgufp Hx Patient Social History Tobacco Use?: Yes Smoking Status: Current Everyday Smoker Substance use?: No Alcohol Use?: No Pt feels they are or have been: No Immunizations Up To Date Influenza Vaccine Up-to-Date: Yes; Up-to-Date First/Initial COVID19 Vaccinat: unknown date Second COVID19 Vaccination Brody: unknown date Third COVID19 Vaccination Date: UNKNOWN 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: [employer] Seasonal Allergies Seasonal Allergies: No Past Medical History Surgery/Hospitalization HX: Pseudoseizure, Headaches NECK SURG Surgeries: Yes (cystoscopy) Gallbladder, Orthopedic Respiratory: Yes Asthma Cardiac: No Neurological: Yes (PSEUDOSEIZURES) Headaches /Migraines, Seizure Disorder, Traumatic Brain Injury Genitourinary: No Gastrointestinal: Yes Gastroesophageal Reflux, Hepatitis, Cirrhosis Musculoskeletal: No Endocrine: Yes Diabetes, Insulin dep HEENT: No Cancer: No Psychosocial: No (Suicidal and homicidal ideation hx) Bipolar, Personality Disorder Integumentary: No Blood Disorders: No Family Medical History No Pertinent Family Hx Physical Exam Vital Signs - First Documented 03/25/22 01:03 Temp 36.6 Pulse 87 Resp 18 B/P (MAP) 108/71 (83) Pulse Ox 93 O2 Delivery Room Air Capillary Refill : Height, Weight, BMI Height: 5'8.00" Weight: 220lbs. oz. 99.012380rh; 35.00 BMI Method:Stated General Appearance: WD/WN, no apparent distress HEENT: PERRL/EOMI, normal ENT inspection, pharynx normal Neck: non-tender, full range of motion, supple, normal inspection Respiratory: chest non-tender, lungs clear, normal breath sounds, no respiratory distress, no accessory muscle use Cardiovascular: regular rate, rhythm, no edema, no murmur Gastrointestinal: normal bowel sounds, non tender, soft; No distended, No guarding, No rebound Extremities: normal range of motion, non-tender, normal inspection, no pedal edema, no calf tenderness, normal capillary refill Neurologic/Psychiatric: no motor/sensory deficits, alert, normal mood/affect, oriented x 3 Appearance/Memory: disheveled Behavior/Eye Contact: cooperative, good eye contact, normal speech Thoughts/Hallucinations: auditory hallucinations Skin: normal color, warm/dry Lymphatic: no adenopathy Progress/Results/Core Measures Results/Orders Lab Results Laboratory Tests Test 03/25/22 01:20 Range/Units White Blood Count 6.9 4.3-11.0 10^3/uL Red Blood Count 4.88 4.30-5.52 10^6/uL Hemoglobin 15.5 13.3-17.7 g/dL Hematocrit 45 40-54 % Mean Corpuscular Volume 93 80-99 fL Mean Corpuscular Hemoglobin 32 25-34 pg Mean Corpuscular Hemoglobin Concent 34 32-36 g/dL Red Cell Distribution Width 13.2 10.0-14.5 % Platelet Count 76 L 130-400 10^3/uL Mean Platelet Volume 10.1 9.0-12.2 fL Neutrophils (%) (Auto) 36 L 42-75 % Lymphocytes (%) (Auto) 47 H 12-44 % Monocytes (%) (Auto) 12 0-12 % Eosinophils (%) (Auto) 5 0-10 % Basophils (%) (Auto) 0 0-10 % Neutrophils # (Auto) 2.5 1.8-7.8 X 10^3 Lymphocytes # (Auto) 3.2 1.0-4.0 X 10^3 Monocytes # (Auto) 0.8 0.0-1.0 X 10^3 Eosinophils # (Auto) 0.4 H 0.0-0.3 10^3/uL Basophils # (Auto) 0.0 0.0-0.1 10^3/uL Percent Immature Platelet Fraction 4.4 0.0-7.6 % Sodium Level 139 135-145 MMOL/L Potassium Level 3.9 3.6-5.0 MMOL/L Chloride Level 105 98-107 MMOL/L Carbon Dioxide Level 22 21-32 MMOL/L Anion Gap 12 5-14 MMOL/L Blood Urea Nitrogen 22 H 7-18 MG/DL Creatinine 0.96 0.60-1.30 MG/DL Estimat Glomerular Filtration Rate 95 BUN/Creatinine Ratio 23 Glucose Level 134 H 70-105 MG/DL Calcium Level 8.9 8.5-10.1 MG/DL Corrected Calcium 8.9 8.5-10.1 MG/DL Total Bilirubin 0.4 0.1-1.0 MG/DL Aspartate Amino Transf (AST/SGOT) 17 5-34 U/L Alanine Aminotransferase (ALT/SGPT) 14 0-55 U/L Alkaline Phosphatase 52 40-136 U/L Total Protein 7.0 6.4-8.2 GM/DL Albumin 4.0 3.2-4.5 GM/DL Salicylates Level < 0.3 L 5.0-20.0 MG/DL Urine Opiates Screen NEGATIVE NEGATIVE Urine Oxycodone Screen NEGATIVE NEGATIVE Urine Methadone Screen NEGATIVE NEGATIVE Urine Propoxyphene Screen NEGATIVE NEGATIVE Acetaminophen Level < 10 L 10-30 UG/ML Urine Barbiturates Screen NEGATIVE NEGATIVE Ur Tricyclic Antidepressants Screen POSITIVE H NEGATIVE Urine Phencyclidine Screen NEGATIVE NEGATIVE Urine Amphetamines Screen NEGATIVE NEGATIVE Urine Methamphetamines Screen NEGATIVE NEGATIVE Urine Benzodiazepines Screen POSITIVE H NEGATIVE Urine Cocaine Screen NEGATIVE NEGATIVE Urine Cannabinoids Screen NEGATIVE NEGATIVE Serum Alcohol < 10 <10 MG/DL SARS-CoV-2 RNA (RT-PCR) Not Detected Not Detecte My Orders Orders - ZANDRA ONEAL MD Cbc With Automated Diff (03/25/22:20) Comprehensive Metabolic Panel (03/25/22:20) Alcohol (03/25/22:20) Drug Screen Stat (Urine) (03/25/22:20) Acetaminophen (03/25/22:20) Salicylate (03/25/22:20) Ekg Tracing (03/25/22:20) Monitor-Rhythm Ecg Trace Only (03/25/22:20) Bh Status Checks/Observation O Q15M (03/25/22 01:20) Olanzapine Orally Dissolve Tab (Zyprexa (03/25/22 01:30) Diphenhydramine Tablet (Benadryl Tablet) (9/18/22 01:30) Ziprasidone Injection (Geodon Injection) (03/25/22 01:30) Water (Sterile) For Injection (Sterile W (03/25/22 01:30) Diphenhydramine Injection (Benadryl Inje (03/25/22 01:30) Midazolam Injection (Versed Injection) (03/25/22 01:30) Covid 19 Inhouse Test (03/25/22 01:20) Vital Signs/I&O 03/25/22 01:03 Temp 36.6 Pulse 87 Resp 18 B/P (MAP) 108/71 (83) Pulse Ox 93 O2 Delivery Room Air Blood Pressure Mean: 83 Progress Progress Note : Progress Note 51-year-old male with above history coming in due to suicidal ideations with a plan as well as command hallucinations of homicidal ideation. ABCs were intact and vitals were stable on presentation. He has no physical complaints at this time. Basic psychiatric screening labs were obtained. From an emergency department standpoint he is physically cleared for psychiatric evaluation. After evaluation by the mental health professionals, the patient had apparently called them earlier in the night and stated he had a different plan at that time. They safety plan to him at that time. He then came in and stated he had a different plan than previously stated. He was screened again and states he planned again. He is no longer having threatening thoughts towards his spouse. He is agreeable to the plan and he is stating he no longer has thoughts to harm himself. Departure Impression Primary Impression: Suicidal ideation Additional Impression: Homicidal thoughts Disposition: 01 HOME, SELF-CARE Condition: Stable Departure-Patient Inst. Decision time for Depature: 07:00 Referrals: JERROD SERRANO APRN (PCP/Family) Primary Care Physician Patient Instructions: Depression, Adult ED Add. Discharge Instructions: If you have any thoughts to hurt yourself or hurt anyone else please immediately come back to the ER. Please follow-up with your mental health specialist or counselor if you have one. Work/School Note: Work Release Form Date Seen in the Emergency Department: Mar 25, 2022 Return to Work: Mar 26, 2022 Restrictions: No Restrictions ZANDRA ONEAL MD Mar 25, 2022 01:20
[2022-03-25 01:29] LABS: HEMATOCRIT 45 % (40-54); HEMOGLOBIN 15.5 g/dL (13.3-17.7); MEAN CORPUSCULAR HEMOGLOBIN 32 pg (25-34); MEAN CORPUSCULAR HGB CONC 34 g/dL (32-36); MEAN CORPUSCULAR VOLUME 93 fL (80-99); PLATELET COUNT 76 10^3/uL (130-400); WHITE BLOOD COUNT 6.9 10^3/uL (4.3-11.0)
[2022-03-25 01:30] LABS: BASOPHILS % (AUTO) 0 % (0-10); EOSINOPHILS # (AUTO) 0.4 10^3/uL (0.0-0.3); EOSINOPHILS % (AUTO) 5 % (0-10); LYMPHOCYTES # (AUTO) 3.2 X 10^3 (1.0-4.0); LYMPHOCYTES % (AUTO) 47 % (12-44); MEAN PLATELET VOLUME 10.1 fL (9.0-12.2); MONOCYTES # (AUTO) 0.8 X 10^3 (0.0-1.0); MONOCYTES % (AUTO) 12 % (0-12); NEUTROPHILS # (AUTO) 2.5 X 10^3 (1.8-7.8); NEUTROPHILS % (AUTO) 36 % (42-75)
[2022-03-25] MEDS ORDERED: OLANZapine 5 MG ODT (ZyPREXA ZYDIS) PO PRN (01:30)
[2022-03-25] MEDS ORDERED: WATER (STERILE) FOR INJ 10 ML BTL INJ SCH (01:30)
[2022-03-25] MEDS ORDERED: diphenhydrAMINE 25 MG TAB (BENADRYL) PO PRN (01:30)
[2022-03-25] MEDS ORDERED: ZIPRASIDONE 20 MG INJ (GEODON) VIAL IM PRN (01:30)
[2022-03-25] MEDS ORDERED: diphenhydrAMINE 50 MG/ML INJ (BENADRYL) IM PRN (01:30)
[2022-03-25] MEDS ORDERED: MIDAZOLAM 10 MG/2 ML (VERSED) VIAL IM PRN (01:30)
[2022-03-25 01:38] LABS: AMPHETAMINE SCREEN, URINE NEGATIVE (NEGATIVE); BARBITURATE SCREEN URINE NEGATIVE (NEGATIVE); BENZODIAZEPINES SCREEN URINE POSITIVE (NEGATIVE); CANNABINOID SCREEN, URINE NEGATIVE (NEGATIVE); COCAINE SCREEN URINE NEGATIVE (NEGATIVE); METHADONE STAT NEGATIVE (NEGATIVE); OPIATE SCREEN URINE NEGATIVE (NEGATIVE); OXYCODONE STAT NEGATIVE (NEGATIVE); PROPOXYPHENE STAT NEGATIVE (NEGATIVE); TRICYCLIC ANTIDEPRESSANTS SCRE POSITIVE (NEGATIVE)
[2022-03-25 01:41] LABS: ALANINE AMINOTRANSFERASE 14 U/L (0-55); ALKALINE PHOSPHATASE 52 U/L (40-136); BILIRUBIN,TOTAL 0.4 MG/DL (0.1-1.0); BUN/CREATININE RATIO 23; CALCIUM 8.9 MG/DL (8.5-10.1); CARBON DIOXIDE 22 MMOL/L (21-32); CHLORIDE 105 MMOL/L (98-107); CREATININE SERUM 0.96 MG/DL (0.60-1.30); GFR ESTIMATED 95; GLUCOSE 134 MG/DL (70-105); POTASSIUM 3.9 MMOL/L (3.6-5.0); SODIUM 139 MMOL/L (135-145)
[2022-03-25 01:42] LABS: ACETAMINOPHEN < 10 UG/ML (10-30); SALICYLATE < 0.3 MG/DL (5.0-20.0)
[2022-03-25 06:45] VITALS: BP 108/71
== END 2022-03-25 06:50 | disposition home or self-care (01) ==
LOC: EDUNIT# 00:51 → ER FS 00:54
DX: R45.851 Suicidal ideations (principal); R45.850 Homicidal ideations; E11.9 Type 2 diabetes mellitus without complications; F17.200 Nicotine dependence, unspecified, uncomplicated; Z20.822 Contact with and (suspected) exposure to COVID-19; Z28.310 Unvaccinated for COVID-19; Z79.4 Long term (current) use of insulin
CPT/HCPCS: 36415; 80053; 80306; 85025; 87636; 99283; G0480 ×3; 80320; 80329

== ENCOUNTER 2022-04-05 17:08 | Emergency (ER) | payer MEDICARE, MEDICAID ==
--- NOTE | 2022-04-05 17:20 | ED Fall/Injury ---
General Chief Complaint: Lower Extremity Stated Complaint: FALL,HEAD PAIN,L LEG PAIN History of Present Illness Date Seen by Provider: Apr 05, 2022 Time Seen by Provider: 17:15 Initial Comments Pt is a frequent flyer in the ER. Today he left without being seen Allergies and Home Medications Allergies Coded Allergies: aripiprazole (Verified Allergy, Unknown, hallucinations, 10/01/18) zolpidem (Verified Allergy, Unknown, hallucinations, 10/01/18) Patient Home Medication List Home Medication List Reviewed: Yes Budesonide/Formoterol Fumarate (Symbicort 160-4.5 Mcg Inhaler) 10.2 Gm Hfa.aer.ad, (Reported) Entered as Reported by: JAYDA CHRISTIANSEN on 10/01/181818 Citalopram Hydrobromide (Celexa) 40 Mg Tablet, (Reported) Entered as Reported by: SUJATA COLLINS on 09/06/182052 Clindamycin HCl (Clindamycin HCl) 300 Mg Capsule, 300 MG PO TIDWM Prescribed by: LINDEN MERCEDES on 10/24/192033 Dicyclomine HCl (Dicyclomine HCl) 20 Mg Tablet, 20 MG PO QID PRN for ABDOMINAL PAIN Prescribed by: LUIS LECHUGA on 10/01/18 0501 Haloperidol (Haldol Tab) 5 Mg Tab, 10 MG PO HS, (Reported) Entered as Reported by: SUJATA COLLINS on 09/06/182052 Hydrocodone Bit/Acetaminophen (Lortab 5 Mg Tablet) 1 Tab Tab, 1 EACH PO Q4-6HR PRN for PAIN-MODERATE Prescribed by: HILDA YBARRA on 01/24/19 1351 Ibuprofen (Ibuprofen) 800 Mg Tablet, 800 MG PO Q8H PRN for PAIN Prescribed by: LINDEN MERCEDES on 10/24/192033 Insulin Glargine,Hum.rec.anlog (Basaglar Kwikpen U-100) 100 Unit/1 Ml Insuln.pen, (Reported) Entered as Reported by: JAYDA CHRISTIANSEN on 10/01/181818 Lorazepam (Lorazepam) 1 Mg Tablet, (Reported) Entered as Reported by: JAYDA CHRISTIANSEN on 10/01/181818 Magnesium Citrate (Magnesium Citrate) 296 Ml Solution, 296 ML PO Q6H Prescribed by: HILDA YBARRA on 01/30/19 1258 Meloxicam (Meloxicam) 7.5 Mg Tablet, 7.5 MG PO DAILY Prescribed by: LUIS LECHUGA on 10/30/21 113 Ondansetron (Ondansetron Odt) 4 Mg Tab.rapdis, 4 MG PO Q6H PRN for NAUSEA/VOMITING Prescribed by: LUIS LECHUGA on 07/23/19 215 Polyethylene Glycol 3350 (Miralax) 17 Gram/Dose Powder, 17 GM PO DAILY PRN for CONSTIPATION-1ST LINE Prescribed by: LUIS LECHUGA on 10/30/21 113 Psyllium Husk (Metamucil) 0.4 Gm Capsule, 0.4 GM PO DAILY Prescribed by: HILDA YBARRA on 01/30/19 1258 Simvastatin (Zocor) 40 Mg Tablet, HS, (Reported) Entered as Reported by: SUJATA COLLINS on 09/06/182052 Tramadol HCl (Tramadol HCl) 50 Mg Tablet, 50 MG PO Q4H PRN for PAIN-MILD (1-4) Prescribed by: HILDA YBARRA on 11/09/21 1624 [Lorazepam Tab 1MG] , (Reported) Entered as Reported by: SUJATA COLLINS on 09/06/182035 [Metformin Tab 500MG] , (Reported) Entered as Reported by: SUJATA COLLINS on 09/06/182035 [Phenytoin Ex Cap 100MG] , (Reported) Entered as Reported by: SUJATA COLLINS on 09/06/182035 [Pot Cl Micro Tab 20MEQ Er] , (Reported) Entered as Reported by: SUJATA COLLINS on 09/06/182035 [Risperidone Tab 3MG] , (Reported) Entered as Reported by: SUJATA COLLINS on 09/06/182035 Review of Systems Review of Systems Constitutional: no symptoms reported Past Tnbukuz-Npaskw-Xtxbxs Hx Patient Social History Tobacco Use?: Yes Tobacco type used: Cigarettes Smoking Status: Current Everyday Smoker Use of E-Cig and/or Vaping dev: No Substance use?: Yes Substance type: Marijuana Substance frequency: Daily Alcohol Use?: No Pt feels they are or have been: No Immunizations Up To Date First/Initial COVID19 Vaccinat: unknown date Second COVID19 Vaccination Brody: unknown date Third COVID19 Vaccination Date: unknown date Seasonal Allergies Seasonal Allergies: No Past Medical History Surgery/Hospitalization HX: Pseudoseizure, Headaches NECK SURG Surgeries: Yes (cystoscopy) Gallbladder, Orthopedic Respiratory: Yes Asthma Cardiac: No Neurological: Yes (PSEUDOSEIZURES) Headaches /Migraines, Seizure Disorder, Traumatic Brain Injury Genitourinary: No Gastrointestinal: Yes Gastroesophageal Reflux, Hepatitis, Cirrhosis Musculoskeletal: No Endocrine: Yes Diabetes, Insulin dep HEENT: No Cancer: No Psychosocial: No (Suicidal and homicidal ideation hx) Bipolar, Personality Disorder Integumentary: No Blood Disorders: No Family Medical History No Pertinent Family Hx Physical Exam Vital Signs Vital Signs - First Documented 04/05/22 17:15 Temp 36.3 Pulse 96 Resp 18 B/P (MAP) 116/74 (88) Pulse Ox 98 O2 Delivery Room Air Capillary Refill : Height, Weight, BMI Height: 5'8.00" Weight: 220lbs. oz. 99.353056vz; 35.00 BMI Method:Stated General Appearance: WD/WN, no apparent distress Progress/Results/Core Measures Results/Orders Vital Signs/I&O 04/05/22 04/05/22 17:15 17:25 Temp 36.3 36.3 Pulse 96 96 Resp 18 18 B/P (MAP) 116/74 (88) 116/74 Pulse Ox 98 98 O2 Delivery Room Air Room Air Departure Impression Primary Impression: Patient left without being seen Disposition: 07 AGAINST MEDICAL ADVICE Condition: Unchanged Departure-Patient Inst. Referrals: JERROD SERRANO STORAGE ARCHITECT (PCP/Family) Primary Care Physician PERICO ARCE MD Apr 05, 2022 17:20
[2022-04-05 17:25] VITALS: BP 116/74
== END 2022-04-05 17:27 | disposition left against medical advice (07) ==
LOC: EDUNIT# 17:08 → ER FS 17:09
DX: R51.9 Headache, unspecified (principal); E11.9 Type 2 diabetes mellitus without complications; F17.210 Nicotine dependence, cigarettes, uncomplicated; Z28.310 Unvaccinated for COVID-19; Z79.4 Long term (current) use of insulin
CPT/HCPCS: 99281

== ENCOUNTER 2022-04-15 14:08 | Emergency (ER) | payer MEDICARE, MEDICAID ==
[2022-04-15 14:20] VITALS: BP 120/75
--- NOTE | 2022-04-15 14:31 | ED Integumentary General ---
General Chief Complaint: Skin/Wound Problems Stated Complaint: HEAD INJURY, LOC Nursing Triage Note: PT GRAZED HIS HEAD ON A TAOIST SIGN WHILE WALKING. SMALL ABRASION. History of Present Illness Date Seen by Provider: Apr 15, 2022 Time Seen by Provider: 14:21 Initial Comments 51-year-old male who with a frequent patient to this ER, is here with complaints of a laceration to his scalp after he walked into the [employer]. Denies LOC, dizziness, headache, blurry vision, nausea vomiting. Allergies and Home Medications Allergies Coded Allergies: aripiprazole (Verified Allergy, Unknown, hallucinations, 10/01/18) zolpidem (Verified Allergy, Unknown, hallucinations, 10/01/18) Patient Home Medication List Home Medication List Reviewed: Yes Budesonide/Formoterol Fumarate (Symbicort 160-4.5 Mcg Inhaler) 10.2 Gm Hfa.aer.ad, (Reported) Entered as Reported by: JAYDA CHRISTIANSEN on 10/01/181818 Citalopram Hydrobromide (Celexa) 40 Mg Tablet, (Reported) Entered as Reported by: SUJATA COLLINS on 09/06/182052 Clindamycin HCl (Clindamycin HCl) 300 Mg Capsule, 300 MG PO TIDWM Prescribed by: LINDEN MERCEDES on 10/24/192033 Dicyclomine HCl (Dicyclomine HCl) 20 Mg Tablet, 20 MG PO QID PRN for ABDOMINAL PAIN Prescribed by: LUIS LECHUGA on 10/01/18 0501 Haloperidol (Haldol Tab) 5 Mg Tab, 10 MG PO HS, (Reported) Entered as Reported by: SUJATA COLLINS on 09/06/182052 Hydrocodone Bit/Acetaminophen (Lortab 5 Mg Tablet) 1 Tab Tab, 1 EACH PO Q4-6HR PRN for PAIN-MODERATE Prescribed by: HILDA YBARRA on 01/24/19 1351 Ibuprofen (Ibuprofen) 800 Mg Tablet, 800 MG PO Q8H PRN for PAIN Prescribed by: LINDEN MERCEDES on 10/24/192033 Insulin Glargine,Hum.rec.anlog (Basaglar Kwikpen U-100) 100 Unit/1 Ml Insuln.pen, (Reported) Entered as Reported by: JAYDA CHRISTIANSEN on 3/27/19 1819 Lorazepam (Lorazepam) 1 Mg Tablet, (Reported) Entered as Reported by: JAYDA CHRISTIANSEN on 10/01/18 1819 Magnesium Citrate (Magnesium Citrate) 296 Ml Solution, 296 ML PO Q6H Prescribed by: HILDA YBARRA on 01/30/19 1258 Meloxicam (Meloxicam) 7.5 Mg Tablet, 7.5 MG PO DAILY Prescribed by: LUIS Torres ENYART on 10/30/21 1139 Ondansetron (Ondansetron Odt) 4 Mg Tab.rapdis, 4 MG PO Q6H PRN for NAUSEA/VOMITING Prescribed by: LUIS Torres ENYART on 07/23/19 2150 Polyethylene Glycol 3350 (Miralax) 17 Gram/Dose Powder, 17 GM PO DAILY PRN for CONSTIPATION-1ST LINE Prescribed by: LUIS LECHUGA on 10/30/21 113 Psyllium Husk (Metamucil) 0.4 Gm Capsule, 0.4 GM PO DAILY Prescribed by: HILDA YBARRA on 01/30/19 1258 Simvastatin (Zocor) 40 Mg Tablet, HS, (Reported) Entered as Reported by: SUJATA COLLINS on 09/06/182052 Tramadol HCl (Tramadol HCl) 50 Mg Tablet, 50 MG PO Q4H PRN for PAIN-MILD (1-4) Prescribed by: HILDA YBARRA on 11/09/21 1624 [Lorazepam Tab 1MG] , (Reported) Entered as Reported by: SUJATA COLLINS on 09/06/182035 [Metformin Tab 500MG] , (Reported) Entered as Reported by: SUJATA COLLINS on 09/06/182035 [Phenytoin Ex Cap 100MG] , (Reported) Entered as Reported by: SUJATA COLLINS on 09/06/182035 [Pot Cl Micro Tab 20MEQ Er] , (Reported) Entered as Reported by: SUJATA COLLINS on 09/06/182035 [Risperidone Tab 3MG] , (Reported) Entered as Reported by: SUJATA COLLINS on 09/06/182035 Review of Systems Review of Systems Constitutional: no symptoms reported EENTM: other (scalp laceration) Respiratory: no symptoms reported Cardiovascular: no symptoms reported Gastrointestinal: no symptoms reported Genitourinary: no symptoms reported Musculoskeletal: no symptoms reported Skin: no symptoms reported Psychiatric/Neurological: No Symptoms Reported Endocrine: No Symptoms Reported Hematologic/Lymphatic: No Symptoms Reported Past Ejmmbco-Zearzm-Qlvldi Hx Patient Social History Tobacco Use?: Yes Tobacco type used: Cigarettes Smoking Status: Current Everyday Smoker Use of E-Cig and/or Vaping dev: No Substance use?: Yes Substance type: Marijuana Alcohol Use?: No Pt feels they are or have been: No Immunizations Up To Date First/Initial COVID19 Vaccinat: unknown date Second COVID19 Vaccination Brody: unknown date Third COVID19 Vaccination Date: unknown date Seasonal Allergies Seasonal Allergies: No Past Medical History Surgery/Hospitalization HX: Pseudoseizure, Headaches NECK SURG Surgeries: Yes (cystoscopy) Gallbladder, Orthopedic Respiratory: Yes Asthma Cardiac: No Neurological: Yes (PSEUDOSEIZURES) Headaches /Migraines, Seizure Disorder, Traumatic Brain Injury Genitourinary: No Gastrointestinal: Yes Gastroesophageal Reflux, Hepatitis, Cirrhosis Musculoskeletal: No Endocrine: Yes Diabetes, Insulin dep HEENT: No Cancer: No Psychosocial: No (Suicidal and homicidal ideation hx) Bipolar, Personality Disorder Integumentary: No Blood Disorders: No Family Medical History No Pertinent Family Hx Physical Exam Vital Signs Vital Signs - First Documented 04/15/22 14:16 Temp 36.1 Pulse 89 Resp 18 B/P (MAP) 120/75 (90) Pulse Ox 99 O2 Delivery Room Air Capillary Refill : Less Than 3 Seconds General Appearance: WD/WN, no apparent distress HEENT: PERRL/EOMI, normal ENT inspection, other (2cm laceration to right sided temporal bone, not bleeding, superficial involving epidermal layer only, no foreign body.) Neck: non-tender, full range of motion, supple Respiratory: lungs clear Back: normal inspection, no vertebral tenderness Extremities: normal range of motion Neurologic/Psychiatric: chemist physical II-XII nml as tested, no motor/sensory deficits, alert, normal mood/affect, oriented x 3 Skin Problem Location: scalp (see HEENT note) Skin Problem Character: linear Progress/Results/Core Measures Results/Orders Vital Signs/I&O 04/15/22 04/15/22 14:16 14:20 Temp 36.1 36.1 Pulse 89 89 Resp 18 18 B/P (MAP) 120/75 (90) 120/75 Pulse Ox 99 99 O2 Delivery Room Air Room Air Blood Pressure Mean: 90 Progress Progress Note : Progress Note 1. SCALP LACERATIONS NOT NEEDING SUTURES OR KARLA: - Wound irrigated with NS, and dressing placed - WOund care instructions given - Tetanus up to date, pt had it last year - Concussion precautions given - Follow up with PCP as needed -The patient was seen in the ED, and treated appropriately to presentation at a specific point in time. Patient is informed that there is a possibility that disease and illness can evolve and change in acuity rapidly or slowly after patient is discharged from the ER. Precautionary advice given to the patient for immediate return to ER if symptoms worsen or do not resolve, and to seek emergency care sooner rather than later. Pt also advised on the importance of PCP follow up and compliance with management and follow up plan with PCP and/or specialist, as this is part of the management plan. Pt verbally expressed understanding. Departure Impression Primary Impression: Laceration of scalp Qualified Codes: S01.01XA - Laceration without foreign body of scalp, init ial encounter Disposition: HOME, SELF-CARE Condition: Improved Departure-Patient Inst. Referrals: JERROD SERRANO APRN (PCP/Family) Primary Care Physician Patient Instructions: Concussion, Adult ED, Wound Care (DC) Add. Discharge Instructions: - Wound care instructions given - Concussion precautions given - Follow up with PCP as needed - Return to ER if symptoms worsen All discharge instructions reviewed with patient and/or family. Voiced understanding. PERICO ARCE MD Apr 15, 2022 14:31
== END 2022-04-15 14:36 | disposition home or self-care (01) ==
LOC: EDUNIT# 14:08 → ER FS 14:09
DX: S01.01XA Laceration without foreign body of scalp, initial encounter (principal); F17.210 Nicotine dependence, cigarettes, uncomplicated; Z28.310 Unvaccinated for COVID-19; W22.8XXA Striking against or struck by other objects, initial encounter; Y93.01 Activity, walking, marching and hiking

== ENCOUNTER 2022-06-16 02:16 | Emergency (ER) | payer MEDICARE, MEDICAID ==
[~2022-06-16] VITALS: Ht 172.7 cm; Wt 120.0 kg
[~2022-06-16 02:16] MED LIST changes: +MAGN296S68 PO; -MAGN296S71 PO
[2022-06-16 02:58] LABS: BILIRUBIN,URINE NEGATIVE (NEGATIVE); CLARITY,URINE CLEAR; COLOR,URINE YELLOW; GLUCOSE, URINE (UA) 3+ (NEGATIVE); KETONES,URINE NEGATIVE (NEGATIVE); LEUKOCYTE ESTERASE ,URINE NEGATIVE (NEGATIVE); NITRITE,URINE NEGATIVE (NEGATIVE); PH,URINE 6.5 (5-9); PROTEIN,URINE NEGATIVE (NEGATIVE)
[2022-06-16 03:01] LABS: BACTERIA,URINE NEGATIVE /HPF; RBC,URINE RARE /HPF
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
[2022-06-16 03:11] LABS: BASOPHILS % (AUTO) 0 % (0-10); EOSINOPHILS # (AUTO) 0.1 10^3/uL (0.0-0.3); EOSINOPHILS % (AUTO) 3 % (0-10); HEMATOCRIT 43 % (40-54); HEMOGLOBIN 15.2 g/dL (13.3-17.7); LYMPHOCYTES # (AUTO) 2.6 10^3/uL (1.0-4.0); LYMPHOCYTES % (AUTO) 48 % (12-44); MEAN CORPUSCULAR HEMOGLOBIN 31 pg (25-34); MEAN CORPUSCULAR HGB CONC 35 g/dL (32-36); MEAN CORPUSCULAR VOLUME 88 fL (80-99); MEAN PLATELET VOLUME 10.2 fL (9.0-12.2); MONOCYTES # (AUTO) 0.7 10^3/uL (0.0-1.0); MONOCYTES % (AUTO) 13 % (0-12); NEUTROPHILS # (AUTO) 1.9 10^3/uL (1.8-7.8); NEUTROPHILS % (AUTO) 36 % (42-75); PLATELET COUNT 61 10^3/uL (130-400); WHITE BLOOD COUNT 5.4 10^3/uL (4.3-11.0)
[2022-06-16] MEDS ORDERED: ACETAMINOPHEN 325 MG TABLET PO ONE (03:15)
[2022-06-16 03:19] LABS: AMPHETAMINE SCREEN, URINE NEGATIVE (NEGATIVE); BARBITURATE SCREEN URINE NEGATIVE (NEGATIVE); BENZODIAZEPINES SCREEN URINE NEGATIVE (NEGATIVE); CANNABINOID SCREEN, URINE NEGATIVE (NEGATIVE); COCAINE SCREEN URINE NEGATIVE (NEGATIVE); METHADONE STAT NEGATIVE (NEGATIVE); OPIATE SCREEN URINE NEGATIVE (NEGATIVE); OXYCODONE STAT NEGATIVE (NEGATIVE); PROPOXYPHENE STAT NEGATIVE (NEGATIVE); TRICYCLIC ANTIDEPRESSANTS SCRE POSITIVE (NEGATIVE)
[2022-06-16 03:26] LABS: EOSINOPHILS % (MANUAL) 3 %; LYMPHOCYTES % (MANUAL) 47 %; MONOCYTES % (MANUAL) 9 %; NEUTROPHILS % (MANUAL) 41 %
[2022-06-16 03:34] LABS: ALANINE AMINOTRANSFERASE 18 U/L (0-55); ALBUMIN 3.9 GM/DL (3.2-4.5); ALKALINE PHOSPHATASE 67 U/L (40-136); BILIRUBIN,TOTAL 0.3 MG/DL (0.1-1.0); BUN/CREATININE RATIO 16; CARBON DIOXIDE 23 MMOL/L (21-32); CHLORIDE 107 MMOL/L (98-107); CREATININE SERUM 0.81 MG/DL (0.60-1.30); GFR ESTIMATED 106; GLUCOSE 234 MG/DL (70-105); POTASSIUM 3.7 MMOL/L (3.6-5.0); SODIUM 140 MMOL/L (135-145); TOTAL PROTEIN 6.7 GM/DL (6.4-8.2)
[2022-06-16 03:35] LABS: ACETAMINOPHEN < 10 UG/ML (10-30); SALICYLATE < 0.3 MG/DL (5.0-20.0)
[2022-06-16] MEDS ORDERED: guaiFENesin SYRUP 100 MG/5 ML 10 ML (ROBITUSSIN SF) PO PRN (04:00)
[2022-06-16] MEDS ORDERED: ACETAMINOPHEN 500 MG TAB (TYLENOL) ONE (06:31)
[2022-06-16] MEDS ORDERED: ACETAMINOPHEN 325 MG TABLET ONE (06:33)
[2022-06-16] MEDS ORDERED: BENZONATATE 100 MG (TESSALON) CAPSULE PO STA (08:39)
[2022-06-16] MEDS ORDERED: NICOTINE 21 MG (NICODERM) PATCH TD STA (08:40)
[2022-06-16 10:03] VITALS: BP 152/80
== END 2022-06-16 10:04 | disposition home or self-care (01) ==
LOC: EDUNIT# 02:16 → ER FS 02:22
DX: F43.9 Reaction to severe stress, unspecified (principal); F43.20 Adjustment disorder, unspecified; Z20.822 Contact with and (suspected) exposure to COVID-19
CPT/HCPCS: 36415; 80053; 80306; 81000; 85007; 85027; 87636; 93005; 99284; G0480 ×3; 80320; 80329

== ENCOUNTER 2022-07-03 12:47 | Emergency (ER) | payer MEDICARE, MEDICAID ==
[~2022-07-03] VITALS: Ht 172.7 cm; Wt 120.0 kg
[2022-07-03] MEDS ORDERED: GUAI120L56 PO (14:20)
--- NOTE | 2022-07-03 14:22 | ED General ---
General Chief Complaint: Neurological Problems Stated Complaint: SEIZURE Nursing Triage Note: Patient presents to the ED with c/o seizure. Reports he was up front at the pharmacy when he had seizure like activity for an unknown amount of time. Patient reports that he was seen at [facility] urgent care yesterday and was prescribed some medication for a viral illness. Source of Information: Patient History of Present Illness Date Seen by Provider: Jul 03, 2022 Time Seen by Provider: 13:54 Initial Comments 51-year-old male presenting to the ED from [facility]. He was seen at urgent care yesterday and had negative flu and COVID testing. He has had no prior respiratory infection with cough. He had gone to the pharmacy today here at [facility] and he had his pseudoseizure activity while he was at the pharmacy. [facility] had brought him here to the emergency department to be seen. Patient states that he does not have any other acute changes that he was concerned about other than the cough and he was trying to get a cough syrup. He has some mild edema to his hands and legs and states he has upper abdominal pain which he has had previously. He denies any acute injury. He states that he did not know why they had made him come to the emergency department as he has had multiple rounds of testing in the past without acute significant findings. Associated Systoms: No Chest Pain; Cough; No Diaphoresis, No Fever/Chills, No Headaches, No Loss of Appetite, No Malaise, No Nausea/Vomiting, No Rash; Seizure (Chronic pseudoseizure activity with stress); No Shortness of Air, No Syncope, No Weakness Allergies and Home Medications Allergies Coded Allergies: aripiprazole (Verified Allergy, Unknown, hallucinations, 10/01/18) zolpidem (Verified Allergy, Unknown, hallucinations, 10/01/18) Patient Home Medication List Home Medication List Reviewed: Yes Budesonide/Formoterol Fumarate (Symbicort 160-4.5 Mcg Inhaler) 10.2 Gm Hfa.aer.ad, (Reported) Entered as Reported by: JAYDA CHRISTIANSEN on 10/01/181818 Citalopram Hydrobromide (Celexa) 40 Mg Tablet, (Reported) Entered as Reported by: SUJATA COLLINS on 09/06/182052 Clindamycin HCl (Clindamycin HCl) 300 Mg Capsule, 300 MG PO TIDWM Prescribed by: LINDEN LEIJASTPIERRE on 10/24/192033 Dicyclomine HCl (Dicyclomine HCl) 20 Mg Tablet, 20 MG PO QID PRN for ABDOMINAL PAIN Prescribed by: LUIS LECHUGA on 10/01/18 0501 Guaifenesin/Codeine Phosphate (Codeine-Guaifen 10-100 mg/5 ml) 10 Mg-100 Mg/5 Ml Liquid, 5 ML PO Q6H PRN for cough Prescribed by: LUIS LECHUGA on 07/03/22 1422 Haloperidol (Haldol Tab) 5 Mg Tab, 10 MG PO HS, (Reported) Entered as Reported by: SUJATA COLLINS on 09/06/18 205 Hydrocodone Bit/Acetaminophen (Lortab 5 Mg Tablet) 1 Tab Tab, 1 EACH PO Q4-6HR PRN for PAIN-MODERATE Prescribed by: HILDA YBARRA on 01/24/19 1351 Ibuprofen (Ibuprofen) 800 Mg Tablet, 800 MG PO Q8H PRN for PAIN Prescribed by: LINDEN MERCEDES on 10/24/192033 Insulin Glargine,Hum.rec.anlog (Basaglar Kwikpen U-100) 100 Unit/1 Ml Insuln.pen, (Reported) Entered as Reported by: JAYDA CHRISTIANSEN on 10/01/181818 Lorazepam (Lorazepam) 1 Mg Tablet, (Reported) Entered as Reported by: JAYDA CHRISTIANSEN on 10/01/181818 Magnesium Citrate (Magnesium Citrate) 296 Ml Solution, 296 ML PO Q6H Prescribed by: HILDA YBARRA on 01/30/19 1258 Meloxicam (Meloxicam) 7.5 Mg Tablet, 7.5 MG PO DAILY Prescribed by: LUIS LECHUGA on 10/30/21 1139 Ondansetron (Ondansetron Odt) 4 Mg Tab.rapdis, 4 MG PO Q6H PRN for NAUSEA/VOMITING Prescribed by: LUIS LECHUGA on 07/23/19 2150 Polyethylene Glycol 3350 (Miralax) 17 Gram/Dose Powder, 17 GM PO DAILY PRN for CONSTIPATION-1ST LINE Prescribed by: LUIS LECHUGA on 10/30/21 1139 Psyllium Husk (Metamucil) 0.4 Gm Capsule, 0.4 GM PO DAILY Prescribed by: HILDA YBARRA on 01/30/19 1258 Simvastatin (Zocor) 40 Mg Tablet, HS, (Reported) Entered as Reported by: SUJATA COLLINS on 09/06/182052 Tramadol HCl (Tramadol HCl) 50 Mg Tablet, 50 MG PO Q4H PRN for PAIN-MILD (1-4) Prescribed by: HILDA YBARRA on 11/09/21 1624 [Lorazepam Tab 1MG] , (Reported) Entered as Reported by: SUJATA COLLINS on 09/06/182035 [Metformin Tab 500MG] , (Reported) Entered as Reported by: SUJATA COLLINS on 09/06/182035 [Phenytoin Ex Cap 100MG] , (Reported) Entered as Reported by: SUJATA COLLINS on 09/06/182035 [Pot Cl Micro Tab 20MEQ Er] , (Reported) Entered as Reported by: SUJATA COLLINS on 09/06/182035 [Risperidone Tab 3MG] , (Reported) Entered as Reported by: SUJATA COLLINS on 09/06/182035 Review of Systems Review of Systems Constitutional: No chills, No dizziness, No fever EENTM: nose congestion Respiratory: cough Cardiovascular: see HPI, edema (Mild swelling to his legs and hands) Gastrointestinal: see HPI Genitourinary: no symptoms reported Musculoskeletal: no symptoms reported Skin: No rash Psychiatric/Neurological: See HPI; Denies Headache Past Myjykck-Lcflbj-Raeapm Hx Patient Social History Tobacco Use?: Yes Tobacco type used: Cigarettes Use of E-Cig and/or Vaping dev: No Substance use?: No Alcohol Use?: No Pt feels they are or have been: No Immunizations Up To Date First/Initial COVID19 Vaccinat: unknown date Second COVID19 Vaccination Brody: unknown date Third COVID19 Vaccination Date: unknown date Seasonal Allergies Seasonal Allergies: No Past Medical History Surgery/Hospitalization HX: Pseudoseizure, Headaches NECK SURG Surgeries: Yes (cystoscopy) Gallbladder, Orthopedic Respiratory: Yes Asthma Cardiac: No Neurological: Yes (PSEUDOSEIZURES) Headaches /Migraines, Seizure Disorder, Traumatic Brain Injury Genitourinary: No Gastrointestinal: Yes Gastroesophageal Reflux, Hepatitis, Cirrhosis Musculoskeletal: No Endocrine: Yes Diabetes, Insulin dep HEENT: No Cancer: No Psychosocial: No (Suicidal and homicidal ideation hx) Bipolar, Personality Disorder Integumentary: No Blood Disorders: No Family Medical History No Pertinent Family Hx Physical Exam Vital Signs Vital Signs - First Documented 07/03/22 12:54 Temp 35.6 Pulse 82 Resp 16 B/P (MAP) 125/71 (89) Pulse Ox 97 O2 Delivery Room Air Capillary Refill : Less Than 3 Seconds Height, Weight, BMI Height: 5'8.00" Weight: 220lbs. oz. 99.885894xd; 40.00 BMI Method:Stated General Appearance: No Apparent Distress HEENT: PERRL/EOMI, Pharynx Normal Neck: Full Range of Motion, Normal Inspection, Non Tender, Supple Respiratory: Chest Non Tender, Lungs Clear, Normal Breath Sounds, No Accessory Muscle Use, No Respiratory Distress Cardiovascular: Regular Rate, Rhythm, Normal Peripheral Pulses Gastrointestinal: Normal Bowel Sounds, No Pulsatile Mass, Soft; No Distended, No Guarding, No Rebound; Tenderness (Complains of mild tenderness to palpation along upper abdomen) Rectal: Deferred Extremity: Normal Capillary Refill, Normal Inspection, Pedal Edema (Trace bilateral pedal edema) Neurologic/Psychiatric: Alert, Oriented x3, Normal Mood/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 Counseled the good order basic labs and tests to look for electrolyte problems or signs of worsening infection but patient stated he did not want to have that done as he has had multiple rounds of testing in the past with no findings for his pseudoseizures. He already has appointment set up for outpatient follow-up and arrangement to further look into the pseudoseizures as well as have an EGD done for upper abdominal issues. Will prescribe cough syrup of guaifenesin with codeine and have him follow-up with clinic for continued concerns. Departure Impression Primary Impression: Upper respiratory infection, viral Additional Impressions: Pseudoseizures Cough in adult Disposition: 01 HOME, SELF-CARE Condition: Stable Departure-Patient Inst. Decision time for Depature: 14:17 Referrals: JERROD SERRANO APRN (PCP) Primary Care Physician [facility] (Family) Primary Care Physician Patient Instructions: Upper Respiratory Infection ED, Cough, Adult ED Add. Discharge Instructions: Stay well hydrated and try to get plenty of rest. Continue working with clinic for your appointments that are coming up for you. Try the cough syrup to see if it helps with your cough and congestion so you can rest better. All discharge instructions reviewed with patient and/or family. Voiced understanding. Scripts Guaifenesin/Codeine Phosphate (Codeine-Guaifen 10-100 mg/5 ml) 10 Mg-100 Mg/5 Ml Liquid 5 ML PO Q6H PRN for cough for 5 Days, #100 ML 0 Refills Prov: LUIS LECHUGA MD 07/03/22 LUIS LECHUGA MD Jul 03, 2022 14:22
[2022-07-03 14:23] VITALS: BP 127/68
== END 2022-07-03 14:23 | disposition home or self-care (01) ==
LOC: EDUNIT# 12:47 → ER FS 12:49
DX: J06.9 Acute upper respiratory infection, unspecified (principal); G40.909 Epilepsy, unspecified, not intractable, without status epilepticus; E11.9 Type 2 diabetes mellitus without complications; F17.210 Nicotine dependence, cigarettes, uncomplicated; Z79.4 Long term (current) use of insulin
CPT/HCPCS: 99281

== ENCOUNTER 2022-07-26 20:51 | Emergency (ER) | payer MEDICARE, MEDICAID ==
[~2022-07-26 20:51] MED LIST changes: +GUAI120L56 PO
[2022-07-26 21:00] VITALS: BP 178/77
[2022-07-26] MEDS ORDERED: LORazepam 0.5 MG (ATIVAN) TABLET PO STA (21:02)
--- NOTE | 2022-07-26 21:05 | ED Chest Pain ---
General Stated Complaint: R SIDE NUMBNESS Source: patient, family Exam Limitations: no limitations History of Present Illness Date Seen by Provider: Jul 26, 2022 Time Seen by Provider: 20:54 Initial Comments 52-year-old male with past medical history mostly of mental health disorders coming in due to right-sided chest pain that is been going on for more than 12 hours straight. Worse when he pushes on it, better with rest. Has not taken any other medicines for pain today. Feels some mild shortness of breath and cough which he has had for couple weeks since he has been sick. Denies any fever, nausea, vomiting, diarrhea, focal weakness or numbness, headache, vision changes, or any other concerns. He endorses having a pseudoseizure at home earlier today. Denies any prior cardiac history, no previous DVT or PE, no lower extremity swelling or pain, no recent surgery, no recent long travel, does not take any hormones, no hemoptysis Allergies and Home Medications Allergies Coded Allergies: aripiprazole (Verified Allergy, Unknown, hallucinations, 10/01/18) zolpidem (Verified Allergy, Unknown, hallucinations, 10/01/18) Patient Home Medication List Home Medication List Reviewed: Yes Budesonide/Formoterol Fumarate (Symbicort 160-4.5 Mcg Inhaler) 10.2 Gm Hfa .aer.ad, (Reported) Entered as Reported by: JAYDA CHRISTIANSEN on 10/01/181818 Citalopram Hydrobromide (Celexa) 40 Mg Tablet, (Reported) Entered as Reported by: SUJATA COLLINS on 09/06/182052 Clindamycin HCl (Clindamycin HCl) 300 Mg Capsule, 300 MG PO TIDWM Prescribed by: LINDEN MERCEDES on 10/24/192033 Dicyclomine HCl (Dicyclomine HCl) 20 Mg Tablet, 20 MG PO QID PRN for ABDOMINAL PAIN Prescribed by: LUIS LECHUGA on 10/01/18 0501 Guaifenesin/Codeine Phosphate (Codeine-Guaifen 10-100 mg/5 ml) 10 Mg-100 Mg/5 Ml Liquid, 5 ML PO Q6H PRN for cough Prescribed by: LUIS LECHUGA on 07/03/22 1422 Haloperidol (Haldol Tab) 5 Mg Tab, 10 MG PO HS, (Reported) Entered as Reported by: SUJATA COLLINS on 09/06/182052 Hydrocodone Bit/Acetaminophen (Lortab 5 Mg Tablet) 1 Tab Tab, 1 EACH PO Q4-6HR PRN for PAIN-MODERATE Prescribed by: HILDA YBARRA on 01/24/19 135 Ibuprofen (Ibuprofen) 800 Mg Tablet, 800 MG PO Q8H PRN for PAIN Prescribed by: LINDEN Wilson ROVENSTPIERRE on 10/24/192033 Insulin Glargine,Hum.rec.anlog (Basaglar Kwikpen U-100) 100 Unit/1 Ml Insuln.pen, (Reported) Entered as Reported by: JAYDA CHRISTIANSEN on 10/01/181818 Lorazepam (Lorazepam) 1 Mg Tablet, (Reported) Entered as Reported by: JAYDA CHRISTIANSEN on 10/01/181818 Magnesium Citrate (Magnesium Citrate) 296 Ml Solution, 296 ML PO Q6H Prescribed by: HILDA YBARRA on 01/30/19 125 Meloxicam (Meloxicam) 7.5 Mg Tablet, 7.5 MG PO DAILY Prescribed by: LUIS LECHUGA on 10/30/21 1139 Ondansetron (Ondansetron Odt) 4 Mg Tab.rapdis, 4 MG PO Q6H PRN for NAUSEA/VOMITING Prescribed by: LUIS LECHUGA on 07/23/19 2150 Polyethylene Glycol 3350 (Miralax) 17 Gram/Dose Powder, 17 GM PO DAILY PRN for CONSTIPATION-1ST LINE Prescribed by: LUIS NATIONRT on 10/30/21 1139 Psyllium Husk (Metamucil) 0.4 Gm Capsule, 0.4 GM PO DAILY Prescribed by: HILDA YBARRA on 01/30/19 1258 Simvastatin (Zocor) 40 Mg Tablet, HS, (Reported) Entered as Reported by: SUJATA COLLINS on 09/06/182052 Tramadol HCl (Tramadol HCl) 50 Mg Tablet, 50 MG PO Q4H PRN for PAIN-MILD (1-4) Prescribed by: HILDA YBARRA on 11/09/21 1624 [Lorazepam Tab 1MG] , (Reported) Entered as Reported by: SUJATA COLLINS on 09/06/182035 [Metformin Tab 500MG] , (Reported) Entered as Reported by: SUJATA COLLINS on 09/06/182035 [Phenytoin Ex Cap 100MG] , (Reported) Entered as Reported by: SUJATA COLLINS on 09/06/182035 [Pot Cl Micro Tab 20MEQ Er] , (Reported) Entered as Reported by: SUJATA COLLINS on 09/06/182035 [Risperidone Tab 3MG] , (Reported) Entered as Reported by: SUJATA COLLINS on 09/06/182035 Review of Systems Review of Systems Constitutional: No fever EENTM: No Symptoms Reported Respiratory: See HPI Cardiovascular: See HPI Gastrointestinal: No Symptoms Reported Genitourinary: No Symptoms Reported Musculoskeletal: no symptoms reported Skin: no symptoms reported Psychiatric/Neurological: No Symptoms Reported Endocrine: No Symptoms Reported Hematologic/Lymphatic: No Symptoms Reported All Other Systems Reviewed Negative Unless Noted: Yes Past Vwcntuk-Fdjquz-Rqeaot Hx Patient Social History Tobacco Use?: Yes Tobacco type used: Cigarettes Immunizations Up To Date First/Initial COVID19 Vaccinat: unknown date Second COVID19 Vaccination Brody: unknown date Third COVID19 Vaccination Date: unknown date Seasonal Allergies Seasonal Allergies: No Past Medical History Surgery/Hospitalization HX: Pseudoseizure, Headaches NECK SURG Surgeries: Yes (cystoscopy) Gallbladder, Orthopedic Respiratory: Yes Asthma Cardiac: No Neurological: Yes (PSEUDOSEIZURES) Headaches /Migraines, Seizure Disorder, Traumatic Brain Injury Genitourinary: No Gastrointestinal: Yes Gastroesophageal Reflux, Hepatitis, Cirrhosis Musculoskeletal: No Endocrine: Yes Diabetes, Insulin dep HEENT: No Cancer: No Psychosocial: No (Suicidal and homicidal ideation hx) Bipolar, Personality Disorder Integumentary: No Blood Disorders: No Family Medical History No Pertinent Family Hx Physical Exam Vital Signs Vital Signs - First Documented 07/26/22 21:00 Temp 36.6 Pulse 94 Resp 16 B/P (MAP) 178/77 (110) Capillary Refill : Height, Weight, BMI Height: 5'8.00" Weight: 220lbs. oz. 99.786238jk; 40.00 BMI Method:Stated General Appearance: No Apparent Distress, WD/WN HEENT: PERRL/EOMI, Normal ENT Inspection, Pharynx Normal Neck: Full Range of Motion, Normal Inspection, Non Tender, Supple Respiratory: Chest Non Tender, Lungs Clear, Normal Breath Sounds, No Accessory Muscle Use, No Respiratory Distress Cardiovascular: Regular Rate, Rhythm, No Edema, Normal Peripheral Pulses Gastrointestinal: Normal Bowel Sounds, Non Tender, Soft; No Distended, No Guarding Extremity: Normal Capillary Refill, Normal Inspection, Normal Range of Motion, Non Tender, No Calf Tenderness, No Pedal Edema Neurologic/Psychiatric: Alert, No Motor/Sensory Deficits, Normal Mood/Affect Skin: Normal Color, Warm/Dry Lymphatic: No Adenopathy Progress/Results/Core Measures Results/Orders Lab Results Laboratory Tests Test 07/26/22 21:15 07/26/22 21:30 Range/Units White Blood Count 7.5 4.3-11.0 10^3/uL Red Blood Count 5.27 4.30-5.52 10^6/uL Hemoglobin 16.3 13.3-17.7 g/dL Hematocrit 46 40-54 % Mean Corpuscular Volume 86 80-99 fL Mean Corpuscular Hemoglobin 31 25-34 pg Mean Corpuscular Hemoglobin Concent 36 32-36 g/dL Red Cell Distribution Width 13.2 10.0-14.5 % Platelet Count 77 L 130-400 10^3/uL Mean Platelet Volume 9.5 9.0-12.2 fL Immature Granulocyte % (Auto) 0 % Neutrophils (%) (Auto) 42 42-75 % Lymphocytes (%) (Auto) 43 12-44 % Monocytes (%) (Auto) 12 0-12 % Eosinophils (%) (Auto) 4 0-10 % Basophils (%) (Auto) 0 0-10 % Neutrophils # (Auto) 3.1 1.8-7.8 X 10^3 Lymphocytes # (Auto) 3.2 1.0-4.0 X 10^3 Monocytes # (Auto) 0.9 0.0-1.0 X 10^3 Eosinophils # (Auto) 0.3 0.0-0.3 10^3/uL Basophils # (Auto) 0.0 0.0-0.1 10^3/uL Immature Granulocyte # (Auto) 0.0 0.0-0.1 10^3/uL Percent Immature Platelet Fraction 4.8 0.0-7.6 % Sodium Level 139 135-145 MMOL/L Potassium Level 3.6 3.6-5.0 MMOL/L Chloride Level 105 98-107 MMOL/L Carbon Dioxide Level 24 21-32 MMOL/L Anion Gap 10 5-14 MMOL/L Blood Urea Nitrogen 15 7-18 MG/DL Creatinine 0.76 0.60-1.30 MG/DL Estimat Glomerular Filtration Rate 107 BUN/Creatinine Ratio 20 Glucose Level 102 70-105 MG/DL Calcium Level 8.9 8.5-10.1 MG/DL Corrected Calcium 9.0 8.5-10.1 MG/DL Magnesium Level 1.7 1.6-2.4 MG/DL Total Bilirubin 0.7 0.1-1.0 MG/DL Aspartate Amino Transf (AST/SGOT) 20 5-34 U/L Alanine Aminotransferase (ALT/SGPT) 22 0-55 U/L Alkaline Phosphatase 66 40-136 U/L Troponin I < 0.30 <0.30 NG/ML Pro-B-Type Natriuretic Peptide 5.5 <125.0 PG/ML Total Protein 6.9 6.4-8.2 GM/DL Albumin 3.9 3.2-4.5 GM/DL Lipase 43 8-78 U/L Prothrombin Time 13.7 12.2-14.7 SEC INR Comment 1.0 0.8-1.4 Activated Partial Thromboplast Time 26 24-35 SEC My Orders Orders - ZANRDA ONEAL MD Cbc With Automated Diff (07/26/22 21:02) Magnesium (07/26/22 21:02) Chest 1 View Ap/Pa Only (07/26/22 21:02) Ekg Tracing (07/26/22 21:02) Comprehensive Metabolic Panel (07/26/22 21:02) Protime With Inr (07/26/22 21:02) Partial Thromboplastin Time (07/26/22 21:02) O2 (07/26/22 21:02) Monitor-Rhythm Ecg Trace Only (07/26/22 21:02) Aspirin Chewable Tablet (Baby Aspirin Ch (07/26/22 21:15) Ed Iv/Invasive Line Start (07/26/22 21:02) Lipase (07/26/22 21:02) Troponin I Fs (07/26/22 21:02) Probnp Fs (07/26/22 21:02) Lorazepam Tablet (Ativan Tablet) (07/26/22 21:02) Medications Given in ED Current Medications Medications Dose Ordered Sig/Chantel Route Start Time Stop Time Status Last Admin Dose Admin Aspirin 324 mg ONCE ONCE PO 07/26/22 21:15 07/26/22 21:16 DC 07/26/22 21:23 324 MG Vital Signs/I&O 07/26/22 21:00 Temp 36.6 Pulse 94 Resp 16 B/P (MAP) 178/77 (110) Progress Progress Note : Progress Note 52-year-old male with above history coming in due to right-sided chest pain. ABCs were intact and vitals were stable on presentation. He was given oral aspirin and Ativan on presentation. EKG with no acute ischemic changes on my interpretation. Chest x-ray with no acute findings as well. An IV was placed and basic labs were obtained including cardiac biomarkers. These were significant for negative troponin, normal creatinine, normal hemoglobin, normal BNP, chronic thrombocytopenia. Given the negative troponin with 12 hours of constant pain, highly unlikely this is ACS related. Is otherwise low risk for PE and I think it is unlikely, especially given no clinical signs of DVT on e xam. He is very tender with palpation and it seems to recreate his pain. He is also under a lot of stress and having more pseudoseizures today. I think is unlikely to be life-threatening at this time. I believe he is otherwise stable for discharge with outpatient follow-up. He was sent home with strict return precautions. Initial ECG Impression Date: Jul 26, 2022 Initial ECG Impression Time: 21:13 Initial ECG Rate: 83 Initial ECG Rhythm: Normal Sinus Comment Narrow QRS, borderline left axis deviation, no significant ST changes or T wave abnormalities Diagnostic Imaging Diagonstic Imaging: Xray (chest) Comments Narrow QRS, borderline left axis deviation, no significant ST changes or T wave abnormalities Departure Impression Primary Impression: Chest wall pain Disposition: 01 HOME, SELF-CARE Condition: Stable Departure-Patient Inst. Decision time for Depature: 22:02 Referrals: JERROD SERRANO APRN (PCP) Primary Care Physician [facility] (Family) Primary Care Physician Patient Instructions: Chest Pain, Adult ED Add. Discharge Instructions: It does not appear like you are having a heart attack and your chest x-ray appears clear including your lungs looking good. Your oxygen was normal and your lungs sounded good as well. Please follow-up with your regular doctor and get a referral to a chief fundraising officer if symptoms do persist. Work/School Note: Work Release Form Date Seen in the Emergency Department: Jul 26, 2022 Return to Work: Jul 28, 2022 Restrictions: No Restrictions ZANDRA ONEAL MD Jul 26, 2022 21:05
[2022-07-26] MEDS ORDERED: ASPIRIN 81 MG CHEW (CHILDREN'S ASA) PO ONE (21:15)
[2022-07-26 21:32] LABS: HEMATOCRIT 46 % (40-54); HEMOGLOBIN 16.3 g/dL (13.3-17.7); LYMPHOCYTES % (AUTO) 43 % (12-44); MEAN CORPUSCULAR HEMOGLOBIN 31 pg (25-34); MEAN CORPUSCULAR HGB CONC 36 g/dL (32-36); MEAN CORPUSCULAR VOLUME 86 fL (80-99); MEAN PLATELET VOLUME 9.5 fL (9.0-12.2); NEUTROPHILS % (AUTO) 42 % (42-75); PLATELET COUNT 77 10^3/uL (130-400); WHITE BLOOD COUNT 7.5 10^3/uL (4.3-11.0)
[2022-07-26 21:33] LABS: BASOPHILS % (AUTO) 0 % (0-10); EOSINOPHILS # (AUTO) 0.3 10^3/uL (0.0-0.3); EOSINOPHILS % (AUTO) 4 % (0-10); LYMPHOCYTES # (AUTO) 3.2 X 10^3 (1.0-4.0); MONOCYTES # (AUTO) 0.9 X 10^3 (0.0-1.0); MONOCYTES % (AUTO) 12 % (0-12); NEUTROPHILS # (AUTO) 3.1 X 10^3 (1.8-7.8)
--- NOTE | 2022-07-26 21:34 | Diagnostic Imaging Report ---
INDICATION: Chest pain. EXAMINATION: Frontal chest was obtained at 9:13 p.m. FINDINGS: Heart and mediastinal silhouette are normal in appearance. The lungs are clear. There is no pneumothorax or pleural fluid. IMPRESSION: Negative chest. Dictated by: Dictated on workstation # [id number]
[2022-07-26 21:48] LABS: PROTHROMBIN TIME PATIENT 13.7 SEC (12.2-14.7)
[2022-07-26 21:52] LABS: BILIRUBIN,TOTAL 0.7 MG/DL (0.1-1.0); CALCIUM 8.9 MG/DL (8.5-10.1); CREATININE SERUM 0.76 MG/DL (0.60-1.30); MAGNESIUM 1.7 MG/DL (1.6-2.4); POTASSIUM 3.6 MMOL/L (3.6-5.0)
[2022-07-26 21:53] LABS: ALBUMIN 3.9 GM/DL (3.2-4.5); TOTAL PROTEIN 6.9 GM/DL (6.4-8.2)
== END 2022-07-26 22:10 | disposition home or self-care (01) ==
LOC: EDUNIT# 20:51 → ER FS 20:52
DX: R07.89 Other chest pain (principal); F17.210 Nicotine dependence, cigarettes, uncomplicated
CPT/HCPCS: 36415; 71045; 80053; 83690; 83735; 83880; 84484; 85025; 85610; 85730; 93005; 93041

== ENCOUNTER 2022-07-31 11:05 | Emergency (ER) | payer MEDICARE, MEDICAID ==
--- NOTE | 2022-07-31 11:18 | ED General ---
General Chief Complaint: General Problems/Pain Stated Complaint: SEIZURE-LIKE ACTIVITY Source of Information: Patient, EMS History of Present Illness Date Seen by Provider: Jul 31, 2022 Time Seen by Provider: 11:11 Initial Comments 52-year-old male presenting with complaints of seizure-like activity when he was at [facility]. [facility] ambulance services bringing him here to the emergency department for evaluation. Patient denies any injury, headache, fever, chills, chest pain, continued seizure activity. He states he was aware of what was happening and had slid out of her chair while he was having the seizure-like activity. He said he was having some nausea, vomiting, diarrhea. However he was asking for food on arrival to the ED. He states he has follow-up appointment scheduled with neurologist at [place] on August 03. He has an appointment at 2 PM today to see Jerrod Serrano in the [facility] clinic. He denies any acute issues and that he wanted evaluated here in the ED. Severity: Mild Associated Systoms: No Chest Pain, No Cough, No Diaphoresis, No Fever/Chills, No Headaches, No Loss of Appetite, No Malaise; Nausea/Vomiting; No Rash, No Seizure, No Shortness of Air, No Syncope, No Weakness Allergies and Home Medications Allergies Coded Allergies: aripiprazole (Verified Allergy, Unknown, hallucinations, 10/01/18) zolpidem (Verified Allergy, Unknown, hallucinations, 10/01/18) Patient Home Medication List Home Medication List Reviewed: Yes Budesonide/Formoterol Fumarate (Symbicort 160-4.5 Mcg Inhaler) 10.2 Gm Hfa.aer.ad, (Reported) Entered as Reported by: JAYDA CHRISTIANSEN on 10/01/181818 Citalopram Hydrobromide (Celexa) 40 Mg Tablet, (Reported) Entered as Reported by: SUJATA COLLINS on 09/06/182052 Clindamycin HCl (Clindamycin HCl) 300 Mg Capsule, 300 MG PO TIDWM Prescribed by: LINDEN MERCEDES on 10/24/192033 Dicyclomine HCl (Dicyclomine HCl) 20 Mg Tablet, 20 MG PO QID PRN for ABDOMINAL PAIN Prescribed by: LUIS LECHUGA on 10/01/18 0501 Guaifenesin/Codeine Phosphate (Codeine-Guaifen 10-100 mg/5 ml) 10 Mg-100 Mg/5 Ml Liquid, 5 ML PO Q6H PRN for cough Prescribed by: LUIS LECHUGA on 07/03/22 1422 Haloperidol (Haldol Tab) 5 Mg Tab, 10 MG PO HS, (Reported) Entered as Reported by: SUJATA COLLINS on 09/06/182052 Hydrocodone Bit/Acetaminophen (Lortab 5 Mg Tablet) 1 Tab Tab, 1 EACH PO Q4-6HR PRN for PAIN-MODERATE Prescribed by: HILDA YBARRA on 01/24/19 135 Ibuprofen (Ibuprofen) 800 Mg Tablet, 800 MG PO Q8H PRN for PAIN Prescribed by: LINDEN MERCEDES on 10/24/192033 Insulin Glargine,Hum.rec.anlog (Basaglar Kwikpen U-100) 100 Unit/1 Ml Insuln.pen, (Reported) Entered as Reported by: JAYDA CHRISTIANSEN on 10/01/181818 Lorazepam (Lorazepam) 1 Mg Tablet, (Reported) Entered as Reported by: JAYDA CHRISTIANSEN on 10/01/181818 Magnesium Citrate (Magnesium Citrate) 296 Ml Solution, 296 ML PO Q6H Prescribed by: HILDA YBARRA on 01/30/19 1258 Meloxicam (Meloxicam) 7.5 Mg Tablet, 7.5 MG PO DAILY Prescribed by: LUIS LECHUGA on 10/30/21 1139 Ondansetron (Ondansetron Odt) 4 Mg Tab.rapdis, 4 MG PO Q6H PRN for NAUSEA/VOMITING Prescribed by: LUIS LECHUGA on 07/23/19 2150 Polyethylene Glycol 3350 (Miralax) 17 Gram/Dose Powder, 17 GM PO DAILY PRN for CONSTIPATION-1ST LINE Prescribed by: LUIS LECHUGA on 10/30/21 1139 Psyllium Husk (Metamucil) 0.4 Gm Capsule, 0.4 GM PO DAILY Prescribed by: HILDA YBARRA on 01/30/19 1258 Simvastatin (Zocor) 40 Mg Tablet, HS, (Reported) Entered as Reported by: SUJATA COLLINS on 09/06/182052 Tramadol HCl (Tramadol HCl) 50 Mg Tablet, 50 MG PO Q4H PRN for PAIN-MILD (1-4) Prescribed by: HILDA YBARRA on 11/09/21 1624 [Lorazepam Tab 1MG] , (Reported) Entered as Reported by: SUJATA COLLINS on 09/06/182035 [Metformin Tab 500MG] , (Reported) Entered as Reported by: SUJATA COLLINS on 09/06/182035 [Phenytoin Ex Cap 100MG] , (Reported) Entered as Reported by: SUJATA COLLINS on 09/06/182035 [Pot Cl Micro Tab 20MEQ Er] , (Reported) Entered as Reported by: SUJATA COLLINS on 09/06/182035 [Risperidone Tab 3MG] , (Reported) Entered as Reported by: SUJATA COLLINS on 09/06/182035 Review of Systems Review of Systems Constitutional: No chills, No fever EENTM: no symptoms reported Respiratory: no symptoms reported Cardiovascular: no symptoms reported Gastrointestinal: see HPI Genitourinary: no symptoms reported Musculoskeletal: no symptoms reported Skin: no symptoms reported Psychiatric/Neurological: See HPI Past Girallv-Hzootl-Slmlmn Hx Patient Social History Tobacco Use?: Yes Tobacco type used: Cigarettes Smoking Status: Current Everyday Smoker Immunizations Up To Date First/Initial COVID19 Vaccinat: unknown date Second COVID19 Vaccination Brody: unknown date Third COVID19 Vaccination Date: unknown date Seasonal Allergies Seasonal Allergies: No Past Medical History Surgery/Hospitalization HX: Pseudoseizure, Headaches NECK SURG Surgeries: Yes (cystoscopy) Gallbladder, Orthopedic Respiratory: Yes Asthma Cardiac: No Neurological: Yes (PSEUDOSEIZURES) Headaches /Migraines, Seizure Disorder, Traumatic Brain Injury Genitourinary: No Gastrointestinal: Yes Gastroesophageal Reflux, Hepatitis, Cirrhosis Musculoskeletal: No Endocrine: Yes Diabetes, Insulin dep HEENT: No Cancer: No Psychosocial: No (Suicidal and homicidal ideation hx) Bipolar, Personality Disorder Integumentary: No Blood Disorders: No Family Medical History No Pertinent Family Hx Physical Exam Vital Signs Vital Signs - First Documented 07/31/22 11:19 Temp 36.8 Pulse 83 Resp 16 B/P (MAP) 133/96 (108) Pulse Ox 99 O2 Delivery Room Air Capillary Refill : Height, Weight, BMI Height: 5'8.00" Weight: 220lbs. oz. 99.525734wc; 40.00 BMI Method:Stated General Appearance: No Apparent Distress, WD/WN HEENT: PERRL/EOMI, Pharynx Normal, Moist Mucous Membranes Neck: Full Range of Motion, Normal Inspection, Non Tender, Supple Respiratory: Chest Non Tender, Lungs Clear, Normal Breath Sounds, No Accessory Muscle Use, No Respiratory Distress Cardiovascular: Regular Rate, Rhythm, Normal Peripheral Pulses Gastrointestinal: Normal Bowel Sounds, No Pulsatile Mass, Non Tender, Soft Neurologic/Psychiatric: Alert, Oriented x3 Skin: Normal Color, Warm/Dry Progress/Results/Core Measures Suspected Sepsis SIRS Temperature: Pulse: Respiratory Rate: Blood Pressure / Mean: Results/Orders Vital Signs/I&O 07/31/22 07/31/22 11:19 11:22 Temp 36.8 36.8 Pulse 83 83 Resp 16 16 B/P (MAP) 133/96 (108) 133/96 Pulse Ox 99 99 O2 Delivery Room Air Room Air Capillary Refill : Progress Note : Progress Note Reassured patient that his exam and vitals all appeared normal. He appeared to be at his baseline and is actively working up his seizure activity and working with the clinic and mental health for depression and anxiety. Encouraged to keep taking his regular medications and follow-up as already scheduled. He denied having any acute issue to be evaluated in the emergency department. He states that he was brought here because he had slipped out of the chair at the [facility] and they wanted him evaluated. Departure Impression Primary Impression: Pseudoseizures Disposition: 01 HOME, SELF-CARE Condition: Stable Departure-Patient Inst. Decision time for Depature: 11:17 Referrals: JERROD SERRANO APRN (PCP) Primary Care Physician [facility] (Family) Primary Care Physician Patient Instructions: Seizures, Adult ED Add. Discharge Instructions: Continue taking your prescribed medicines. Follow up with your regular providers for continued concerns. All discharge instructions reviewed with patient and/or family. Voiced understanding. LUIS LECHUGA MD Jul 31, 2022 11:18
[2022-07-31 11:22] VITALS: BP 133/96
== END 2022-07-31 11:23 | disposition home or self-care (01) ==
LOC: EDUNIT# 11:05 → ER FS 11:08
DX: G40.909 Epilepsy, unspecified, not intractable, without status epilepticus (principal); F17.210 Nicotine dependence, cigarettes, uncomplicated
CPT/HCPCS: 99283

== ENCOUNTER 2022-08-22 23:31 | Emergency (ER) | payer MEDICARE, MEDICAID ==
[~2022-08-22] VITALS: Ht 172.7 cm; Wt 111.3 kg
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
[2022-08-23] MEDS ORDERED: OLANZapine 5 MG ODT (ZyPREXA ZYDIS) PO PRN
[2022-08-23 00:08] LABS: BILIRUBIN,URINE NEGATIVE (NEGATIVE); CLARITY,URINE CLEAR; COLOR,URINE YELLOW; GLUCOSE, URINE (UA) 3+ (NEGATIVE); KETONES,URINE NEGATIVE (NEGATIVE); LEUKOCYTE ESTERASE ,URINE NEGATIVE (NEGATIVE); NITRITE,URINE NEGATIVE (NEGATIVE); PROTEIN,URINE NEGATIVE (NEGATIVE)
[2022-08-23 00:28] LABS: BASOPHILS % (AUTO) 1 % (0-10); EOSINOPHILS # (AUTO) 0.3 10^3/uL (0.0-0.3); EOSINOPHILS % (AUTO) 5 % (0-10); HEMATOCRIT 47 % (40-54); HEMOGLOBIN 16.4 g/dL (13.3-17.7); LYMPHOCYTES % (AUTO) 50 % (12-44); MEAN CORPUSCULAR HEMOGLOBIN 31 pg (25-34); MEAN CORPUSCULAR HGB CONC 35 g/dL (32-36); MEAN CORPUSCULAR VOLUME 89 fL (80-99); MONOCYTES # (AUTO) 0.6 10^3/uL (0.0-1.0); MONOCYTES % (AUTO) 9 % (0-12); NEUTROPHILS # (AUTO) 2.1 10^3/uL (1.8-7.8); NEUTROPHILS % (AUTO) 36 % (42-75); PLATELET COUNT 78 10^3/uL (130-400)
[2022-08-23 00:29] LABS: SMEAR SCAN COMMENT PLT EST. OK
[2022-08-23 00:30] LABS: BACTERIA,URINE NEGATIVE /HPF
[2022-08-23 00:32] LABS: AMPHETAMINE SCREEN, URINE NEGATIVE (NEGATIVE); BARBITURATE SCREEN URINE NEGATIVE (NEGATIVE); BENZODIAZEPINES SCREEN URINE NEGATIVE (NEGATIVE); CANNABINOID SCREEN, URINE NEGATIVE (NEGATIVE); COCAINE SCREEN URINE NEGATIVE (NEGATIVE); METHADONE STAT NEGATIVE (NEGATIVE); OPIATE SCREEN URINE NEGATIVE (NEGATIVE); OXYCODONE STAT NEGATIVE (NEGATIVE); PROPOXYPHENE STAT NEGATIVE (NEGATIVE); TRICYCLIC ANTIDEPRESSANTS SCRE POSITIVE (NEGATIVE)
[2022-08-23 00:33] LABS: SODIUM 140 MMOL/L (135-145)
[2022-08-23 00:34] LABS: ALANINE AMINOTRANSFERASE 21 U/L (0-55); ALBUMIN 3.9 GM/DL (3.2-4.5); ALKALINE PHOSPHATASE 76 U/L (40-136); BILIRUBIN,TOTAL 0.4 MG/DL (0.1-1.0); BUN/CREATININE RATIO 18; CALCIUM 9.2 MG/DL (8.5-10.1); CARBON DIOXIDE 26 MMOL/L (21-32); CHLORIDE 103 MMOL/L (98-107); CREATININE SERUM 0.98 MG/DL (0.60-1.30); GFR ESTIMATED 92; GLUCOSE 181 MG/DL (70-105); POTASSIUM 3.8 MMOL/L (3.6-5.0); TOTAL PROTEIN 7.1 GM/DL (6.4-8.2)
[2022-08-23 00:35] LABS: ACETAMINOPHEN < 10 UG/ML (10-30); SALICYLATE < 0.3 MG/DL (5.0-20.0)
[2022-08-23 03:32] VITALS: BP 151/87
== END 2022-08-23 03:32 | disposition home or self-care (01) ==
LOC: EDUNIT# 23:31 → ER FS 23:32
DX: R45.851 Suicidal ideations (principal); Z20.822 Contact with and (suspected) exposure to COVID-19
CPT/HCPCS: 36415; 80053; 80306; 81000; 85025; 87636; 93005; 99283; G0480 ×3; 80320; 80329

== ENCOUNTER 2022-09-10 14:40 | Emergency (ER) | payer MEDICARE, MEDICAID ==
--- NOTE | 2022-09-10 14:48 | ED Psychosocial ---
General Chief Complaint: Suicidal Ideation Risk Stated Complaint: SUICIDAL IDEATION History of Present Illness Date Seen by Provider: Sep 10, 2022 Time Seen by Provider: 14:48 Initial Comments 52-year-old male sent in by [facility] for medical screening. Patient was seen there earlier today with suicidal ideations. Patient is had recurrent suicidal ideations for a while. He reported a plan of stepping in front of traffic or slashing his wrist with a knife. The skin is mental health states that he is currently accepted at [facility]. pt needs medical screening with his labs to complete his acceptance. Allergies and Home Medications Allergies Coded Allergies: aripiprazole (Verified Allergy, Unknown, hallucinations, 10/01/18) zolpidem (Verified Allergy, Unknown, hallucinations, 10/01/18) Patient Home Medication List Home Medication List Reviewed: Yes Budesonide/Formoterol Fumarate (Symbicort 160-4.5 Mcg Inhaler) 10.2 Gm Hfa.aer.ad, (Reported) Entered as Reported by: JAYDA CHRISTIANSEN on 10/01/181818 Citalopram Hydrobromide (Celexa) 40 Mg Tablet, (Reported) Entered as Reported by: SUJATA COLLINS on 09/06/182052 Clindamycin HCl (Clindamycin HCl) 300 Mg Capsule, 300 MG PO TIDWM Prescribed by: LINDEN MERCEDES on 10/24/192033 Dicyclomine HCl (Dicyclomine HCl) 20 Mg Tablet, 20 MG PO QID PRN for ABDOMINAL PAIN Prescribed by: LUIS LECHUGA on 10/01/18 0501 Guaifenesin/Codeine Phosphate (Codeine-Guaifen 10-100 mg/5 ml) 10 Mg-100 Mg/5 Ml Liquid, 5 ML PO Q6H PRN for cough Prescribed by: LUIS LECHUGA on 07/03/22 1422 Haloperidol (Haldol Tab) 5 Mg Tab, 10 MG PO HS, (Reported) Entered as Reported by: SUJATA COLLINS on 09/06/182052 Hydrocodone Bit/Acetaminophen (Lortab 5 Mg Tablet) 1 Tab Tab, 1 EACH PO Q4-6HR PRN for PAIN-MODERATE Prescribed by: HLIDA YBARRA on 01/24/19 1351 Ibuprofen (Ibuprofen) 800 Mg Tablet, 800 MG PO Q8H PRN for PAIN Prescribed by: LINDEN MERCEDES on 10/24/192033 Insulin Glargine,Hum.rec.anlog (Basaglar Kwikpen U-100) 100 Unit/1 Ml Insuln.pen, (Reported) Entered as Reported by: JAYDA CHRISTIANSEN on 10/01/181818 Lorazepam (Lorazepam) 1 Mg Tablet, (Reported) Entered as Reported by: JAYDA CHRISTIANSEN on 10/01/181818 Magnesium Citrate (Magnesium Citrate) 296 Ml Solution, 296 ML PO Q6H Prescribed by: HILDA YBARRA on 01/30/19 1258 Meloxicam (Meloxicam) 7.5 Mg Tablet, 7.5 MG PO DAILY Prescribed by: LUIS NATIONRT on 10/30/21 1139 Ondansetron (Ondansetron Odt) 4 Mg Tab.rapdis, 4 MG PO Q6H PRN for NAUSEA/VOMITING Prescribed by: LUIS NATIONRT on 07/23/19 2150 Polyethylene Glycol 3350 (Miralax) 17 Gram/Dose Powder, 17 GM PO DAILY PRN for CONSTIPATION-1ST LINE Prescribed by: LUIS NATIONRT on 10/30/21 1139 Psyllium Husk (Metamucil) 0.4 Gm Capsule, 0.4 GM PO DAILY Prescribed by: HILDA YBARRA on 01/30/19 1258 Simvastatin (Zocor) 40 Mg Tablet, HS, (Reported) Entered as Reported by: SUJATA COLLINS on 09/06/182052 Tramadol HCl (Tramadol HCl) 50 Mg Tablet, 50 MG PO Q4H PRN for PAIN-MILD (1-4) Prescribed by: HILDA YBARRA on 11/09/21 1624 [Lorazepam Tab 1MG] , (Reported) Entered as Reported by: SUJATA COLLINS on 09/06/182035 [Metformin Tab 500MG] , (Reported) Entered as Reported by: SUJATA COLLINS on 09/06/182035 [Phenytoin Ex Cap 100MG] , (Reported) Entered as Reported by: SUJATA COLLINS on 09/06/182035 [Pot Cl Micro Tab 20MEQ Er] , (Reported) Entered as Reported by: SUJATA COLLINS on 09/06/182035 [Risperidone Tab 3MG] , (Reported) Entered as Reported by: SUJATA COLLINS on 09/06/182035 Review of Systems Constitutional: no symptoms reported EENTM: no symptoms reported Respiratory: no symptoms reported Cardiovascular: no symptoms reported Gastrointestinal: no symptoms reported Genitourinary: no symptoms reported Musculoskeletal: no symptoms reported Skin: no symptoms reported Psychiatric/Neurological: See HPI Past Xxgayvt-Artism-Zjiwka Hx Immunizations Up To Date First/Initial COVID19 Vaccinat: unknown date Second COVID19 Vaccination Brody: unknown date Third COVID19 Vaccination Date: unknown date Seasonal Allergies Seasonal Allergies: No Past Medical History Surgery/Hospitalization HX: Pseudoseizure, Headaches, neck surgery Surgeries: Yes (cystoscopy) Gallbladder, Orthopedic Respiratory: Yes Asthma Cardiac: No Neurological: Yes (PSEUDOSEIZURES) Headaches /Migraines, Seizure Disorder, Traumatic Brain Injury Genitourinary: No Gastrointestinal: Yes Gastroesophageal Reflux, Hepatitis, Cirrhosis Musculoskeletal: No Endocrine: Yes Diabetes, Insulin dep HEENT: No Cancer: No Psychosocial: No (Suicidal and homicidal ideation hx) Bipolar, Personality Disorder Integumentary: No Blood Disorders: No Family Medical History No Pertinent Family Hx Physical Exam Vital Signs - First Documented 09/10/22 14:55 Temp 36.2 Pulse 76 Resp 16 B/P (MAP) 124/62 (82) Pulse Ox 99 O2 Delivery Room Air Capillary Refill : Height, Weight, BMI Height: 5'8.00" Weight: 220lbs. oz. 99.949322fn; 37.00 BMI Method:Stated General Appearance: WD/WN HEENT: PERRL/EOMI Respiratory: lungs clear, normal breath sounds Cardiovascular: normal peripheral pulses, regular rate, rhythm Gastrointestinal: non tender, soft Neurologic/Psychiatric: no motor/sensory deficits, alert, oriented x 3 Appearance/Memory: disheveled Behavior/Eye Contact: cooperative Thoughts/Hallucinations: no apparent hallucination; No auditory hallucinations; other (Suicidal ideations) Progress/Results/Core Measures Results/Orders Lab Results Laboratory Tests Test 09/10/22 14:50 09/10/22 15:10 Range/Units Urine Color YELLOW Urine Clarity CLEAR Urine pH 6.0 5-9 Urine Specific [place] >=1.030 1.016-1.022 Urine Protein NEGATIVE NEGATIVE Urine Glucose (UA) 3+ H NEGATIVE Urine Ketones NEGATIVE NEGATIVE Urine Nitrite NEGATIVE NEGATIVE Urine Bilirubin NEGATIVE NEGATIVE Urine Urobilinogen 0.2 < = 1.0 MG/DL Urine Leukocyte Esterase NEGATIVE NEGATIVE Urine RBC (Auto) NEGATIVE NEGATIVE Urine RBC NONE /HPF Urine WBC RARE /HPF Urine Squamous Epithelial Cells 0-2 /HPF Urine Crystals NONE /LPF Urine Bacteria NEGATIVE /HPF Urine Casts NONE /LPF Urine Mucus NEGATIVE /LPF Urine Culture Indicated NO Urine Opiates Screen NEGATIVE NEGATIVE Urine Oxycodone Screen NEGATIVE NEGATIVE Urine Methadone Screen NEGATIVE NEGATIVE Urine Propoxyphene Screen NEGATIVE NEGATIVE Urine Barbiturates Screen NEGATIVE NEGATIVE Ur Tricyclic Antidepressants Screen POSITIVE H NEGATIVE Urine Phencyclidine Screen NEGATIVE NEGATIVE Urine Amphetamines Screen NEGATIVE NEGATIVE Urine Methamphetamines Screen NEGATIVE NEGATIVE Urine Benzodiazepines Screen NEGATIVE NEGATIVE Urine Cocaine Screen NEGATIVE NEGATIVE Urine Cannabinoids Screen NEGATIVE NEGATIVE White Blood Count 6.6 4.3-11.0 10^3/uL Red Blood Count 5.32 4.30-5.52 10^6/uL Hemoglobin 16.2 13.3-17.7 g/dL Hematocrit 47 40-54 % Mean Corpuscular Volume 88 80-99 fL Mean Corpuscular Hemoglobin 31 25-34 pg Mean Corpuscular Hemoglobin Concent 35 32-36 g/dL Red Cell Distribution Width 12.9 10.0-14.5 % Platelet Count 89 L 130-400 10^3/uL Mean Platelet Volume 10.0 9.0-12.2 fL Immature Granulocyte % (Auto) 1 % Neutrophils (%) (Auto) 38 L 42-75 % Lymphocytes (%) (Auto) 47 H 12-44 % Monocytes (%) (Auto) 11 0-12 % Eosinophils (%) (Auto) 4 0-10 % Basophils (%) (Auto) 1 0-10 % Neutrophils # (Auto) 2.5 1.8-7.8 10^3/uL Lymphocytes # (Auto) 3.1 1.0-4.0 10^3/uL Monocytes # (Auto) 0.7 0.0-1.0 10^3/uL Eosinophils # (Auto) 0.2 0.0-0.3 10^3/uL Basophils # (Auto) 0.0 0.0-0.1 10^3/uL Immature Granulocyte # (Auto) 0.0 0.0-0.1 10^3/uL Percent Immature Platelet Fraction 4.8 0.0-7.6 % Sodium Level 142 135-145 MMOL/L Potassium Level 4.1 3.6-5.0 MMOL/L Chloride Level 107 98-107 MMOL/L Carbon Dioxide Level 22 21-32 MMOL/L Anion Gap 13 5-14 MMOL/L Blood Urea Nitrogen 13 7-18 MG/DL Creatinine 0.80 0.60-1.30 MG/DL Estimat Glomerular Filtration Rate 106 BUN/Creatinine Ratio 16 Glucose Level 104 70-105 MG/DL Calcium Level 9.6 8.5-10.1 MG/DL Corrected Calcium 9.3 8.5-10.1 MG/DL Total Bilirubin 0.5 0.1-1.0 MG/DL Aspartate Amino Transf (AST/SGOT) 25 5-34 U/L Alanine Aminotransferase (ALT/SGPT) 25 0-55 U/L Alkaline Phosphatase 67 40-136 U/L Total Protein 7.4 6.4-8.2 GM/DL Albumin 4.4 3.2-4.5 GM/DL Salicylates Level < 0.3 L 5.0-20.0 MG/DL Acetaminophen Level < 10 L 10-30 UG/ML Serum Alcohol < 10 <10 MG/DL Influenza Type A (RT-PCR) Not Detected Not Detecte Influenza Type B (RT-PCR) Not Detected Not Detecte SARS-CoV-2 RNA (RT-PCR) Not Detected Not Detecte My Orders Orders - RICE,MARISOL L DO Ua Culture If Indicated (09/10/22 14:48) Cbc With Automated Diff (09/10/22 14:48) Comprehensive Metabolic Panel (09/10/22 14:48) Alcohol (09/10/22 14:48) Drug Screen Stat (Urine) (09/10/22 14:48) Acetaminophen (09/10/22 14:48) Salicylate (09/10/22 14:48) Ekg Tracing (09/10/22 14:48) Bh Status Checks/Observation O Q15M (09/10/22 14:48) Influenza A And B By Pcr (09/10/22 14:48) Covid 19 Inhouse Test (09/10/22 14:48) Vital Signs/I&O 09/10/22 20:15 Temp 36.2 Pulse 72 Resp 16 B/P (MAP) 128/70 Pulse Ox 99 O2 Delivery Room Air Progress Progress Note : Progress Note Patient diagnostic studies were ordered reviewed and interpreted by me. Patient was medically cleared for psychiatric admission. Mental health had patient accepted to [facility]. Patient was transferred via private vehicle in stable condition Initial ECG Impression Date: Sep 10, 2022 Initial ECG Impression Time: 15:38 Initial ECG Rate: 87 Initial ECG Rhythm: Normal Sinus Initial ECG Impression: Normal Comment normal sinus, occassional pvc, pr 170, qrs 102 Departure Impression Primary Impression: Suicidal ideation Disposition: 65 XFER TO PSYCH HOSP/UNIT Condition: Stable Transfer Transfer Reason: Exceeds level of care Time Spoke to Accepting Phy: 19:25 Transfer Progress Notes pt accepted by Dr Pavel Collazo Transfer Facility: [facility] Departure-Patient Inst. Referrals: JERROD SERRANO APRN (PCP) Primary Care Physician [facility] (Family) Primary Care Physician Patient Instructions: OUTPT MENTAL HEALTH SERVICES MARISOL RICE DO Sep 10, 2022 14:48
[2022-09-10 15:16] LABS: BILIRUBIN,URINE NEGATIVE (NEGATIVE); CLARITY,URINE CLEAR; COLOR,URINE YELLOW; GLUCOSE, URINE (UA) 3+ (NEGATIVE); KETONES,URINE NEGATIVE (NEGATIVE); LEUKOCYTE ESTERASE ,URINE NEGATIVE (NEGATIVE); NITRITE,URINE NEGATIVE (NEGATIVE); PROTEIN,URINE NEGATIVE (NEGATIVE)
[2022-09-10 15:20] LABS: BACTERIA,URINE NEGATIVE /HPF; SQUAMOUS EPITHELIAL CELL,UR 0-2 /HPF; WBC,URINE RARE /HPF
[2022-09-10 15:22] LABS: BASOPHILS % (AUTO) 1 % (0-10); EOSINOPHILS # (AUTO) 0.2 10^3/uL (0.0-0.3); EOSINOPHILS % (AUTO) 4 % (0-10); HEMATOCRIT 47 % (40-54); HEMOGLOBIN 16.2 g/dL (13.3-17.7); LYMPHOCYTES # (AUTO) 3.1 10^3/uL (1.0-4.0); LYMPHOCYTES % (AUTO) 47 % (12-44); MEAN CORPUSCULAR HEMOGLOBIN 31 pg (25-34); MEAN CORPUSCULAR HGB CONC 35 g/dL (32-36); MEAN CORPUSCULAR VOLUME 88 fL (80-99); MONOCYTES # (AUTO) 0.7 10^3/uL (0.0-1.0); MONOCYTES % (AUTO) 11 % (0-12); NEUTROPHILS # (AUTO) 2.5 10^3/uL (1.8-7.8); NEUTROPHILS % (AUTO) 38 % (42-75); PLATELET COUNT 89 10^3/uL (130-400); WHITE BLOOD COUNT 6.6 10^3/uL (4.3-11.0)
[2022-09-10 15:25] LABS: AMPHETAMINE SCREEN, URINE NEGATIVE (NEGATIVE); BARBITURATE SCREEN URINE NEGATIVE (NEGATIVE); BENZODIAZEPINES SCREEN URINE NEGATIVE (NEGATIVE); CANNABINOID SCREEN, URINE NEGATIVE (NEGATIVE); COCAINE SCREEN URINE NEGATIVE (NEGATIVE); METHADONE STAT NEGATIVE (NEGATIVE); OPIATE SCREEN URINE NEGATIVE (NEGATIVE); OXYCODONE STAT NEGATIVE (NEGATIVE); PROPOXYPHENE STAT NEGATIVE (NEGATIVE); TRICYCLIC ANTIDEPRESSANTS SCRE POSITIVE (NEGATIVE)
[2022-09-10 15:36] LABS: SODIUM 142 MMOL/L (135-145)
[2022-09-10 15:37] LABS: ACETAMINOPHEN < 10 UG/ML (10-30); ALANINE AMINOTRANSFERASE 25 U/L (0-55); ALBUMIN 4.4 GM/DL (3.2-4.5); ALKALINE PHOSPHATASE 67 U/L (40-136); BILIRUBIN,TOTAL 0.5 MG/DL (0.1-1.0); BUN/CREATININE RATIO 16; CALCIUM 9.6 MG/DL (8.5-10.1); CARBON DIOXIDE 22 MMOL/L (21-32); CHLORIDE 107 MMOL/L (98-107); GFR ESTIMATED 106; GLUCOSE 104 MG/DL (70-105); POTASSIUM 4.1 MMOL/L (3.6-5.0); SALICYLATE < 0.3 MG/DL (5.0-20.0); TOTAL PROTEIN 7.4 GM/DL (6.4-8.2)
[2022-09-10 20:15] VITALS: BP 128/70
== END 2022-09-10 20:15 ==
LOC: EDUNIT# 14:40 → ER FS 14:41
DX: R45.851 Suicidal ideations (principal); Z20.822 Contact with and (suspected) exposure to COVID-19
CPT/HCPCS: 36415; 80053; 80306; 81000; 85025; 87636; 93005; 99284; G0480 ×3; 80320; 80329

== ENCOUNTER → 2022-09-21 | Outpatient (CLI) | payer MEDICARE, MEDICAID ==
[~2022-09-21] MED LIST changes: +CATHETER FLUSH 10 ML SYR IV PRN; +HOLD METFORMIN - RECEIVED CONTRAST 20 ML VIAL IV SCH; +IOHEXOL 350 MG/ML 100 ML (OMNIPAQUE 350) VIAL IV ONE; +NS 100 ML (IVPB) BAG IV ONE
--- NOTE | 2022-09-21 14:24 | Diagnostic Imaging Report ---
PROCEDURE: CT abdomen and pelvis with contrast. TECHNIQUE: Multiple contiguous axial images were obtained through the abdomen and pelvis after administration of intravenous contrast. Auto Exposure Controls were utilized during the CT exam to meet ALARA standards for radiation dose reduction. All CT scans use one or more of the following dose optimizing techniques: automated exposure control, MA and/or KvP adjustment based on patient size and exam type or iterative reconstruction. INDICATION: Cirrhosis and upper abdominal pain. Comparison is made with prior CT from 01/24/2019. The lung bases are clear. Liver does show somewhat of a nodular contour consistent with cirrhosis. No discrete liver mass is detected. The gallbladder surgically absent. There is no biliary ductal dilatation. The pancreas is unremarkable. The spleen is enlarged measuring 17 cm. No adrenal mass is identified. Kidneys are unremarkable. Aorta is nonaneurysmal. The bowel loops are of normal caliber. There is no obstruction. There is no ascites. Bladder and prostate are unremarkable. The bony structures are nonacute. IMPRESSION: Features consistent with cirrhosis. No discrete liver mass is detected. There is splenomegaly present. Dictated by: Dictated on workstation # [id number]
== END ==
LOC: RAD FS 12:42
PROVIDERS: ATTEND Nurse Practitioner Family
DX: K70.30 Alcoholic cirrhosis of liver without ascites (principal)
CPT/HCPCS: 74177; Q9967

== ENCOUNTER 2022-09-30 16:44 | Emergency (ER) | payer MEDICARE, MEDICAID ==
[~2022-09-30 16:44] MED LIST changes: -CATHETER FLUSH 10 ML SYR IV PRN; -HOLD METFORMIN - RECEIVED CONTRAST 20 ML VIAL IV SCH; -IOHEXOL 350 MG/ML 100 ML (OMNIPAQUE 350) VIAL IV ONE; -NS 100 ML (IVPB) BAG IV ONE
--- NOTE | 2022-09-30 17:27 | ED Fall/Injury ---
General Chief Complaint: Upper Extremity Stated Complaint: LT ELBOW INJ Nursing Triage Note: PT REPORTS HE FELL EARLIER WHILE USING HIS "WALKING STICKS" C/O LEFT ELBOW PAIN, SLIGHT ABRASION AND LEFT KNEE PAIN. Source: patient History of Present Illness Date Seen by Provider: Sep 30, 2022 Time Seen by Provider: 17:18 Initial Comments 52-year-old male presents with complaints of falling earlier today while he was using his "walking sticks". He complains of pain to the left elbow and left knee. He was able to walk into the emergency department without any difficulty. He is moving his extremities without difficulty. He denies hitting his head or losing consciousness. He has no nausea or vomiting. Occurred: this afternoon Severity: mild Injuries/Pain Location: upper extremity (Left elbow), lower extremity (Left knee) Context: unknown Loss of Consciousness: no loss of consciousness Modifying Factors: Worse With Movement Associated Symptoms (Fall): No Abdominal Pain, No Chest Pain, No Confusion, No Dizziness, No Headache, No Lightheadedness, No Muscle Spasms, No Nausea/Vomiting, No Neck Pain, No Ringing in Ears, No Shortness of Air, No Slurred Speech, No Trouble Walking, No Vision Changes Allergies and Home Medications Allergies Coded Allergies: aripiprazole (Verified Allergy, Unknown, hallucinations, 10/01/18) zolpidem (Verified Allergy, Unknown, hallucinations, 10/01/18) Patient Home Medication List Home Medication List Reviewed: Yes Budesonide/Formoterol Fumarate (Symbicort 160-4.5 Mcg Inhaler) 10.2 Gm Hfa.aer.ad, (Reported) Entered as Reported by: JAYDA CHRISTIANSEN on 10/01/181818 Citalopram Hydrobromide (Celexa) 40 Mg Tablet, (Reported) Entered as Reported by: SUJATA COLLINS on 09/06/182052 Clindamycin HCl (Clindamycin HCl) 300 Mg Capsule, 300 MG PO TIDWM Prescribed by: LINDEN MERCEDES on 10/24/192033 Dicyclomine HCl (Dicyclomine HCl) 20 Mg Tablet, 20 MG PO QID PRN for ABDOMINAL PAIN Prescribed by: LUIS LECHUGA on 10/01/18 0501 Guaifenesin/Codeine Phosphate (Codeine-Guaifen 10-100 mg/5 ml) 10 Mg-100 Mg/5 Ml Liquid, 5 ML PO Q6H PRN for cough Prescribed by: LUIS NATIONRT on 07/03/22 1422 Haloperidol (Haldol Tab) 5 Mg Tab, 10 MG PO HS, (Reported) Entered as Reported by: SUJATA COLLINS on 09/06/182052 Hydrocodone Bit/Acetaminophen (Lortab 5 Mg Tablet) 1 Tab Tab, 1 EACH PO Q4-6HR PRN for PAIN-MODERATE Prescribed by: HILDA YBARRA on 01/24/19 135 Ibuprofen (Ibuprofen) 800 Mg Tablet, 800 MG PO Q8H PRN for PAIN Prescribed by: LINDEN MERCEDES on 10/24/192033 Insulin Glargine,Hum.rec.anlog (Basaglar Kwikpen U-100) 100 Unit/1 Ml Insuln.pen, (Reported) Entered as Reported by: JAYDA CHRISTIANSEN on 10/01/181818 Lorazepam (Lorazepam) 1 Mg Tablet, (Reported) Entered as Reported by: JAYDA CHRISTIANSEN on 10/01/181818 Magnesium Citrate (Magnesium Citrate) 296 Ml Solution, 296 ML PO Q6H Prescribed by: HIDLA YBARRA on 01/30/19 1258 Meloxicam (Meloxicam) 7.5 Mg Tablet, 7.5 MG PO DAILY Prescribed by: LUIS BARRERAYART on 10/30/21 1139 Ondansetron (Ondansetron Odt) 4 Mg Tab.rapdis, 4 MG PO Q6H PRN for NAUSEA/VOMITING Prescribed by: LUIS LECHUGA on 07/23/19 2150 Polyethylene Glycol 3350 (Miralax) 17 Gram/Dose Powder, 17 GM PO DAILY PRN for CONSTIPATION-1ST LINE Prescribed by: LUSI NATIONRT on 10/30/21 1139 Psyllium Husk (Metamucil) 0.4 Gm Capsule, 0.4 GM PO DAILY Prescribed by: HILDA YBARRA on 01/30/19 1258 Simvastatin (Zocor) 40 Mg Tablet, HS, (Reported) Entered as Reported by: SUJATA COLLINS on 09/06/182052 Tramadol HCl (Tramadol HCl) 50 Mg Tablet, 50 MG PO Q4H PRN for PAIN-MILD (1-4) Prescribed by: HILDA YBARRA on 11/09/21 1624 [Lorazepam Tab 1MG] , (Reported) Entered as Reported by: SUJATA COLLINS on 09/06/182035 [Metformin Tab 500MG] , (Reported) Entered as Reported by: SUJATA COLLINS on 09/06/182035 [Phenytoin Ex Cap 100MG] , (Reported) Entered as Reported by: SUJATA COLLINS on 09/06/182035 [Pot Cl Micro Tab 20MEQ Er] , (Reported) Entered as Reported by: SUJATA COLLINS on 09/06/182035 [Risperidone Tab 3MG] , (Reported) Entered as Reported by: SUJATA COLLINS on 09/06/182035 Review of Systems Review of Systems Constitutional: No chills, No dizziness, No fever Eyes: No Symptoms Reported Ears, Nose, Mouth, Throat: no symptoms reported Respiratory: no symptoms reported Cardiovascular: no symptoms reported Gastrointestinal: no symptoms reported Genitourinary: no symptoms reported Musculoskeletal: see HPI Psychiatric/Neurological: No Symptoms Reported Past Ecnuvsy-Yfvdqj-Wwjpxd Hx Patient Social History Tobacco Use?: Yes Tobacco type used: Cigarettes Smoking Status: Current Everyday Smoker Use of E-Cig and/or Vaping dev: No Substance use?: Yes Substance type: Marijuana Alcohol Use?: No Pt feels they are or have been: No Immunizations Up To Date First/Initial COVID19 Vaccinat: unknown date Second COVID19 Vaccination Brody: unknown date Third COVID19 Vaccination Date: unknown date Seasonal Allergies Seasonal Allergies: No Past Medical History Surgery/Hospitalization HX: Pseudoseizure, Headaches, neck surgery Surgeries: Yes (cystoscopy) Gallbladder, Orthopedic Respiratory: Yes Asthma Cardiac: No Neurological: Yes (PSEUDOSEIZURES) Headaches /Migraines, Seizure Disorder, Traumatic Brain Injury Genitourinary: No Gastrointestinal: Yes Gastroesophageal Reflux, Hepatitis, Cirrhosis Musculoskeletal: No Endocrine: Yes Diabetes, Insulin dep HEENT: No Cancer: No Psychosocial: No (Suicidal and homicidal ideation hx) Bipolar, Personality Disorder Integumentary: No Blood Disorders: No Family Medical History No Pertinent Family Hx Physical Exam Vital Signs Vital Signs - First Documented 09/30/22 16:45 Temp 36.4 Pulse 87 Resp 16 B/P (MAP) 150/95 (113) Pulse Ox 98 O2 Delivery Room Air Capillary Refill : Less Than 3 Seconds Height, Weight, BMI Height: 5'8.00" Weight: 220lbs. oz. 99.374997ab; 37.00 BMI Method:Stated General Appearance: WD/WN, no apparent distress HEENT: PERRL/EOMI, pharynx normal Neck: non-tender, full range of motion, supple, normal inspection Cardiovascular: normal peripheral pulses, regular rate, rhythm Extremities: normal range of motion, no calf tenderness, normal capillary refill, other (Patient complains of tenderness with palpation and movement of his left elbow and left knee. 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, no motor/sensory deficits, alert, oriented x 3 Skin: normal color, warm/dry Rossana Coma Score Best Eye Response: (4) Open Spontaneously Best Verbal Response: (5) Oriented Best Motor Response: (6) Obeys Commands Lawrence Total: 15 Progress/Results/Core Measures Results/Orders My Orders Orders - LUIS LECHUGA MD Elbow 3 View Left (09/30/22 16:50) Knee 3 View Left (09/30/22 16:50) Acetaminophen Tablet (Tylenol Tablet) (09/30/22 17:31) Ice: Apply To Affected Area (09/30/22 17:31) Vital Signs/I&O 09/30/22 09/30/22 16:45 17:28 Temp 36.4 36.4 Pulse 87 87 Resp 16 16 B/P (MAP) 150/95 (113) 150/95 Pulse Ox 98 98 O2 Delivery Room Air Room Air Blood Pressure Mean: 113 Progress Progress Note #1: Progress Note Potential diagnosis of elbow contusion, elbow fracture, knee contusion, knee fracture, patellar fracture, distal femur fracture, proximal tibia and fibula fracture. Obtain x-rays of the left elbow and left knee to evaluate for acute bony abnormality or injury. Progress Note #2: Progress Note On my personal interpretation and review of his three-view films of the left elbow and left knee I did not appreciate any acute fracture or dislocation. Updated patient and will have them use acetaminophen or ibuprofen [id number] to help with pain. May apply ice pack to help with any pain or swelling. Check back with primary care provider for continued concerns. Progress Note #3: Time: 17:49 Progress Note I reviewed the radiologist report on the three-view films of the left knee and 3 view films of the left elbow. They did not appreciate any acute fracture or bony abnormality. Diagnostic Imaging Diagonstic Imaging: Xray Plain Films/CT/US/NM/MRI: elbow Comments [facility], [place] NAME: PABLO SCOTT [facility] REC#: [id number] PT STATUS: [facility] ER : 1970 PHYSICIAN: LUIS LECHUGA MD ADMIT DATE: 09/30/22/ER FS Signed Date of Exam:09/30/22 KNEE 3 VIEW LEFT EXAMINATION: Left knee radiographs. EXAM DATE: 09/30/2022 5:11 PM. COMPARISON: 11/17/2020. HISTORY: Pain after fall and hit elbow and knee TECHNIQUE: 3 views. FINDINGS: There is no acute fracture, dislocation or destructive osseous process. Mild degenerative changes within the left knee with small osteophytes. No significant joint space narrowing or effusion. The soft tissues are normal. IMPRESSION: No acute osseous abnormality. Dictated by: Dictated on workstation # [id number] Dict: 09/30/221729 Trans: 09/30/221743 [facility] [id number] Interpreted by: ANEL HAMILTON DO Electronically signed by: ANEL HAMILTON DO 09/30/22 1744 Reviewed: Reviewed by N[place] Diagonstic Imaging: Xray Plain Films/CT/US/NM/MRI: knee Comments [facility] [place] NAME: PABLO SCOTT [facility] REC#: [id number] PT STATUS: [facility] ER : 1970 PHYSICIAN: LUIS LECHUGA MD ADMIT DATE: 09/30/22/ER FS Signed Date of Exam:09/30/22 ELBOW 3 VIEW LEFT EXAMINATION: Left elbow radiographs. EXAM DATE: 09/30/2022 5:10 PM. COMPARISON: None available. HISTORY: Pain after fall and hit elbow and knee TECHNIQUE: 3 views. FINDINGS: There is no acute fracture, dislocation or destructive osseous process. The joint spaces are normal. The soft tissues are normal. IMPRESSION: No acute osseous abnormality. Dictated by: Dictated on workstation # [id number] Dict: 09/30/22 1729 Trans: 09/30/22 1744 [facility] [id number] Interpreted by: ANEL HAMILTON DO Electronically signed by: ANEL HAMILTON DO 09/30/22 1744 Reviewed: Reviewed by Me Departure Impression Primary Impression: Contusion of left elbow, initial encounter Additional Impressions: Contusion of left knee, initial encounter Fall Qualified Codes: W19.XXXA - Unspecified fall, initial encounter Disposition: HOME, SELF-CARE Condition: Stable Departure-Patient Inst. Decision time for Depature: 17:26 Referrals: JERROD SERRANO APRN (PCP) Primary Care Physician [facility] (Family) Primary Care Physician Patient Instructions: Knee Pain ED, Minor Contusion ED, Preventing Falls ED, Using Cold for Pain Add. Discharge Instructions: Your x-rays look okay and there is no signs of fractures or dislocation. Try to be more careful with your walking sticks to help try and prevent falls. You may use acetaminophen and/or ibuprofen to help with pain. Check back with your primary care provider for continued concerns. All discharge instructions reviewed with patient and/or family. Voiced understanding. LUIS LECHUGA MD Sep 30, 2022 17:27
[2022-09-30 17:28] VITALS: BP 150/95
[2022-09-30] MEDS ORDERED: ACETAMINOPHEN 500 MG TAB (TYLENOL) PO STA (17:31)
--- NOTE | 2022-09-30 17:32 | Diagnostic Imaging Report ---
EXAMINATION: Left elbow radiographs. EXAM DATE: 09/30/2022 5:10 PM. COMPARISON: None available. HISTORY: Pain after fall and hit elbow and knee TECHNIQUE: 3 views. FINDINGS: There is no acute fracture, dislocation or destructive osseous process. The joint spaces are normal. The soft tissues are normal. IMPRESSION: No acute osseous abnormality. Dictated by: Dictated on workstation # [id number]
--- NOTE | 2022-09-30 17:33 | Diagnostic Imaging Report ---
EXAMINATION: Left knee radiographs. EXAM DATE: 09/30/2022 5:11 PM. COMPARISON: 11/17/2020. HISTORY: Pain after fall and hit elbow and knee TECHNIQUE: 3 views. FINDINGS: There is no acute fracture, dislocation or destructive osseous process. Mild degenerative changes within the left knee with small osteophytes. No significant joint space narrowing or effusion. The soft tissues are normal. IMPRESSION: No acute osseous abnormality. Dictated by: Dictated on workstation # [id number]
== END 2022-09-30 17:38 | disposition home or self-care (01) ==
LOC: EDUNIT# 16:44 → ER FS 16:45
DX: S50.02XA Contusion of left elbow, initial encounter (principal); S80.02XA Contusion of left knee, initial encounter; F17.210 Nicotine dependence, cigarettes, uncomplicated; W18.30XA Fall on same level, unspecified, initial encounter
CPT/HCPCS: 73080; 73562

== ENCOUNTER 2022-10-03 13:20 | Emergency (ER) | payer MEDICARE, MEDICAID ==
[~2022-10-03] VITALS: Ht 172 cm; Wt 105.0 kg
[2022-10-03 14:40] VITALS: BP 141/77
[2022-10-03 14:41] LABS: AMPHETAMINE SCREEN, URINE NEGATIVE (NEGATIVE); BARBITURATE SCREEN URINE NEGATIVE (NEGATIVE); BENZODIAZEPINES SCREEN URINE NEGATIVE (NEGATIVE); CANNABINOID SCREEN, URINE NEGATIVE (NEGATIVE); COCAINE SCREEN URINE NEGATIVE (NEGATIVE); METHADONE STAT NEGATIVE (NEGATIVE); OPIATE SCREEN URINE NEGATIVE (NEGATIVE); OXYCODONE STAT NEGATIVE (NEGATIVE); PROPOXYPHENE STAT NEGATIVE (NEGATIVE); TRICYCLIC ANTIDEPRESSANTS SCRE POSITIVE (NEGATIVE)
--- NOTE | 2022-10-03 14:46 | Diagnostic Imaging Report ---
INDICATION: Left ankle pain, post rolling injury TECHNIQUE: Three views of the left ankle CORRELATION STUDY: None FINDINGS: The bony alignment is anatomic. The talar dome is intact. The ankle mortise is maintained. There is no acute fracture or dislocation. Moderate soft tissue edema. IMPRESSION: Negative for acute bony abnormality of the ankle. Dictated by: Dictated on workstation # [id number]
--- NOTE | 2022-10-03 14:49 | Diagnostic Imaging Report ---
INDICATION: Left foot pain post rolling injury. TECHNIQUE: 3 views of the left foot CORRELATION STUDY: None FINDINGS: The osseous structures of the foot are intact. Joint spaces are maintained. Mild degenerative changes talonavicular joint with minimal spurring. Alignment anatomic. Prominent soft tissue edema over the foot. IMPRESSION: 1. Negative for acute findings of the foot. Dictated by: Dictated on workstation # [id number]
--- NOTE | 2022-10-03 15:04 | ED Psychosocial ---
General Chief Complaint: Psych/Social Disorder Stated Complaint: SUICIDAL IDEATION Nursing Triage Note: Patient has ambulated to ER with cc of having suicidal thoughts that started today. He reports that he has not slept for the last 10 days. He denies any attempt to injury himself. He was brought to ER by his after being seen in the clinic. Source: patient, old records Exam Limitations: no limitations History of Present Illness Date Seen by Provider: Oct 03, 2022 Time Seen by Provider: 13:25 Initial Comments This 52-year-old gentleman presents to the emergency room with complaints of suicidal ideation. He has been seen numerous times for similar complaints. He was at the mental health clinic today and reported suicidal ideation and self- harm. Patient states he has been cutting with intent to kill himself. However, this assertion does not seem genuine either in his actions nor in his demeanor. The wounds he shows me appear old and are barely visible. He is jovial at times joking and laughing with the staff. Patient is well-known to this ER for sim ilar complaints. He reports smoking marijuana but denies any other substance abuse. He has been seen in this ER recently and had a general work-up with labs. Documentation and labs from that visit were reviewed. He also reports rolling his left ankle on the curb and having difficulty walking on it. Allergies and Home Medications Allergies Coded Allergies: aripiprazole (Verified Allergy, Unknown, hallucinations, 10/01/18) zolpidem (Verified Allergy, Unknown, hallucinations, 10/01/18) Patient Home Medication List Home Medication List Reviewed: Yes Budesonide/Formoterol Fumarate (Symbicort 160-4.5 Mcg Inhaler) 10.2 Gm Hfa.aer.ad, (Reported) Entered as Reported by: JAYDA CHRISTIANSEN on 10/01/181818 Citalopram Hydrobromide (Celexa) 40 Mg Tablet, (Reported) Entered as Reported by: SUJATA COLLINS on 09/06/182052 Clindamycin HCl (Clindamycin HCl) 300 Mg Capsule, 300 MG PO TIDWM Prescribed by: LINDEN MERCEDES on 10/24/192033 Dicyclomine HCl (Dicyclomine HCl) 20 Mg Tablet, 20 MG PO QID PRN for ABDOMINAL PAIN Prescribed by: LUIS LECHUGA on 10/01/18 0501 Guaifenesin/Codeine Phosphate (Codeine-Guaifen 10-100 mg/5 ml) 10 Mg-100 Mg/5 Ml Liquid, 5 ML PO Q6H PRN for cough Prescribed by: LUIS LECHUGA on 07/03/22 1422 Haloperidol (Haldol Tab) 5 Mg Tab, 10 MG PO HS, (Reported) Entered as Reported by: SUJATA COLLINS on 09/06/182052 Hydrocodone Bit/Acetaminophen (Lortab 5 Mg Tablet) 1 Tab Tab, 1 EACH PO Q4-6HR PRN for PAIN-MODERATE Prescribed by: HILDA YBARRA on 01/24/19 135 Ibuprofen (Ibuprofen) 800 Mg Tablet, 800 MG PO Q8H PRN for PAIN Prescribed by: LINDEN MERCEDES on 10/24/192033 Insulin Glargine,Hum.rec.anlog (Basaglar Kwikpen U-100) 100 Unit/1 Ml Insuln.pen, (Reported) Entered as Reported by: JAYDA CHRISTIANSEN on 10/01/18 181 Lorazepam (Lorazepam) 1 Mg Tablet, (Reported) Entered as Reported by: JAYDA CHRISTIANSEN on 10/01/18 181 Magnesium Citrate (Magnesium Citrate) 296 Ml Solution, 296 ML PO Q6H Prescribed by: HIDLA YBARRA on 01/30/19 125 Meloxicam (Meloxicam) 7.5 Mg Tablet, 7.5 MG PO DAILY Prescribed by: LUIS LECHUGA on 10/30/21 1139 Ondansetron (Ondansetron Odt) 4 Mg Tab.rapdis, 4 MG PO Q6H PRN for NAUSEA/VOMITING Prescribed by: LUIS LECHUGA on 07/23/19 215 Polyethylene Glycol 3350 (Miralax) 17 Gram/Dose Powder, 17 GM PO DAILY PRN for CONSTIPATION-1ST LINE Prescribed by: LUIS LECHUGA on 10/30/21 113 Psyllium Husk (Metamucil) 0.4 Gm Capsule, 0.4 GM PO DAILY Prescribed by: HILDA YBARRA on 01/30/19 1258 Simvastatin (Zocor) 40 Mg Tablet, HS, (Reported) Entered as Reported by: SUJATA COLLINS on 09/06/182052 Tramadol HCl (Tramadol HCl) 50 Mg Tablet, 50 MG PO Q4H PRN for PAIN-MILD (1-4) Prescribed by: HILDA YBARRA on 11/09/21 1624 [Lorazepam Tab 1MG] , (Reported) Entered as Reported by: SUJATA COLLINS on 09/06/182035 [Metformin Tab 500MG] , (Reported) Entered as Reported by: SUJATA COLLINS on 09/06/182035 [Phenytoin Ex Cap 100MG] , (Reported) Entered as Reported by: SUJATA COLLINS on 09/06/182035 [Pot Cl Micro Tab 20MEQ Er] , (Reported) Entered as Reported by: SUJATA COLLINS on 09/06/182035 [Risperidone Tab 3MG] , (Reported) Entered as Reported by: SUJATA COLLINS on 09/06/182035 Review of Systems Constitutional: no symptoms reported EENTM: no symptoms reported Respiratory: no symptoms reported Cardiovascular: no symptoms reported Gastrointestinal: no symptoms reported Genitourinary: no symptoms reported Musculoskeletal: see HPI Skin: see HPI Psychiatric/Neurological: See HPI Past Kzsdetu-Gwohqi-Jkypdq Hx Patient Social History Tobacco Use?: Yes Tobacco type used: Cigars, Cigarettes Use of E-Cig and/or Vaping dev: No Substance use?: Yes Substance type: Marijuana Substance frequency: Daily Alcohol Use?: No Pt feels they are or have been: Unable to obtain Immunizations Up To Date First/Initial COVID19 Vaccinat: unknown date Second COVID19 Vaccination Brody: unknown date Third COVID19 Vaccination Date: unknown date Seasonal Allergies Seasonal Allergies: No Past Medical History Surgery/Hospitalization HX: Pseudoseizure, Headaches, neck surgery Surgeries: Yes (cystoscopy) Gallbladder, Orthopedic Respiratory: Yes Asthma Cardiac: No Neurological: Yes (PSEUDOSEIZURES) Headaches /Migraines, Seizure Disorder, Traumatic Brain Injury Genitourinary: No Gastrointestinal: Yes Gastroesophageal Reflux, Hepatitis, Cirrhosis Musculoskeletal: No Endocrine: Yes Diabetes, Insulin dep HEENT: No Cancer: No Psychosocial: No (Suicidal and homicidal ideation hx) Bipolar, Personality Disorder Integumentary: No Blood Disorders: No Family Medical History No Pertinent Family Hx Physical Exam Vital Signs - First Documented 10/03/22 14:40 Temp 36.2 Pulse 94 Resp 18 B/P (MAP) 141/77 (98) Pulse Ox 94 O2 Delivery Room Air Capillary Refill : Height, Weight, BMI Height: 5'8.00" Weight: 220lbs. oz. 99.418980qt; 35.00 BMI Method:Stated General Appearance: WD/WN HEENT: normal ENT inspection Neck: normal inspection Respiratory: lungs clear, normal breath sounds Cardiovascular: regular rate, rhythm, no edema, no murmur Gastrointestinal: non tender, soft Extremities: other (Generalized tenderness about the left ankle with no visible injury. Tenderness along the lateral foot at the fifth metatarsal with no visible injury. 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 No other substances were found in the toxicology screen. Patient had a screen from [facility]. Safety plan was developed and patient was discharged. X-rays of the left foot and ankle were unremarkable. Radiologist's reports were reviewed. Diagnostic Imaging Diagonstic Imaging: Xray Plain Films/CT/US/NM/MRI: ankle Comments NAME: PABLO SCOTT [facility] REC#: [id number] PT STATUS: REG ER : 1970 PHYSICIAN: DIMITRI SHELBY MD ADMIT DATE: 10/03/22/ER FS Signed Date of Exam:10/03/22 ANKLE 3 VIEW LEFT INDICATION: Left ankle pain, post rolling injury TECHNIQUE: Three views of the left ankle CORRELATION STUDY: None FINDINGS: The bony alignment is anatomic. The talar dome is intact. The ankle mortise is maintained. There is no acute fracture or dislocation. Moderate soft tissue edema. IMPRESSION: Negative for acute bony abnormality of the ankle. Dictated by: Dictated on workstation # [id number] Dict: 10/03/22 1445 Trans: 10/03/22 1602 DO [id number] Interpreted by: DARINEL MENDOZA DO Electronically signed by: DARINEL MENDOZA DO 10/03/22 1602 Plain Films/CT/US/NM/MRI: other (Left foot) Comments NAME: PABLO SCOTT [facility] REC#: [id number] PT STATUS: REG ER : 1970 PHYSICIAN: DIMITRI SHELBY MD ADMIT DATE: 10/03/22/ER FS Signed Date of Exam:10/03/22 FOOT 3 VIEW LEFT INDICATION: Left foot pain post rolling injury. TECHNIQUE: 3 views of the left foot CORRELATION STUDY: None FINDINGS: The osseous structures of the foot are intact. Joint spaces are maintained. Mild degenerative changes talonavicular joint with minimal spurring. Alignment anatomic. Prominent soft tissue edema over the foot. IMPRESSION: 1. Negative for acute findings of the foot. Dictated by: Dictated on workstation # [id number] Dict: 10/03/22 1447 Trans: 10/03/22 160 CHEEL [id number] Interpreted by: DARINEL MENDOZA DO Electronically signed by: DARINEL MENDOZA DO 10/03/22 1602 Departure Impression Primary Impression: Suicidal ideation Additional Impression: Left ankle injury Qualified Codes: S99.912A - Unspecified injury of left ankle, initial encounter Disposition: HOME, SELF-CARE Condition: Improved Departure-Patient Inst. Decision time for Depature: 15:48 Referrals: JERROD SERRANO APRN (PCP) Primary Care Physician [facility] (Family) Primary Care Physician Patient Instructions: Suicide Prevention, Ankle Sprain ED Add. Discharge Instructions: Follow your safety plan as described. Follow-up with your primary care provider and behavioral health provider soon as possible. Return to care if you have worsening symptoms and need emergent care. You may have a mild ankle sprain. You may use a compressive wrap such as an Ammon bandage for support and comfort. Use Tylenol (acetaminophen) up to 1000 mg every 6 hours as needed for pain. Elevate to reduce pain and swelling. You may ice in 20-minute intervals. All discharge instructions reviewed with patient and/or family. Voiced understanding. Copy Copies To 1: [facility]/DIMITRI RINALDI MD Oct 03, 2022 15:04
== END 2022-10-03 15:55 | disposition home or self-care (01) ==
LOC: EDUNIT# 13:20 → ER FS 13:23
DX: S99.912A Unspecified injury of left ankle, initial encounter (principal); R45.851 Suicidal ideations; F17.210 Nicotine dependence, cigarettes, uncomplicated; F17.290 Nicotine dependence, other tobacco product, uncomplicated; X58.XXXA Exposure to other specified factors, initial encounter
CPT/HCPCS: 73610; 73630; 80306; 99285

== ENCOUNTER → 2022-10-05 | Outpatient (CLI) | payer MEDICARE, MEDICAID ==
--- NOTE | 2022-10-05 15:19 | Diagnostic Imaging Report ---
INDICATION: Ankle injury. EXAMINATION: Left ankle, 10/05/2022. COMPARISON: 10/03/2022. FINDINGS: 3 views of the ankle. Mild irregularity seen along the dorsal border of the navicular which could represent spurring with a small avulsion fracture not excluded. Correlate for point tenderness. The remaining osseous structures intact. No dislocation. Soft tissue swelling is seen about the ankle. IMPRESSION: 1. Questionable avulsion fracture along the dorsum of the navicular versus spurring. 2. Diffuse soft tissue swelling. Dictated by: Dictated on workstation # [id number]
== END ==
LOC: RAD FS 14:09
PROVIDERS: ATTEND Nurse Practitioner Family
DX: S99.912D Unspecified injury of left ankle, subsequent encounter (principal); X58.XXXD Exposure to other specified factors, subsequent encounter
CPT/HCPCS: 73610

== ENCOUNTER 2022-10-10 09:08 | Emergency (ER) | payer MEDICARE, MEDICAID ==
[~2022-10-10] VITALS: Ht 170 cm; Wt 117.9 kg
[2022-10-10 09:10] VITALS: BP 142/96
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
== END 2022-10-10 10:10 | disposition home or self-care (01) ==
LOC: EDUNIT# 09:08 → ER FS 09:09
DX: S50.312A Abrasion of left elbow, initial encounter (principal); F69 Unspecified disorder of adult personality and behavior; M54.50 Low back pain, unspecified; V19.9XXA Pedal cyclist (driver) (passenger) injured in unspecified traffic accident, initial encounter; Y92.410 Unspecified street and highway as the place of occurrence of the external cause
CPT/HCPCS: 70450; 72125; 72131

== ENCOUNTER 2022-10-12 13:59 | Emergency (ER) | payer MEDICARE, MEDICAID ==
[2022-10-12] MEDS ORDERED: PROMETHAZINE 25 MG (PHENERGAN) TAB PO STA (14:05)
[2022-10-12] MEDS ORDERED: IBUPROFEN 800 MG (MOTRIN) TAB PO STA (14:05)
[2022-10-12] MEDS ORDERED: PROM25TA14 PO (14:28)
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
[2022-10-12 14:34] VITALS: BP 135/70
--- NOTE | 2022-10-12 14:34 | Diagnostic Imaging Report ---
PROCEDURE: CT head without contrast. TECHNIQUE: Multiple contiguous axial images were obtained through the brain without the use of intravenous contrast. Auto Exposure Controls were utilized during the CT exam to meet ALARA standards for radiation dose reduction. INDICATION: Pseudoseizure activity, head pain, patient had a fall. Noncontrasted head CT performed. There is no hemorrhage, hydrocephalus, cerebral edema, mass, mass effect nor evidence for an elevation of the intracranial pressures. The basilar cisterns are patent and there is no sulcal effacement orbits and calvarium nonacute. There is lobular membrane thickening in the maxillary sinuses as well as a few ethmoid air cells. No paranasal sinus air-fluid level. There is no mastoid effusion. No facial fracture evident. IMPRESSION: No hemorrhage, edema or acute intracerebral pathology. Chronic appearing paranasal sinus membrane disease without fracture or hemo-sinus. Dictated by: Dictated on workstation # [id number]
--- NOTE | 2022-10-12 14:53 | Diagnostic Imaging Report ---
INDICATION: Left foot pain. TIME OF EXAM: 2:15 PM, EXAMINATION: Three views of the left foot were obtained. FINDINGS: Metatarsals are intact. Phalanges are intact. Midfoot and hindfoot are unremarkable. No fracture is seen. IMPRESSION: No acute bony abnormality is detected. Dictated by: Dictated on workstation # [id number]
== END 2022-10-12 14:34 | disposition home or self-care (01) ==
LOC: EDUNIT# 13:59 → ER FS 14:00
DX: S93.602A Unspecified sprain of left foot, initial encounter (principal); F43.9 Reaction to severe stress, unspecified; R11.2 Nausea with vomiting, unspecified; M79.10 Myalgia, unspecified site; E11.9 Type 2 diabetes mellitus without complications; F17.210 Nicotine dependence, cigarettes, uncomplicated; Z79.4 Long term (current) use of insulin; V29.99XA Rider (driver) (passenger) of other motorcycle injured in unspecified traffic accident, initial encounter; Y92.89 Other specified places as the place of occurrence of the external cause
CPT/HCPCS: 70450; 73630

== ENCOUNTER 2022-10-25 21:30 | Emergency (ER) | payer MEDICARE, MEDICAID ==
[~2022-10-25] VITALS: Ht 172.7 cm; Wt 104.3 kg
[~2022-10-25 21:30] MED LIST changes: +PROM25TA14 PO
[2022-10-25 21:32] VITALS: BP 160/82
--- NOTE | 2022-10-25 22:33 | ED Psychosocial ---
General Chief Complaint: Substance Abuse Stated Complaint: SUBSTANCE ABUSE Nursing Triage Note: Patient was brought in via EMS. Patient states that he "smoked some pot because it is 10/25". Patient reports that he also take psych meds. Patient got scared and called EMS. Patient states that he doesn't do it often and he is feeling better. Source: patient, EMS Exam Limitations: no limitations History of Present Illness Date Seen by Provider: Oct 25, 2022 Time Seen by Provider: 21:32 Initial Comments 52-year-old male well-known to myself that presented to the ER after he smoked marijuana and felt high. He states he does not need to be here, and just was feeling extra high in the moment. He denies any chest pain, shortness of breath, abdominal pain, nausea, vomiting, diarrhea, fever, chills, weakness, numbness, or any other concerns. He is not suicidal or homicidal at this time. He has someone that can pick him up and be with him to keep him safe. Allergies and Home Medications Allergies Coded Allergies: aripiprazole (Verified Allergy, Unknown, hallucinations, 10/01/18) zolpidem (Verified Allergy, Unknown, hallucinations, 10/01/18) Patient Home Medication List Home Medication List Reviewed: Yes Budesonide/Formoterol Fumarate (Symbicort 160-4.5 Mcg Inhaler) 10.2 Gm Hfa.aer.ad, (Reported) Entered as Reported by: JAYDA CHRISTIANSEN on 10/01/181818 Citalopram Hydrobromide (Celexa) 40 Mg Tablet, (Reported) Entered as Reported by: SUJATA COLLINS on 09/06/182052 Clindamycin HCl (Clindamycin HCl) 300 Mg Capsule, 300 MG PO TIDWM Prescribed by: LINDEN MERCEDES on 10/24/192033 Dicyclomine HCl (Dicyclomine HCl) 20 Mg Tablet, 20 MG PO QID PRN for ABDOMINAL PAIN Prescribed by: LUIS LECHUGA on 10/01/18 0501 Guaifenesin/Codeine Phosphate (Codeine-Guaifen 10-100 mg/5 ml) 10 Mg-100 Mg/5 Ml Liquid, 5 ML PO Q6H PRN for cough Prescribed by: LUIS LECHUGA on 07/03/22 1422 Haloperidol (Haldol Tab) 5 Mg Tab, 10 MG PO HS, (Reported) Entered as Reported by: SUJATA COLLINS on 09/06/182052 Hydrocodone Bit/Acetaminophen (Lortab 5 Mg Tablet) 1 Tab Tab, 1 EACH PO Q4-6HR PRN for PAIN-MODERATE Prescribed by: HILDA YBARRA on 01/24/19 135 Ibuprofen (Ibuprofen) 800 Mg Tablet, 800 MG PO Q8H PRN for PAIN Prescribed by: LINDEN MERCEDES on 10/24/192033 Insulin Glargine,Hum.rec.anlog (Basaglar Kwikpen U-100) 100 Unit/1 Ml Insuln.pen, (Reported) Entered as Reported by: JAYDA CHRISTIANSEN on 10/01/181818 Lorazepam (Lorazepam) 1 Mg Tablet, (Reported) Entered as Reported by: JAYDA CHRISTIANSEN on 10/01/181818 Magnesium Citrate (Magnesium Citrate) 296 Ml Solution, 296 ML PO Q6H Prescribed by: HILDA YBARRA on 01/30/19 1258 Meloxicam (Meloxicam) 7.5 Mg Tablet, 7.5 MG PO DAILY Prescribed by: LUIS Torres ENYART on 10/30/21 1139 Ondansetron (Ondansetron Odt) 4 Mg Tab.rapdis, 4 MG PO Q6H PRN for NAUSEA/VOMITING Prescribed by: LUIS Torres ENYART on 07/23/19 2150 Polyethylene Glycol 3350 (Miralax) 17 Gram/Dose Powder, 17 GM PO DAILY PRN for CONSTIPATION-1ST LINE Prescribed by: LUIS NATIONRT on 10/30/21 1139 Promethazine HCl (Promethazine Tablet) 25 Mg Tablet, 25 MG PO Q12H PRN for NAUSEA/VOMITING Prescribed by: LUIS NATIONRT on 10/12/22 1428 Psyllium Husk (Metamucil) 0.4 Gm Capsule, 0.4 GM PO DAILY Prescribed by: HILDA YBARRA on 01/30/19 1258 Simvastatin (Zocor) 40 Mg Tablet, HS, (Reported) Entered as Reported by: SUJATA COLLINS on 09/06/182052 Tramadol HCl (Tramadol HCl) 50 Mg Tablet, 50 MG PO Q4H PRN for PAIN-MILD (1-4) Prescribed by: HILDA YBARRA on 11/09/21 1624 [Lorazepam Tab 1MG] , (Reported) Entered as Reported by: SUJATA COLLINS on 09/06/182035 [Metformin Tab 500MG] , (Reported) Entered as Reported by: SUJATA COLLINS on 09/06/182035 [Phenytoin Ex Cap 100MG] , (Reported) Entered as Reported by: SUJATA COLLINS on 09/06/182035 [Pot Cl Micro Tab 20MEQ Er] , (Reported) Entered as Reported by: SUJATA COLLINS on 09/06/182035 [Risperidone Tab 3MG] , (Reported) Entered as Reported by: SUJATA COLLINS on 09/06/182035 Review of Systems Constitutional: No fever Cardiovascular: no symptoms reported Gastrointestinal: no symptoms reported Genitourinary: no symptoms reported Musculoskeletal: no symptoms reported Past Aldsndk-Hdovod-Habkqm Hx Patient Social History Tobacco Use?: Yes Tobacco type used: Cigarettes Smoking Status: Current Everyday Smoker Substance use?: Yes Substance type: Marijuana Alcohol Use?: No Pt feels they are or have been: No Immunizations Up To Date First/Initial COVID19 Vaccinat: unknown date Second COVID19 Vaccination Brody: unknown date Third COVID19 Vaccination Date: unknown date Seasonal Allergies Seasonal Allergies: No Past Medical History Surgery/Hospitalization HX: Pseudoseizure, Headaches, neck surgery Surgeries: Yes (cystoscopy) Gallbladder, Orthopedic Respiratory: Yes Asthma Cardiac: No Neurological: Yes (PSEUDOSEIZURES) Headaches /Migraines, Seizure Disorder, Traumatic Brain Injury Genitourinary: No Gastrointestinal: Yes Gastroesophageal Reflux, Hepatitis, Cirrhosis Musculoskeletal: No Endocrine: Yes Diabetes, Insulin dep HEENT: No Cancer: No Psychosocial: Yes (Suicidal and homicidal ideation hx) Bipolar, Personality Disorder Integumentary: No Blood Disorders: No Family Medical History No Pertinent Family Hx Physical Exam Vital Signs - First Documented 10/25/22 21:32 Temp 37.0 Pulse 96 Resp 16 B/P (MAP) 160/82 (108) Pulse Ox 94 O2 Delivery Room Air Capillary Refill : Less Than 3 Seconds Height, Weight, BMI Height: 5'8.00" Weight: 220lbs. oz. 99.221331hf; 34.00 BMI Method:Stated General Appearance: WD/WN, no apparent distress HEENT: PERRL/EOMI, normal ENT inspection, pharynx normal Neck: non-tender, full range of motion, supple, normal inspection Respiratory: chest non-tender, lungs clear, normal breath sounds, no respiratory distress, no accessory muscle use Cardiovascular: regular rate, rhythm, no edema, no murmur Gastrointestinal: normal bowel sounds, non tender, soft; No distended, No guarding, No rebound Extremities: normal range of motion, non-tender, normal inspection, no pedal edema, no calf tenderness, normal capillary refill Neurologic/Psychiatric: no motor/sensory deficits, alert, normal mood/affect, oriented x 3, other (Walking around, talking at his baseline) Skin: normal color, warm/dry Progress/Results/Core Measures Results/Orders Vital Signs/I&O 10/25/22 21:32 Temp 37.0 Pulse 96 Resp 16 B/P (MAP) 160/82 (108) Pulse Ox 94 O2 Delivery Room Air Blood Pressure Mean: 108 Progress Progress Note : Progress Note Patient presented after he smoked marijuana and felt high. History obtained from EMS providers as well. ABCs were intact and vitals were stable on presentation. Physical exam reassuring with no acute abnormalities. He is ambulating, and appears at his baseline from a multiple prior visits where I have seen him. He is not suicidal or homicidal. Immediately upon arrival the patient was asking to be discharged, stating he does not need to be here. He has a safe place to go with someone to watch him. He was then discharged home in stable condition with strict return precautions. Departure Impression Primary Impression: Marijuana use Disposition: 01 HOME, SELF-CARE Condition: Stable Departure-Patient Inst. Referrals: [facility] (Family) Primary Care Physician JERROD SERRANO APRN (PCP) Primary Care Physician Patient Instructions: ALCOHOL AND SUBSTANCE ABUSE ZANDRA ONEAL MD Oct 25, 2022 22:33
== END 2022-10-25 21:56 | disposition home or self-care (01) ==
LOC: EDUNIT# 21:30 → ER FS 21:31
DX: F12.90 Cannabis use, unspecified, uncomplicated (principal); F17.210 Nicotine dependence, cigarettes, uncomplicated; Z28.310 Unvaccinated for COVID-19
CPT/HCPCS: 99283

== ENCOUNTER 2022-11-08 19:50 | Emergency (ER) | payer MEDICARE, MEDICAID ==
[~2022-11-08] VITALS: Ht 170.1 cm; Wt 81.6 kg
[2022-11-08 19:54] VITALS: BP 160/98
--- NOTE | 2022-11-08 20:00 | ED Integumentary General ---
General Stated Complaint: L LEG DOG BITE History of Present Illness Date Seen by Provider: November 08, 2022 Time Seen by Provider: 19:56 Initial Comments 52-year-old male presents with a dog bite to his left calf. Is very small, very minimal to no abrasion with little bit of bruising. He is up-to-date on his tetanus. No other complaints Allergies and Home Medications Allergies Coded Allergies: aripiprazole (Verified Allergy, Unknown, hallucinations, 10/01/18) zolpidem (Verified Allergy, Unknown, hallucinations, 10/01/18) Patient Home Medication List Home Medication List Reviewed: Yes Budesonide/Formoterol Fumarate (Symbicort 160-4.5 Mcg Inhaler) 10.2 Gm Hfa.aer.ad, (Reported) Entered as Reported by: JAYDA CHRISTIANSEN on 10/01/181818 Citalopram Hydrobromide (Celexa) 40 Mg Tablet, (Reported) Entered as Reported by: SUJATA COLLINS on 09/06/182052 Clindamycin HCl (Clindamycin HCl) 300 Mg Capsule, 300 MG PO TIDWM Prescribed by: LINDEN MERCEDES on 10/24/192033 Dicyclomine HCl (Dicyclomine HCl) 20 Mg Tablet, 20 MG PO QID PRN for ABDOMINAL PAIN Prescribed by: LUIS LECHUGA on 10/01/18 0501 Guaifenesin/Codeine Phosphate (Codeine-Guaifen 10-100 mg/5 ml) 10 Mg-100 Mg/5 Ml Liquid, 5 ML PO Q6H PRN for cough Prescribed by: LUIS LECHUGA on 07/03/22 1422 Haloperidol (Haldol Tab) 5 Mg Tab, 10 MG PO HS, (Reported) Entered as Reported by: SUJATA COLLINS on 09/06/182052 Hydrocodone Bit/Acetaminophen (Lortab 5 Mg Tablet) 1 Tab Tab, 1 EACH PO Q4-6HR PRN for PAIN-MODERATE Prescribed by: HILDA YBARRA on 01/24/19 1351 Ibuprofen (Ibuprofen) 800 Mg Tablet, 800 MG PO Q8H PRN for PAIN Prescribed by: LINDEN MERCEDES on 10/24/192033 Insulin Glargine,Hum.rec.anlog (Basaglar Kwikpen U-100) 100 Unit/1 Ml Insuln.pen, (Reported) Entered as Reported by: JAYDA CHRISTIANSEN on 10/01/181818 Lorazepam (Lorazepam) 1 Mg Tablet, (Reported) Entered as Reported by: JAYDA CHRISTIANSEN on 10/01/181818 Magnesium Citrate (Magnesium Citrate) 296 Ml Solution, 296 ML PO Q6H Prescribed by: HILDA YBARRA on 01/30/19 1258 Meloxicam (Meloxicam) 7.5 Mg Tablet, 7.5 MG PO DAILY Prescribed by: LUIS LECHUGA on 10/30/21 1139 Ondansetron (Ondansetron Odt) 4 Mg Tab.rapdis, 4 MG PO Q6H PRN for NAUSEA/VOMITING Prescribed by: LUIS NATIONRT on 07/23/19 215 Polyethylene Glycol 3350 (Miralax) 17 Gram/Dose Powder, 17 GM PO DAILY PRN for CONSTIPATION-1ST LINE Prescribed by: LUIS NATIONRT on 10/30/21 1139 Promethazine HCl (Promethazine Tablet) 25 Mg Tablet, 25 MG PO Q12H PRN for NAUSEA/VOMITING Prescribed by: LUIS LECHUGA on 10/12/22 1428 Psyllium Husk (Metamucil) 0.4 Gm Capsule, 0.4 GM PO DAILY Prescribed by: HILDA YBARRA on 01/30/19 1258 Simvastatin (Zocor) 40 Mg Tablet, HS, (Reported) Entered as Reported by: SUJATA COLLINS on 09/06/182052 Tramadol HCl (Tramadol HCl) 50 Mg Tablet, 50 MG PO Q4H PRN for PAIN-MILD (1-4) Prescribed by: HILDA YBARRA on 11/09/21 1624 [Lorazepam Tab 1MG] , (Reported) Entered as Reported by: SUJATA COLLINS on 09/06/182035 [Metformin Tab 500MG] , (Reported) Entered as Reported by: SUJATA COLLINS on 09/06/182035 [Phenytoin Ex Cap 100MG] , (Reported) Entered as Reported by: SUJATA COLLINS on 09/06/182035 [Pot Cl Micro Tab 20MEQ Er] , (Reported) Entered as Reported by: SUJATA COLLINS on 09/06/182035 [Risperidone Tab 3MG] , (Reported) Entered as Reported by: SUJATA COLLINS on 09/06/182035 Review of Systems Review of Systems Constitutional: no symptoms reported Skin: see HPI Past Xdopurb-Sjrzts-Lqabwx Hx Immunizations Up To Date First/Initial COVID19 Vaccinat: unknown date Second COVID19 Vaccination Brody: unknown date Third COVID19 Vaccination Date: unknown date Seasonal Allergies Seasonal Allergies: No Past Medical History Surgery/Hospitalization HX: Pseudoseizure, Headaches, neck surgery Surgeries: Yes (cystoscopy) Gallbladder, Orthopedic Respiratory: Yes Asthma Cardiac: No Neurological: Yes (PSEUDOSEIZURES) Headaches /Migraines, Seizure Disorder, Traumatic Brain Injury Genitourinary: No Gastrointestinal: Yes Gastroesophageal Reflux, Hepatitis, Cirrhosis Musculoskeletal: No Endocrine: Yes Diabetes, Insulin dep HEENT: No Cancer: No Psychosocial: Yes (Suicidal and homicidal ideation hx) Bipolar, Personality Disorder Integumentary: No Blood Disorders: No Family Medical History No Pertinent Family Hx Physical Exam Vital Signs Capillary Refill : General Appearance: WD/WN, no apparent distress Neck: full range of motion, supple Cardiovascular: normal peripheral pulses, regular rate, rhythm Extremities: normal range of motion, non-tender Neurologic/Psychiatric: alert, normal mood/affect, oriented x 3 Skin: other Skin Problem Location: lower extremities Skin Problem Character: other (Small amount of bruising with very minimal abrasion but no obvious puncture wound) Progress/Results/Core Measures Progress Progress Note : Progress Note Patient with a dog bite with known dog. No puncture wound noted. Mild bruising and mild abrasion. Discussed supportive care. Patient stable discharged home. He is up-to-date on his tetanus. Departure Impression Primary Impression: Dog bite of calf Qualified Codes: S81.851A - Open bite, right lower leg, initial encounter; W54.0XXA - Bitten by dog, initial encounter Disposition: 01 HOME, SELF-CARE Condition: Stable Departure-Patient Inst. Referrals: JERROD SERRANO APRN (PCP) Primary Care Physician [facility] (Family) Primary Care Physician Patient Instructions: Animal Bites ED Add. Discharge Instructions: Keep clean with warm soapy water. You may put bacitracin or similar [id number]-[id number] topical antibiotic on it. Follow-up with your primary care provider as needed MARISOL RICE DO November 08, 2022 20:00
== END 2022-11-08 20:06 | disposition home or self-care (01) ==
LOC: EDUNIT# 19:50 → ER FS 19:52
DX: S81.852A Open bite, left lower leg, initial encounter (principal); Z28.310 Unvaccinated for COVID-19; W54.0XXA Bitten by dog, initial encounter
CPT/HCPCS: 99283

== ENCOUNTER 2023-01-18 14:41 | Emergency (ER) | payer MEDICARE, MEDICAID ==
[~2023-01-18] VITALS: Ht 172.7 cm; Wt 108.9 kg
--- NOTE | 2023-01-18 15:37 | ED General ---
General Chief Complaint: General Problems/Pain Stated Complaint: NEAR SYNCOPE Nursing Triage Note: PT AMBULATE TO ROOM FS02 FROM [facility] WITH C/O ACID REFLUX. PT REPORTS THINKING HIS BLOOD SUGAR WAS LOW WHILE AT THE [facility]. PT DENIES ANY C/O HYPOGLYCEMIA UPON ARRIVAL. Source of Information: Patient, EMS Exam Limitations: No Limitations History of Present Illness Date Seen by Provider: Jan 18, 2023 Time Seen by Provider: 14:50 Initial Comments This 52-year-old gentleman presents to the emergency room via EMS. He was picked up at [facility] when he thought he was having a low blood sugar episode. He lowered himself to the ground. Blood sugar was 175 per EMS. Vital signs were unremarkable. Patient complains of sore throat and a vague generalized ill feeling. He has had a slight dry cough recently but no fever or other acute symptoms. Allergies and Home Medications Allergies Coded Allergies: aripiprazole (Verified Allergy, Unknown, hallucinations, 10/01/18) zolpidem (Verified Allergy, Unknown, hallucinations, 10/01/18) Patient Home Medication List Home Medication List Reviewed: Yes Budesonide/Formoterol Fumarate (Symbicort 160-4.5 Mcg Inhaler) 10.2 Gm Hfa.aer.ad, (Reported) Entered as Reported by: JAYDA CHRISTIANSEN on 10/01/181818 Citalopram Hydrobromide (Celexa) 40 Mg Tablet, (Reported) Entered as Reported by: SUJATA COLLINS on 09/06/182052 Clindamycin HCl (Clindamycin HCl) 300 Mg Capsule, 300 MG PO TIDWM Prescribed by: LINDEN MERCEDES on 10/24/192033 Dicyclomine HCl (Dicyclomine HCl) 20 Mg Tablet, 20 MG PO QID PRN for ABDOMINAL PAIN Prescribed by: LUIS LECHUGA on 10/01/18 0501 Guaifenesin/Codeine Phosphate (Codeine-Guaifen 10-100 mg/5 ml) 10 Mg-100 Mg/5 Ml Liquid, 5 ML PO Q6H PRN for cough Prescribed by: LUIS LECHUGA on 07/03/22 1422 Haloperidol (Haldol Tab) 5 Mg Tab, 10 MG PO HS, (Reported) Entered as Reported by: SUJATA COLLINS on 09/06/182052 Hydrocodone Bit/Acetaminophen (Lortab 5 Mg Tablet) 1 Tab Tab, 1 EACH PO Q4-6HR PRN for PAIN-MODERATE Prescribed by: HILDA YBARRA on 01/24/19 135 Ibuprofen (Ibuprofen) 800 Mg Tablet, 800 MG PO Q8H PRN for PAIN Prescribed by: LINDEN LEIJASTPIERRE on 10/24/192033 Insulin Glargine,Hum.rec.anlog (Basaglar Kwikpen U-100) 100 Unit/1 Ml Insuln.pen, (Reported) Entered as Reported by: JAYDA CHRISTIANSEN on 10/01/181818 Lorazepam (Lorazepam) 1 Mg Tablet, (Reported) Entered as Reported by: JAYDA CHRISTIANSEN on 10/01/181818 Magnesium Citrate (Magnesium Citrate) 296 Ml Solution, 296 ML PO Q6H Prescribed by: HILDA YBARRA on 01/30/19 1258 Meloxicam (Meloxicam) 7.5 Mg Tablet, 7.5 MG PO DAILY Prescribed by: LUIS NATIONRT on 10/30/21 1139 Ondansetron (Ondansetron Odt) 4 Mg Tab.rapdis, 4 MG PO Q6H PRN for NAUSEA/VOMITING Prescribed by: LUIS Torres ENYART on 07/23/19 2150 Polyethylene Glycol 3350 (Miralax) 17 Gram/Dose Powder, 17 GM PO DAILY PRN for CONSTIPATION-1ST LINE Prescribed by: LUIS Torres ENBLOSSOMRT on 10/30/21 1139 Promethazine HCl (Promethazine Tablet) 25 Mg Tablet, 25 MG PO Q12H PRN for NAUSEA/VOMITING Prescribed by: LUIS LECHUGA on 10/12/22 1428 Psyllium Husk (Metamucil) 0.4 Gm Capsule, 0.4 GM PO DAILY Prescribed by: HILDA YBARRA on 01/30/19 1258 Simvastatin (Zocor) 40 Mg Tablet, HS, (Reported) Entered as Reported by: SUJATA COLLINS on 09/06/182052 Tramadol HCl (Tramadol HCl) 50 Mg Tablet, 50 MG PO Q4H PRN for PAIN-MILD (1-4) Prescribed by: HILDA YBARRA on 11/09/21 1624 [Lorazepam Tab 1MG] , (Reported) Entered as Reported by: SUJATA COLLINS on 09/06/182035 [Metformin Tab 500MG] , (Reported) Entered as Reported by: SUJATA COLLINS on 09/06/182035 [Phenytoin Ex Cap 100MG] , (Reported) Entered as Reported by: SUJATA COLLINS on 09/06/182035 [Pot Cl Micro Tab 20MEQ Er] , (Reported) Entered as Reported by: SUJATA COLLINS on 09/06/182035 [Risperidone Tab 3MG] , (Reported) Entered as Reported by: SUJATA COLLINS on 09/06/182035 Review of Systems Review of Systems Constitutional: see HPI EENTM: see HPI Respiratory: see HPI Cardiovascular: no symptoms reported Gastrointestinal: no symptoms reported Genitourinary: no symptoms reported Musculoskeletal: no symptoms reported Skin: no symptoms reported Psychiatric/Neurological: No Symptoms Reported Hematologic/Lymphatic: No Symptoms Reported Immunological/Allergic: no symptoms reported Past Enrxfbg-Gypnqk-Tyidfn Hx Patient Social History Tobacco Use?: Yes Tobacco type used: Cigarettes Smoking Status: Current Everyday Smoker Smokeless Tobacco Frequency: Never a User Use of E-Cig and/or Vaping dev: No Substance use?: Yes Substance type: Marijuana Substance frequency: Once in a while Alcohol Use?: No Pt feels they are or have been: No Immunizations Up To Date First/Initial COVID19 Vaccinat: unknown date Second COVID19 Vaccination Brody: unknown date Third COVID19 Vaccination Date: unknown date Seasonal Allergies Seasonal Allergies: No Past Medical History Surgery/Hospitalization HX: Pseudoseizure, Headaches, neck surgery Surgeries: Yes (cystoscopy) Gallbladder, Orthopedic Respiratory: Yes Asthma Cardiac: No Neurological: Yes (PSEUDOSEIZURES) Headaches /Migraines, Seizure Disorder, Traumatic Brain Injury Genitourinary: No Gastrointestinal: Yes Gastroesophageal Reflux, Hepatitis, Cirrhosis Musculoskeletal: No Endocrine: Yes Diabetes, Insulin dep HEENT: No Cancer: No Psychosocial: Yes (Suicidal and homicidal ideation hx) Bipolar, Personality Disorder Integumentary: No Blood Disorders: No Family Medical History No Pertinent Family Hx Physical Exam Vital Signs Vital Signs - First Documented 01/18/23 14:41 Temp 36.1 Pulse 90 Resp 16 B/P (MAP) 130/86 (101) O2 Delivery Room Air Capillary Refill : Less Than 3 Seconds Height, Weight, BMI Height: 5'8.00" Weight: 220lbs. oz. [id number]; 36.00 BMI Method:Stated General Appearance: No Apparent Distress, WD/WN HEENT: PERRL/EOMI, Normal ENT Inspection, Pharynx Normal Neck: Normal Inspection Respiratory: Lungs Clear, Normal Breath Sounds, No Accessory Muscle Use Cardiovascular: Regular Rate, Rhythm, No Edema, No Murmur Neurologic/Psychiatric: Alert, Oriented x3, No Motor/Sensory Deficits, Normal Mood/Affect, Other (Upper extremity tremors known to be chronic) Skin: Normal Color, Warm/Dry Progress/Results/Core Measures Suspected Sepsis SIRS Temperature: Pulse: 90 Respiratory Rate: 16 Blood Pressure 130 /86 Mean: 101 Results/Orders Lab Results Laboratory Tests Test 01/18/23 14:50 Range/Units Group A Streptococcus Screen NEGATIVE NEGATIVE My Orders Orders - DIMITRI SHELBY MD Rapid Strep A Screen (01/18/23 14:59) Throat Culture Strep A Confirm (01/18/23 14:50) Vital Signs/I&O 01/18/23 14:41 Temp 36.1 Pulse 90 Resp 16 B/P (MAP) 130/86 (101) O2 Delivery Room Air Capillary Refill : Less Than 3 Seconds Blood Pressure Mean: 101 Progress Note : Progress Note Vital signs were unremarkable. Exam was relatively unremarkable. Rapid strep test was negative. Symptomatic care was recommended. Departure Impression Primary Impression: Ill feeling Additional Impression: Sore throat Disposition: 01 HOME, SELF-CARE Condition: Stable Departure-Patient Inst. Decision time for Depature: 15:36 Referrals: JERROD SERRANO APRN (PCP) Primary Care Physician [facility] (Family) Primary Care Physician Patient Instructions: Sore throat in adults Add. Discharge Instructions: You may take Tylenol (acetaminophen) up to 1000 mg every 6 hours as needed for sore throat. If not improving in the next couple of days, follow-up with your primary care provider. Return to the ER if you have worsening symptoms. All discharge instructions reviewed with patient and/or family. Voiced understanding. DIMITRI SHELBY MD Jan 18, 2023 15:37
[2023-01-18 15:40] VITALS: BP 137/86
[2023-01-21] MEDS ORDERED: AMOX500C2 PO (03:27)
== END 2023-01-18 15:40 | disposition home or self-care (01) ==
LOC: ER FS 14:41 → EDUNIT# 14:41 → ER FS 15:40
DX: J02.9 Acute pharyngitis, unspecified (principal); F17.210 Nicotine dependence, cigarettes, uncomplicated; Z28.310 Unvaccinated for COVID-19
CPT/HCPCS: 87430; 99283

== ENCOUNTER 2023-03-18 12:15 | Emergency (ER) | payer MEDICARE, MEDICAID ==
[~2023-03-18 12:15] MED LIST changes: +AMOX500C2 PO
--- NOTE | 2023-03-18 12:23 | ED Abdominal Pain ---
General Stated Complaint: ABD PAIN History of Present Illness Date Seen by Provider: Mar 18, 2023 Time Seen by Provider: 12:23 Initial Comments 52-year-old male presents with epigastric discomfort, belching, nausea and an episode of vomiting this morning. He reports that started after he "ate a donut" patient denies any fevers, chills cough or other systemic complaints. Allergies and Home Medications Allergies Coded Allergies: aripiprazole (Verified Allergy, Unknown, hallucinations, 10/01/18) zolpidem (Verified Allergy, Unknown, hallucinations, 10/01/18) Patient Home Medication List Home Medication List Reviewed: Yes Amoxicillin (Amoxicillin) 500 Mg Capsule, 500 MG PO BID Prescribed by: ROGELIO REYES on 01/21/23 0327 Budesonide/Formoterol Fumarate (Symbicort 160-4.5 Mcg Inhaler) 10.2 Gm Hfa.aer.ad, (Reported) Entered as Reported by: JAYDA CHRISTIANSEN on 10/01/18 181 Citalopram Hydrobromide (Celexa) 40 Mg Tablet, (Reported) Entered as Reported by: SUJATA COLLINS on 09/06/182052 Clindamycin HCl (Clindamycin HCl) 300 Mg Capsule, 300 MG PO TIDWM Prescribed by: LINDEN MERCEDES on 10/24/192033 Dicyclomine HCl (Dicyclomine HCl) 20 Mg Tablet, 20 MG PO QID PRN for ABDOMINAL PAIN Prescribed by: LUIS LECHUGA on 10/01/18 0501 Guaifenesin/Codeine Phosphate (Codeine-Guaifen 10-100 mg/5 ml) 10 Mg-100 Mg/5 Ml Liquid, 5 ML PO Q6H PRN for cough Prescribed by: LUIS LECHUGA on 07/03/22 1422 Haloperidol (Haldol Tab) 5 Mg Tab, 10 MG PO HS, (Reported) Entered as Reported by: SUJATA COLLINS on 09/06/182052 Hydrocodone Bit/Acetaminophen (Lortab 5 Mg Tablet) 1 Tab Tab, 1 EACH PO Q4-6HR PRN for PAIN-MODERATE Prescribed by: HILDA YBARRA on 01/24/19 1351 Ibuprofen (Ibuprofen) 800 Mg Tablet, 800 MG PO Q8H PRN for PAIN Prescribed by: LINDEN MERCEDES on 10/24/192033 Insulin Glargine,Hum.rec.anlog (Basaglar Kwikpen U-100) 100 Unit/1 Ml Insuln.pen, (Reported) Entered as Reported by: JAYDA CHRISTIANSEN on 10/01/181818 Lorazepam (Lorazepam) 1 Mg Tablet, (Reported) Entered as Reported by: JAYDA CHRISTIANSEN on 10/01/181818 Magnesium Citrate (Magnesium Citrate) 296 Ml Solution, 296 ML PO Q6H Prescribed by: HILDA YBARRA on 01/30/19 1258 Meloxicam (Meloxicam) 7.5 Mg Tablet, 7.5 MG PO DAILY Prescribed by: LUIS Torres ENYART on 10/30/21 1139 Ondansetron (Ondansetron Odt) 4 Mg Tab.rapdis, 4 MG PO Q6H PRN for NAUSEA/VOMITING Prescribed by: LUIS Torres ENYART on 07/23/19 2150 Polyethylene Glycol 3350 (Miralax) 17 Gram/Dose Powder, 17 GM PO DAILY PRN for CONSTIPATION-1ST LINE Prescribed by: LUIS NATIONRT on 10/30/21 1139 Promethazine HCl (Promethazine Tablet) 25 Mg Tablet, 25 MG PO Q12H PRN for NAUSEA/VOMITING Prescribed by: LUIS BARRERAYART on 10/12/22 1428 Psyllium Husk (Metamucil) 0.4 Gm Capsule, 0.4 GM PO DAILY Prescribed by: HILDA YBARRA on 01/30/19 1258 Simvastatin (Zocor) 40 Mg Tablet, HS, (Reported) Entered as Reported by: SUJATA COLLINS on 09/06/182052 Tramadol HCl (Tramadol HCl) 50 Mg Tablet, 50 MG PO Q4H PRN for PAIN-MILD (1-4) Prescribed by: HILDA YBARRA on 11/09/21 1624 [Lorazepam Tab 1MG] , (Reported) Entered as Reported by: SUJATA COLLINS on 09/06/182035 [Metformin Tab 500MG] , (Reported) Entered as Reported by: SUJATA COLLINS on 09/06/182035 [Phenytoin Ex Cap 100MG] , (Reported) Entered as Reported by: SUJATA COLLINS on 09/06/182035 [Pot Cl Micro Tab 20MEQ Er] , (Reported) Entered as Reported by: SUJATA COLLINS on 09/06/182035 [Risperidone Tab 3MG] , (Reported) Entered as Reported by: SUJATA COLLINS on 09/06/182035 Review of Systems Review of Systems Constitutional: see HPI EENTM: No Symptoms Reported Respiratory: No Symptoms Reported Cardiovascular: No Symptoms Reported Gastrointestinal: Abdominal Pain (epigastric ), Nausea, Vomiting Genitourinary: No Symptoms Reported Musculoskeletal: no symptoms reported Skin: no symptoms reported Psychiatric/Neurological: No Symptoms Reported Endocrine: No Symptoms Reported Past Lwefyph-Pvwfsj-Azfgrx Hx Immunizations Up To Date First/Initial COVID19 Vaccinat: unknown date Second COVID19 Vaccination Brody: unknown date Third COVID19 Vaccination Date: unknown date Seasonal Allergies Seasonal Allergies: No Past Medical History Surgery/Hospitalization HX: Pseudoseizure, Headaches, neck surgery Surgeries: Yes (cystoscopy) Gallbladder, Orthopedic Respiratory: Yes Asthma Cardiac: No Neurological: Yes (PSEUDOSEIZURES) Headaches /Migraines, Seizure Disorder, Traumatic Brain Injury Genitourinary: No Gastrointestinal: Yes Gastroesophageal Reflux, Hepatitis, Cirrhosis Musculoskeletal: No Endocrine: Yes Diabetes, Insulin dep HEENT: No Cancer: No Psychosocial: Yes (Suicidal and homicidal ideation hx) Bipolar, Personality Disorder Integumentary: No Blood Disorders: No Family Medical History No Pertinent Family Hx Physical Exam Vital Signs Vital Signs - First Documented 03/18/23 12:15 Temp 36.2 Pulse 92 Resp 16 B/P (MAP) 125/89 (101) Pulse Ox 97 O2 Delivery Room Air Capillary Refill : Height/Weight/BMI Height: 5'8.00" Weight: 220lbs. oz. 99.461010jt; 36.00 BMI Method:Stated General Appearance: WD/WN, no apparent distress Respiratory: lungs clear, normal breath sounds Cardiovascular: normal peripheral pulses, regular rate, rhythm Gastrointestinal: soft, tenderness (epigastric ) Extremities: normal range of motion Neurologic/Psychiatric: alert, normal mood/affect, oriented x 3 Skin: normal color, warm/dry Progress/Results/Core Measures Results/Orders Lab Results Laboratory Tests Test 03/18/23 12:32 Range/Units White Blood Count 5.4 4.3-11.0 10^3/uL Red Blood Count 5.11 4.30-5.52 10^6/uL Hemoglobin 16.1 13.3-17.7 g/dL Hematocrit 47 40-54 % Mean Corpuscular Volume 93 80-99 fL Mean Corpuscular Hemoglobin 32 25-34 pg Mean Corpuscular Hemoglobin Concent 34 32-36 g/dL Red Cell Distribution Width 13.2 10.0-14.5 % Platelet Count 71 L 130-400 10^3/uL Mean Platelet Volume 10.5 9.0-12.2 fL Immature Granulocyte % (Auto) 0 % Neutrophils (%) (Auto) 38 L 42-75 % Lymphocytes (%) (Auto) 48 H 12-44 % Monocytes (%) (Auto) 10 0-12 % Eosinophils (%) (Auto) 4 0-10 % Basophils (%) (Auto) 1 0-10 % Neutrophils # (Auto) 2.0 1.8-7.8 X 10^3 Lymphocytes # (Auto) 2.6 1.0-4.0 X 10^3 Monocytes # (Auto) 0.5 0.0-1.0 X 10^3 Eosinophils # (Auto) 0.2 0.0-0.3 10^3/uL Basophils # (Auto) 0.0 0.0-0.1 10^3/uL Immature Granulocyte # (Auto) 0.0 0.0-0.1 10^3/uL Neutrophils % (Manual) 40 % Lymphocytes % (Manual) 43 % Monocytes % (Manual) 8 % Eosinophils % (Manual) 3 % Basophils % (Manual) 0 % Band Neutrophils 3 % Atypical Lymphocytes 3 % Percent Immature Platelet Fraction 4.9 0.0-7.6 % Anisocytosis SLIGHT Sodium Level 144 135-145 MMOL/L Potassium Level 4.0 3.6-5.0 MMOL/L Chloride Level 107 98-107 MMOL/L Carbon Dioxide Level 24 21-32 MMOL/L Anion Gap 13 5-14 MMOL/L Blood Urea Nitrogen 20 H 7-18 MG/DL Creatinine 0.75 0.60-1.30 MG/DL Estimat Glomerular Filtration Rate 108 BUN/Creatinine Ratio 27 Glucose Level 150 H 70-105 MG/DL Calcium Level 9.2 8.5-10.1 MG/DL Corrected Calcium 9.1 8.5-10.1 MG/DL Total Bilirubin 0.4 0.1-1.0 MG/DL Aspartate Amino Transf (AST/SGOT) 36 H 5-34 U/L Alanine Aminotransferase (ALT/SGPT) 32 0-55 U/L Alkaline Phosphatase 63 40-136 U/L Total Protein 6.9 6.4-8.2 GM/DL Albumin 4.1 3.2-4.5 GM/DL Lipase 71 8-78 U/L Smear Scan YES My Orders Orders - MARISOL RICE DO Cbc With Automated Diff (03/18/23 12:24) Comprehensive Metabolic Panel (03/18/23 12:24) Lipase (03/18/23 12:24) Ondansetron Injection (Ondansetron Inj (03/18/23 12:30) Ns Iv 1000 Ml (Ns Iv 1000 Ml) (03/18/23 12:24) Famotidine Injection (Famotidine Injec (03/18/23 12:30) Manual Differential (03/18/23 12:32) Medications Given in ED Vital Signs/I&O 03/18/23 03/18/23 12:15 13:36 Temp 36.2 36.2 Pulse 92 84 Resp 16 16 B/P (MAP) 125/89 (101) 122/76 Pulse Ox 97 98 O2 Delivery Room Air Room Air 03/19/23 00:00 Intake Total 1000 ml Balance 1000 ml Progress Progress Note : Progress Note Patient's diagnostic studies were ordered reviewed and interpreted by me. Patient's platelets are low however they are at his baseline when reviewed to his prior labs. Patient's symptoms resolved with treatment suspect this likely a reflux flare. Patient is feeling much better was then resting comfortably and ready to be discharged home. Patient is at risk for increased morbidity and mortality based on his social determinants of health. Departure Impression Primary Impression: Reflux gastritis Additional Impression: Abdominal discomfort, epigastric Disposition: 01 HOME, SELF-CARE Condition: Stable Departure-Patient Inst. Referrals: JERROD SERRANO APRN (PCP) Primary Care Physician [facility] (Family) Primary Care Physician Patient Instructions: Gastritis ED, Stomach ache and stomach upset Add. Discharge Instructions: Pepcid twice daily as directed on package. Follow-up with your primary care provider as needed. MARISOL RICE DO Mar 18, 2023 12:23
[2023-03-18] MEDS ORDERED: NS IV 1000 ML 1,000 ML IV STA (12:24)
[2023-03-18] MEDS ORDERED: ONDANSETRON INJECTION 4 MG/2 ML (SDV) IVP ONE (12:30)
[2023-03-18] MEDS ORDERED: FAMOTIDINE INJ 20MG/2ML VIAL IVP ONE (12:30)
[2023-03-18 13:07] LABS: ALBUMIN 4.1 GM/DL (3.2-4.5); BILIRUBIN,TOTAL 0.4 MG/DL (0.1-1.0); CALCIUM 9.2 MG/DL (8.5-10.1); CREATININE SERUM 0.75 MG/DL (0.60-1.30); TOTAL PROTEIN 6.9 GM/DL (6.4-8.2)
[2023-03-18 13:22] LABS: HEMATOCRIT 47 % (40-54); HEMOGLOBIN 16.1 g/dL (13.3-17.7); LYMPHOCYTES % (AUTO) 48 % (12-44); MEAN CORPUSCULAR HEMOGLOBIN 32 pg (25-34); MEAN CORPUSCULAR HGB CONC 34 g/dL (32-36); MEAN CORPUSCULAR VOLUME 93 fL (80-99); MEAN PLATELET VOLUME 10.5 fL (9.0-12.2); NEUTROPHILS % (AUTO) 38 % (42-75); PLATELET COUNT 71 10^3/uL (130-400); WHITE BLOOD COUNT 5.4 10^3/uL (4.3-11.0)
[2023-03-18 13:23] LABS: BASOPHILS % (AUTO) 1 % (0-10); EOSINOPHILS # (AUTO) 0.2 10^3/uL (0.0-0.3); EOSINOPHILS % (AUTO) 4 % (0-10); LYMPHOCYTES # (AUTO) 2.6 X 10^3 (1.0-4.0); MONOCYTES # (AUTO) 0.5 X 10^3 (0.0-1.0); MONOCYTES % (AUTO) 10 % (0-12)
[2023-03-18 13:26] LABS: ATYPICAL LYMPHOCYTES 3 %; BAND NEUTROPHILS 3 %; BASOPHILS % (MANUAL) 0 %; EOSINOPHILS % (MANUAL) 3 %; LYMPHOCYTES % (MANUAL) 43 %; MONOCYTES % (MANUAL) 8 %; NEUTROPHILS % (MANUAL) 40 %; SMEAR SCAN COMMENT YES
[2023-03-18 13:27] LABS: ANISOCYTOSIS SLIGHT
[2023-03-18 13:36] VITALS: BP 122/76
== END 2023-03-18 13:37 | disposition home or self-care (01) ==
LOC: EDUNIT# 12:15 → ER FS 12:16
DX: K29.70 Gastritis, unspecified, without bleeding (principal); K21.9 Gastro-esophageal reflux disease without esophagitis; E11.9 Type 2 diabetes mellitus without complications; Z79.4 Long term (current) use of insulin
CPT/HCPCS: 36415; 80053; 83690; 85007; 85027

== ENCOUNTER 2023-03-22 16:50 | Emergency (ER) | payer MEDICARE, MEDICAID ==
[2023-03-22] MEDS ORDERED: ACET-2267 PO (16:58)
[2023-03-22 16:59] VITALS: BP 136/85
--- NOTE | 2023-03-22 16:59 | ED General ---
General Chief Complaint: Neurological Problems Stated Complaint: ARM ABRASION Source of Information: Patient, EMS, Old Records Exam Limitations: No Limitations History of Present Illness Date Seen by Provider: Mar 22, 2023 Time Seen by Provider: 16:50 Initial Comments 52-year-old male with past medical history of multiple psych issues including nonepileptic seizures coming in via EMS due to a seizure-like episode. He walked in the front yard, had an episode outside, was not postictal after. He has numerous episodes like this daily. Glucose was normal per EMS. Vitals were also unremarkable per them. He is having a mild sore throat but no other symptoms. He has not taken anything for it as of yet. Allergies and Home Medications Allergies Coded Allergies: aripiprazole (Verified Allergy, Unknown, hallucinations, 10/01/18) zolpidem (Verified Allergy, Unknown, hallucinations, 10/01/18) Patient Home Medication List Home Medication List Reviewed: Yes Amoxicillin (Amoxicillin) 500 Mg Capsule, 500 MG PO BID Prescribed by: ROGELIO REYES on 01/21/23 0327 Budesonide/Formoterol Fumarate (Symbicort 160-4.5 Mcg Inhaler) 10.2 Gm Hfa.aer.ad, (Reported) Entered as Reported by: JAYDA CHRISTIANSEN on 10/01/181818 Citalopram Hydrobromide (Celexa) 40 Mg Tablet, (Reported) Entered as Reported by: SUJATA COLLINS on 09/06/182052 Clindamycin HCl (Clindamycin HCl) 300 Mg Capsule, 300 MG PO TIDWM Prescribed by: LINDEN MERCEDES on 10/24/192033 Dicyclomine HCl (Dicyclomine HCl) 20 Mg Tablet, 20 MG PO QID PRN for ABDOMINAL PAIN Prescribed by: LUIS LECHUGA on 10/01/18 0501 Guaifenesin/Codeine Phosphate (Codeine-Guaifen 10-100 mg/5 ml) 10 Mg-100 Mg/5 Ml Liquid, 5 ML PO Q6H PRN for cough Prescribed by: LUIS LECHUGA on 07/03/22 142 Haloperidol (Haldol Tab) 5 Mg Tab, 10 MG PO HS, (Reported) Entered as Reported by: SUJATA COLLINS on 09/06/182052 Hydrocodone Bit/Acetaminophen (Lortab 5 Mg Tablet) 1 Tab Tab, 1 EACH PO Q4-6HR PRN for PAIN-MODERATE Prescribed by: HILDA YBARRA on 01/24/19 1351 Ibuprofen (Ibuprofen) 800 Mg Tablet, 800 MG PO Q8H PRN for PAIN Prescribed by: LINDEN MERCEDES on 10/24/192033 Insulin Glargine,Hum.rec.anlog (Basaglar Kwikpen U-100) 100 Unit/1 Ml Insuln.pen, (Reported) Entered as Reported by: JAYDA CHRISTIANSEN on 10/01/181818 Lorazepam (Lorazepam) 1 Mg Tablet, (Reported) Entered as Reported by: JAYDA CHRISTIANSEN on 10/01/181818 Magnesium Citrate (Magnesium Citrate) 296 Ml Solution, 296 ML PO Q6H Prescribed by: HILDA YBARRA on 01/30/19 1258 Meloxicam (Meloxicam) 7.5 Mg Tablet, 7.5 MG PO DAILY Prescribed by: LUIS NATIONRT on 10/30/21 1139 Ondansetron (Ondansetron Odt) 4 Mg Tab.rapdis, 4 MG PO Q6H PRN for NAUSEA/VOMITING Prescribed by: LUIS BARRERAYART on 07/23/19 2150 Polyethylene Glycol 3350 (Miralax) 17 Gram/Dose Powder, 17 GM PO DAILY PRN for CONSTIPATION-1ST LINE Prescribed by: LUIS LECHUGA on 10/30/21 1139 Promethazine HCl (Promethazine Tablet) 25 Mg Tablet, 25 MG PO Q12H PRN for NAUSEA/VOMITING Prescribed by: LUIS LECHUGA on 10/12/22 1428 Psyllium Husk (Metamucil) 0.4 Gm Capsule, 0.4 GM PO DAILY Prescribed by: HILDA YBARRA on 01/30/19 1258 Simvastatin (Zocor) 40 Mg Tablet, HS, (Reported) Entered as Reported by: SUJATA COLLINS on 09/06/182052 Tramadol HCl (Tramadol HCl) 50 Mg Tablet, 50 MG PO Q4H PRN for PAIN-MILD (1-4) Prescribed by: HILDA YBARRA on 11/09/21 1624 [Lorazepam Tab 1MG] , (Reported) Entered as Reported by: SUJATA COLLINS on 09/06/182035 [Metformin Tab 500MG] , (Reported) Entered as Reported by: SUJATA COLLINS on 09/06/182035 [Phenytoin Ex Cap 100MG] , (Reported) Entered as Reported by: SUJATA COLLINS on 09/06/182035 [Pot Cl Micro Tab 20MEQ Er] , (Reported) Entered as Reported by: SUJATA COLLINS on 09/06/182035 [Risperidone Tab 3MG] , (Reported) Entered as Reported by: SUJATA COLLINS on 09/06/182035 Review of Systems Review of Systems Constitutional: No fever EENTM: see HPI Respiratory: no symptoms reported Cardiovascular: no symptoms reported Gastrointestinal: no symptoms reported Genitourinary: no symptoms reported Musculoskeletal: no symptoms reported Psychiatric/Neurological: See HPI Hematologic/Lymphatic: No Symptoms Reported Past Yiyuczw-Akuzjc-Pgcwkm Hx Patient Social History Tobacco Use?: Yes Tobacco type used: Cigarettes Smoking Status: Current Everyday Smoker Use of E-Cig and/or Vaping dev: No Substance use?: Yes Substance type: Marijuana Substance frequency: Once in a while Alcohol Use?: No Pt feels they are or have been: No Immunizations Up To Date First/Initial COVID19 Vaccinat: unknown date Second COVID19 Vaccination Brody: unknown date Third COVID19 Vaccination Date: unknown date Seasonal Allergies Seasonal Allergies: No Past Medical History Surgery/Hospitalization HX: Pseudoseizure, Headaches, neck surgery Surgeries: Yes (cystoscopy) Gallbladder, Orthopedic Respiratory: Yes Asthma Cardiac: No Neurological: Yes (PSEUDOSEIZURES) Headaches /Migraines, Seizure Disorder, Traumatic Brain Injury Genitourinary: No Gastrointestinal: Yes Gastroesophageal Reflux, Hepatitis, Cirrhosis Musculoskeletal: No Endocrine: Yes Diabetes, Insulin dep HEENT: No Cancer: No Psychosocial: Yes (Suicidal and homicidal ideation hx) Bipolar, Personality Disorder Integumentary: No Blood Disorders: No Family Medical History No Pertinent Family Hx Physical Exam Vital Signs Capillary Refill : Height, Weight, BMI Height: 5'8.00" Weight: 220lbs. oz. [id number]; 36.00 BMI Method:Stated General Appearance: No Apparent Distress, WD/WN Eyes: Bilateral Eye Normal Inspection HEENT: PERRL/EOMI, Normal ENT Inspection, Pharynx Normal Neck: Full Range of Motion, Normal Inspection, Non Tender, Supple Respiratory: Chest Non Tender, Lungs Clear, Normal Breath Sounds, No Accessory Muscle Use, No Respiratory Distress Cardiovascular: Regular Rate, Rhythm, No Edema, Normal Peripheral Pulses Gastrointestinal: Normal Bowel Sounds, Non Tender, Soft; No Distended, No Guarding Back: Normal Inspection, No CVA Tenderness Extremity: Normal Capillary Refill, Normal Inspection, Normal Range of Motion, Non Tender, No Calf Tenderness Neurologic/Psychiatric: Alert, Oriented x3, No Motor/Sensory Deficits, Normal Mood/Affect Skin: Normal Color, Warm/Dry Progress/Results/Core Measures Suspected Sepsis SIRS Temperature: Pulse: Respiratory Rate: Blood Pressure / Mean: Results/Orders Vital Signs/I&O Capillary Refill : Progress Note : Progress Note 52-year-old male coming in after a seizure-like episode. ABCs were intact and vitals were stable on presentation. He is not postictal, and never was. In fact, on arrival here, he is not IV and complaining of a seizure-like episode. He mostly was wanting to chat with the nursing staff. He asked one of the nurses if she smoked and if he could have a cigarette. He states he feels fairly well otherwise. I believe he is stable for discharge with outpatient follow-up. He was sent home with strict return precautions Departure Impression Primary Impression: Psychogenic nonepileptic seizure Disposition: HOME, SELF-CARE Condition: Stable Departure-Patient Inst. Decision time for Depature: 17:00 Referrals: JERROD SERRANO APRN (PCP) Primary Care Physician [facility] (Family) Primary Care Physician Patient Instructions: Conversion Disorder Add. Discharge Instructions: Please follow back up with your regular doctor. Tylenol was sent to your pharmacy if you need to take it as needed for pain. Scripts Acetaminophen (Tylenol Extra Strength) 500 Mg Tablet 500 MG PO Q8H PRN for PAIN for 5 Days, #15 TAB Prov: ZANDRA ONEAL MD 03/22/23 ZANDRA ONEAL MD Mar 22, 2023 16:59
[2023-03-22] MEDS ORDERED: ACETAMINOPHEN 325 MG TABLET PO ONE (17:00)
== END 2023-03-22 17:01 | disposition home or self-care (01) ==
LOC: EDUNIT# 16:50 → ER FS 16:52
DX: F44.5 Conversion disorder with seizures or convulsions (principal); E11.9 Type 2 diabetes mellitus without complications; F17.210 Nicotine dependence, cigarettes, uncomplicated; Z79.4 Long term (current) use of insulin
CPT/HCPCS: 99283